=== PATIENT | male | born 1955 | race Caucasian/White ===

== ENCOUNTER 2023-05-10 12:01 | Outpatient (OUT) | payer MEDICARE, SELFPAY ==
[2023-05-10 13:38] LABS: Prostate Specific Antigen Dx <0.13 ng/mL (<=4.00)
== END 2023-05-10 12:02 | disposition home or self-care (01) ==
LOC: LAB 12:06
PROVIDERS: PCP Internal Medicine
DX: C61 Malignant neoplasm of prostate (principal)
CPT/HCPCS: 36415; 84153

== ENCOUNTER 2023-09-09 13:03 | Outpatient (OUT) | payer MEDICARE, SELFPAY ==
[2023-09-09 14:38] LABS: Prostate Specific Antigen Dx <0.13 ng/mL (<=4.00)
== END 2023-09-09 13:04 | disposition home or self-care (01) ==
LOC: LAB 13:05
PROVIDERS: PCP Internal Medicine; Visit Provider Urology
DX: N40.1 Benign prostatic hyperplasia with lower urinary tract symptoms (principal); C61 Malignant neoplasm of prostate
CPT/HCPCS: 36415; 84153

== ENCOUNTER 2023-11-05 12:44 | Outpatient (OUT) | payer MEDICARE, SELFPAY ==
--- OUTSIDE RECORDS SUMMARY | 2023-11-05 12:47 | XMS_ITS | CCD ---
Author Name Unknown Address [address] [place] [address] Organization [facility] Care Team Providers Care Band Manager Name Role Phone DANII MALDONADO Unavailable Unavailabl e ERNIE ELLIOTT Unavailable Unavailable JACQUELYN MAURER Attending Unavailable EARL, ERNIE Primary Care Unavailable EARL, ERNIE Referring Unavailable JACQUELYN MAURER Admitting Unavailable ERNIE ELLIOTT JR Primary Care Physician TANISHA ., DR MCPHERSON Admitting Unavailable TRINIDAD ., DR MCPHERSON Consulting Unavailable TRINIDAD ., DR MCPHERSON Attending Unavailable VALTSERING, DR DURANT Primary Care Unavailable ENGELER, DR JUDAH Herrera Consulting Unavailable ZIEBER, DR MAIKEL Galicia Consulting Unavailable SHARP, YONI Consulting Unavailable GEMBUS, GENESIS Consulting Unavailable TRINIDAD ., DR MCPHERSON Admitting Unavailable TRINIDAD ., DR MCPHERSON Consulting Unavailable VALONE, DR DURANT Primary Care Unavailable TRINIDAD ., DR MCPHERSON Attending Unavailable AGUBOSIM, MENDOZA Consulting Unavailable LANGENBERG, JUAN CARLOS Consulting Unavailable TRINIDAD ., DR MCPHERSON Admitting Unavailable TRINIDAD ., DR MCPHERSON Attending Unavailable VALONE, DR DURANT Primary Care Unavailable TRINIDAD ., DR MCPHERSON Attending Unavailable TRINDIAD ., DR MCPHERSON Admitting Unavailable TRINIDAD ., DR MCPHERSON Consulting Unavailable VALONE, DR DURANT Primary Care Unavailable ZIEBLUCAS, DR MAIKEL Galicia Consulting Unavailable CARTER, DR NGOZI Cannon Consulting Unavailable VALONE, DR DURANT Primary Care Unavailable CARTER, DR NGOIZ Cannon Attending Unavailable CARTER, DR NGOZI Cannon Admitting Unavailable TRINIDAD ., DR MCPHERSON Consulting Unavailable TRINIDAD ., DR MCPHERSON Attending Unavailable VALONE, DR DURANT Primary Care Unavailable TRINIDAD ., DR MCPHERSON Admitting Unavailable VALONE, DR DURANT Primary Care Unavailable SAMSA ., JOLEEN Attending Unavailable ZIYSABEL, DR MAIKEL Galicia Consulting Unavailable SAMSA ., JOLEEN Admitting Unavailable SAMSA ., JOLEEN Consulting Unavailable TRINIDAD ., DR MCPHERSON Admitting Unavailable TRINIDAD ., DR MCPHERSON Consulting Unavailable TRINIDAD ., DR MCPHERSON Attending Unavailable VALONE, DR DURANT Primary Care Unavailable YUNIEL ., ITZ Attending Unavailable YUNIEL ., ITZ Admitting Unavailable VALONE, DR DURANT Primary Care Unavailable YUNIEL ., ITZ Consulting Unavailable TRINIDAD ., DR MCPHERSON Admitting Unavailable TRINIDAD ., DR MCPHERSON Consulting Unavailable VALONE, DR DURANT Primary Care Unavailable TRINIDAD ., DR MCPHERSON Attending Unavailable TRINIDAD ., DR MCPHERSON Consulting Unavailable TRINIDAD ., DR MCPHERSON Attending Unavailable VALONE, DR DURANT Primary Care Unavailable TRINIDAD ., DR MCPHERSON Admitting Unavailable WEST, DR SANIA Mccauley Consulting Unavailable TRINIDAD ., DR MCPHERSON Admitting Unavailable TRINIDAD ., DR MCPHERSON Consulting Unavailable TRINIDAD ., DR MCPHERSON Attending Unavailable VALONE, DR DURANT Primary Care Unavailable ZIEBER, DR MAIKEL Galicia Consulting Unavailable VELASQUEZFRANCES Consulting Unavailable Raul, Ngozi Attending Unavailable Raul, Ngozi Referring Unavailable Earl Jr, Dr. Ernie Romero Primary Care Jes vailable Earl, Ernie Ogden Unavailable Unavailable Unavailable Wayne TRINIDAD Attending Unavailable TRINIDAD, Wayne Galicia Attending Unavailable TRINIDAD, Wayne Galicia Attending Unavailable Andressa Quigley Attending Unavailable TRINIDAD, Wayne Galicia Attending Unavailable TRINIDAD, Wayne Galicia Attending Unavailable TRINIDAD, Wayne Galicia Attending Unavailable Allergies Allergy Classification Reported Allergen(s) Allergy Type Date of Onset Reaction(s) Facility (1 source) Ramipril Drug Allergy 2 [facility] Repository (1 source) No Known Medication Allergies; 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: [No Known Medication Allergies] Propensity to adverse reactions (disorder) [facility] Repository Medications Current Medications Medication Drug Class(es) Dates Sig (Normalized) Sig (Original) Aspirin (7 sources) Platelet Aggregation Inhibitor, Nonsteroidal Anti-inflammatory Drug Start: 08-27-2019 aspirin 81 mg, Refills(s) 0 Start Date: 08/27/19 Status: Ordered take 1 tablet by mouth once luis y Aspirin 81 MG Oral Tablet Delayed Release TAKE 1 TABLET DAILY. Quantity: 90 Refills: 3 Ordered: 08-Apr-2023 Ngozi Carter MD Active atorvastatin 10 mg oral tablet (6 sources) HMG-CoA Reductase Inhibitor Start: 03-27-2021 take 1 mg by mouth once daily atorvastatin 10 mg Tab mg tab(s), Oral, Daily, Refills(s) 0 Start Date: 03/27/21 Status: Ordered ezetimibe 10 mg oral tablet (3 sources) Dietary Cholesterol Absorption Inhibitor Start: 10-29-2022 ezetimibe 10 mg Tab Refills(s) 0 Start Date: 10/29/22 Status: Ordered irbesartan (6 sources) Angiotensin 2 Receptor Genet Start: 08-27-2019 irbesartan Oral, Daily, Refills(s) 0 Start Date: 08/27/19 Status: Ordered metFORMIN (7 sources) Biguanide Start: 08-27-2019 metformin Oral , Refills(s) 0 Start Date: 08/27/19 Status: Ordered take 1 tablet by dimitry th once daily at mealtime metFORMIN HCl - 1000 MG Oral Tablet TAKE 1 TABLET DAILY WITH FOOD. Quantity: 0 Refills: 0 Ordered: 08-Mar-2022 DO Active montelukast 10 mg oral tablet (4 sources) Leukotriene Receptor Antagonist Start: 10-29-2022 montelukast 10 mg Tab Refills(s) 0 Start Date: 10/29/22 Status: Ordered Teagan (3 sources) Start: 08-27-2019 Teagan Oral, Da diana, Refills(s) 0 Start Date: 08/27/19 Status: Ordered Daliresp (7 sources) Phosphodiesterase 4 Inhibitor Start: 08-27-2019 Daliresp Oral, Daily, Refills(s) 0 Start Date: 08/27/19 Status: Ordered take 1 tablet by mouth once luis y Daliresp 500 MCG Oral Tablet TAKE 1 TABLET DAILY DIRECTED. Quantity: 0 Refills: 0 Ordered: 08-Mar-2022 DO Active spironolactone 50 mg oral tablet (4 sources) Aldosterone Antagonist Start: 10-29-2022 spironolactone 50 mg Tab Refills(s) 0 Start Date: 10/29/22 Status: Ordered Trelegy Ellipta 100 mcg-62.5 mcg-25 mcg inhalation powder (3 sources) Start: 10-29-2022 Trelegy Ellipta 100 mcg-62.5 mcg-25 mcg inhalation powder Refills(s) 0 Start Date: 10/29/22 Status: Ordered valsartan 40 mg oral tablet (3 sources) Angiotensin 2 Receptor Genet Start: 03-27-2021 take 1 mg by mouth twice daily valsartan 40 mg Tab mg tab(s), Oral, BID, Refills(s) 0 Start Date: 03/27/21 Status: Ordered Vitamin D (6 sources) Start: 08-27-2019 Vitamin D Oral, Refills(s) 0 Start Date: 08/27/19 Status: Ordered Completed/Discontinued Medications Medication Drug Class(es) Dates Sig (Normalized) Sig (Original) empagliflozin 10 mg oral tablet (1 source) Sodium-Glucose Cotransporter 2 Inhibitor take 1 tablet by mouth every week Jardiance 10 MG Oral Tablet TAKE 1 TABLET BY MOUTH ONCE A WEEK Quantity: 90 Refills: 3 Ordered: 08-Apr-2023 DO Active famotidine 40 mg oral tablet (1 source) Histamine-2 Receptor Antagonist take 1 tablet by mouth once daily Famotidine 40 MG Oral Tablet TAKE 1 TABLET DAILY. Quantity: 90 Refills: 3 Ordered: 08-Apr-2023 DO Active 30 actuat fluticasone furoate 0.1 mg/actuat / umeclidinium 0.0625 mg/actuat / vilanterol 0.025 mg/actuat dry powder inhaler (1 source) Anticholinergic, Corticosteroid, beta2-Adrenergic Agonist Trelegy Ellipta 100-62.5-25 MCG/ACT Inhalation Aerosol Powder Breath Activated as directed Quantity: 0 Refills: 0 Ordered: 08-Apr-2023 DO Active rosuvastatin calcium 40 mg oral tablet (1 source) HMG-CoA Reductase Inhibitor take 1 tablet by mouth once daily Rosuvastatin Calcium 40 MG Oral Tablet TAKE 1 TABLET DAILY. Quantity: 90 Refills: 3 Ordered: 08-Apr-2023 Ngozi Carter MD Active tiotropium 0.018 mg inhalation powder (3 sources) Anticholinergic Start: 08-27-2019 Spiriva 18 mcg Cap 18 microgram = 1 cap(s), Inhalation, Daily, Using only ONE capsule, have the patient inhale twice, # 90 cap(s), Refills(s) 0 Start Date: 08/27/19 Status: Ordered Start: 08-27-2019 Spiriva 18 mcg Cap 18 microgram = 1 cap(s), Inhalation, Daily, Using only ONE capsule, have the patient inhale twice, # 90 cap(s), Refills(s) 0 Start Date: 08/27/19 Status: Ordered Problems Active Problems Problem Classification Problem Date Documented Date Episodic/Chronic Cancer of prostate (17 sources) Malignant neoplasm of prostate; 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: [Malignant tumor of prostate] Onset: 02-16-2022 Chronic Chronic kidney disease (1 source) Chronic kidney disease, unspecified; 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: [CHRONIC KIDNEY DISEASE UNSPECIFIED] Onset: 10-01-2022 Chronic Chronic obstructive pulmonary disease and bronchiectasis (8 sources) Chronic obstructive lung disease; 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: [Chronic obstructive pulmonary disease, unspecified] Onset: 10-02-2022 08-27-2019 Chronic Congestive heart failure; nonhypertensive (1 source) Heart failure, unspecified; 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: [HEART FAILURE UNSPECIFIED] Onset: 10-01-2022 Chronic Coronary atherosclerosis and other heart disease (6 sources) Atherosclerotic heart disease of [place] coronary artery without angina pectoris; 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: [Coronary arteriosclerosis] Onset: 03-27-2018 Chronic Diabetes mellitus with complications (1 source) Type 2 diabetes mellitus with diabetic chronic kidney disease; 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: [TYPE 2 DM W/DIABETIC CKD] Onset: 10-01-2022 Chronic Diabetes mellitus without complication (2 sources) Type 2 diabetes mellitus without complications; 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: [Type 2 diabetes mellitus] Onset: 10-02-2022 Chronic Diabetes mellitus without complication (6 sources) Glycosuria 08-27-2019 Episodic Disorders of lipid metabolism (9 sources) Hyperlipidemia; 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: [Pure hypercholesterolemia, unspecified] Onset: 03-22-2022 08-27-2019 Chronic Essential hypertension (2 sources) Essential (primary) hypertension; 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: [Essential hypertension] Onset: 10-02-2022 Chronic Genitourinary symptoms and ill-defined conditions (16 sources) Increased frequency of urination; 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: [Nocturia] Onset: 09-29-2022 08-27-2019 Episodic Hyperplasia of prostate (17 sources) Benign prostatic hypertrophy with outflow obstruction; 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: [Benign prostatic hyperplasia with lower urinary tract symptoms] Onset: 02-14-2022 Chronic Hypertension with complications and secondary hypertension (1 source) Hypertensive heart and chronic kidney disease with heart failure and stage 1 through stage 4 chronic kidney disease, or unspecified chronic kidney disease; 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: [HTN HRT CKD W/HF STAGE 1-4/UNS CKD] Onset: 10-01-2022 Chronic Other diseases of kidney and ureters (1 source) Urinary tract obstruction; 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: [Other obstructive and reflux uropathy] Onset: 02-16-2022 Episodic Other liver diseases (1 source) Elevated liver enzymes level; 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: [Other nonspecific abnormal serum enzyme levels] Episodic Other nutritional; endocrine; and metabolic disorders (1 source) Obesity; 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: [Obesity, unspecified] Chronic Other screening for suspected conditions (not mental disorders or infectious disease) (12 sources) Raised prostate specific antigen; 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: [Elevated prostate specific antigen [PSA]] Onset: 02-08-2022 Episodic Pneumonia (except that caused by tuberculosis or sexually transmitted disease) (6 sources) Pneumonia 08-27-2019 Episodic Residual codes; unclassified (1 source) Sleep apnea, unspecified; 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: [SLEEP APNEA UNSPECIFIED] Onset: 10-01-2022 Chronic Residual codes; unclassified (1 source) Sleep apnea; 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: [Unspecified sleep apnea] Chronic Residual codes; unclassified (6 sources) H/O: anticoagulant therapy 08-27-2019 Episodic Respiratory failure; insufficiency; arrest (adult) (1 source) Dependence on supplemental oxygen; 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: [DEPENDENCE ON SUPPLEMENTAL OXYGEN] Onset: 10-01-2022 Chronic Screening and history of mental health and substance abuse codes (6 sources) Tobacco use and exposure - finding 08-27-2019 Chronic Screening and history of mental health and substance abuse codes (6 sources) Personal history of nicotine dependence; 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: [Ex-smoker] Onset: 10-01-2022 Episodic Unclassified (2 sources) Athscl heart disease of [place] coronary artery w/o ang pctrs / I25.10(ICD-9) Onset: 03-27-2018 Unclassified (6 sources) Long-term current use of aspirin 11-20-2021 Unclassified (1 source) CONTACT W/AND (SUSP) EXPOS COVID-19; 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: [CONTACT W/AND (SUSP) EXPOS COVID-19] Onset: 09-24-2022 Past or Other Problems Problem Classification Problem Date Documented Date Episodic/Chronic Complication of device; implant or graft (1 source) Other mechanical complication of other urinary catheter, initial encounter; 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: [OTHER MECH COMP OTH URIN CATH INIT] Onset: 10-01-2022 Episodic Other aftercare (1 source) Other penitentiary (current) drug therapy; 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: [OTH AIR OPERATIONS MANAGER CURRENT DRUG THERAPY] Onset: 10-01-2022 Episodic Other aftercare (1 source) director long term care (current) use of aspirin; 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: [SKILLED NURSING CURRENT USE OF ASPIRIN] Onset: 10-01-2022 Episodic Other aftercare (1 source) senior care (current) use of anticoagulants; 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: [SKILLED NURSING CURRNT USE ANTICOAGULANTS] Onset: 10-02-2022 Episodic Other aftercare (1 source) senior care (current) use of oral hypoglycemic drugs; 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: [AIR OPERATIONS MANAGER USE ORAL HYPOGLYCEMIC DX] Onset: 10-02-2022 Episodic Other male genital disorders (1 source) Other specified disorders of prostate; 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: [OTHER SPECIFIED DISORDERS PROSTATE] Onset: 02-14-2022 Episodic Residual codes; unclassified (1 source) Other specified postprocedural states; 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: [OTH SPECIFIED POSTPROCEDURAL STATES] Onset: 10-01-2022 Episodic Results Test Name Value Interpretation Reference Range Facil ity Patient Educationon 09-16-20 Patient Education Oncology Prostate Cancer The prostate is a small gland that produces fluid that makes up semen (seminal fluid). It is located below the bladder in men, in front of the rectum. Prostate cancer is the abnormal growth of cells in the prostate gland. What are the causes? The exact cause of this condition is not known. What increases the risk? You are more likely to develop this condition if: ? You are 65 years of age or older. ? You have a family history of prostate cancer. ? You have a family history of breast and ovarian cancer. ? You have genes that are passed from parent to child (inherited), such as BRCA1 and BRCA2. ? You have Hurt syndrome. men and men of descent are diagnosed with prostate cancer at higher rates than other men. The reasons for this are not well understood and are likely due to a combination of genetic and environmental factors. What are the signs or symptoms? Symptoms of this condition include: ? Problems with urination. This may include: ? A weak or interrupted flow of urine. ? Trouble starting or stopping urination. ? Trouble emptying the bladder all the way. ? The need to urinate more often, especially at night. ? Blood in urine or semen. ? Persistent pain or discomfort in the lower back, lower abdomen, or hips. ? Trouble getting an erection. ? Weakness or numbness in the legs or feet. How is this diagnosed? This condition can be diagnosed with: ? A digital rectal exam. For this exam, a health care provider inserts a gloved finger into the rectum to feel the prostate gland. ? A blood test called a prostate-specific antigen (PSA) test. ? A procedure in which a sample of tissue is taken from the prostate and checked under a microscope (prostate biopsy). ? An imaging test called transrectal ultrasonography. Once the condition is diagnosed, tests will be done to determine how far the cancer has spread. This is called staging the cancer. Staging may involve imaging tests, such as a bone scan, CT scan, PET scan, or MRI. Stages of prostate cancer The stages of prostate cancer are as follows: ? Stage 1 (I). At this stage, the cancer is found in the prostate only. The cancer is not visible on imaging tests, and it is usually found by accident, such as during prostate surgery. ? Stage 2 (II). At this stage, the cancer is more advanced than it is in stage 1, but the cancer has not spread outside the prostate. ? Stage 3 (III). At this stage, the cancer has spread beyond the outer layer of the prostate to nearby tissues. The cancer may be found in the seminal vesicles, which are near the bladder and the prostate. ? Stage 4 (IV). At this stage, the cancer has spread to other parts of the body, such as the lymph nodes, bones, bladder, rectum, liver, or lungs. Prostate cancer grading Prostate cancer is also graded according to how the cancer cells look under a microscope. This is called the Kenan score and the total score can range from 6?10, indicating how likely it is that the cancer will spread (metastasize) to other parts of the body. The higher the score, the greater the likelihood that the cancer will spread. ? [place] 6 or lower: This indicates that the cancer cells look similar to normal prostate cells (well differentiated). ? [place] 7: This indicates that the cancer cells look somewhat similar to normal prostate cells (moderately differentiated). ? [place] 8, 9, or 10: This indicates that the cancer cells look very different than normal prostate cells (poorly differentiated). How is this treated? Treatment for this condition depends on several factors, including the stage of the cancer, your age, personal preferences, and your overall health. Talk with your health care provider about treatment options that are recommended for you. Common treatments include: ? Observation for early stage prostate cancer (active surveillance). This involves having exams, blood tests, and in some cases, more biopsies. For some men, this is the only treatment needed. ? Surgery. Types of surgeries include: ? Open surgery (radical prostatectomy). In this surgery, a larger incision is made to remove the prostate. ? A laparoscopic radical prostatectomy. This is a surgery to remove the prostate and lymph nodes through several small incisions. It is often referred to as a minimally invasive surgery. ? A robotic radical prostatectomy. This is laparoscopic surgery to remove the prostate and lymph nodes with the help of robotic arms that are controlled by the surgeon. ? Cryoablation. This is surgery to freeze and destroy cancer cells. ? Radiation treatment. Types of radiation treatment include: ? External beam radiation. This type aims beams of radiation from outside the body at the prostate to destroy cancerous cells. ? Brachytherapy. This type uses radioactive needles, seeds, wires, or tubes that are implanted into the prostate gland. Like external be (more content not included)... Normal [facility] Urology Office/Clinic Noteon 09-16-2023 Urology Office/Clinic Note Chief Complaint prostate cancer HPI Staff 8m PSA DX: Prostate Cancer, Nocturia & BPH S/P EBRT 08/01/22 to 09/04/22 & Brachytherapy 09/27/22. Last Lupron 01/14/23 (per last encounter, pt's last Lupron) Last encounter with Dr. Love on 11/08/22. *No Urology Meds (pt prescribed Flomax, never picked up) PSA 09/09/23- <0.13 Dysuria: no Incomplete bladder emptying: no Hematuria: no Frequency: no Urgency: no Nocturia: 3-4x since radiation Stream: good stream Leaking: no Post void dripping: no Wearing pads/ Depends: no Urge incontinence: no Stress incontinence: no Incontinence without Sensory Awareness: no Abdominal pain: no Flank pain: no Sexual complaints: no History of Present Illness Tests reviewed: reviewed PSA I have reviewed the previous health record information and history for this patient from Dr. Trinidad. I have reviewed and verified the staff HPI to be accurate for this encounter. Review of Systems PHQ Score Initial Depression Screen Score: 0 SCORE ROS - Provider Constitutional: denies weight loss, denies hot flashes. Eyes: denies eye problems. Gastrointestinal: denies nausea, denies vomiting. Cardiovascular: denies chest pain or angina. Integumentary: no dryness Musculoskeletal: denies musculoskeletal symptoms. ENMT: denies otolaryngeal symptoms. Respiratory: no shortness of breath. Heme/Lymph: denies easy bleeding tendency, denies easy bruising tendency. Psychiatric: no confusion, no anxiety. Genitourinary: See HPI. Physical Exam Vitals & Measurements HR: 65(Peripheral) RR: 16 BP: 131/71 HT: 72 in HT: 182 cm WT: 113.6 kg WT: 249.92 lb BMI: 34.3 General Appearance: alert, no distress, well nourished, well developed male. Genitourinary: normal scrotum, normal testes, normal urethra, normal epididymis, normal vas deferens/spermatic cord. Flank Pain: none. Bladder: nonpalpable. Assessment/Plan 1. Prostate cancer (C61: Malignant neoplasm of prostate) PSA 03/28/20 - 14.90 & 5.5% 02/27/21 - 17.52 09/20/21 - 18.39 06/11/22 - 18.77 01/07/23 - <0.13 09/09/23 - <0.13 Fusion bx 02/08/22 - GS 7 (3+4) in 1 core and GS 6 (3+3) in 1 core. GG 2. EBRT 08/01/22 - 09/04/22. Brachytherapy 09/27/22. First Lupron given 07/23/22. Most recent Lupron given 01/14/23. Last encounter with Dr. Love 02/2023 and has f/u with him in 11/2023. Discussed recent PSA level which remains low and undetectable even with most recent Lupron inj being over 6 mos ago. No indication for Lupron injections at this time. Will continue to monitor PSA. -PSA in 6mo 2. Nocturia (R35.1: Nocturia) 3-4x/night since seeds (1x). [1] States this may be attributed to increased fluid intake at night. 3. BPH with urinary obstruction (N40.1: Benign prostatic hyperplasia with lower urinary tract symptoms) Not currently taking any BPH meds. No sample provided for UA today. Voiding well wo complaints. Follow-up With When Contact Information TANISHA GILL, Wayne Galicia, URL [facility] [address] [place] [address] [phone] Additional Instructions: 6 mos w/ PSA Patient Education Prostate Cancer I, Guera Oswald, personally scribed for Dr. Trinidad on 09/16/2023 14:40:01. . Documentation recorded by the scribe, Guera Oswald, accurately reflects the services(s) I performed and decisions made by me. Authenticated by Dr. Trinidad on 09/16/2023 14:41:32. 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 Medications aspirin, 81 mg atorvastatin 10 mg Tab, Oral, Daily Daliresp, Oral, Daily ezetimibe 10 mg Tab irbesartan, Oral, Daily metformin, Oral montelukast 10 mg Tab spironolactone 50 mg Tab Trelegy Ellipta 100 mcg-62.5 mcg-25 mcg inhalation powder Vitamin D, Oral Allergies No Known Medication Allergies Social History Tobacco Former smoker, quit more than 30 days ago Tobacco Use:. Cigarettes, 10/29/2022 Family History Diabetes: Father. Heart disease: Father. Immunizations Vaccine Date Status Comments SARS-CoV-2 (COVID-19) [id number] 07/05/2022 Recorded 2022-10-29: [id number] SARS-CoV-2 (COVID-19) mRNA BNT-162b2 vax 08/15/2021 Recorded SARS-CoV-2 (COVID-19) mRNA BNT-162b2 vax 01/23/2021 Recorded SARS-CoV-2 (COVID-19) mRNA BNT-162b2 vax 01/10/2021 Recorded SARS-CoV-2 (COVID-1 (more content not included)... [facility] Comment on above: Result Comment: Electronically Signed By : Wayne TRINIDAD MD\.br\Date and Time Signed: 09/16/23 14:41 EST\.br\Electronically Co-Signed By: Guera Oswald\.br\Date and Time Co-Signed: 09/16/23 14:40 EST [facility] 09-10-2023 Lab Reports [id number] .[id number] [facility] Office Visit (Cardiology)on 04-08-2023 Follow-up visit Diagnoses/Problems Assessed Arteriosclerosis of coronary artery (414.00) (I25.10) COPD (chronic obstructive pulmonary disease) (496) (J44.9) Dyslipidemia (272.4) (E78.5) Essential hypertension (401.9) (I10) Sleep apnea (780.57) (G47.30) Type 2 diabetes mellitus (250.00) (E11.9) Class 1 obesity with body mass index (BMI) of 33.0 to 33.9 in adult (278.00,V85.33) (E66.9,Z68.33) Former smoker (V15.82) (Z87.891) Prostate cancer (185) (C61) Orders Arteriosclerosis of coronary artery Changed: From Aspirin EC 81 MG TBEC TAKE 1 TABLET DAILY To Aspirin 81 MG Oral Tablet Delayed Release TAKE 1 TABLET DAILY Arteriosclerosis of coronary artery, Dyslipidemia Renew: Rosuvastatin Calcium 40 MG Oral Tablet; TAKE 1 TABLET DAILY Class 1 obesity with body mass index (BMI) of 33.0 to 33.9 in adult Healthy Weight Tips; Status:Complete - Retrospective Authorization; Done: 08Apr2023 Some eating tips that can help you lose weight.; Status:Complete - Retrospective Authorization; Done: 08Apr2023 SocHx: Former smoker Tobacco Use Screening; Status:Complete; Done: 08Apr2023 Patient Instructions Please bring all medicines, vitamins, and herbal supplements with you when you come to the office. Prescriptions will not be filled unless you are compliant with your follow up appointments or have a follow up appointment scheduled as per instruction of your physician. Refills should be requested at the time of your visit. Follow up in 1 year. Same meds. Lab as scheduled Chief Complaint SHERON ERAZO is being seen for an annual follow-up of. Patient is in the office for follow-up for the problems noted below. Since he was last seen in the office year ago he has had no cardiac events but he was diagnosed with prostate cancer received radiation and implants. He had an EKG by his PCP January 2023 which I reviewed and was normal. His weight remains above target and his physical examination otherwise was abnormal for diminished breath sounds caused by COPD. Assessment/recommenda tions: 1?mild coronary artery disease by cardiac catheterization involving the LAD normal 40% based on the catheter in 2017. Emphasized the need for secondary prevention measures which I listed and discussed with the patient. 2?diabetes under the care of PCP. A1c less than 7 3?hypertension being monitored on medical therapy with ARB valsartan 4?hyperlipidemia on rosuvastatin, testing scheduled this coming June 5?COPD Presently it is stable. He quit smoking 2 years ago 6?moderate obesity, his weight is coming down with exercise and dieting. 7?prostate cancer status post seeds implants in remission Annual follow-up will be scheduled Surgical History Problems History of Complete colonoscopy History of Jaw surgery History of Tonsillectomy with adenoidectomy Current Meds Medication NameInstruction Aldactone 50 MG Oral TabletTAKE 1 TABLET DAILY. Aspirin EC 81 MG TBECTAKE 1 TABLET DAILY. Daliresp 500 MCG Oral TabletTAKE 1 TABLET DAILY DIRECTED. Famotidine 40 MG Oral TabletTAKE 1 TABLET DAILY. Jardiance 10 MG Oral TabletTAKE 1 TABLET BY MOUTH ONCE A WEEK metFORMIN HCl - 1000 MG Oral TabletTAKE 1 TABLET DAILY WITH FOOD. Rosuvastatin Calcium 40 MG Oral TabletTAKE 1 TABLET DAILY. Singulair 10 MG Oral TabletTAKE 1 TABLET AT BEDTIME. Trelegy Ellipta 100-62.5-25 MCG/ACT Inhalation Aerosol Powder Breath Activatedas directed Allergies Medication No Known Drug Allergies Recorded By: Viri Salas; 01/10/2022 9:34:36 AM Social History Problems Former smoker (V15.82) (Z87.891) No alcohol use No illicit drug use Occasional caffeine consumption Vitals Vital Signs Recorded: 08Apr2023 01:21PM Heart Rate78, R Radial Rryqdrrw212, LUE, Sitting Hconuswyj30, LUE, Sitting Height6 ft Tbqzjn853 lb BMI Zbfuamesnr95.09 kg/m2 BSA Calculated2.32 Tobacco Useb) No PHQ-2 #1. Over the last 2 weeks have you felt down, depressed or hopeless? (If yes, answer PHQ-9 below)No PHQ-2 #2. Over the last 2 weeks have you felt little interest or pleasure in doing things? (If yes, answer PHQ-9 below)No Falls Screening (Age 18+)a) No falls within the last year Physical Exam Constitutional: alert and in no acute distress. Neck: neck is supple, symmetric, trachea midline, no masses and no thyromegaly . Pulmonary: no increased work of breathing or signs of respiratory distress and Auscultation of the lungs revealed decreased breath sounds diffusely. Cardiovascular: carotid pulses 2+ bilaterally with no bruit , JVP was normal, no thrills , regular rhythm, normal S1 and S2, no murmurs , pedal pulses 2+ bilaterally and no edema . Abdomen: abdomen non-tender, no masses and no hepatomegaly . Skin: skin warm and dry, normal skin turgor . Psychiatric judgment and insight is normal and oriented to person, place and time . Signatures Electronically signed by : Ngozi Carter MD; Apr 08 2023 1:56PM EST (Author) Normal [facility] Tobacco Screening.on 023 Adult depression screening assessment No [facility] [address] DO Work Phone: Fall risk assessment a) No falls within the last year [facility] [address] DO Work Phone: Tobacco use status CP b) No [facility] [address] DO Work Phone: Lab Reportson 01-17-2023 Lab Reports [id number]:[address] [facility] Refillon 01-16-2023 Refill [id number] Sheron Erazo Jr. 1955 M Date Provider Department Center 01/16/2023 JACQUELYN JACOBSON [facility] No family history on file Reason for Visit and Comments: Med Refill [[id number]] Normal [facility] Patient Educationon 01-15-20 23 Patient Education Oncology Cancer Screening for Men A cancer screening is a test or exam that checks for cancer. Your health care provider will recommend specific cancer screenings based on your age, personal history, and family history of cancer. Work with your health care provider to create a cancer screening schedule that protects your health. Why is cancer screening done? Cancer screening is done to look for cancer in the very early stages, before it spreads and becomes harder to treat and before you would start to notice symptoms. Finding cancer early improves the chances of successful treatment. It may save your life. Who should be screened for cancer? All men should be screened for colorectal cancer and skin cancer. Your health care provider may recommend screenings for other types of cancer if: ? You had cancer before. ? You have a family member with cancer. ? You have abnormal genes that could increase the risk of cancer. ? You have risk factors for certain cancers, such as smoking. When you should be screened for cancer depends on: ? Your age. ? Your medical history and your family's medical history. ? Certain lifestyle factors, such as smoking. ? Environmental exposure, such as to asbestos. What are some common cancer screenings? Lung cancer Lung cancer screening is done with a CT scan that looks for abnormal cells in the lungs. Discuss lung cancer screening with your health care provider if you are 55?74 years old and if any of the following apply to you: ? You currently smoke. ? You used to smoke heavily. ? You have a smoking history of 1 pack a day for 30 years or 2 packs a day for 15 years. ? You have quit smoking within the past 15 years. If you smoke heavily or if you used to smoke, you may need to be screened every year. Prostate cancer Prostate cancer screening is done with blood tests and an exam in which a health care provider uses a gloved finger to check prostate size (digital rectal exam). You may need to be screened for prostate cancer if: ? You have risk factors of prostate cancer, such as being or having a close family member with prostate cancer. ? You have inherited gene changes or a genetic condition, including BRCA1 or BRCA2 gene mutations or Hurt syndrome. ? You have symptoms of prostate cancer, such as problems urinating or erectile dysfunction. Prostate cancer screening for men with average risk may start at age 50. Men with risk factors may need to be screened earlier at age 40?45. Once you have been screened for prostate cancer, future screening may be recommended based on the results of your blood tests. Colorectal cancer All adults should have screening for colorectal cancer starting at age 50 and continuing until age 75. Your health care provider may recommend screening at age 45. You will have tests every 1?10 years, depending on your results and the type of screening test. If you have a family history of colon or rectal cancer or other risk factors, you may need to start having screenings earlier. Talk with your health care provider about which screening test is right for you and how often you should be screened. Colorectal cancer screening looks for cancer or for growths called polyps that often form before cancer starts. Tests to look for cancer or polyps include: ? Colonoscopy or flexible sigmoidoscopy. For these procedures, a flexible tube with a small camera is inserted into the rectum. ? CT colonography. This test uses X-rays and a contrast dye to check the colon for polyps. If a polyp is found, you may need to have a colonoscopy so the polyp can be located and removed. Tests to look for cancer in the stool (feces) include: ? Guaiac-based fecal occult blood test (FOBT). This test detects blood in stool. It can be done at home with a kit. ? Fecal immunochemical test (FIT). This test detects blood in stool. For this test, you will need to collect stool samples at home. ? Stool DNA test. This test looks for blood in stool and any changes in DNA that can lead to colon cancer. For this test, you will need to collect a stool sample at home and send it to a lab. Skin cancer Skin cancer screening is done by checking the skin for unusual moles or spots and any changes in existing moles. Your health care provider should check your skin for signs of skin cancer at every physical exam. You should check your skin every month and tell your health care provider right away if anything looks unusual. Men with a zqbcql-xrgg-sbqpqs risk for skin cancer may want to see a school library media specialist (jig builder) for an annual body check. Where to find more information ? National Cancer [place]: https://www.cancer.go v/about-cancer/screen ing ? Centers for Disease Control and Prevention: https://www.cdc.gov/c amiraher/dcpc/prevention /screening.htm ? [place] [employer]: https://www.cancer.or g/latest-news/4-cance z-krckxtfxv-kvzgh-for -men.html Contact a health care (more content not included)... Normal [facility] Urology Office/Clinic Noteon 01-14-2023 Urology Office/Clinic Note Chief Complaint Pt is here for 3 mos f/u HPI Staff Pt is here for 3 mos f/u to prostate cancer - s/p [place] Seed Implant done 09/2022 - EBRT completed 08/2022. PSA done 01/07/23 0.13. Dysuria: No Incomplete bladder emptying: No Hematuria: No Frequency: No Urgency: No Nocturia: moderate - states he gets up 3-4 times per night since having seeds placed Stream: Good Leaking: No History of Present Illness Tests reviewed: reviewed UA, PSA. I have reviewed the previous health record information and history for this patient from Dr. Trinidad. I have reviewed and verified the staff HPI to be accurate for this encounter. There have been no associated fever, chills, flank pain, or blood in the urine. Denies any urinary infections since last encounter. Review of Systems PHQ Score Initial Depression Screen Score: 0 ROS - Provider Constitutional: denies weight loss, denies hot flashes. Eyes: denies eye problems. Gastrointestinal: denies nausea, denies vomiting. Cardiovascular: denies chest pain or angina. Integumentary: no dryness Musculoskeletal: denies musculoskeletal symptoms. ENMT: denies otolaryngeal symptoms. Respiratory: no shortness of breath. Heme/Lymph: denies easy bleeding tendency, denies easy bruising tendency. Psychiatric: no confusion, no anxiety. Genitourinary: See HPI. Physical Exam Vitals & Measurements HR: 72(Peripheral) RR: 16 BP: 138/84 HT: 72 in HT: 182 cm WT: 113 kg WT: 248.6 lb BMI: 34.11 General Appearance: alert, no distress, well nourished, well developed male. Genitourinary: normal scrotum, normal testes, normal urethra, normal epididymis, normal vas deferens/spermatic cord. Flank Pain: none. Bladder: nonpalpable. Assessment/Plan 1. Prostate cancer (C61: Malignant neoplasm of prostate) PSA: 03/28/20 - 14.90 & 5.5% 02/27/21 - 17.52 09/20/21 - 18.39 06/11/22 - 18.77 01/07/23 - 0.13 Fusion/bx done 02/08/22. Kenan 7 (3+4) in multiple cores and Kenan 6 (3+3). Grade group 2. Unfavorable intermediate risk group. EBRT 08/01/22 to 09/04/22. Brachytherapy 09/27/22. First/last Lupron given 07/23/22. Last encounter with Dr. Love on 11/08/22. Denies SEs from Lupron. PSA dropped to zero, will continue to monitor. Pt will receive Lupron today, it will be his last injection as of right now. Lupron 45 mgIM injection given today with no complications. Left glute. Pt. denies side effects at this time. Follow up 8 mos with PSA or sooner if needed. Pt understands and agrees with plan. 2. Nocturia (R35.1: Nocturia) 3-4x/night since seeds (1x). 3. BPH with urinary obstruction (N40.1: Benign prostatic hyperplasia with lower urinary tract symptoms) UA today negative for blood and infection. Started Flomax 0.4 mg qd at prior OV, never picked up this med. Denies blood, burning. Feels his urination has improved. Not voicing any urinary habit complaints today. Follow-up With When Contact Information TANISHA GILL, Wayne Galicia, URL [facility] [address], [place] [address]- Additional Instructions: 8 mos with PSA Patient Education Cancer Screening for Men I, Toyin Fournier, personally scribed for Dr. Trinidad on 01/14/2023 14:29:54. . Documentation recorded by the scribe, Toyin Fournier, accurately reflects the services(s) I performed and decisions made by me. Authenticated by Dr. Trinidad on 01/14/2023 14:34:53. 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 Medications aspirin, 81 mg atorvastatin 10 mg Tab, Oral, Daily Daliresp, Oral, Daily ezetimibe 10 mg Tab irbesartan, Oral, Daily Lupron Depot 45 mg/6 months intramuscular injection, extended release, 45 mg, IntraMuscular, Once metformin, Oral montelukast 10 mg Tab spironolactone 50 mg Tab Trelegy Ellipta 100 mcg-62.5 mcg-25 mcg inhalation powder Vitamin D, Oral Allergies No Known Medication Allergies Social History Tobacco Former smoker, quit more than 30 days ago Tobacco Use:. Cigarettes, 10/29/2022 Family History Diabetes: Father. Heart disease: Father. Immunizations Vaccine Date Status Comments SARS-CoV-2 (COVID-19) mRNAMUL.ORD![id number] 07/05/2022 Recorded 2022-10-29: TPV65 SARS-CoV-2 (COVID-19) mRNA BNT-162b2 vax 08/15/2021 Recorded SARS-CoV-2 (COVID-19) mRNA BNT-162b2 vax 01/23/2021 (more content not included)... [facility] Comment on above: Result Comment: Electronically Signed By : Wayne TRINIDAD MD\.br\Date and Time Signed: 01/14/23 14:34 EDT\.br\Electronically Co-Signed By: Toyin Fournier.br\Date and Time Co-Signed: 01/14/23 14:30 EDT Consultation Noteon 11-16-19 Consultation Note [id number]:127 [facility] Ambulatory Visit Summaryon 0 10-29-2022 Ambulatory Visit Summary SHERON ERAZO JR :1955 Visit Date:10/29/2022 Ambulatory Visit Instructions Your Diagnosis Prostate cancer BPH with urinary obstruction Nocturia Tests Performed Urnls Dip Stick Auto w/o Microscopy POC 53783 Your Care Team Attending Physician - Wayne TRINIDAD MD Primary Care Physician - ERNIE ELLIOTT JR, DO This Is Your Medications List Contact prescribing physician if questions or concerns aspirin atorvastatin (atorvastatin 10 mg Tab) ergocalciferol (Vitamin D) ezetimibe (ezetimibe 10 mg Tab) fluticasone/umeclidin ium/vilanterol (Trelegy Ellipta 100 mcg-62.5 mcg-25 mcg inhalation powder) irbesartan metformin montelukast (montelukast 10 mg Tab) roflumilast (Daliresp) spironolactone (spironolactone 50 mg Tab) Procedures Performed Brachytherapy of prostate using fluoroscopic guidance (09/27/2022), External beam radiation therapy procedure (09/04/2022), MRI-US fusion guided transrectal biopsy of prostate (02/08/2022), TRUS w/bx (04/29/2017), TRUS w/bx (01/12/2014), Cataract, Colonoscopy, heart cath, Tonsillectomy. Discharge Vitals Heart Rate (Peripheral) 68 Respiratory Rate 16 Blood Pressure 140/77 Height 182 cm Height 72 in Weight 111 kg Weight 244.2 lb BMI 33.51 What to do next Scheduled Follow-Up Appointments Saturday 1:15 PM EDT With: Wayne TRINIDAD MD Where: [facility] Normal [address] [place] [address] [place] [address]- \.br\ You Need to Schedule the Following Appointments\.br\ Follow Up with Wayne TRINIDAD MD, URL When: \.br\ Where:\.br\ [facility] [address]\.br\ [place] [address]-\.br\ Medications\.br\ What How Much When Instructions\.br\ Unchanged aspirin 81 Milligram Contact prescribing physician if questions or concerns \.br\ Unchanged atorvastatin (atorvastatin 10 mg Tab) By Mouth Every day Contact prescribing physician if questions or concerns \.br\ Unchanged ergocalciferol (Vitamin D) By Mouth Contact prescribing physician if questions or concerns \.br\ Unchanged ezetimibe (ezetimibe 10 mg Tab) Contact prescribing physician if questions or concerns \.br\ Unchanged fluticasone/ umeclidinium/ vilanterol (Trelegy Ellipta 100 mcg-62.5 mcg-25 mcg inhalation powder) Contact prescribing physician if questions or concerns \.br\ Unchanged irbesartan By Mouth Every day Contact prescribing physician if questions or concerns \.br\ Unchanged metformin By Mouth Contact prescribing physician if questions or concerns \.br\ Unchanged montelukast (montelukast 10 mg Tab) Contact prescribing physician if questions or concerns \.br\ Unchanged roflumilast (Daliresp) By Mouth Every day Contact prescribing physician if questions or concerns \.br\ Unchanged spironolactone (spironolactone 50 mg Tab) Contact prescribing physician if questions or concerns \.br\ Test Results\.br\ Urnls Dip Stick Auto w/o Microscopy POC 77890 (10/29/2022)\.br\ Bilirubin Urine Dipstick - Negative\.br\ Blood Urine Dipstick - 1+ Small\.br\ Glucose Urine Dipstick - Negative\.br\ Ketones Urine Dipstick - Negative\.br\ Leukocytes Urine Dipstick - Negative\.br\ Nitrite Urine Dipstick - Negative\.br\ Protein Urine Dipstick - Negative\.br\ Specific [place] Urine Dipstick - 1.015\.br\ Urine Appearance Urine Dipstick - Clear\.br\ Urine Color Urine Dipstick - Yellow\.br\ Urobilinogen Urine Dipstick - Normal 0.2-1 EU/dl\.br\ pH Urine Dipstick - 5.5\.br\ Allergies\.br\ No Known Medication Allergies\.br\ Problems\.br\ Ongoing - Any problem that you are currently receiving treatment for.\.br\ Aspirin long-term use\.br\ BPH with urinary obstruction\.br\ COPD (chronic obstructive pulmonary disease)\.br\ Elevated PSA\.br\ Frequency of urination\.br\ Glycosuria\.br\ Hx of penitentiary use of blood thinners\.br\ Hyperlipidemia\.br\ Nocturia\.br\ Personal history of smoking\.br\ Pneumonia\.br\ Prostate cancer\.br\ Education Materials\.br\ Benign Prostatic Hyperplasia\.br\ \.br\ Benign prostatic hyperplasia (BPH) is an enlarged prostate gland that is caused by the normal aging process and not by cancer. The prostate is a walnut-sized gland that is involved in the production of semen. It is located in front of the rectum and below the bladder. The bladder stores urine and the urethra is the tube that carries the urine out of the body. The prostate may get bigger as a man gets older.\.br\ An enlarged prostate can press on the urethra. This can make it harder to pass urine. The build-up of urine in the bladder can cause infection. Back pressure and infection may progress to bladder damage and kidney (renal) failure.\.br\ What are the causes?\.br\ This condition is part of a normal aging process. However, not all men develop problems from this condition. If the prostate enlarges away from the urethra, urine flow will not be blocked. If it enlarges toward the urethra and compresses it, there will be problems passing urine.\.br\ What increases the risk?\.br\ This condition is more likely to develop in men over the age of 50 years.\.br\ What are the signs or symptoms?\.br\ Symptoms of this condition include:\.br\ ? \.br\ Getting up often during the night to urinate.\.br\ ? \.br\ Needing to urinate frequently during the day.\.br\ ? \.br\ Difficulty starting urine flow.\.br\ ? \.br\ Decrease in size and strength of your urine stream.\.br\ ? \.br\ Leaking (dribbling) after urinating.\.br\ ? \.br\ Inability to pass urine. This needs immediate treatment.\.br\ ? \.br\ Inability to completely empty your bladder.\.br\ ? \.br\ Pain when you pass urine. This is more common if there is also an infection.\.br\ ? \.br\ Urinary tract infection (UTI).\.br\ How is this diagnosed?\.br\ This condition is diagnosed based on your medical history, a physical exam, and your symptoms. Tests will also be done, such as:\.br\ ? \.br\ A post-void bladder scan. This measures any amount of urine that may remain in your bladder after you finish urinating.\.br\ ? \.br\ A digital rectal exam. In a rectal exam, your health care provider checks your prostate by putting a lubricated, gloved finger into your rectum to feel the back of your prostate gland. This exam detects the size of your gland and any abnormal lumps or growths.\.br\ ? \.br\ An exam of your urine (urinalysis).\.br\ ? \.br\ A prostate specific antigen (PSA) screening. This is a blood test used to screen for prostate cancer.\.br\ ? \.br\ An ultrasound. This test uses sound waves to electronically produce a picture of your prostate gland.\.br\ Your health care provider may refer you to a specialist in kidney and prostate diseases (urologist).\.br\ How is this treated?\.br\ Once symptoms begin, your health care provider will monitor your condition (active surveillance or watchful waiting). Treatment for this condition will depend on the severity of your condition. Treatment may include:\.br\ ? \.br\ Observation and yearly exams. This may be the only treatment needed if your condition and symptoms are mild.\.br\ ? \.br\ Medicines to relieve your symptoms, including:\.br\ ? \.br\ Medicines to shrink the prostate.\.br\ ? \.br\ Medicines to relax the muscle of the prostate.\.br\ ? \.br\ Surgery in severe cases. Surgery may include:\.br\ ? \.br\ Prostatectomy. In this procedure, the prostate tissue is removed completely through an open incision or with a laparoscope or robotics.\.br\ ? \.br\ Transurethral resection of the prostate (TURP). In this procedure, a tool is inserted through the opening at the tip of the penis (urethra). It is used to cut away tissue of the inner core of the prostate. The pieces are removed through the same opening of the penis. This removes the blockage.\.br\ ? \.br\ Transurethral incision (TUIP). In this procedure, small cuts are made in the prostate. This lessens the prostate's pressure on the urethra.\.br\ ? \.br\ Transurethral microwave thermotherapy (TUMT). This procedure uses microwaves to create heat. The heat destroys and removes a small amount of prostate tissue.\.br\ ? \.br\ Transurethral needle ablation (TUNA). This procedure uses radio frequencies to destroy and remove a small amount of prostate tissue.\.br\ ? \.br\ Interstitial laser coagulation (ILC). This procedure uses a laser to destroy and remove a small amount of prostate tissue.\.br\ ? \.br\ Transurethral electrovaporization (TUVP). This procedure uses electrodes to destroy and remove a small amount of prostate tissue.\.br\ ? \.br\ Prostatic urethral lift. This procedure inserts an implant to push the lobes of the prostate away from the urethra.\.br\ Follow these instructions at home:\.br\ ? \.br\ Take bkbu-gvw-dpcqxvs and prescription medicines only as told by your health care provider.\.br\ ? \.br\ Monitor your symptoms for any changes. Contact your health care pro [facility] Patient Educationon 10-29-19 Patient Education Urology Benign Prostatic Hyperplasia Benign prostatic hyperplasia (BPH) is an enlarged prostate gland that is caused by the normal aging process and not by cancer. The prostate is a walnut-sized gland that is involved in the production of semen. It is located in front of the rectum and below the bladder. The bladder stores urine and the urethra is the tube that carries the urine out of the body. The prostate may get bigger as a man gets older. An enlarged prostate can press on the urethra. This can make it harder to pass urine. The build-up of urine in the bladder can cause infection. Back pressure and infection may progress to bladder damage and kidney (renal) failure. What are the causes? This condition is part of a normal aging process. However, not all men develop problems from this condition. If the prostate enlarges away from the urethra, urine flow will not be blocked. If it enlarges toward the urethra and compresses it, there will be problems passing urine. What increases the risk? This condition is more likely to develop in men over the age of 50 years. What are the signs or symptoms? Symptoms of this condition include: ? Getting up often during the night to urinate. ? Needing to urinate frequently during the day. ? Difficulty starting urine flow. ? Decrease in size and strength of your urine stream. ? Leaking (dribbling) after urinating. ? Inability to pass urine. This needs immediate treatment. ? Inability to completely empty your bladder. ? Pain when you pass urine. This is more common if there is also an infection. ? Urinary tract infection (UTI). How is this diagnosed? This condition is diagnosed based on your medical history, a physical exam, and your symptoms. Tests will also be done, such as: ? A post-void bladder scan. This measures any amount of urine that may remain in your bladder after you finish urinating. ? A digital rectal exam. In a rectal exam, your health care provider checks your prostate by putting a lubricated, gloved finger into your rectum to feel the back of your prostate gland. This exam detects the size of your gland and any abnormal lumps or growths. ? An exam of your urine (urinalysis). ? A prostate specific antigen (PSA) screening. This is a blood test used to screen for prostate cancer. ? An ultrasound. This test uses sound waves to electronically produce a picture of your prostate gland. Your health care provider may refer you to a specialist in kidney and prostate diseases (urologist). How is this treated? Once symptoms begin, your health care provider will monitor your condition (active surveillance or watchful waiting). Treatment for this condition will depend on the severity of your condition. Treatment may include: ? Observation and yearly exams. This may be the only treatment needed if your condition and symptoms are mild. ? Medicines to relieve your symptoms, including: ? Medicines to shrink the prostate. ? Medicines to relax the muscle of the prostate. ? Surgery in severe cases. Surgery may include: ? Prostatectomy. In this procedure, the prostate tissue is removed completely through an open incision or with a laparoscope or robotics. ? Transurethral resection of the prostate (TURP). In this procedure, a tool is inserted through the opening at the tip of the penis (urethra). It is used to cut away tissue of the inner core of the prostate. The pieces are removed through the same opening of the penis. This removes the blockage. ? Transurethral incision (TUIP). In this procedure, small cuts are made in the prostate. This lessens the prostate's pressure on the urethra. ? Transurethral microwave thermotherapy (TUMT). This procedure uses microwaves to create heat. The heat destroys and removes a small amount of prostate tissue. ? Transurethral needle ablation (TUNA). This procedure uses radio frequencies to destroy and remove a small amount of prostate tissue. ? Interstitial laser coagulation (ILC). This procedure uses a laser to destroy and remove a small amount of prostate tissue. ? Transurethral electrovaporization (TUVP). This procedure uses electrodes to destroy and remove a small amount of prostate tissue. ? Prostatic urethral lift. This procedure inserts an implant to push the lobes of the prostate away from the urethra. Follow these instructions at home: ? Take [id number] and prescription medicines only as told by your health care provider. ? Monitor your symptoms for any changes. Contact your health care provider with any changes. ? Avoid drinking large amounts of liquid before going to bed or out in public. ? Avoid or reduce how much caffeine or alcohol you drink. ? Give yourself time when you urinate. ? Keep all follow-up visits as told by your health care provider. This is important. Contact a health care provider if: ? You have unexplained back pain. ? Your symptoms do not get better with treatment. ? You d (more content not included)... Normal [facility] Urology Office/Clinic Noteon 10-29-2022 Urology Office/Clinic Note Chief Complaint S/P Brachytherapy HPI Staff S/P Brachytherapy done 09/27/22 for Tx of Prostate Cancer. Radiation Tx completed 09/04/22 LAST LUPRON Inj 07/23/22 *No Urology Medications Post Op catheter removed in our office on 10/03/22. Denies pain/burning and blood in urine. Denies any complaints urinating. History of Present Illness Tests reviewed: reviewed UA. I have reviewed the previous health record information and history for this patient from Dr. Trinidad. I have reviewed and verified the staff HPI to be accurate for this encounter. There have been no associated fever, chills, flank pain, or blood in the urine. Denies any urinary infections since last encounter. Review of Systems PHQ Score Initial Depression Screen Score: 0 ROS - Provider Constitutional: denies weight loss, denies hot flashes. Eyes: denies eye problems. Gastrointestinal: denies nausea, denies vomiting. Cardiovascular: denies chest pain or angina. Integumentary: no dryness Musculoskeletal: denies musculoskeletal symptoms. ENMT: denies otolaryngeal symptoms. Respiratory: no shortness of breath. Heme/Lymph: denies easy bleeding tendency, denies easy bruising tendency. Psychiatric: no confusion, no anxiety. Genitourinary: See HPI. Physical Exam Vitals & Measurements HR: 68(Peripheral) RR: 16 BP: 140/77 HT: 72 in HT: 182 cm WT: 111 kg WT: 244.2 lb BMI: 33.51 General Appearance: alert, no distress, well nourished, well developed male. Genitourinary: normal scrotum, normal testes, normal urethra, normal epididymis, normal vas deferens/spermatic cord. Flank Pain: none. Bladder: nonpalpable. Assessment/Plan 1. Prostate cancer (C61: Malignant neoplasm of prostate) PSA: 03/28/20 - 14.9 & 5.5% 02/27/21 - 17.52 09/20/21 - 18.39 06/11/22 - 18.77 S/p fusion/bx done 02/08/22. [place] 7 (3+4) in multiple cores and [place] 6 (3+3). S/P Brachytherapy done 09/27/22. PO catheter removed in our office on 10/03/22. Radiation Tx completed 09/04/22. Last Lupron given 07/23/22. UA today shows small blood, expected after PO brachytherapy procedure. Pt has not had a PSA since the procedure. Pt reports he is overall doing well after procedure. Denies urgency, burning, blood, feeling of incomplete bladder emptying. Occasional pt bogs up but once he relaxes, he is fine. Follow up in 2.5-3 mos with a PSA. 2. BPH with urinary obstruction (N40.1: Benign prostatic hyperplasia with lower urinary tract symptoms) Pt not taking any BPH medications. Denies pain/burning and blood in urine. Evening is the worst time for urination. Pt to start Flomax 0.4mg QD, take 1 hour before sxs usually worsen in the evening. SEs discussed. Rx sent to [facility] mail order (pt confirmed). 3. Nocturia (R35.1: Nocturia) Nocturia 1x/hour, drinks a lot of soda in the evening. Nocturia slightly more than before procedure. Stream best during the night. Follow-up With When Contact Information TANISHA GILL, Wayne Galicia, URL [facility] [address], [place] [address]- Additional Instructions: f/u in 2-3 mos with PSA Patient Education Benign Prostatic Hyperplasia I, Toyin Fournier, personally scribed for Dr. Trinidad on 10/29/2022 15:02:58. . Documentation recorded by the scribe, Toyin Fournier, accurately reflects the services(s) I performed and decisions made by me. Authenticated by Dr. Trinidad on 10/29/2022 15:04:26. Problem List/Past Medical History Ongoing Aspirin long-term use BPH with urinary obstruction COPD (chronic obstructive pulmonary disease) Elevated PSA Frequency of urination Glycosuria Hx of penitentiary use of blood thinners Hyperlipidemia Nocturia Personal history of smoking Pneumonia Prostate cancer Historical No qualifying data Procedure/Surgical History Brachytherapy of prostate using fluoroscopic guidance (09/27/2022), External beam radiation therapy procedure (09/04/2022), MRI-US fusion guided transrectal biopsy of prostate (02/08/2022), TRUS w/bx (04/29/2017), TRUS w/bx (01/12/2014), Cataract, Colonoscopy, heart cath, Tonsillectomy. Medications aspirin, 81 mg atorvastatin 10 mg Tab, Oral, Daily Daliresp, Oral, Daily ezetimibe 10 mg Tab irbesartan, Oral, Daily metformin, Oral montelukast 10 mg Tab spironolactone 50 mg Tab Trelegy Ellipta 100 mcg-62.5 mcg-25 mcg inhalation powder Vitamin D, Oral Allergies No Known Medication Allergies Social History Tobacco Former smoker, quit more than 30 days ago Tobacco Use:. Cigarettes, 10/29/2022 Family History Diabetes: Father. Heart disease: Father. Immunizations Vaccine Date Status Comments SARS-CoV-2 (COVID-19) mRNAMUL.ORD![id number] 07/05/2022 Recorded 2022-10-29: [id number] SARS-CoV-2 (COVID-19) mRNA BNT-162b2 vax 08/15/2021 Recorded SARS-CoV-2 (COVID-19) mRNA BNT-162b2 vax 01/23/2021 Recorded SARS-CoV-2 (COVID-19) mRNA BNT-162b2 vax 01/10/2021 Recorded SARS-CoV-2 (COV (more content not included)... Normal [facility] Comment on above: Result Comment: Electronically Signed By : Wayne TRINIDAD MD\.br\Date and Time Signed: 10/29/22 15:04 EST\.br\Electronically Co-Signed By: Toyin Fournier\.br\Date and Time Co-Signed: 10/29/22 15:[address] LUNG CANCER SCREENINGon 0 10-26-2022 CT LUNG CANCER SCREENING EXAMINATION: CT LUNG CANCER SCREENING HISTORY: Nicotine dependence COMPARISON: CTA chest 11/14/2021 TECHNIQUE: Axial, Coronal, and Sagittal images were created without the administration of IV contrast material. Dose reduction techniques were achieved by using automated exposure control and/or adjustment of mA and/or kV according to patient size and/or use of iterative reconstruction technique. FINDINGS: LUNGS: No visible pulmonary disease. PLEURA: No mass, effusion, or pneumothorax. VASCULATURE: No abnormality. CIELO: No mass or pathologic adenopathy. MEDIASTINUM: No mass or pathologic adenopathy. CARDIAC: Atherosclerotic coronary artery disease. AORTA: No aneurysm or dissection. CHEST WALL: Prominent increased density within the subareolar soft tissues bilaterally compatible with gynecomastia. BONES: No bone lesion or fracture. LIMITED ABDOMEN: No suspicious findings. Limited images of the upper abdomen. OTHER: Negative. IMPRESSION: 1. Lung-RADS Category 1 Negative. No nodules and definitely benign nodules. Continue annual screening with LDCT in 12 months. Electronically authenticated by: MAIKEL ESTEVEZ Date: 2022-10-26 15:22 Normal [facility] Refillon 10-15-2022 Refill [id number] Sheron Erazo Jr. 1955 M Date Provider Department Center 10/15/2022 [facility] ONC DCC No family history on file Reason for Visit and Comments: Med Refill [[id number]] Normal [facility] Ambulatory Visit Summaryon 1 12-04-2021 Ambulatory Visit Summary SHERON ERAZO JR :1955 Visit Date:10/03/2022 Ambulatory Visit Instructions Your Diagnosis Prostate cancer Your Care Team Attending Physician - Andressa Quigley MD Primary Care Physician - ERNIE ELLIOTT JR, DO This Is Your Medications List aspirin atorvastatin (atorvastatin 10 mg Tab) ergocalciferol (Vitamin D) irbesartan metformin predniSONE (Teagan) roflumilast (Daliresp) tiotropium (Spiriva 18 mcg Cap) valsartan (valsartan 40 mg Tab) Procedures Performed MRI-US fusion guided transrectal biopsy of prostate (02/08/2022), TRUS w/bx (04/29/2017), TRUS w/bx (01/12/2014), Cataract, Colonoscopy, heart cath, Tonsillectomy. What to do next Scheduled Follow-Up Appointments Saturday 1:30 PM EST With: TANISHA GILL, Wayne Galicia Where: [facility] Normal [address] [place] [address]- \.br\ Medications\.br\ What How Much When Instructions\.br\ Unchanged aspirin 81 Milligram\.br\ Unchanged atorvastatin (atorvastatin 10 mg Tab) By Mouth Every day\.br\ Unchanged ergocalciferol (Vitamin D) By Mouth\.br\ Unchanged irbesartan By Mouth Every day\.br\ Unchanged metformin By Mouth\.br\ Unchanged predniSONE (Teagan) By Mouth Every day\.br\ Unchanged roflumilast (Daliresp) By Mouth Every day\.br\ Unchanged tiotropium (Spiriva 18 mcg Cap) 1 Capsules Inhalation Every day Using only ONE capsule, have the patient inhale twice \.br\ Unchanged valsartan (valsartan 40 mg Tab) By Mouth 2 times a day\.br\ Allergies\.br\ No Known Medication Allergies\.br\ Problems\.br\ Ongoing - Any problem that you are currently receiving treatment for.\.br\ Aspirin long-term use\.br\ BPH with urinary obstruction\.br\ COPD (chronic obstructive pulmonary disease)\.br\ Elevated PSA\.br\ Frequency of urination\.br\ Glycosuria\.br\ 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 Nurse Consultation Noteon Nurse Consultation Note Reason for Visit Post Op Catheter removed in our office today with no complications. They have been advised to drink plenty of fluids. Pt has been instructed to call the office in the event that they are not able to void in the next 4-6 hours, or go the ER. Advised Pt if they experience any severe bleeding, fever over 101 and/ or shaking chills to go to the ER. Assessment/Plan 1. Prostate cancer (C61: Malignant neoplasm of prostate) S/P Brachytherapy done 09/27/[address] Will follow up with Dr Trinidad 10/29/21 Medications aspirin, 81 mg atorvastatin 10 mg Tab, Oral, Daily Daliresp, Oral, Daily irbesartan, Oral, Daily metformin, Oral Teagan, Oral, Daily Spiriva 18 mcg Cap, 18 mcg= 1 cap(s), Inhalation, Daily valsartan 40 mg Tab, Oral, BID Vitamin D, Oral Allergies No Known Medication Allergies Immunizations Vaccine Date Status SARS-CoV-2 (COVID-19) mRNA BNT-162b2 vax 01/23/2021 Recorded Normal [facility] RAD - MISCon 10-03-2022 RAD - MISC [id number] .00CD:127 [facility] ECG 12-Leadon 10-01-2022 ECG 12-Lead [id number] .00CD:[address] [facility] Consultation Noteon 09-28-20 Consultation Note [id number] .00CD:127 [facility] Consultation Note [id number] .00CD:127 [facility] Lab Reportson 09-28-2022 Lab Reports [id number] .00CD:127 [facility] Operative Reporton Operative Report [id number] .00CD:[address] [facility] RAD - MISCon 09-28-2022 RAD - MIS [id number] .00CD:[address] [facility] XR PELVIS 1_2 VIEWSon 2021 XR PELVIS 1_2 VIEWS EXAM: XR PELVIS 1_2 VIEWS HISTORY: Malignant tumor of prostate COMPARISON: None. TECHNIQUE: FINDINGS: A single intraprocedural spot fluoroscopic image demonstrates numerous radioactive seeds projected over region of prostate. Bladder is filled with radiopaque contrast without evidence of extravasation. IMPRESSION: 1. Radioactive prostate seeding without evidence of acute bladder involvement. Electronically authenticated by: MAIKEL ESTEVEZ Date: 2022-09-28 07:22 Normal [facility] CBC AUTO DIFFon 09-27-2022 BASO # 0.0 103/ul Normal 0.0-0.1 [facility] Comment on above: Performed By: #### BMP #### [facility] [address] [place] [address] Dr. Juanita Sagastume Basophils/100 WBC (Bld) 0.2 % Normal 0.2-2.0 [facility] Comment on above: Performed By: #### BMP #### [facility] [address] [place] [address] Dr. Juanita Sagastume EO # 0.2 103/ul Normal 0.0-0.7 [facility] Comment on above: Performed By: #### BMP #### [facility] [address] [place] [address] Dr. Juanita Sagastume Eosinophils/100 WBC (Bld) 2.2 % Normal 0.9-7.0 [facility] Comment on above: Performed By: #### BMP #### [facility] [address] [place] [address] Dr. Juanita Sagastume Erythrocyte distribution width (RBC) [Ratio] 17.5 % Critically high 11.0-15.0 [facility] Comment on above: Performed By: #### BMP #### [facility] [address] [place] [address] Dr. Juanita Sagastume Hematocrit (Bld) [Volume fraction] 41.3 % Critically low 42.0-54.0 [facility] Comment on above: Performed By: #### BMP #### [facility] [address] [place] [address] Dr. Juanita Sagastume Hemoglobin (Bld) [Mass/Vol] 13.5 g/dL Critically low 14.0-18.0 [facility] Comment on above: Performed By: #### BMP #### [facility] [address] [place] [address] Dr. Juanita Sagastume IG # 0.04 10e3/ul Critically high 0.00-0.03 [facility] Comment on above: Performed By: #### BMP #### [facility] [address] [place] [address] Dr. Juanita Sagastume IG % 0.5 % Normal 0.0-0.5 [facility] Comment on above: Performed By: #### BMP #### [facility] [address] [place] [address] Dr. Juanita Sagastume LYMPH # 0.8 103/ul Critically low 1.2-3.8 [facility] Comment on above: Performed By: #### BMP #### [facility] [address] [place] [address] Dr. Juanita Sagastume Lymphocytes/100 WBC (Bld) 9.3 % Critically low 20.5-60.0 [facility] Comment on above: Performed By: #### BMP #### [facility] [address] [place] [address] Dr. Juanita Sagastume MANUAL DIFF REQ NO Normal [facility] Comment on above: Performed By: #### BMP #### [facility] [address] [place] [address] Dr. Juanita Sagastume MCH (RBC) [Entitic mass] 26.7 pg Normal 25.9-34.0 [facility] Comment on above: Performed By: #### BMP #### [facility] [address] [place] [address] Dr. Juanita Sagastume MCHC (RBC) [Mass/Vol] 32.7 g/dL Normal 29.9-35.2 [facility] Comment on above: Performed By: #### BMP #### [facility] [address] [address] [address] Juanita Sagastume MCV (RBC) [Entitic vol] 81.8 fL Normal 80.0-94.0 [facility] Comment on above: Performed By: #### BMP #### [facility] [address] [address] [address] Juanita Sagastume MONO # 1.0 103/ul Critically high 0.3-0.8 [facility] Comment on above: Performed By: #### BMP #### [facility] [address] [address] [address] Juanita Sagastume Monocytes/100 WBC (Bld) 11.5 % Normal 1.7-12.0 [facility] Comment on above: Performed By: #### BMP #### [facility] [address] [address] [address] Juanita Sagastume NEUT # 6.3 103/ul Normal 1.4-6.5 [facility] Comment on above: Performed By: #### BMP #### [facility] [address] [address] [address] Juanita Sagastume Neutrophils/100 WBC (Bld) 76.3 % Critically high 43.0-75.0 [facility] Comment on above: Performed By: #### BMP #### [facility] [address] [address] [address] Juanita Sagastume Platelet mean volume (Bld) [Entitic vol] 8.5 fL Critically low 9.5-13.5 [facility] Comment on above: Performed By: #### BMP #### [facility] [address] [address] [address] Juanita Sagastume PLT 273 103/ul Normal 150-450 [facility] Comment on above: Performed By: #### BMP #### [facility] [address] [address] [address] Juanita Sagastume RBC 5.05 106/ul Normal 4.70-6.10 [facility] Comment on above: Performed By: #### BMP #### [facility] [address] [address] [address] Juanita Sagastume WBC 8.3 103/ul Normal 4.0-11.0 [facility] Comment on above: Performed By: #### BMP #### [facility] [address] [place] [address] Dr. Juanita Sagastume PROF CHEM 8 (BAS METB)on Anion gap [Moles/Vol] 10.9 mmol/L Normal [facility] Comment on above: Performed By: #### BMP #### [facility] [address] [place] [address] Dr. Juanita Sagastume Calcium [Mass/Vol] 10.2 mg/dL Critically high 8.5-10.1 [facility] Comment on above: Performed By: #### BMP #### [facility] [address] [place] [address] Dr. Juanita Sagastume Chloride [Moles/Vol] 98 mmol/L Normal 98-107 [facility] Comment on above: Performed By: #### BMP #### [facility] [address] [place] [address] Dr. Juanita Sagastume CO2 [Moles/Vol] 34.5 mmol/L Critically high 21.0-32.0 [facility] Comment on above: Performed By: #### BMP #### [facility] [address] [place] [address] Dr. Juanita Sagastume Creatinine [Mass/Vol] 1.06 mg/dL Normal 0.70-1.30 [facility] Comment on above: Performed By: #### BMP #### [facility] [address] [place] [address] Dr. Juanita Sagastume EGFR-AF SOL[place] ISLANDER >60 Normal >=60 [facility] Comment on above: Performed By: #### BMP #### [facility] [address] [place] [address] Dr. Juanita Sagastume EGFR-NON AF [place]ER >60 Normal >=60 [facility] Comment on above: Performed By: #### BMP #### [facility] [address] [place] [address] Dr. Juanita Sagastume Glucose [Mass/Vol] 122 mg/dL Critically high 74-106 [facility] Comment on above: Performed By: #### BMP #### [facility] [address] [place] [address] Dr. Juanita Sagastume Potassium [Moles/Vol] 4.4 mmol/L Normal 3.5-5.1 [facility] Comment on above: Performed By: #### BMP #### [facility] [address] [place] [address] Dr. Juanita Sagastume Sodium [Moles/Vol] 139 mmol/L Normal 136-145 [facility] Comment on above: Performed By: #### BMP #### [facility] [address] [place] [address] Dr. Juanita Sagastume Urea nitrogen [Mass/Vol] 16.0 mg/dL Normal 7.0-18.0 [facility] [place] Comment on above: Performed By: #### BMP #### [facility] [address] [place] [address] Dr. Juanita Sagastume Urea nitrogen/Creati nine [Mass ratio] 15.1 mg/mg Normal [facility] [place] Comment on above: Performed By: #### BMP #### [facility] [address] [place] [address] Dr. Juanita Sagastume PROTIMEon 09-27-2022 INR Coag (PPP) [Relative time] 0.93 {INR} Normal [facility] [place] Comment on above: Performed By: #### BMP #### [facility] [address] [place] [address] Dr. Juanita Sagastume INR GUIDELINES SEE BELOW Normal [facility] Comment on above: Result Comment: DESIRED INR: 2.0 - 3.0 C ONDITIONS NOT LISTED BELOW 2.5 - 3.5 FOR PROSTHETIC HEART VALVE REPLACEMENT 2.5 - 3.5 RECURRENT THROMBOSIS Performed By: #### B MP #### [facility] [address] [place] [address] Dr. Juanita Sagastume PT Coag (PPP) [Time] 10.1 s Normal 9.0-11.6 [facility] [place] Comment on above: Performed By: #### BMP #### [facility] [address] [place] [address] Dr. Juanita Sagastume Covid-19 PCR (CVDTB)on SARS-CoV-2 (COVID-19) RNA SKYLAR+probe Ql (Unsp spec) Not detected Normal NOT DETECTED [facility] [place] Comment on above: Result Comment: This test is not yet ruben roved or cleared by the [place] FDA. When there are no FDA-approved or cleared tests available, and other criteria are met, FDA can make tests available under an emergency access mechanism called an Emergency Use Authorization (EUA). The EUA for this test is supported by the [place] of Health and Human Service's (HHS's) declaration that circumstances exist to justify the emergency use of in vitro diagnostics for the detection and/or diagnosis of the virus that causes COVID-19. This EUA will remain in effect (meaning this test can be used) for the duration of the COVID-19 declaration justifying emergency of IVDs, unless it is terminated or revoked by FDA (after which the test may no longer be used). When diagnostic testing is negative, the possibility of a false negative should be considered in the context of a patient's recent exposures and the presence of clinical signs and symptoms consistent with SARS-CoV-2. Performed By: #### C VDTBH #### [facility] [address] [place] [address] Dr. Juanita Sagastume LIPID PROFILEon 03-16-2022 CHOL-HDL RATIO NORM SEE BELOW Normal [facility] Comment on above: Result Comment: 3.3 - 4.4 LOW RISK 4.4 - 7.1 AVERAGE RISK 7.1 - 11.0 MODERATE RISK >11.0 HIGH RISK Performed By: #### A LT, LIPID, AST #### [facility] [address] [place] [address] Dr. Juanita Sagastume Cholesterol [Mass/Vol] 111 mg/dL Normal <=200 [facility] [place] Comment on above: Performed By: #### ALT, LIPID, AST #### [facility] [address] [place] [address] Dr. Juanita Sagastume Cholesterol in HDL [Mass/Vol] 35 mg/dL Critically low 40-60 [facility] [place] Comment on above: Performed By: #### ALT, LIPID, AST #### [facility] [address] [address] [address] Juanita Sagastume Cholesterol in LDL [Mass/Vol] 29.6 mg/dL Normal [facility] [place] Comment on above: Performed By: #### ALT, LIPID, AST #### [facility] [address] [address] [address] Juanita Sagastume Cholesterol.tot al/Cholesterol in HDL [Mass ratio] 3.2 {ratio} Normal [facility] [place] Comment on above: Performed By: #### ALT, LIPID, AST #### [facility] [address] [address] [address] Juanita Sagastume HDL NORMAL > or = 60 mg/dl - LO W CARDIOVASCULAR RISK <40 mg/dl - HIGH CARDIOVASCULAR RISK Normal [facility] [place] Comment on above: Performed By: #### ALT, LIPID, AST #### [facility] [address] [place] [address] Dr. Juanita Sagastume LDL CALC NORMAL SEE BELOW Normal [facility] Comment on above: Result Comment: <100 mg/dl OPTIMAL 100 - 129 mg/dl NEAR OR ABOVE OPTIMAL 130 - 159 mg/dl BORDERLINE HIGH 160 - 189 mg/dl HIGH >190 mg/dl VERY HIGH Performed By: #### A LT, LIPID, AST #### [facility] [address] [place] [address] Dr. Juanita Sagastume Triglyceride [Mass/Vol] 232 mg/dL Critically high <=150 [facility] [place] Comment on above: Performed By: #### ALT, LIPID, AST #### [facility] [address] [address] [address] Juanita Sagastume VLDL CALC 46.4 mg/dL Normal [facility] [place] Comment on above: Performed By: #### ALT, LIPID, AST #### [facility] [address] [place] [address] Dr. Juanita Sagastume SGGabbie 03-16-2022 AST [Catalytic activity/Vol] 22 U/L Normal 15-37 [facility] [place] Comment on above: Performed By: #### ALT, LIPID, AST #### [facility] [address] [address] [address] Juanita Sagastume SGPTon 03-16-2022 ALT [Catalytic activity/Vol] 24 U/L Normal 16-63 [facility] [place] Comment on above: Performed By: #### ALT, LIPID, AST #### [facility] [address] [place] [address] Dr. Juanita Sagastume CREATININEon 03-02-2022 Creatinine [Mass/Vol] 1.19 mg/dL Normal 0.70-1.30 [facility] [place] Comment on above: Performed By: #### CREA #### [facility] [address] [place] [address] Dr. Juanita Sagastume EGFR-AF [place]LANDER >60 Normal >=60 [facility] [place] Comment on above: Performed By: #### CREA #### [facility] [address] [place] [address] Dr. Juanita Sagastume EGFR-NON AF [place]ER >60 Normal >=60 [facility] [place] Comment on above: Performed By: #### CREA #### [facility] [address] [place] [address] ABD/PELV WO W CONon 03-02 CT ABD/PELV WO W CON EXAMINATION: CT ABD/PELV WO W CON HISTORY: Lower urinary tract symptoms due to benign prostatic hypertrophy COMPARISON: No relevant comparison available. TECHNIQUE: Axial, Coronal, and Sagittal images were created without and with IV contrast. Dose reduction techniques were achieved by using automated exposure control and/or adjustment of mA and/or kV according to patient size and/or use of iterative reconstruction technique. FINDINGS: LUNG BASES: No visible pulmonary or pleural disease. LIVER: No enlargement, atrophy, abnormal density, or significant focal lesion. BILIARY: No dilatation or calcification. PANCREAS: No lesion, fluid collection, ductal dilatation, or atrophy. SPLEEN: No enlargement or focal lesion. ADRENALS: No mass or enlargement. KIDNEYS: No mass, obstruction, or calcification. BOWEL/MESENTERY: No visible mass, obstruction, or bowel wall thickening. AORTA/VASCULAR: Moderate marked atherosclerotic disease. No aneurysm. RETROPERITONEUM: No mass or adenopathy. LYMPH NODES: No adenopathy. URINARY BLADDER: No visible focal wall thickening, lesion, or calculus. PELVIC ORGANS: No visible mass. Pelvic organs appropriate for patient age. ABDOMINAL WALL: No mass or hernia. BONES: No bony lesion or fracture. OTHER: Negative. IMPRESSION: 1. No abnormal or suspicious findings to account for patient's symptoms. 2. Moderate atherosclerotic disease of aorta and major branches without aneurysm. Electronically authenticated by: MAIKEL ESTEVEZ Date: 2022-03-02 14:[address] [facility] BONE [place] WH BODYon 022 NM BONE [facility] BODY EXAMINATION: AR BONE [facility] BODY HISTORY: Primary malignant neoplasm of prostate COMPARISON: No relevant comparison available. TECHNIQUE: After obtaining the patient's consent, 25.1 mCi Technetium 99m MDP was injected intravenously. Images were obtained approximately two hours later. FINDINGS: ABNORMALITIES: No suspicious foci of radiotracer uptake. OTHER: A few scattered foci of mild radiotracer uptake favoring degenerative joint disease. IMPRESSION: 1. No findings to suggest skeletal metastasis. Electronically authenticated by: MAIKEL ESTEVEZ Date: 2022-03-02 15:26 Normal [facility] POINT OF CARE GLUCOSEon 01-13 Glucose [Mass/Vol] 117 mg/dL Critically high 74-106 [facility] Comment on above: Performed By: #### BMP #### [facility] [address] [address] [address] Juanita Sagastume [facility] 01-13 SARS-CoV-2 (COVID-19) RNA SKYLAR+probe Ql (Unsp spec) Not detected Normal NOT DETECTED [facility] Comment on above: Result Comment: This test is not yet ruben roved or cleared by the [place] FDA. When there are no FDA-approved or cleared tests available, and other criteria are met, FDA can make tests available under an emergency access mechanism called an Emergency Use Authorization (EUA). The EUA for this test is supported by the [place] Operator of Health and Human Service's (HHS's) declaration that circumstances exist to justify the emergency use of in vitro diagnostics for the detection and/or diagnosis of the virus that causes COVID-19. This EUA will remain in effect (meaning this test can be used) for the duration of the COVID-19 declaration justifying emergency of IVDs, unless it is terminated or revoked by FDA (after which the test may no longer be used). When diagnostic testing is negative, the possibility of a false negative should be considered in the context of a patient's recent exposures and the presence of clinical signs and symptoms consistent with SARS-CoV-2. Performed By: #### C VDTB #### [facility] [address] [place] [address] Dr. Juanita Sagastume CBC AUTO DIFFon 01-29-2022 BASO # 0.0 103/ul Normal 0.0-0.1 [facility] [place] Comment on above: Performed By: #### CBC #### [facility] [address] [place] [address] Dr. Juanita Sagastume Basophils/100 WBC (Bld) 0.3 % Normal 0.2-2.0 [facility] [place] Comment on above: Performed By: #### CBC #### [facility] [address] [place] [address] Dr. Juanita Sagastume EO # 0.2 103/ul Normal 0.0-0.7 [facility] [place] Comment on above: Performed By: #### CBC #### [facility] [address] [place] [address] Dr. Juanita Sagastume Eosinophils/100 WBC (Bld) 1.8 % Normal 0.9-7.0 [facility] [place] Comment on above: Performed By: #### CBC #### [facility] [address] [place] [address] Dr. Juanita Sagastume Erythrocyte distribution width (RBC) [Ratio] 15.4 % Critically high 11.0-15.0 [facility] Comment on above: Performed By: #### CBC #### [facility] [address] [place] [address] Dr. Juanita Sagastume Hematocrit (Bld) [Volume fraction] 42.3 % Normal 42.0-54.0 [facility] [place] Comment on above: Performed By: #### CBC #### [facility] [address] [place] [address] Dr. Juanita Sagastume Hemoglobin (Bld) [Mass/Vol] 13.3 g/dL Critically low 14.0-18.0 [facility] [place] Comment on above: Performed By: #### CBC #### [facility] [address] [address] [address] Juanita Sagastume IG # 0.06 10e3/ul Critically high 0.00-0.03 [facility] Comment on above: Performed By: #### CBC #### [facility] [address] [address] [address] Juanita Sagastume IG % 0.5 % Normal 0.0-0.5 [facility] [place] Comment on above: Performed By: #### CBC #### [facility] [address] [address] [address] Juanita Sagastume LYMPH # 2.0 103/ul Normal 1.2-3.8 [facility] [place] Comment on above: Performed By: #### CBC #### [facility] [address] [place] [address] Dr. Juanita Sagastume Lymphocytes/100 WBC (Bld) 17.6 % Critically low 20.5-60.0 [facility] [place] Comment on above: Performed By: #### CBC #### [facility] [address] [place] [address] Dr. Juanita Sagastume MANUAL DIFF REQ NO Normal [facility] Comment on above: Performed By: #### CBC #### [facility] [address] [place] [address] Dr. Juanita Sagastume MCH (RBC) [Entitic mass] 26.5 pg Normal 25.9-34.0 [facility] [place] Comment on above: Performed By: #### CBC #### [facility] [address] [place] [address] Dr. Juanita Sagastume MCHC (RBC) [Mass/Vol] 31.4 g/dL Normal 29.9-35.2 [facility] [place] Comment on above: Performed By: #### CBC #### [facility] [address] [place] [address] Dr. Juanita Sagastume MCV (RBC) [Entitic vol] 84.3 fL Normal 80.0-94.0 [facility] [place] Comment on above: Performed By: #### CBC #### [facility] [address] [address] [address] Juanita Sagastume MONO # 0.9 103/ul Critically high 0.3-0.8 [facility] Comment on above: Performed By: #### CBC #### [facility] [address] [place] [address] Dr. Juanita Sagastume Monocytes/100 WBC (Bld) 7.6 % Normal 1.7-12.0 [facility] [place] Comment on above: Performed By: #### CBC #### [facility] [address] [place] [address] Dr. Juanita Sagastume NEUT # 8.3 103/ul Critically high 1.4-6.5 [facility] Comment on above: Performed By: #### CBC #### [facility] [address] [place] [address] Dr. Juanita Sagastume Neutrophils/100 WBC (Bld) 72.2 % Normal 43.0-75.0 [facility] Comment on above: Performed By: #### CBC #### [facility] [address] [place] [address] Dr. Juanita Sagastume Platelet mean volume (Bld) [Entitic vol] 9.2 fL Critically low 9.5-13.5 [facility] Comment on above: Performed By: #### CBC #### [facility] [address] [place] [address] Dr. Juanita Sagastume PLT 343 103/ul Normal 150-450 [facility] Comment on above: Performed By: #### CBC #### [facility] [address] [place] [address] Dr. Juanita Sagastume RBC 5.02 106/ul Normal 4.70-6.10 [facility] Comment on above: Performed By: #### CBC #### [facility] [address] [place] [address] Dr. Juanita Sagastume WBC 11.5 103/ul Critically high 4.0-11.0 [facility] Comment on above: Performed By: #### CBC #### [facility] [address] [place] [address] Dr. Juanita Sagastume PROF CHEM 8 (BAS METB)on Anion gap [Moles/Vol] 14.6 mmol/L Normal [facility] Comment on above: Performed By: #### BMP #### [facility] [address] [address] [address] Juanita Sagastume Calcium [Mass/Vol] 9.6 mg/dL Normal 8.5-10.1 [facility] [place] Comment on above: Performed By: #### BMP #### [facility] [address] [address] [address] Juanita Sagastume Chloride [Moles/Vol] 97 mmol/L Critically low 98-107 [facility] [place] Comment on above: Performed By: #### BMP #### [facility] [address] [address] [address] Juanita Sagastume CO2 [Moles/Vol] 28.9 mmol/L Normal 22.0-30.0 [facility] Comment on above: Performed By: #### BMP #### [facility] [address] [address] [address] Juanita Sagastume Creatinine [Mass/Vol] 1.23 mg/dL Normal 0.66-1.25 [facility] [place] Comment on above: Performed By: #### BMP #### [facility] [address] [place] [address] Dr. Juanita Sagastume EGFR-AF [place] >60 Normal >=60 [facility] Comment on above: Performed By: #### BMP #### [facility] [address] [address] [address] Juanita Sagastume EGFR-NON AF [place] 59 mL/min/1.73m2 Critically low >=60 [facility] Comment on above: Performed By: #### BMP #### [facility] [address] [address] [address] Juanita Sagastume Glucose [Mass/Vol] 105 mg/dL Normal 74-106 [facility] Comment on above: Performed By: #### BMP #### [facility] [address] [place] [address] Dr. Juanita Sagastume Potassium [Moles/Vol] 4.5 mmol/L Normal 3.4-5.0 [facility] Comment on above: Performed By: #### BMP #### [facility] [address] [place] [address] Dr. Juanita Sagastume Sodium [Moles/Vol] 136 mmol/L Critically low 137-145 [facility] Comment on above: Performed By: #### BMP #### [facility] [address] [place] [address] Dr. Juanita Sagastume Urea nitrogen [Mass/Vol] 16.0 mg/dL Normal 7.0-18.0 [facility] Comment on above: Performed By: #### BMP #### [facility] [address] [place] [address] Dr. Juanita Sagastume Urea nitrogen/Creati nine [Mass ratio] 13.0 mg/mg Normal [facility] Comment on above: Performed By: #### BMP #### [facility] [address] [place] [address] Dr. Juanita Sagastume PROTIMEon 01-29-2022 INR Coag (PPP) [Relative time] 0.98 {INR} Normal [facility] Comment on above: Performed By: #### BMP #### [facility] [address] [place] [address] Dr. Juanita Sagastume INR GUIDELINES SEE BELOW Normal [facility] Comment on above: Result Comment: DESIRED INR: 2.0 - 3.0 C ONDITIONS NOT LISTED BELOW 2.5 - 3.5 FOR PROSTHETIC HEART VALVE REPLACEMENT 2.5 - 3.5 RECURRENT THROMBOSIS Performed By: #### B MP #### [facility] [address] [place] [address] Dr. Juanita Sagastume PT Coag (PPP) [Time] 10.6 s Normal 9.0-11.6 [facility] Comment on above: Performed By: #### BMP #### [facility] [address] [place] [address] Dr. Juanita Sagastume PTTon 01-29-2022 aPTT Coag (Bld) [Time] 28.5 s Normal 22.3-36.2 [facility] Comment on above: Performed By: #### BMP #### [facility] [address] [address] [address] Juanita Sagastume MR prostate wo/w conon 10-17 MR prostate wo/w con [facility] [place] [address] [place] [address] MRI Report Signed Patient: Sheron Erazo MR#: [id number] : 1955 Acct:[id number] Age/Sex: 66 / M ADM Date: 10/10/21 Loc: MR Room: Type: [facility] Attending Dr: Wayne Trinidad MD Ordering Provider: Wayne Trinidad MD Date of Service: 10/10/21 MR/MR prostate wo/w con: R97.20 Copies to: Wayne Trinidad MD MRI OF THE PROSTATE GLAND WITHOUT AND WITH CONTRAST INDICATIONS: Elevated prostate specific antigen. Evaluate for prostate cancer. TECHNIQUE: MRI of the prostate gland with and without 20 ML ProHance. PI-RADS v2 Classification* PI-RADS 5 Highly Suspicious for Malignancy PI-RADS 4 Probably Malignant PI-RADS 3 Indeterminate PI-RADS 2 Probably Benign PI-RADS 1 Most Probably Benign *Based Upon ACR Guidelines October 2014. FINDINGS: Prostate Gland Size: The prostate gland measures 3.8 cm AP x 4.4 cm transverse x 5.4 cm craniocaudad consistent with a prostatic gland volume of 46.9 cc. PSA Density: Not given. Central Zone: No tumor-suspicious regions are identified in the central zone. Transition Zone: There is moderate nodular enlargement and inhomogeneous signal intensity throughout the transition zone most commonly due to benign prostatic hyperplasia. There is a tumor suspicious region, PI-RADS 4, involving the anterior left transition zone in the 1 o'clock position. This is located in the mid gland. This measures 6 x 12 x 13 mm. this demonstrates non-circumscribed moderate T2 shortening and evidence of restricted diffusion with contrast enhancement. Peripheral Zone: There is a tumor suspicious region, PI-RADS 4, involving the midline of the peripheral zone in the 6 o'clock position. This is at the apex. This demonstrates non- circumscribed moderate T2 shortening and evidence of restricted diffusion with contrast enhancement. Extraprostatic Extension: None. Seminal Vesicle Invasion: None. Pelvic Lymphadenopathy: None. Urinary Bladder: The urinary bladder wall is normal in thickness without evidence of a mass. Rectosigmoid Colon: There is no evidence of diverticulitis or diverticulosis. No rectosigmoid mass is identified. No rectal hemorrhoids are seen. No inguinal hernia is identified. Pelvic Osseous Structures: There is no evidence of osseous metastatic disease at the level of the prostate gland. IMPRESSION: 1. The prostate gland volume equals 46.9 cc. 2. Tumor suspicious region, PI-RADS 4, involving the anterior left transition zone in the 1 o'clock position. This is located in the mid gland. 3. Tumor suspicious region, PI-RADS 4, involving the midline of the peripheral zone in the 6 o'clock position. This is at the apex. 4. There is nodular enlargement and inhomogeneous signal intensity throughout the transition zone most commonly due to benign prostatic hyperplasia. 5. There is no evidence of extraprostatic extension of prostate cancer, seminal vesicle invasion or pelvic lymphadenopathy. Electronically signed on Oct 17, 2021 4:05:35 PM COT by: Yousif Paz MD Diplomate, [place] [employer] Report Completed: Oct 17, 2021 4:05:35 PM COT This transmission is proprietary, privileged and confidential. It is intended to be communication only for the use of the addressee; access to this message by anyone else is unauthorized. If you are not the intended recipient and have received this communication in error, please notify us immediately. Any other action taken, including but not limited to the disclosure, copying or distribution of this communication is prohibited by law. Transcribed By: 10/18/21 0749 Dictated By: NON STAFF 10/17/21 1605 Signed By: 10/18/21 0750 Normal [facility] Blood Urea Nitrogenon 2020 Urea nitrogen [Mass/Vol] 11 mg/dL Normal 9-23 [facility] Comment on above: Order Comment: STAT FOR MRI Performed By: #### B CHASITY, CREAT #### [facility] [address] Creatinineon 10-10-2021 Creatinine [Mass/Vol] 1.04 mg/dL Normal 0.64-1.27 [facility] Comment on above: Order Comment: STAT FOR MRI Performed By: #### B CHASITY, CREAT #### [facility] [address] [place] [address] [place] Creatinine Clr Calc Pharmacy 90.84 [facility] Comment on above: Order Comment: STAT FOR MRI Result Comment: PERF ORMED BY: [place] [address] PATHOLOGIST SWITCHBOARD AND CONTROL ROOM OPERATOR XUAN GOMEZ M.D. Performed By: #### B UN, CREAT #### [facility] [address] [place] [address] Estimated GFR ( Peyton > 60 [facility] Comment on above: Order Comment: STAT FOR MRI Result Comment: GFR estimated reference range: According to KDOQI guidelines, <60 ml/min/1.73m2 is sufficient to diagnose a patient with chronic kidney disease. Performed By: #### B UN, CREAT #### [facility] [address] [place] [address] Estimated GFR (Non- Am > 60 [facility] Comment on above: Order Comment: STAT FOR MRI Performed By: #### B UN, CREAT #### [facility] [address] [place] [address] CT CHEST HIGH RESOLUTION WIT HOUT CONTRASTon 10-05-2021 CT CHEST HIGH RESOLUTION WITHOUT CONTRAST [facility] Department of Radiology [address] [place] [id number] Patient Name: SHERON ERAZO : 1955 Sex: M Age: Race: White Pt. Location: 29 Patient Status: O Ordered Date: 09/01/2021 11:35:00 AM Completed Date: 10/05/2021 02:33 PM Requesting Provider: JACQUELYN MAURER Attending Provider: JACQUELYN MAURER Report Copy To: ERNIE ELLIOTT Signs & Symptoms: J44.9 Chronic obstructive pulmonary disease, unspecified I10 History: Ne Comments: Exam: CT CHEST HIGH RESOLUTION WITHOUT CONTRAST CT CHEST HIGH RESOLUTION WITHOUT CONTRAST 10/05/2021 2:33 PM CLINICAL INDICATIONS: J44.9 Chronic obstructive pulmonary disease, unspecified I10 TECHNOLOGIST COMMENTS: Evaluate for pre-zephyr valve, SOB QUESTION FOR THE RADIOLOGIST: PROTOCOL: Axial CT images of the chest were obtained without IV contrast. TECHNIQUE: Multidetector CT axial slices of the without IV contrast. Multiplanar reformats were performed and viewed on a separate workstation and reviewed to further define anatomy and possible pathology. COMPARISON: None. FINDINGS: The thyroid and thoracic inlet are unremarkable. The central airways are patent. The ascending aorta is prominent measuring 3.9 cm. Scattered atherosclerotic calcification in the thoracic aorta and arch vessel origins. The noncontrasted pulmonary arteries appear unremarkable. Small nonspecific appearing lymph nodes in mediastinum as well as calcified lymph nodes consistent with granulomatous disease. Significant coronary calcification most severe in the LAD. No cardiomegaly or pericardial effusion. No pneumothorax or pleural effusion. Linear scarring noted in the bases of the lower lobes. Subtle lucencies suggestive of centrilobular emphysema suggested in the apices. 3 mm nodule present in the left lower lobe on image 190. The chest wall appears unremarkable. The study continued into the upper abdomen shows no abnormality. The study viewed at bone window shows mild scoliosis of the upper thoracic spine. IMPRESSION: 1. Mild hyperaerated lungs with subtle changes of centrilobular emphysema in the upper lobes. 2. Prominent ascending aorta measuring 3.9 cm. 3. Significant coronary artery calcification, most severe in the LAD. 4. Linear scarring in the lung bases. 5. 3 mm nodule present in the left lower lobe, consider [address] follow-up. All CT scans at this facility use dose modulation, iterative reconstruction, and/or weight based dosing when appropriate to reduce radiation dose to as low as reasonably achievable Electronically signed: Nika Krause. Transcribed by: [email or web address], User Resident: Electronically Signed by: NIKA KRAUSE @ 10/05/2021 02:50 PM Normal The [facility] Pulmonary Functionon 12-18-2 021 Pulmonary Function MR #: [id number] [facility] PT. Name: Sheron Erazo Jr Date: 09/29/2021 Date of : 1955 Patient Type: D Pulmonary Function INTERPRETATION CLINICAL INDICATION: The patient is 66-year-old male with BMI of 36.0. Indication is COPD. Patient has dyspnea on exertion when walking less than 100 yards. Productive cough, no wheezing. Patient smoked 1 pack/day for 30 years and quit 3 years ago. LUNG MECHANICS: FEV1 is severely reduced to 1.39 L which is 39% of predicted with no significant change after bronchodilators. FVC is reduced to 56% of predicted which is 2.67 L with no significant change after bronchodilators. FEV1/FVC ratio is severely reduced to 52% before bronchodilators and 56% after bronchodilators. MVV is reduced to 41%. Flow volume loop shows normal inhalation lobe. The exhalation loop is consistent with severe obstructive pattern. Spirometry is consistent with severe obstructive pattern with negative response to bronchodilators. LUNG VOLUMES: (NITROGEN WASHOUT TECHNIQUE) Not ordered. LUNG VOLUMES: (BODY BOX TECHNIQUE) Residual volume is enlarged 147% of predicted indicating gas trapping. Total lung capacity is within normal limit at 87%. LUNG DIFFUSION: Corrected DLCO is reduced to 67%. DLCO corrected alveolar volume is 102% of predicted. ARTERIAL BLOOD GASES: 6-minute walk test: Arterial blood gas on room air shows reduced PaO2 to 66 and sat O2 of 94.9% on room air. The patient has metabolic alkalosis with bicarb of 35 and pH of 7.46 with a chronically elevated PaCO2 to 50. The degree of obstruction does not explain entirely the elevation of PaCO2. AA gradient is slightly above what expected for the patient age. 6-minute walk test: 6-minute walk test was performed on 09/29/2021. Patient desatted on room air at rest to 84%. He was placed on 2 L/min nasal cannula. The predicted distance was 517 m and the predicted lower limit of normal distance was a 364 m. The patient was able to walk for 40 m with oxygen 2 L/min nasal cannula. His SPO2 was 93% at the beginning of the test and it dropped to 86% after 1.5 minutes walking. The study was stopped and the oxygen was increased to 4 L/min. The patient was able to walk 67 m and he desatted to 87% after 2.5-minute. Oxygen then was increased to 6 L/min and the test was repeated. The patient was able to walk for 161 m which is 31% of predicted max distance and 44% of the predicted lower limit of normal. His heart rate was 99 bpm at the beginning of the test and 114 at the end of the test which is 74% of the predicted max heart rate. Dyspnea Whitney score was 1 at the beginning of the test and 3 at the end of the test. Fatigue Whitney score was 1 at the beginning of the test and 2 at the end of the test. Leg Whitney score was 0.5 at the point of the test and 1 at the end of the test. Blood pressure was 132/71 at the beginning of the test and 147/80 at the end of the test. Sat O2 was 93% at the beginning of the test and stayed above 90% during the 6-minute walk test on 6 L/min nasal cannula. CLINICAL IMPRESSION: The study is consistent with severe obstructive lung pattern with negative response to bronchodilators. There is sign of gas trapping. The reduction in diffusion capacity is most likely secondary to parenchymal destruction. The study is consistent with severe obstructive lung disease like COPD/emphysema. Arterial blood gas on room air shows reduced PaO2 to 66 and sat O2 of 94.9% on room air. The patient has metabolic alkalosis with bicarb of 35 and pH of 7.46 with a chronically elevated PaCO2 to 50. The degree of obstruction does not explain entirely the elevation of PaCO2. AA gradient is slightly above what expected for the patient age. 6-minute walk test showed desaturation at rest that requires 2 L/min at rest and 6 L/min with activity. The pulmonary function test does not explain the degree of hypoxia and hypercapnia, consider evaluating the patient for other etiology like pulmonary hypertension, hypoventilation syndromes, medications, neurologic weakness or shunt. Electronically Signed by: Joezf Sykes MD 09/30/2021 06:41 P Jacquelyn Maurer MD [facility] Care [facility] Sleep Medicine Date Dict: 09/30/2021/05:58 P/Jozef Sykes MD Date Trans: 09/30/2021 05:58 P/ JASON_SHIRLENE:[id number] cc: Ernie Elliott D.O. [address] [facility] [place] [facility] [address] Normal [facility] ARTERIAL BLOOD GAS W/COOXon 09-29-2021 BASE EXCESS 10 mmol/L High -2-3 [facility] Comment on above: Performed By: #### [id number] #### [facility] [address] [place] [address], [facility] COHB 1.6 % High 0.0-1.5 [facility] Comment on above: Performed By: #### [id number] #### [facility] [address] [place] [address], [facility] DELIVERY SYSTEMS ROOM AIR Normal [facility] Comment on above: Performed By: #### [id number] #### [facility] [address] [place] [address], [facility] FIO2 0 % Normal [facility] Comment on above: Performed By: #### [id number] #### [facility] [address] [place] [address], [facility] HCO3 (Bld) [Moles/Vol] 36 mmol/L Critically high 21-28 [facility] Comment on above: Performed By: #### [id number] #### [facility] [address] [place] [address], [facility] METHB 1.2 % Normal 0.0-1.5 [facility] Comment on above: Performed By: #### [id number] #### [facility] [address] [place] [address], [facility] Oxygen (Bld) [Partial pressure] 66 mm[Hg] Low 83-108 [facility] Comment on above: Performed By: #### [id number] #### [facility] [address] [place] [address], [facility] Oxygen saturation in Blood 92.2 % Low 94.0-97.0 [facility] Comment on above: Performed By: #### [id number] #### [facility] [address] [place] [address], [facility] PCO2 50 mmHg High 35-45 [facility] Comment on above: Performed By: #### [id number] #### [facility] [address] [place] [address], [facility] pH (Bld) 7.46 [pH] High 7.35-7.45 The [facility] Comment on above: Performed By: #### [id number] #### [facility] [address] [place] [address], [facility] THB 13.5 g/dL Normal 12.0-16.3 [facility] Comment on above: Performed By: #### [id number] #### [facility] [address] [place], [place] [address] Vital Signs Date Time Vital Sign Value Performing Clinician Camilo espinal 09-16-2023 14:04-0500 Blood Pressure Location Wayne TRINIDAD [facility] 09-16-2023 14:04-0500 Diastolic blood pressure 71 mm[Hg] Wayne TRINIDAD [facility] 09-16-2023 14:04-0500 Heart rate 65 /min Wayne TRINIDAD [facility] 09-16-2023 14:04-0500 Respiratory rate 16 /min Wayne TRINIDAD [facility] 09-16-2023 14:04-0500 Systolic blood pressure 131 mm[Hg] Wayne TRINIDAD [facility] 04-08-2023 13:21-0400 Body height 182.88 cm Ernie L Valone Work Phone: [facility] 250 DO Work Phone: 04-08-2023 13:21-0400 Body mass index (BMI) [Ratio] 33.09 kg/m2 Ernie L Valone Work Phone: [facility] 250 DO Work Phone: 04-08-2023 13:21-0400 Body surface area Derived from formula 2.32 m2 Ernie L Valone Work Phone: [facility] 250 DO Work Phone: 04-08-2023 13:21-0400 Body weight 110.68 kg Ernie L Valone Work Phone: [facility] 250 DO Work Phone: 04-08-2023 13:21-0400 Diastolic blood pressure 62 mm[Hg] Ernie L Valone Work Phone: [facility] 250 DO Work Phone: 04-08-2023 13:21-0400 Heart rate 78 /min Ernie L Valone Work Phone: [facility] 250 DO Work Phone: 04-08-2023 13:21-0400 Systolic blood pressure 124 mm[Hg] Ernie L Valone Work Phone: [facility] 250 DO Work Phone: 01-14-2023 13:32-0400 Blood Pressure Location Wayne TRINIDAD [facility] 01-14-2023 13:32-0400 Diastolic blood pressure 84 mm[Hg] Wayne TRINIDAD [facility] 01-14-2023 13:32-0400 Heart rate 72 /min Wayne TRINIDAD [facility] 01-14-2023 13:32-0400 Respiratory rate 16 /min Wayne TRINIDAD [facility] 01-14-2023 13:32-0400 Systolic blood pressure 138 mm[Hg] Wayne TRINIDAD [facility] 10-29-2022 13:50-0500 Blood Pressure Location Wayne TRINIDAD [facility] 10-29-2022 13:50-0500 Diastolic blood pressure 77 mm[Hg] Wayne TRINIDAD [facility] 10-29-2022 13:50-0500 Heart rate 68 /min Wayne TRINIDAD [facility] 10-29-2022 13:50-0500 Respiratory rate 16 /min Wayne TRINIDAD [facility] 10-29-2022 13:50-0500 Systolic blood pressure 140 mm[Hg] Wayne TRINIDAD [facility] 06-25-2022 14:28-0400 Blood Pressure Location Wayne TRINIDAD [facility] 06-25-2022 14:28-0400 Diastolic blood pressure 97 mm[Hg] Wayne TRINIDAD [facility] 06-25-2022 14:28-0400 Heart rate 88 /min Wayne TRINIDAD [facility] 06-25-2022 14:28-0400 Respiratory rate 16 /min Wayne TRINIDAD [facility] 06-25-2022 14:28-0400 Systolic blood pressure 157 mm[Hg] Wayne [facility]IDAD [facility] 02-16-2022 09:27-0400 Blood Pressure Location Wayne TRINIDAD [facility] 02-16-2022 09:27-0400 Diastolic blood pressure 84 mm[Hg] Wayne TRINIDAD [facility] 02-16-2022 09:27-0400 Heart rate 104 /min Wayneguero TRINIDAD [facility] 02-16-2022 09:27-0400 Respiratory rate 16 /min Wayne TRINIDAD [facility] 02-16-2022 09:27-0400 Systolic blood pressure 145 mm[Hg] Wayne TRINIDAD [facility] Encounters Encounter Date Encounter Type Care Provider Facility Start: 03-23-2024 ambulatory Wayne TRINIDAD Facili ty:[facility] Start: 09-16-2023 End: 09-17-2023 ambulatory Wayne TRINIDAD Facility:[facility] Start: 09-16-2023 End: 09-16-2023 Patient encounter procedure Wayne TRINIDAD [facility] Start: 04-08-2023 Office outpatient vi sit 25 minutes Ernie Elliott Work Phone: [facility] 250 DO Work Phone: Start: 04-08-2023 ambulatory Ngozi Carter Facility : Start: 02-04-2023 ambulatory Wayne Moeller ty:[facility] Start: 01-14-2023 End: 01-15-2023 ambulatory Wayne TRINIDAD Facility:[facility] Start: 01-14-2023 End: 01-14-2023 Patient encounter procedure Wayne TRINIDAD [facility] Start: 01-07-2023 End: 01-08-[address] WAYNE TRINIDAD . Facility: Start: 10-29-2022 End: 10-30-2022 ambulatory Wayne TRINIDAD Facility:[facility] Start: 10-29-2022 End: 10-29-2022 Patient encounter procedure Wayne TRINIDAD [facility] Start: 10-26-2022 End: 10-27-[address] ERNIE ELLIOTT Facility: Start: 10-03-2022 End: 10-04-2022 ambulatory Andressa Quigley Facility:[facility] Start: 10-03-2022 End: 10-03-2022 Patient encounter procedure Andressa Quigley [facility] Start: 09-29-2022 End: 09-29-2022 ambulatory ITZ BRICE . Facility:[facility] Start: 09-27-2022 End: 09-28-[address] WAYNE TRINIDAD . Facility:[facility] Start: 09-24-2022 Encounter for preprocedural cardiovascular examination DR WAYNE TRINIDAD . [facility] Start: 09-24-2022 Encounter for preprocedural laboratory examination DR WAYNE TRINIDAD . [facility] Start: 09-24-[address] WAYNE TRINIDAD . Fac ility:[facility] Start: 09-21-2022 End: 09-22-[address] WAYNE TRINIDAD . Facility:[facility] Start: 09-21-2022 End: 09-22-2022 Encounter for preprocedural cardiovascular examination DR WAYNE TRINIDAD . Facility:[facility] Start: 06-25-2022 End: 06-25-2022 Patient encounter procedure Wayne TRINIDAD [facility] Start: 06-11-2022 End: 06-12-[address] WAYNE TRINIDAD . Facility:[facility] Start: 03-16-2022 End: 03-17-[address] NGOZI CARTER Facility:[facility] Start: 03-02-2022 End: 03-03-[address] WAYNE TRINIDAD . Facility:[facility] Start: 02-16-2022 End: 02-16-2022 Patient encounter procedure Wayne TRINIDAD [facility] Start: 02-08-2022 End: 02-08-[address] WAYNE TRINIDAD . Facility:[facility] Start: 02-07-2022 Encounter for preprocedural laboratory examination DR WAYNE TRINIDAD . [facility] Start: 02-05-2022 End: 02-06-[address] WAYNE TRINIDAD . Facility:[facility] Start: 02-05-2022 End: 02-06-2022 Encounter for preprocedural laboratory examination DR WAYNE TRINIDAD . Facility:[facility] Start: 02-01-2022 Encounter for preprocedural cardiovascular examination DR WAYNE TRINIDAD . [facility] Start: 01-29-2022 End: 01-30-[address] WAYNE TRINIDAD . Facility:[facility] Start: 09-25-2021 End: 10-19-2021 ambulatory JACQUELYN MAURER Facility:[facility] Start: 03-27-2018 Ambulatory DANII MALDONADO Fa cility:[id number] Procedures Date Procedure Procedure Detail Performing Clinician Start: 01-07-[address] WESTLEY TRINIDAD . Comment on above: Performed By: #### P SAD #### [facility] [address] [place] [address] Dr. Juanita Sagastume Start: 09-27-2022 Brachytherapy of pro state using fluoroscopic guidance Wayne TRINIDAD Start: 09-04-2022 Teleradiotherapy procedure Wayne TRINIDAD Start: 06-11-[address] WESTLEY TRINIDAD . Comment on above: Performed By: #### B MP #### [facility] [address] [place] [address] Dr. Juanita Sagastume Start: 02-08-2022 MRI-US fusion guided transrectal biopsy of prostate Wayne TRINIDAD Start: 04-29-2017 TRUS w/bx Wayne GARCIA SHANTA Start: 01-12-2014 TRUS w/bx Wayne WOMACK Cataract (disorder) Wayne TRINIDAD Colonoscopy Wayne TRINIDAD heart cath Wayne TRINIDAD Jaw and temporomandi bular joint operations Ernie Alin Ayalatsering Work Phone: Tonsillectomy Wayne TRINIDAD Tonsillectomy and adenoidectomy Ernie Elliott Work Phone: Total colonoscopy Ernie Elliott Work Phone: Plan of Treatment Date Care Activity Detail Author Start: 04-13-2024 FUV, Provider: Ngozi Carter, Status: Pen, Time: 1:00 PM FUV, Provider: Ngozi Carter, Status: Pen, Time: 1:00 PM [facility] 250 DO Work Phone: Immunizations Immunization Date Immunization Notes Care Provider Cori penn 07-05-2022 SARS-CoV-2 (COVID-19 ) [id number] Wayne TRINIDAD [facility] Comment on above: Result Comment: 2022: [id number] 08-15-2021 SARS-CoV-2 (COVID-19 ) mRNA BNT-162b2 vax [email or web address] [facility] 01-23-2021 SARS-CoV-2 (COVID-19 ) mRNA BNT-162b2 vax [email or web address] [facility] 01-10-2021 SARS-CoV-2 (COVID-19 ) mRNA BNT-162b2 vax [email or web address] [facility] 12-19-2020 SARS-CoV-2 (COVID-19 ) mRNA BNT-162b2 vax [email or web address] [facility] 07-14-2020 influenza virus vacc ine, unspecified formulation [employer] [facility] 07-23-2019 influenza virus vacc ine, unspecified formulation [employer] [facility] 07-23-2019 influenza, injectabl e, quadrivalent, preservative free Ernie L Valone Work Phone: [facility] Brigade DO Work Phone: 07-14-2019 influenza virus vacc ine, unspecified formulation [email or web address] [facility] 07-14-2019 influenza, high dose seasonal, preservative-free Ernie L Valone Work Phone: [facility] DO Work Phone: 07-14-2018 influenza virus vacc ine, unspecified formulation Ernie L Valone Work Phone: [facility] DO Work Phone: 07-14-2017 influenza virus vacc ine, unspecified formulation Ernie Elliott Work Phone: [facility] 250 DO Work Phone: 10-14-2015 pneumococcal polysaccharide vaccine, 23 valent Ernie Elliott Work Phone: [facility] 250 DO Work Phone: Payers Date Payer Category Payer Medicare [id number] 1955 Unknown [id number] 2.16.8 [id number] 1955 Unknown [id number] 2.16.84 0.1.739607.3.579.2.593 1955 Unknown [id number] 2.16.84 0.1.665253.3.579.2.593 1955 Unknown [id number] 2.16.84 0.1.982324.3.579.2.593 1955 Unknown [id number] 2.16.84 0.1.094686.3.579.2.593 1955 Unknown [id number] 2.16.84 0.1.336643.3.579.2.593 1955 Unknown [id number] 2.16.84 0.1.937285.3.579.2.593 1955 Unknown [id number] 2.16.84 0.1.365643.3.579.2.593 1955 Unknown [id number] 2.16.84 0.1.260557.3.579.2.593 1955 Unknown [id number] 2.16.84 0.1.319363.3.579.2.593 1955 Unknown [id number] 2.16.84 0.1.055342.3.579.2.593 1955 Unknown [id number] 2.16.84 0.1.127604.3.579.2.593 1955 Unknown [id number] 2.16.84 0.1.309079.3.579.2.593 1955 Unknown [id number] 2.16. 840.1.985720.3.579.2.356 1955 Unknown [id number] 2.16.8 40.1.562676.3.579.2.727 1955 Unknown [id number] 2.16.8 40.1.447237.3.579.2.727 1955 Unknown [id number] 2.16.8 40.1.538782.3.579.2.727 1955 Unknown [id number] 2.16.8 40.1.035947.3.579.2.727 1955 Unknown [id number] 2.16.8 40.1.636734.3.579.2.727 1955 Unknown [id number] 2.16.8 40.1.235445.3.579.2.727 1955 Unknown [id number] 2.16.8 40.1.052890.3.579.2.727 Medicare [id number] Unknown [id number] Unknown [id number] Unknown Social History Date Type Detail Facility Start: 11-20-2021 End: 10-29-2022 Tobacco smoking status Ex-smoker (finding) [facility] Sex Assigned At Male [facility] No alcohol use No alcohol use [facility] 250 DO Work Phone: Functional Status Date Assessment Result Facility 09-16-2023 Functional Status N/A [facility] 01-14-2023 Functional Status N/A [facility] 10-29-2022 Functional Status N/A [facility] 06-25-2022 Functional Status N/A [facility] Clinical Notes 01-29-2022 to 09-16-2023 Note Date & Type Note Facility 09-16-2023 Hospital Discharge instructions Patient Education 09/16/2023 14:32:10 Prostate Cancer Prostate Cancer The prostate is a small gland that produces fluid that makes up semen (seminal fluid). It is located below the bladder in men, in front of the rectum. Prostate cancer is the abnormal growth of cells in the prostate gland. What are the causes? The exact cause of this condition is not known. What increases the risk? You are more likely to develop this condition if: You are 65 years of age or older. You have a family history of prostate cancer. You have a family history of breast and ovarian cancer. You have genes that are passed from parent to child (inherited), such as BRCA1 and BRCA2. You have Hurt syndrome. men and men of descent are diagnosed with prostate cancer at higher rates than other men. The reasons for this are not well understood and are likely due to a combination of genetic and environmental factors. What are the signs or symptoms? Symptoms of this condition include: Problems with urination. This may include: ?A weak or interrupted flow of urine. ?Trouble starting or stopping urination. ?Trouble emptying the bladder all the way. ?The need to urinate more often, especially at night. Blood in urine or semen. Persistent pain or discomfort in the lower back, lower abdomen, or hips. Trouble getting an erection. Weakness or numbness in the legs or feet. How is this diagnosed? This condition can be diagnosed with: A digital rectal exam. For this exam, a health care provider inserts a gloved finger into the rectum to feel the prostate gland. A blood test called a prostate-specific antigen (PSA) test. A procedure in which a sample of tissue is taken from the prostate and checked under a microscope (prostate biopsy). An imaging test called transrectal ultrasonography. Once the condition is diagnosed, tests will be done to determine how far the cancer has spread. This is called staging the cancer. Staging may involve imaging tests, such as a bone scan, CT scan, PET scan, or MRI. Stages of prostate cancer The stages of prostate cancer are as follows: Stage 1 (I). At this stage, the cancer is found in the prostate only. The cancer is not visible on imaging tests, and it is usually found by accident, such as during prostate surgery. Stage 2 (II). At this stage, the cancer is more advanced than it is in stage 1, but the cancer has not spread outside the prostate. Stage 3 (III). At this stage, the cancer has spread beyond the outer layer of the prostate to nearby tissues. The cancer may be found in the seminal vesicles, which are near the bladder and the prostate. Stage 4 (IV). At this stage, the cancer has spread to other parts of the body, such as the lymph nodes, bones, bladder, rectum, liver, or lungs. Prostate cancer grading Prostate cancer is also graded according to how the cancer cells look under a microscope. This is called the [place] score and the total score can range from 6 10, indicating how likely it is that the cancer will spread (metastasize) to other parts of the body. The higher the score, the greater the likelihood that the cancer will spread. Kenan 6 or lower: This indicates that the cancer cells look similar to normal prostate cells (well differentiated). [place] 7: This indicates that the cancer cells look somewhat similar to normal prostate cells (moderately differentiated). [place] 8, 9, or 10: This indicates that the cancer cells look very different than normal prostate cells (poorly differentiated). How is this treated? Treatment for this condition depends on several factors, including the stage of the cancer, your age, personal preferences, and your overall health. Talk with your health care provider about treatment options that are recommended for you. Common treatments include: Observation for early stage prostate cancer (active surveillance). This involves having exams, blood tests, and in some cases, more biopsies. For some men, this is the only treatment needed. Surgery. Types of surgeries include: ?Open surgery (radical prostatectomy). In this surgery, a larger incision is made to remove the prostate. ?A laparoscopic radical prostatectomy. This is a surgery to remove the prostate and lymph nodes through several small incisions. It is often referred to as a minimally invasive surgery. ?A robotic radical prostatectomy. This is laparoscopic surgery to remove the prostate and lymph nodes with the help of robotic arms that are controlled by the surgeon. ?Cryoablation. This is surgery to freeze and destroy cancer cells. Radiation treatment. Types of radiation treatment include: ?External beam radiation. This type aims beams of radiation from outside the body at the prostate to destroy cancerous cells. ?Brachytherapy. This type uses radioactive needles, seeds, wires, or tubes that are implanted into the prostate gland. Like external beam radiation, brachytherapy destroys cancerous cells. An advantage is that this type of radiation limits the damage to surrounding tissue and has fewer side effects. Chemotherapy. This treatment kills cancer cells or stops them from multiplying. It kills both cancer cells and normal cells. Targeted therapy. This treatment uses medicines to kill cancer cells without damaging normal cells. Hormone treatment. This treatment involves taking medicines that act on testosterone, one of the male hormones, by: ?Stopping your body from producing testosterone. ?Blocking testosterone from reaching cancer cells. Follow these instructions at home: Lifestyle Do not use any products that contain nicotine or tobacco. These products include cigarettes, chewing tobacco, and vaping devices, such as e-cigarettes. If you need help quitting, ask your health care provider. Eat a healthy diet. To do this: ?Eat foods that are high in fiber. These include beans, whole grains, and fresh fruits and vegetables. ?Limit foods that are high in fat and sugar. These include fried or sweet foods. Treatment for prostate cancer may affect sexual function. If you have a partner, continue to have intimate moments. This may include touching, holding, hugging, and caressing your partner. Get plenty of sleep. Consider joining a support group for men who have prostate cancer. Meeting with a support group may help you learn to manage the stress of having cancer. General instructions Take whms-kai-bqigwin and prescription medicines only as told by your health care provider. If you have to go to the hospital, notify your cancer specialist (oncologist). Keep all follow-up visits. This is important. Where to find more information [place] [employer]: www.cancer.org [place] [employer]: www.cancer.net National Cancer [place]: www.cancer.gov Contact a health care provider if: You have new or increasing trouble urinating. You have new or increasing blood in your urine. You have new or increasing pain in your hips, back, or chest. Get help right away if: You have weakness or numbness in your legs. You cannot control urination or your bowel movements (incontinence). You have chills or a fever. Summary The prostate is a small gland that is involved in the production of semen. It is located below a man's bladder, in front of the rectum. Prostate cancer is the abnormal growth of cells in the prostate gland. Treatment for this condition depends on the stage of the cancer, your age, personal preferences, and your overall health. Talk with your health care provider about treatment options that are recommended for you. Consider joining a support group for men who have prostate cancer. Meeting with a support group may help you learn to manage the stress of having cancer. This information is not intended to replace advice given to you by your health care provider. Make sure you discuss any questions you have with your health care provider. Document Revised: 12/27/2021 Document Reviewed: 12/27/2021 [employer] Patient Education 2022 [employer]. Follow Up Care 01/14/2023 14:33:04 With:TANISHA GILL, Wayne Galicia, URL Address: [facility] [address] , [place] [address]- [phone] When: Unknown Comments:6 mos w/ PSA [facility] [place] 01-14-2023 Hospital Discharge instructions Patient Education 01/14/2023 08:45:24 Cancer Screening for Men Cancer Screening for Men A cancer screening is a test or exam that checks for cancer. Your health care provider will recommend specific cancer screenings based on your age, personal history, and family history of cancer. Work with your health care provider to create a cancer screening schedule that protects your health. Why is cancer screening done? Cancer screening is done to look for cancer in the very early stages, before it spreads and becomes harder to treat and before you would start to notice symptoms. Finding cancer early improves the chances of successful treatment. It may save your life. Who should be screened for cancer? All men should be screened for colorectal cancer and skin cancer. Your health care provider may recommend screenings for other types of cancer if: You had cancer before. You have a family member with cancer. You have abnormal genes that could increase the risk of cancer. You have risk factors for certain cancers, such as smoking. When you should be screened for cancer depends on: Your age. Your medical history and your family's medical history. Certain lifestyle factors, such as smoking. Environmental exposure, such as to asbestos. What are some common cancer screenings? Lung cancer Lung cancer screening is done with a CT scan that looks for abnormal cells in the lungs. Discuss lung cancer screening with your health care provider if you are 55 74 years old and if any of the following apply to you: You currently smoke. You used to smoke heavily. You have a smoking history of 1 pack a day for 30 years or 2 packs a day for 15 years. You have quit smoking within the past 15 years. If you smoke heavily or if you used to smoke, you may need to be screened every year. Prostate cancer Prostate cancer screening is done with blood tests and an exam in which a health care provider uses a gloved finger to check prostate size (digital rectal exam). You may need to be screened for prostate cancer if: You have risk factors of prostate cancer, such as being or having a close family member with prostate cancer. You have inherited gene changes or a genetic condition, including BRCA1 or BRCA2 gene mutations or Hurt syndrome. You have symptoms of prostate cancer, such as problems urinating or erectile dysfunction. Prostate cancer screening for men with average risk may start at age 50. Men with risk factors may need to be screened earlier at age 40 45. Once you have been screened for prostate cancer, future screening may be recommended based on the results of your blood tests. Colorectal cancer All adults should have screening for colorectal cancer starting at age 50 and continuing until age 75. Your health care provider may recommend screening at age 45. You will have tests every 1 10 years, depending on your results and the type of screening test. If you have a family history of colon or rectal cancer or other risk factors, you may need to start having screenings earlier. Talk with your health care provider about which screening test is right for you and how often you should be screened. Colorectal cancer screening looks for cancer or for growths called polyps that often form before cancer starts. Tests to look for cancer or polyps include: Colonoscopy or flexible sigmoidoscopy. For these procedures, a flexible tube with a small camera is inserted into the rectum. CT colonography. This test uses X-rays and a contrast dye to check the colon for polyps. If a polyp is found, you may need to have a colonoscopy so the polyp can be located and removed. Tests to look for cancer in the stool (feces) include: Guaiac-based fecal occult blood test (FOBT). This test detects blood in stool. It can be done at home with a kit. Fecal immunochemical test (FIT). This test detects blood in stool. For this test, you will need to collect stool samples at home. Stool DNA test. This test looks for blood in stool and any changes in DNA that can lead to colon cancer. For this test, you will need to collect a stool sample at home and send it to a lab. Skin cancer Skin cancer screening is done by checking the skin for unusual moles or spots and any changes in existing moles. Your health care provider should check your skin for signs of skin cancer at every physical exam. You should check your skin every month and tell your health care provider right away if anything looks unusual. Men with a lrfvgk-hjui-rfvfom risk for skin cancer may want to see a school library media specialist (jig builder) for an annual body check. Where to find more information National Cancer [place]: https://www.cancer.gov/about-cance r/screening Centers for Disease Control and Prevention: https://www.cdc.gov/cancer/dcpc/pr evention/screening.htm [place] [employer]: https://www.cancer.org/latest-news /0-jjnbzz-lmghbaosg-feimq-erm-bnt. html Contact a health care provider if: You have concerns about any signs or symptoms of cancer, such as: ?Moles that have an unusual shape or color. ?Changes in existing moles. ?A sore on your skin that does not heal. ?Blood in your urine or stool. ?Fatigue that does not go away. ?Frequent pain or cramping in your abdomen. ?Coughing or trouble breathing that does not go away. ?Coughing up blood. ?Losing weight without trying. ?Changes in urination habits. ?Painful urination or ejaculation. Summary Be aware of and watch for signs and symptoms of cancer, especially symptoms of lung cancer, prostate cancer, colorectal cancer, and skin cancer. Early detection of cancer with cancer screening may save your life. Talk with your health care provider about your specific cancer risks. Work together with your health care provider to create a cancer screening plan that is right for you. This information is not intended to replace advice given to you by your health care provider. Make sure you discuss any questions you have with your health care provider. Document Released: 06/27/2017 Document Revised: 06/19/2019 Document Reviewed: 06/27/2017 [employer] Patient Education 2020 [employer]. Follow Up Care 07/23/2022 16:04:42 With:TANISHA GILL, Wayne Galicia, URL Address: [facility] [address], [place] [address]- When: Unknown [facility] Hospital Discharge instructions Patient Education 10/29/2022 08:35:00 Benign Prostatic Hyperplasia Benign Prostatic Hyperplasia Benign prostatic hyperplasia (BPH) is an enlarged prostate gland that is caused by the normal aging process and not by cancer. The prostate is a walnut-sized gland that is involved in the production of semen. It is located in front of the rectum and below the bladder. The bladder stores urine and the urethra is the tube that carries the urine out of the body. The prostate may get bigger as a man gets older. An enlarged prostate can press on the urethra. This can make it harder to pass urine. The build-up of urine in the bladder can cause infection. Back pressure and infection may progress to bladder damage and kidney (renal) failure. What are the causes? This condition is part of a normal aging process. However, not all men develop problems from this condition. If the prostate enlarges away from the urethra, urine flow will not be blocked. If it enlarges toward the urethra and compresses it, there will be problems passing urine. What increases the risk? This condition is more likely to develop in men over the age of 50 years. What are the signs or symptoms? Symptoms of this condition include: Getting up often during the night to urinate. Needing to urinate frequently during the day. Difficulty starting urine flow. Decrease in size and strength of your urine stream. Leaking (dribbling) after urinating. Inability to pass urine. This needs immediate treatment. Inability to completely empty your bladder. Pain when you pass urine. This is more common if there is also an infection. Urinary tract infection (UTI). How is this diagnosed? This condition is diagnosed based on your medical history, a physical exam, and your symptoms. Tests will also be done, such as: A post-void bladder scan. This measures any amount of urine that may remain in your bladder after you finish urinating. A digital rectal exam. In a rectal exam, your health care provider checks your prostate by putting a lubricated, gloved finger into your rectum to feel the back of your prostate gland. This exam detects the size of your gland and any abnormal lumps or growths. An exam of your urine (urinalysis). A prostate specific antigen (PSA) screening. This is a blood test used to screen for prostate cancer. An ultrasound. This test uses sound waves to electronically produce a picture of your prostate gland. Your health care provider may refer you to a specialist in kidney and prostate diseases (urologist). How is this treated? Once symptoms begin, your health care provider will monitor your condition (active surveillance or watchful waiting). Treatment for this condition will depend on the severity of your condition. Treatment may include: Observation and yearly exams. This may be the only treatment needed if your condition and symptoms are mild. Medicines to relieve your symptoms, including: ?Medicines to shrink the prostate. ?Medicines to relax the muscle of the prostate. Surgery in severe cases. Surgery may include: ?Prostatectomy. In this procedure, the prostate tissue is removed completely through an open incision or with a laparoscope or robotics. ?Transurethral resection of the prostate (TURP). In this procedure, a tool is inserted through the opening at the tip of the penis (urethra). It is used to cut away tissue of the inner core of the prostate. The pieces are removed through the same opening of the penis. This removes the blockage. ?Transurethral incision (TUIP). In this procedure, small cuts are made in the prostate. This lessens the prostate's pressure on the urethra. ?Transurethral microwave thermotherapy (TUMT). This procedure uses microwaves to create heat. The heat destroys and removes a small amount of prostate tissue. ?Transurethral needle ablation (TUNA). This procedure uses radio frequencies to destroy and remove a small amount of prostate tissue. ?Interstitial laser coagulation (ILC). This procedure uses a laser to destroy and remove a small amount of prostate tissue. ?Transurethral electrovaporization (TUVP). This procedure uses electrodes to destroy and remove a small amount of prostate tissue. ?Prostatic urethral lift. This procedure inserts an implant to push the lobes of the prostate away from the urethra. Follow these instructions at home: Take inab-ozn-utcjolu and prescription medicines only as told by your health care provider. Monitor your symptoms for any changes. Contact your health care provider with any changes. Avoid drinking large amounts of liquid before going to bed or out in public. Avoid or reduce how much caffeine or alcohol you drink. Give yourself time when you urinate. Keep all follow-up visits as told by your health care provider. This is important. Contact a health care provider if: You have unexplained back pain. Your symptoms do not get better with treatment. You develop side effects from the medicine you are taking. Your urine becomes very dark or has a bad smell. Your lower abdomen becomes distended and you have trouble passing your urine. Get help right away if: You have a fever or chills. You suddenly cannot urinate. You feel lightheaded, or very dizzy, or you faint. There are large amounts of blood or clots in the urine. Your urinary problems become hard to manage. You develop moderate to severe low back or flank pain. The flank is the side of your body between the ribs and the hip. These symptoms may represent a serious problem that is an emergency. Do not wait to see if the symptoms will go away. Get medical help right away. Call your local emergency services (911 in the [place] Do not drive yourself to the hospital. Summary Benign prostatic hyperplasia (BPH) is an enlarged prostate that is caused by the normal aging process and not by cancer. An enlarged prostate can press on the urethra. This can make it hard to pass urine. This condition is part of a normal aging process and is more likely to develop in men over the age of 50 years. Get help right away if you suddenly cannot urinate. This information is not intended to replace advice given to you by your health care provider. Make sure you discuss any questions you have with your health care provider. Document Released: 09/30/2006 Document Revised: 08/25/2019 Document Reviewed: 11/04/2017 [employer] Patient Education 2020 [employer]. Follow Up Care 09/04/2022 11:18:16 With:TANISHA GILL, Wayne Galicia, URL Address: [facility] [address] , [place] [address]- When: Unknown [facility] 09-21-2022 Note EXAMINATION: XR CHES T 2 V HISTORY: Pre-surgery evaluation COMPARISON: 01/29/2022 TECHNIQUE: PA and lateral FINDINGS: LUNGS: No significant pulmonary parenchymal abnormalities. Minimal linear opacities in the left lateral midlung, stable likely chronic scarring. Mild hyperinflation VASCULATURE: No increased pulmonary vasculature. PLEURA: No pneumothorax, effusion, or pleural thickening. CARDIAC: No cardiomegaly or cardiac silhouette abnormality. MEDIASTINUM: No visible mass or adenopathy. BONES: No fracture or visible bone lesion. Dextrocurvature with underlying degenerative changes OTHER: Negative. IMPRESSION: No acute disease. Electronically authenticated by: SANIA CANELA Date: 2022-09-21 12:38 [facility] 06-25-2022 Hospital Discharge instructions Patient Education 06/25/2022 15:10:02 Brachytherapy for Prostate Cancer Brachytherapy for Prostate Cancer Brachytherapy for prostate cancer is radiation treatment that is placed inside of the prostate (prostate gland). There are several types of brachytherapy: Low-dose rate (LDR) therapy. This may involve temporary implants or permanent radioactive seed or pellet implants. The radiation does not travel far from the prostate, which means that healthy, noncancerous tissues around the prostate receive only a small dose of radiation. This helps to protect those tissues from injury. This type of treatment may be followed by a course of external beam radiation. ?Temporary low-dose implants are left in the prostate for 1 7 days. The implants are needles, applicators, or thin, plastic tubes (catheters) that contain radioactive material. You will need to stay in the hospital while the implant is in place. ?Permanent low-dose implants (seeds or pellets) are injected into the prostate, and they work for up to one year after they are inserted. They are left in place and are not removed. High-dose rate (HDR) therapy. This is given through needles, applicators, or catheters that contain radioactive material. The tubes are removed after treatment, and no radiation is left in the prostate. This type of treatment may be followed by a course of external beam radiation. Tell a health care provider about: Any allergies you have. All medicines you are taking, including vitamins, herbs, eye drops, creams, and xoir-qfc-viylxlf medicines. Any problems you or family members have had with anesthetic medicines. Any surgeries you have had. Any blood disorders you have. Any medical conditions you have. What are the risks? Generally, this is a safe procedure. However, problems may occur, including: Inflammation of the rectum. Problems getting or keeping an erection (erectile dysfunction). Trouble urinating. Diarrhea. Bleeding. Loss of bowel control. What happens before the procedure? Staying hydrated Follow instructions from your health care provider about hydration, which may include: Up to 2 hours before the procedure you may continue to drink clear liquids, such as water, clear fruit juice, black coffee, and plain tea. Eating and drinking Follow instructions from your health care provider about eating and drinking, which may include: 8 hours before the procedure stop eating heavy meals or foods such as meat, fried foods, or fatty foods. 6 hours before the procedure stop eating light meals or foods, such as toast or cereal. 6 hours before the procedure stop drinking milk or drinks that contain milk. 2 hours before the procedure stop drinking clear liquids. Medicines Ask your health care provider about: ?Changing or stopping your regular medicines. This is especially important if you are taking diabetes medicines or blood thinners. ?Taking medicines such as aspirin and ibuprofen. These medicines can thin your blood. Do not take these medicines before your procedure if your health care provider instructs you not to. You may be given antibiotic medicine to help prevent infection. General instructions Plan to have someone take you home from the hospital or clinic. If you will be going home right after the procedure, plan to have someone with you for 24 hours. You may have imaging tests done, including an ultrasound, CT scan, or MRI. You may have blood tests done. You may have a test to check the electrical signals in your heart (electrocardiogram). You may need to take medicine to clean out your bowel (bowel prep). What happens during the procedure? To lower your risk of infection: ?Your health care team will wash or sanitize their hands. ?Your skin will be washed with soap. ?Hair may be removed from the surgical area. An IV will be inserted into one of your veins. You will be given one or more of the following: ?A medicine to help you relax (sedative). ?A medicine to numb the area (local anesthetic). ?A medicine to make you fall asleep (general anesthetic). You may have a thin, plastic tube (catheter) inserted to drain your bladder. If you are receiving brachytherapy with implants: ?A needle, applicator, or catheter will be inserted into the prostate. It will be inserted through a body cavity, such as the rectum, or through the tissue between the testicles and the anus (perineum). ?An X-ray, ultrasound, MRI, or CT scan will be used to guide the catheter or applicator toward the prostate. ?Radioactive seeds, wires, or ribbons will be fed through the catheter or applicator. ?If the high-dose method is used: ?The radioactive wires or ribbons will be left in for a few minutes and then removed. ?Once the treatment is finished, the catheter or applicator will be removed. ?If the low-dose method is used, the implant will stay in place for 1 7 days. ?You will remain in the hospital while the implant is in place. ?Once the treatment is finished, the radioactive material and catheter will be removed. If you are receiving permanent, low-dose brachytherapy: ?Small, radioactive seeds or pellets will be injected into your prostate. This may be done through a catheter, needle, or applicator. ?The catheter or applicator will be removed, leaving the seeds in the prostate. The procedure may vary among health care providers and hospitals. What happens after the procedure? Your blood pressure, heart rate, breathing rate, and blood oxygen level will be monitored until the medicines you were given have worn off. Do not drive for 24 hours if you were given a sedative. Summary Brachytherapy for prostate cancer is radiation treatment placed inside of the prostate (prostate gland). There are several types of brachytherapy for prostate cancer, including low-dose temporary treatment, low-dose permanent treatment, and high-dose temporary treatment. Temporary low-dose implants are left in the prostate for 1 7 days. Permanent low-dose implants are injected into the prostate and left in place. They work for up to one year after they are inserted. Permanent high-dose therapy is given through tubes that contain radioactive material. The tubes are removed after treatment, and no radiation is left in the prostate. This information is not intended to replace advice given to you by your health care provider. Make sure you discuss any questions you have with your health care provider. Document Released: 03/10/2007 Document Revised: 09/12/2018 Document Reviewed: 10/09/2017 [employer] Patient Education 2020 [employer]. Follow Up Care 02/16/2022 11:08:20 With:TANISHA GILL, Wayne Galicia, URL Address: [facility] [address] , [place] [address]- [phone] When: Unknown [facility] 02-16-2022 Hospital Discharge instructions Patient Education 02/16/2022 10:41:54 Prostate Cancer Prostate Cancer The prostate is a walnut-sized gland that is involved in the production of semen. It is located below a man's bladder, in front of the rectum. Prostate cancer is the abnormal growth of cells in the prostate gland. What are the causes? The exact cause of this condition is not known. What increases the risk? This condition is more likely to develop in men who: Are older than age 65. Are -[place]. Are obese. Have a family history of prostate cancer. Have a family history of breast cancer. What are the signs or symptoms? Symptoms of this condition include: A need to urinate often. Weak or interrupted flow of urine. Trouble starting or stopping urination. Inability to urinate. Pain or burning during urination. Painful ejaculation. Blood in urine or semen. Persistent pain or discomfort in the lower back, lower abdomen, hips, or upper thighs. Trouble getting an erection. Trouble emptying the bladder all the way. How is this diagnosed? This condition can be diagnosed with: A digital rectal exam. For this exam, a health care provider inserts a gloved finger into the rectum to feel the prostate gland. A blood test called a prostate-specific antigen (PSA) test. An imaging test called transrectal ultrasonography. A procedure in which a sample of tissue is taken from the prostate and examined under a microscope (prostate biopsy). Once the condition is diagnosed, tests will be done to determine how far the cancer has spread. This is called staging the cancer. Staging may involve imaging tests, such as: A bone scan. A CT scan. A PET scan. An MRI. The stages of prostate cancer are as follows: Stage I. At this stage, the cancer is found in the prostate only. The cancer is not visible on imaging tests and it is usually found by accident, such as during a prostate surgery. Stage II. At this stage, the cancer is more advanced than it is in stage I, but the cancer has not spread outside the prostate. Stage III. At this stage, the cancer has spread beyond the outer layer of the prostate to nearby tissues. The cancer may be found in the seminal vesicles, which are near the bladder and the prostate. Stage IV. At this stage, the cancer has spread other parts of the body, such as the lymph nodes, bones, bladder, rectum, liver, or lungs. How is this treated? Treatment for this condition depends on several factors, including the stage of the cancer, your age, personal preferences, and your overall health. Talk with your health care provider about treatment options that are recommended for you. Common treatments include: Observation for early stage prostate cancer (active surveillance). This involves having exams, blood tests, and in some cases, more biopsies. For some men, this is the only treatment needed. Surgery. Types of surgeries include: ?Open surgery. In this surgery, a larger incision is made to remove the prostate. ?A laparoscopic prostatectomy. This is a surgery to remove the prostate and lymph nodes through several, small incisions. It is often referred to as a minimally invasive surgery. ?A robotic prostatectomy. This is a surgery to remove the prostate and lymph nodes with the help of a robotic arm that is controlled by a computer. ?Orchiectomy. This is a surgery to remove the testicles. ?Cryosurgery. This is a surgery to freeze and destroy cancer cells. Radiation treatment. Types of radiation treatment include: ?External beam radiation. This type aims beams of radiation from outside the body at the prostate to destroy cancerous cells. ?Brachytherapy. This type uses radioactive needles, seeds, wires, or tubes that are implanted into the prostate gland. Like external beam radiation, brachytherapy destroys cancerous cells. An advantage is that this type of radiation limits the damage to surrounding tissue and has fewer side effects. High-intensity, focused ultrasonography. This treatment destroys cancer cells by delivering high-energy ultrasound waves to the cancerous cells. Chemotherapy medicines. This treatment kills cancer cells or stops them from multiplying. Hormone treatment. This treatment involves taking medicines that act on one of the male hormones (testosterone): ?By stopping your body from producing testosterone. ?By blocking testosterone from reaching cancer cells. Follow these instructions at home: Take [id number] and prescription medicines only as told by your health care provider. Maintain a healthy diet. Get plenty of sleep. Consider joining a support group for men who have prostate cancer. Meeting with a support group may help you learn to cope with the stress of having cancer. Keep all follow-up visits as told by your health care provider. This is important. If you have to go to the hospital, notify your cancer specialist (oncologist). Treatment for prostate cancer may affect sexual function. Continue to have intimate moments with your partner. This may include touching, holding, hugging, and caressing. Contact a health care provider if: You have trouble urinating. You have blood in your urine. You have pain in your hips, back, or chest. Get help right away if: You have weakness or numbness in your legs. You cannot control urination or your bowel movements (incontinence). You have trouble breathing. You have sudden chest pain. You have chills or a fever. Summary The prostate is a walnut-sized gland that is involved in the production of semen. It is located below a man's bladder, in front of the rectum. Prostate cancer is the abnormal growth of cells in the prostate gland. Treatment for this condition depends on several factors, including the stage of the cancer, your age, personal preferences, and your overall health. Talk with your health care provider about treatment options that are recommended for you. Consider joining a support group for men who have prostate cancer. Meeting with a support group may help you learn to cope with the stress of having cancer. This information is not intended to replace advice given to you by your health care provider. Make sure you discuss any questions you have with your health care provider. Document Released: 09/30/2006 Document Revised: 09/12/2018 Document Reviewed: 06/10/2017 [employer] Patient Education 2020 [employer]. Follow Up Care 01/22/2022 16:42:55 With:TANISHA GILL, Wayne Galicia, URL Address: [facility] [address] , [place] [address]- When:06/19/2022 Comments:w/ PSA [facility] 01-29-2022 Note EXAMINATION: XR CHES T 2 V HISTORY: Pre-surgery evaluation COMPARISON: XR chest 11/18/2021 FINDINGS: LUNGS: Underexpanded lungs without appreciable infiltrates or nodules. VASCULATURE: No increased pulmonary vasculature. PLEURA: No pneumothorax, effusion, or pleural thickening. CARDIAC: No cardiomegaly or cardiac silhouette abnormality. MEDIASTINUM: No visible mass or adenopathy. BONES: No fracture or visible bone lesion. OTHER: Negative. IMPRESSION: 1. No acute cardiopulmonary process. Electronically authenticated by: MAIKEL ESTEVEZ Date: 2022-01-29 13:48 [facility] Evaluation + Plan note Future Appointments Appointment Date:03/30/2022 08:30:00 AM Scheduled Provider:Wayne TRINIDAD MD Location:[facility] Appointment Type:URO Office Visit Appointment Date:06/25/2022 02:15:00 PM Scheduled Provider:Wayne TRINIDAD MD Location:[facility] Appointment Type:URO Office Visit Diagnostic Tests PendingPSA Total 02/16/22 [facility] Evaluation + Plan note [facility] Evaluation + Plan note Future Appointments Appointment Date:10/29/2022 01:30:00 PM Scheduled Provider:Wayne TRINIDAD MD Location:[facility] Appointment Type:URO Office Visit Appointment Date:01/14/2023 01:15:00 PM Scheduled Provider:Wayne TRINIDAD MD Location:[facility] Appointment Type:URO Office Visit [facility] Evaluation + Plan note Future Appointments Appointment Date:01/14/2023 01:15:00 PM Scheduled Provider:Wayne TRINIDAD MD Location:[facility] Appointment Type:URO Office Visit Appointment Date:02/04/2023 01:15:00 PM Scheduled Provider:Wayne TRINIDAD MD Location:[facility] Appointment Type:URO Office Visit Diagnostic Tests PendingPSA Total 10/29/22 [facility] Evaluation + Plan note Future Appointments Appointment Date:09/16/2023 01:45:00 PM Scheduled Provider:Wayne TRINIDAD MD [facility] Appoint[facility] Type:URO Office Visit Diagnostic Tests PendingPSA Total 01/14/23 [facility] Evaluation + Plan note Future Appointments Appointment Date:03/23/2024 01:45:00 PM Scheduled Provider:Wayne TRINIDAD MD Location:[facility] Appointment Type:URO Office Visit Diagnostic Tests PendingPSA Total 09/16/23 [facility] Hospital course Narrative No data available for this section [facility] Hospital Discharge instructions No data available for this section [facility] Progress note No data available for this section [facility] Reason for referral (narrative) Referred by: Wayne TRINIDAD MD [facility] Summary Purpose Family History No Family History Records FoundUnknown Family Member Name Dates Details Family history of cardiac di sorder: Father(V17.49, Z82.49) Status:Active Family history of diabetes m ellitus: Father(V18.0, Z83.3) Status:Active No pertinent family history: Mother(V49.89, Z78.9) Status:Active Advance Directives No Advanced Directives Records FoundNo Advanced Directives Records FoundNo Advanced Directives Records FoundNo Advanced Directives Records FoundNo Advanced Directives Records FoundNo Advanced Directives Records FoundNo Advanced Directives Records FoundNo Advanced Directives Records Found Chief Complaint * SHERON ERAZO is being seen for an annual follow-up of. * Patient is in the office for follow-up for the problems noted below. Since he was last seen in the office year ago he has had no cardiac events but he was diagnosed with prostate cancer received radiation and implants. He had an EKG by his PCP January 2023 which I reviewed and was normal. His weight remains above target and his physical examination otherwise was abnormal for diminished breath sounds caused by COPD. * Assessment/recommendations: * 1 mild coronary artery disease by cardiac catheterization involving the LAD normal 40% based on thecatheter in 2018. Emphasized the need for secondary prevention measures which I listed and discussed with the patient. * 2 diabetes under the care of PCP. A1c less than 7 * 3 hypertension being monitored on medical therapy with ARB valsartan * 4 hyperlipidemia on rosuvastatin, testing scheduled this coming June * 5 COPD Presently it is stable. He quit smoking 2 years ago * 6 moderate obesity, his weight is coming down with exercise and dieting. * 7 prostate cancer status post seeds implants in remission * Annual follow-up will be scheduled Additional Source Comments (unrecognized sect ion and content) No Status Records FoundNo Status Records FoundNo Status Records FoundNo Status Records FoundNo Status Records FoundNo Status Records FoundNo Status Records FoundNo Status Records Found INFORMATION SOURCE (unrecogn ized section and content) DATE CREATED AUTHOR 04/01/2018 [facility] DATE CREATED AUTHOR AUTHOR'S ORGANIZ ATION 10/20/2021 [facility] DATE CREATED AUTHOR AUTHOR'S ORGANIZ ATION 01/01/2022 [facility] DATE CREATED AUTHOR AUTHOR'S ORGANIZ ATION 01/16/2023 [facility] DATE CREATED AUTHOR AUTHOR'S ORGANIZ ATION 01/19/2023 [facility] DATE CREATED AUTHOR AUTHOR'S ORGANIZ ATION 04/09/2023 [facility] DATE CREATED AUTHOR AUTHOR'S ORGANIZ ATION 04/09/2023 [employer] DATE CREATED AUTHOR AUTHOR'S ORGANIZ ATION 09/18/2023 [facility] Care Team (unrecognized sect ion and content) Personnel Name: ERNIE ELLIOTT JR, DO Address: [address] [place] [address] Personnel Name: ERNIE ELLIOTT JR, DO Address: Address: [address] [place] [address] Personnel Name: ERNIE ELLIOTT JR, DO Address: Address: [address] [place] [address] Personnel Name: ERNIE ELLIOTT JR, DO Address: Address: [address] [place] [address] Personnel Name: ERNIE ELLIOTT JR, DO Address: Address: [address] [place] [address] FOR RECORDS PERTAINING TO PATIENTS WHO ARE OR HAVE BEEN ENROLLED IN A CHEMICAL DEPENDENCY/SUBSTANCEABUSE PROGRAM, SOME INFORMATION MAY BE OMITTED. This clinical summary was aggregated from multiple sources. Caution should be exercised in using it in the provision of clinical care. This summary normalizes information from multiple sources, and as a consequence, information in this document may materially change the coding, format and clinical context of patient data. In addition, data may be omitted in some cases. CLINICAL DECISIONS SHOULD BE BASED ON THE PRIMARY CLINICAL RECORDS. [facility]. provides no warranty or guarantee of the accuracy or completeness of information in this document.
--- NOTE | 2023-11-05 13:07 | CT_ITS ---
[address] [address] Patient Name: SHERON ERAZO MRN: [id number] date: 1955 Sex: M Assigned Patient Location: LAB Current Patient Location: CT Accession/Order Number: [id number] Exam Date: 11/05/2023 14:00 Report Date: 11/05/2023 15:55 At the request of: CARLEEN ELLIOTT Procedure: CT abdomen w con EXAMINATION: CT abdomen w con HISTORY: Type 2 Diabetes Mellitus , Renal Sclerosis N26.9 COMPARISON: 03/02/2022 TECHNIQUE: CT images were created with IV contrast. Axial, Coronal, and Sagittal images. Dose reduction techniques were achieved by using automated exposure control and/or adjustment of mA and/or kV according to patient size and/or use of iterative reconstruction technique. FINDINGS: LUNG BASES: Bibasilar linear opacities, atelectasis favored LIVER: Diffuse hypoattenuation suggesting hepatic steatosis. Scattered subcentimeter hypodensities too small to characterize BILIARY: No visible dilatation or calcification. PANCREAS: No lesion, fluid collection, ductal dilatation, or atrophy. SPLEEN: No enlargement or focal lesion. ADRENALS: No mass or enlargement. KIDNEYS: No mass, obstruction, or calcification. Hypodensity right renal cortex likely a cyst BOWEL/MESENTERY: No visible mass, obstruction, or bowel wall thickening. AORTA/VASCULAR: No aortic aneurysm. Extensive aortic atherosclerosis RETROPERITONEUM: No mass or adenopathy. LYMPH NODES: No adenopathy. ABDOMINAL WALL: No mass or hernia. BONES: No bony lesion or fracture. OTHER: Negative. CT/CT abdomen w con IMPRESSION: Hepatic steatosis No renal abnormality observed Electronically authenticated by: SANIA CANELA Date: 11/05/2023 15:55
[2023-11-05 14:00] LABS: Estimated Average Glucose 143 mg/dL; Glycohemoglobin A1C 6.6 % (4.5-6.2)
[2023-11-05 14:03] LABS: Alanine Aminotransferase 27 U/L (16-63); Albumin Globulin Ratio 0.7; Albumin Level 3.4 g/dL (3.4-5.0); Alkaline Phosphatase 119 U/L (46-116); Anion Gap 9.8; Aspartate Amino Transferase 25 U/L (15-37); Bilirubin Direct 0.1 mg/dL (0.0-0.2); Bilirubin Total 0.3 mg/dL (0.2-1.0); Carbon Dioxide 33.9 mmol/L (21.0-32.0); Chloride 100 mmol/L (98-107); Chol HDL Ratio 2.6; Cholesterol 103 mg/dL (<=200); Estimated GFR (African America >60 (>=60); Estimated GFR (Non-African Ame >60 (>=60); Globulin 5.1 g/dL; HDL Cholesterol 40 mg/dL (40-60); Potassium 4.7 mmol/L (3.5-5.1); Sodium 139 mmol/L (136-145); Total Protein 8.5 g/dL (6.4-8.2); Triglycerides 176 mg/dL (<=150); VLDL CHOLESTEROL 35.2 mg/dL
== END 2023-11-05 12:45 | disposition home or self-care (01) ==
LOC: LAB 12:45
PROVIDERS: PCP Internal Medicine; Visit Provider Internal Medicine
DX: E78.2 Mixed hyperlipidemia (principal); E11.9 Type 2 diabetes mellitus without complications; Z79.899 Other long term (current) drug therapy; K76.0 Fatty (change of) liver, not elsewhere classified
CPT/HCPCS: 36415; 74160; 80051; 80061; 80076; 82565; 83036; 84520; Q9967

== ENCOUNTER 2023-11-05 13:22 | Outpatient (OUT) | payer MEDICARE, SELFPAY ==
--- NOTE | 2023-11-05 13:07 | CT_ITS ---
[address] [address] Patient Name: SHERON ERAZO MRN: [id number] date: 1955 Sex: M Assigned Patient Location: CT Current Patient Location: LAB Accession/Order Number: [id number] Exam Date: 11/05/2023 14:00 Report Date: 11/05/2023 14:49 At the request of: JOLEEN ANDERSON Procedure: CT lung screening low-dose EXAM TYPE: CT lung screening low-dose INDICATION: History of nicotine dependence. COMPARISON: LD CT scan of the chest 10/26/2022, high resolution CT of the chest 10/05/2021 TECHNIQUE: Noncontrast, Low dose, helical axial images of the chest were obtained, and thin section, axial MIP, and coronal and sagittal reformats were also submitted from the acquisition scanner under radiologist supervision. Each series was submitted in a lung algorithm. Dose reduction techniques were achieved by using automated exposure control and/or adjustment of mA and/or kV according to patient size and/or use of iterative reconstruction technique. FINDINGS: Please note that this examination was tailored for evaluation of pulmonary nodules, and therefore soft tissue detail is suboptimal. Bilateral gynecomastia. Heart size within normal limits. No pericardial effusion. Heavy calcification of the coronary arteries. Calcified atherosclerotic change within a normal caliber aorta. Calcified mediastinal lymph nodes. Stable mildly enlarged precarinal lymph node 1.3 cm short axis. No central endobronchial nodule. Subsegmental atelectasis/scar within the lingula and lower lobes bilaterally. No lobar consolidation, pleural effusion or pneumothorax. Stable nodular scar at the lung apices. No suspicious pulmonary nodule. Small sliding hiatal hernia. No acute findings in the upper abdomen. Mild dextroscoliosis and spondylosis thoracic spine. No acute fracture. CT/CT lung screening low-dose IMPRESSION: Lung RADS category 1: Negative. LD CT scan of the chest in one year recommended. Electronically authenticated by: YOSSI SETH Date: 11/05/2023 14:49
--- OUTSIDE RECORDS SUMMARY | 2023-11-05 13:25 | XMS_ITS | CCD ---
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 Brake Worker Name Role Phone DANII MALDONADO Unavailable Unavailabl e ERNIE ELLIOTT Unavailable Unavailable JACQUELYN MAURER Attending Unavailable EARL, ERNIE Primary Care Unavailable EARL, ERNIE Referring Unavailable JACQUELYN MAURER Admitting Unavailable ERNIE ELLIOTT JR Primary Care Physician TANISHA ., DR MCPHERSON Admitting Unavailable TRINIDAD ., DR MCPHERSON Consulting Unavailable TRINIDDA ., DR MCPHERSON Attending Unavailable VALTSERING, DR [...] MCPHERSON Attending Unavailable TRINIDAD ., DR MCPHERSON Admitting Unavailable TRINIDAD ., DR MCPHERSON Consulting Unavailable VALONE, DR DURANT Primary Care Unavailable ZIEBLUCAS, DR MAIKEL Galicia Consulting Unavailable CARTER, DR NGOZI Cannon Consulting Unavailable VALONE, DR DURANT Primary Care Unavailable CARTER, DR NGOZI Cannon Attending Unavailable CARTER, DR NGOZI Cannon [...] (1 source) Ramipril Drug Allergy 2 [facility] Repository (1 source) No Known Medication Allergies; 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: [No Known Medication Allergies] Propensity to adverse reactions (disorder) [facility] Repository Medications Current Medications Medication Drug Class(es) [...] 08/27/19 Status: Ordered take 1 tablet by idmitry th once daily at mealtime metFORMIN HCl [...] disease (6 sources) Atherosclerotic heart disease of [place] coronary artery without angina pectoris; 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: [Coronary [...] Unclassified (2 sources) Athscl heart disease of [place] coronary artery w/o ang pctrs / I25.10(ICD-9) [...] 10-01-2022 Episodic Other aftercare (1 source) Other mcfp (current) drug therapy; 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: [OTH X RAY OPERATOR CURRENT DRUG THERAPY] Onset: 10-01-2022 Episodic Other aftercare (1 source) 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 ? [place] 7: This indicates that the cancer cells look somewhat similar to normal prostate cells (moderately differentiated). ? [place] 8, 9, or 10: This indicates that [...] external be (more content not included)... 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 [facility] Comment on above: Result Comment: Electronically Signed By : Wayne TRINIDAD MD\.br\Date and Time Signed: 09/16/23 14:41 EST\.br\Electronically Co-Signed By: Guera Oswald\.br\Date and Time Co-Signed: 09/16/23 14:40 EST [facility] 09-10-2023 Lab Reports [id number] .00TIFF [facility] Office Visit (Cardiology)on 04-08-2023 Follow-up visit Diagnoses/Problems [...] Recorded: 08Apr2023 01:21PM Heart Rate78, R Radial Gykqvjpf606, LUE, Sitting Bcocfqwrb60, LUE, Sitting Height6 ft Iwgqtl943 lb BMI Nvxdebtpjj64.09 kg/m2 BSA Calculated2.32 Tobacco Useb) No PHQ-2 [...] Apr 08 2023 1:56PM EST (Author) Normal [facility] Tobacco Screening.on 023 Adult depression screening assessment No [facility] [employer] 250 DO Work Phone: Fall risk assessment a) No falls within the last year [facility] [employer] 250 DO Work Phone: Tobacco use status CP b) No [facility] [employer] 250 DO Work Phone: Lab Report[facility] 01-17-2023 Lab Reports [id number] .00CD:127 Normal [facility] Refillon 01-16-2023 Refill [id number] Sheron Erazo Jr. 1955 M Date Provider Department Center 01/16/2023 JACQUELYN JACOBSON ONC DCC No family history on file Reason for Visit and Comments: Med Refill [[id number]] Normal [facility] Patient Educationon 01-15-20 23 Patient Education Oncology [...] if anything looks unusual. Men with a ecrdct-npal-zgfpsy risk for skin cancer may want to see a skin drier (dinkey driver) for an annual body check. Where to find more information ? National Cancer [place]: https://www.cancer.go v/about-cancer/screen ing ? Centers for Disease Control and Prevention: https://www.cdc.gov/c amiraher/dcpc/prevention /screening.htm ? [place] [employer]: https://www.cancer.or g/latest-news/4-cance a-ctkmjyvgi-npwyg-for -men.html Contact a health care (more content not included)... 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 [facility] Comment on above: Result Comment: Electronically Signed By : Wayne TRINIDAD MD\.br\Date and Time Signed: 01/14/23 14:34 EDT\.br\Electronically Co-Signed By: Toyin Fournier.br\Date and Time Co-Signed: 01/14/23 14:30 EDT Consultation Noteon 11-16-19 Consultation Note [id number] .00CD:127 [facility] Ambulatory Visit Summaryon 0 10-29-2022 Ambulatory Visit Summary SHERON ERAZO JR :1955 Visit Date:10/29/2022 Ambulatory Visit Instructions Your Diagnosis Prostate cancer BPH with urinary obstruction Nocturia Tests Performed Urnls Dip Stick Auto w/o Microscopy POC 18443 Your Care Team Attending Physician - Wayne [...] Wayne TRINIDAD MD Where: [facility] Normal [address] [place] [address]- \.br\ You Need to Schedule the Following Appointments\.br\ Follow Up with Wayne TRINIDAD MD, URL When: \.br\ Where:\.br\ [facility] [address]\.br\ [place] [address]-\.br\ Medications\.br\ What How Much When Instructions\.br\ Unchanged [...] Urnls Dip Stick Auto w/o Microscopy POC 89715 (10/29/2022)\.br\ Bilirubin Urine Dipstick - Negative\.br\ Blood Urine Dipstick - 1+ Small\.br\ Glucose Urine Dipstick - Negative\.br\ Ketones Urine Dipstick - Negative\.br\ Leukocytes Urine Dipstick - Negative\.br\ Nitrite Urine Dipstick - Negative\.br\ Protein Urine Dipstick - Negative\.br\ Specific [place] Urine Dipstick - 1.015\.br\ Urine Appearance Urine [...] PSA\.br\ Frequency of urination\.br\ Glycosuria\.br\ Hx of mcfp use of blood thinners\.br\ Hyperlipidemia\.br\ Nocturia\.br\ Personal [...] these instructions at home:\.br\ ? \.br\ Take jple-ele-nrglktv and prescription medicines only as told by your health care provider.\.br\ ? \.br\ Monitor your symptoms for any changes. Contact your health care pro [facility] Patient Educationon 10-29-19 Patient Education Urology Benign [...] Follow these instructions at home: ? Take xjcs-vie-egmaslc and prescription medicines only as told by [...] You d (more content not included)... Normal [facility] Urology Office/Clinic Noteon 10-29-2022 Urology Office/Clinic Note [...] [place] 7 (3+4) in multiple cores and [place] 6 (3+3). S/P Brachytherapy done 09/27/22. PO [...] the evening. SEs discussed. Rx sent to [facility] mail order (pt confirmed). 3. Nocturia (R35.1: Nocturia) Nocturia 1x/hour, drinks a lot of soda in the evening. Nocturia slightly more than before procedure. Stream best during the night. Follow-up With When Contact Information TANISHA GILL, Wayne Galicia, URL [facility] [address], [place] [address]- Additional Instructions: f/u in 2-3 mos with [...] PSA Frequency of urination Glycosuria Hx of mcfp use of blood thinners Hyperlipidemia Nocturia Personal [...] Immunizations Vaccine Date Status Comments SARS-CoV-2 (COVID-19) mRNAMUL.ORD![id number] 07/05/2022 Recorded 2022-10-29: TPV65 SARS-CoV-2 (COVID-19) mRNA BNT-162b2 vax 08/15/2021 Recorded SARS-CoV-2 (COVID-19) mRNA BNT-162b2 vax 01/23/2021 Recorded SARS-CoV-2 (COVID-19) mRNA BNT-162b2 vax 01/10/2021 Recorded SARS-CoV-2 (COV (more content not included)... Normal [facility] Comment on above: Result Comment: Electronically Signed [...] by: MAIKEL ESTEVEZ Date: 2022-10-26 15:[address] [facility] Refillon 10-15-2022 Refill [id number] Sheron Erazo Jr. 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\.br\ Hyperlipidemia\.br\ Personal history of smoking\.br\ Pneumonia\.br\ Prostate cancer\.br\ \.br\ [facility] Nurse Consultation Noteon Nurse Consultation Note Reason [...] (COVID-19) mRNA BNT-162b2 vax 01/23/2021 Recorded Normal [facility] RAD - MISCon 10-03-2022 RAD - MISC [id number] .00CD:127 [facility] ECG 12-Leadon 10-01-2022 ECG 12-Lead [id number] .00CD:127 Normal [facility] Consultation Noteon 09-28-20 Consultation Note [id number] .00CD:127 [facility] Consultation Note [id number] .00CD:127 [facility] Lab Reportson 09-28-2022 Lab Reports [id number] .00CD:127 [facility] Operative Reporton Operative Report [id number] .00CD:127 Normal [facility] RAD - MISCon 09-28-2022 RAD - MIS [id number] .00CD:127 Normal [facility] XR PELVIS 1_2 VIEWSon 2021 XR PELVIS [...] by: MAIKEL ESTEVEZ Date: 2022-09-28 07:[address] [facility] CBC AUTO DIFFon 09-27-2022 BASO # 0.0 103/ul Normal 0.0-0.[address] [facility] Comment on above: Performed By: #### BMP #### [facility] [address] [place] [address] Dr. Juanita Sagastume Basophils/100 WBC (Bld) 0.2 % Normal 0.2-2.[address] [facility] Comment on above: Performed By: #### BMP #### [facility] [address] [place] [address] Dr. Juanita Sagastume EO # 0.2 103/ul Normal 0.0-0.[address] [facility] Comment on above: Performed By: #### BMP #### [facility] [address] [place] [address] Dr. Juanita Sagastume Eosinophils/100 WBC (Bld) 2.2 % Normal 0.9-7.[address] [facility] Comment on above: Performed By: #### BMP #### [facility] [address] [place] [address] Dr. Juanita Sagastume Erythrocyte distribution width (RBC) [Ratio] 17.5 % Critically high 11.0-15.[address] [facility] Comment on above: Performed By: #### BMP #### [facility] [address] [place] [address] Dr. Juanita Sagastume Hematocrit (Bld) [Volume fraction] 41.3 % Critically low 42.0-54.[address] [facility] Comment on above: Performed By: #### BMP #### [facility] [address] [place] [address] Dr. Juanita Sagastume Hemoglobin (Bld) [Mass/Vol] 13.5 g/dL Critically low 14.0-18.[address] [facility] Comment on above: Performed By: #### BMP #### [facility] [address] [place] [address] Dr. Juanita Sagastume IG # 0.04 10e3/ul Critically high 0.00-0.03 [facility] Comment on above: Performed By: #### BMP #### [facility] [address] [place] [address] Dr. Juanita Sagastume IG % 0.5 % Normal 0.0-0.[address] [facility] Comment on above: Performed By: #### BMP #### [facility] [address] [place] [address] Dr. Juanita Sagastume LYMPH # 0.8 103/ul Critically low 1.2-3.8 [facility] Comment on above: Performed By: #### BMP #### [facility] [address] [place] [address] Dr. Juanita Sagastume Lymphocytes/100 WBC (Bld) 9.3 % Critically low 20.5-60.[address] [facility] Comment on above: Performed By: #### BMP #### [facility] [address] [place] [address] Dr. Juanita Sagastume MANUAL DIFF REQ NO Normal [facility] Comment on above: Performed By: #### BMP #### [facility] [address] [place] [address] Dr. Juanita Sagastume MCH (RBC) [Entitic mass] 26.7 pg Normal 25.9-34.[address] [facility] Comment on above: Performed By: #### BMP #### [facility] [address] [place] [address] Dr. Juanita Sagastume MCHC (RBC) [Mass/Vol] 32.7 g/dL Normal 29.9-35.[address] [facility] Comment on above: Performed By: #### BMP #### [facility] [address] [address] [address] Juanita Sagastume MCV (RBC) [Entitic vol] 81.8 fL Normal 80.0-94.0 [facility] Comment on above: Performed By: #### BMP #### [facility] [address] [address] [address] Juanita Sagastume MONO # 1.0 103/ul Critically high 0.3-0.8 [facility] Comment on above: Performed By: #### BMP #### [facility] [address] [address] [address] Juanita Sagastume Monocytes/100 WBC (Bld) 11.5 % Normal 1.7-12.[address] [facility] Comment on above: Performed By: #### BMP #### [facility] [address] [address] [address] Juanita Sagastume NEUT # 6.3 103/ul Normal 1.4-6.[address] [facility] Comment on above: Performed By: #### BMP #### [facility] [address] [address] [address] Juanita Sagastume Neutrophils/100 WBC (Bld) 76.3 % Critically high 43.0-75.[address] [facility] Comment on above: Performed By: #### BMP #### [facility] [address] [address] [address] Juanita Sagastume Platelet mean volume (Bld) [Entitic vol] 8.5 fL Critically low 9.5-13.5 [facility] Comment on above: Performed By: #### BMP #### [facility] [address] [address] [address] Juanita Sagastume PLT 273 103/ul Normal 150-450 [facility] Comment on above: Performed By: #### BMP #### [facility] [address] [address] [address] Juanita Sagastume RBC 5.05 106/ul Normal 4.70-6.10 [facility] Comment on above: Performed By: #### BMP #### [facility] [address] [address] [address] Juanita Sagastume WBC 8.3 103/ul Normal 4.0-11.[address] [facility] Comment on above: Performed By: #### BMP #### [facility] [address] [place] [address] Dr. Juanita Sagastume PROF CHEM 8 (BAS METB)on Anion gap [Moles/Vol] 10.9 mmol/L Normal [facility] Comment on above: Performed By: #### BMP #### [facility] [address] [place] [address] Dr. Juanita Sagastume Calcium [Mass/Vol] 10.2 mg/dL Critically high 8.5-10.[address] [facility] Comment on above: Performed By: #### BMP #### [facility] [address] [place] [address] Dr. Juanita Sagastume Chloride [Moles/Vol] 98 mmol/L Normal 98-[address] [facility] Comment on above: Performed By: #### BMP #### [facility] [address] [place] [address] Dr. Juanita Sagastume CO2 [Moles/Vol] 34.5 mmol/L Critically high 21.0-32.[address] [facility] Comment on above: Performed By: #### BMP #### [facility] [address] [place] [address] Dr. Juanita Sagastume Creatinine [Mass/Vol] 1.06 mg/dL Normal 0.70-1.30 [facility] Comment on above: Performed By: #### BMP #### [facility] [address] [place] [address] Dr. Juanita Sagastume EGFR-AF BHUTANESE >60 Normal >=60 [facility] Comment on above: Performed By: #### BMP #### [facility] [address] [place] [address] Dr. Juanita Sagastume EGFR-NON AF BHUTANESE >60 Normal >=60 [facility] Comment on above: Performed By: #### BMP #### [facility] [address] [place] [address] Dr. Juanita Sagastume Glucose [Mass/Vol] 122 mg/dL Critically high 74-[address] [facility] Comment on above: Performed By: #### BMP #### [facility] [address] [place] [address] Dr. Juanita Sagastume Potassium [Moles/Vol] 4.4 mmol/L Normal 3.5-5.[address] [facility] Comment on above: Performed By: #### BMP #### [facility] [address] [place] [address] Dr. Juanita Sagastume Sodium [Moles/Vol] 139 mmol/L Normal 136-[address] [facility] Comment on above: Performed By: #### BMP #### [facility] [address] [place] [address] Dr. Juanita Sagastume Urea nitrogen [Mass/Vol] 16.0 mg/dL Normal 7.0-18.[address] [facility] Comment on above: Performed By: #### BMP #### [facility] [address] [place] [address] Dr. Juanita Sagastume Urea nitrogen/Creati nine [Mass ratio] 15.1 mg/mg Normal [facility] Comment on above: Performed By: #### BMP #### [facility] [address] [place] [address] Dr. Juanita Sagastume PROTIMEon 09-27-2022 INR Coag (PPP) [Relative time] 0.93 {INR} Normal [facility] Comment on above: Performed By: #### BMP #### [facility] [address] [place] [address] Dr. Juanita Sagastume INR GUIDELINES SEE BELOW Normal [facility] Comment on above: Result Comment: DESIRED INR: 2.0 - 3.0 C ONDITIONS NOT LISTED BELOW 2.5 - 3.5 FOR PROSTHETIC HEART VALVE REPLACEMENT 2.5 - 3.5 RECURRENT THROMBOSIS Performed By: #### B MP #### [facility] [address] [place] [address] Dr. Juanita Sagastume PT Coag (PPP) [Time] 10.1 s Normal 9.0-11.[address] [facility] Comment on above: Performed By: #### BMP #### [facility] [address] [place] [address] Dr. Juanita Sagastume Covid-19 PCR (CVDTB)on SARS-CoV-2 (COVID-19) RNA SKYLAR+probe Ql (Unsp spec) Not detected Normal NOT DETECTED [facility] Comment on above: Result Comment: This test is not yet ruben roved or cleared by the [place] FDA. When there are no FDA-approved or cleared tests available, and other criteria are met, FDA can make tests available under an emergency access mechanism called an Emergency Use Authorization (EUA). The EUA for this test is supported by the [place] of Health and Human Service's (HHS's) declaration [...] SARS-CoV-2. Performed By: #### C VDTBH #### [facility] [address] [place] [address] Dr. Juanita Sagastume LIPID PROFILEon 03-16-2022 CHOL-HDL RATIO NORM SEE BELOW Normal [facility] Comment on above: Result Comment: 3.3 - 4.4 LOW RISK 4.4 - 7.1 AVERAGE RISK 7.1 - 11.0 MODERATE RISK >11.0 HIGH RISK Performed By: #### A LT, LIPID, AST #### [facility] [address] [place] [address] Dr. Juanita Sagastume Cholesterol [Mass/Vol] 111 mg/dL Normal <=[address] [facility] Comment on above: Performed By: #### ALT, LIPID, AST #### [facility] [address] [place] [address] Dr. Juanita Sagastume Cholesterol in HDL [Mass/Vol] 35 mg/dL Critically low 40-[address] [facility] Comment on above: Performed By: #### ALT, LIPID, AST #### [facility] [address] [address] [address] Juanita Sagastume Cholesterol in LDL [Mass/Vol] 29.6 mg/dL Normal [facility] Comment on above: Performed By: #### ALT, LIPID, AST #### [facility] [address] [address] [address] Juanita Sagastume Cholesterol.tot al/Cholesterol in HDL [Mass ratio] 3.2 {ratio} Normal [facility] Comment on above: Performed By: #### ALT, LIPID, AST #### [facility] [address] [address] [address] Juanita Sagastume HDL NORMAL > or = 60 mg/dl - LO W CARDIOVASCULAR RISK <40 mg/dl - HIGH CARDIOVASCULAR RISK Normal [facility] Comment on above: Performed By: #### ALT, LIPID, AST #### [facility] [address] [place] [address] Dr. Juanita Sagastume LDL CALC NORMAL SEE BELOW Normal [facility] Comment on above: Result Comment: <100 mg/dl OPTIMAL 100 - 129 mg/dl NEAR OR ABOVE OPTIMAL 130 - 159 mg/dl BORDERLINE HIGH 160 - 189 mg/dl HIGH >190 mg/dl VERY HIGH Performed By: #### A LT, LIPID, AST #### [facility] [address] [place] [address] Dr. Juanita Sagastume Triglyceride [Mass/Vol] 232 mg/dL Critically high <=[address] [facility] Comment on above: Performed By: #### ALT, LIPID, AST #### [facility] [address] [address] [address] Juanita Sagastume VLDL CALC 46.4 mg/dL Normal [facility] Comment on above: Performed By: #### ALT, LIPID, AST #### [facility] [address] [place] [address] Dr. Juanita Sagastume SGGabbie 03-16-2022 AST [Catalytic activity/Vol] 22 U/L Normal 15-[address] [facility] Comment on above: Performed By: #### ALT, LIPID, AST #### [facility] [address] [address] [address] Juanita Sagastume SGPTon 03-16-2022 ALT [Catalytic activity/Vol] 24 U/L Normal 16-[address] [facility] Comment on above: Performed By: #### ALT, LIPID, AST #### [facility] [address] [place] [address] Dr. Juanita Sagastume CREATININEon 03-02-2022 Creatinine [Mass/Vol] 1.19 mg/dL Normal 0.70-1.[address] [facility] Comment on above: Performed By: #### CREA #### [facility] [address] [place] [address] Dr. Juanita Sagastume EGFR-AF BHUTANESE >60 Normal >=[address] [facility] Comment on above: Performed By: #### CREA #### [facility] [address] [place] [address] Dr. Juanita Sagastume EGFR-NON AF BHUTANESE >60 Normal >=[address] [facility] Comment on above: Performed By: #### CREA #### [facility] [address] [place] [address] ABD/PELV WO W [...] MAIKEL ESTEVEZ Date: 2022-03-02 14:40 Normal [facility] BONE CO WH BODYon 022 NM BONE [facility] BODY EXAMINATION: [place] BONE [facility] BODY HISTORY: Primary malignant neoplasm of [...] MAIKEL ESTEVEZ Date: 2022-03-02 15:26 Normal [facility] POINT OF CARE GLUCOSEon 01-13 Glucose [Mass/Vol] 117 mg/dL Critically high 74-106 [facility] Comment on above: Performed By: #### BMP #### [facility] [address] [address] [address] Juanita Sagastume Covid-19 PCR ([facility])on 01-13 SARS-CoV-2 (COVID-19) RNA SKYLAR+probe Ql (Unsp spec) Not detected Normal NOT DETECTED [facility] Comment on above: Result Comment: This test is not yet ruben roved or cleared by the [place] FDA. When there are no FDA-approved or cleared tests available, and other criteria are met, FDA can make tests available under an emergency access mechanism called an Emergency Use Authorization (EUA). The EUA for this test is supported by the [place] Clerk of Health and Human Service's (HHS's) declaration [...] SARS-CoV-2. Performed By: #### C VDTB #### [facility] [address] [place] [address] Dr. Juanita Sagastume CBC AUTO DIFFon 01-29-2022 BASO # 0.0 103/ul Normal 0.0-0.[address] [facility] Comment on above: Performed By: #### CBC #### [facility] [address] [place] [address] Dr. Juanita Sagastume Basophils/100 WBC (Bld) 0.3 % Normal 0.2-2.[address] [facility] Comment on above: Performed By: #### CBC #### [facility] [address] [place] [address] Dr. Juanita Sagastume EO # 0.2 103/ul Normal 0.0-0.[address] [facility] Comment on above: Performed By: #### CBC #### [facility] [address] [place] [address] Dr. Juanita Sagastume Eosinophils/100 WBC (Bld) 1.8 % Normal 0.9-7.[address] [facility] Comment on above: Performed By: #### CBC #### [facility] [address] [place] [address] Dr. Juanita Sagastume Erythrocyte distribution width (RBC) [Ratio] 15.4 % Critically high 11.0-15.0 [facility] Comment on above: Performed By: #### CBC #### [facility] [address] [place] [address] Dr. Juanita Sagastume Hematocrit (Bld) [Volume fraction] 42.3 % Normal 42.0-54.[address] [facility] Comment on above: Performed By: #### CBC #### [facility] [address] [place] [address] Dr. Juanita Sagastume Hemoglobin (Bld) [Mass/Vol] 13.3 g/dL Critically low 14.0-18.[address] [facility] Comment on above: Performed By: #### CBC #### [facility] [address] [address] [address] Juanita Sagastume IG # 0.06 10e3/ul Critically high 0.00-0.03 [facility] Comment on above: Performed By: #### CBC #### [facility] [address] [address] [address] Juanita Sagastume IG % 0.5 % Normal 0.0-0.[address] [facility] Comment on above: Performed By: #### CBC #### [facility] [address] [address] [address] Juanita Sagastume LYMPH # 2.0 103/ul Normal 1.2-3.[address] [facility] Comment on above: Performed By: #### CBC #### [facility] [address] [place] [address] Dr. Juanita Sagastume Lymphocytes/100 WBC (Bld) 17.6 % Critically low 20.5-60.[address] [facility] Comment on above: Performed By: #### CBC #### [facility] [address] [place] [address] Dr. Juanita Sagastume MANUAL DIFF REQ NO Normal [facility] Comment on above: Performed By: #### CBC #### [facility] [address] [place] [address] Dr. Juanita Sagastume MCH (RBC) [Entitic mass] 26.5 pg Normal 25.9-34.[address] [facility] Comment on above: Performed By: #### CBC #### [facility] [address] [place] [address] Dr. Juanita Sagastume MCHC (RBC) [Mass/Vol] 31.4 g/dL Normal 29.9-35.[address] [facility] Comment on above: Performed By: #### CBC #### [facility] [address] [place] [address] Dr. Juanita Sagastume MCV (RBC) [Entitic vol] 84.3 fL Normal 80.0-94.[address] [facility] Comment on above: Performed By: #### CBC #### [facility] [address] [address] [address] Juanita Sagastume MONO # 0.9 103/ul Critically high 0.3-0.8 [facility] Comment on above: Performed By: #### CBC #### [facility] [address] [place] [address] Dr. Juanita Sagastume Monocytes/100 WBC (Bld) 7.6 % Normal 1.7-12.[address] [facility] Comment on above: Performed By: #### CBC #### [facility] [address] [place] [address] Dr. Juanita Sagastume NEUT # 8.3 103/ul Critically high 1.4-6.5 [facility] Comment on above: Performed By: #### CBC #### [facility] [address] [place] [address] Dr. Juanita Sagastume Neutrophils/100 WBC (Bld) 72.2 % Normal 43.0-75.[address] [facility] Comment on above: Performed By: #### CBC #### [facility] [address] [place] [address] Dr. Juanita Sagastume Platelet mean volume (Bld) [Entitic vol] 9.2 fL Critically low 9.5-13.5 [facility] Comment on above: Performed By: #### CBC #### [facility] [address] [place] [address] Dr. Juanita Sagastume PLT 343 103/ul Normal 150-450 [facility] Comment on above: Performed By: #### CBC #### [facility] [address] [place] [address] Dr. Juanita Sagastume RBC 5.02 106/ul Normal 4.70-6.10 [facility] Comment on above: Performed By: #### CBC #### [facility] [address] [place] [address] Dr. Juanita Sagastume WBC 11.5 103/ul Critically high 4.0-11.0 [facility] Comment on above: Performed By: #### CBC #### [facility] [address] [place] [address] Dr. Juanita Sagastume PROF CHEM 8 (BAS METB)on Anion gap [Moles/Vol] 14.6 mmol/L Normal [facility] Comment on above: Performed By: #### BMP #### [facility] [address] [address] [address] Juanita Sagastume Calcium [Mass/Vol] 9.6 mg/dL Normal 8.5-10.[address] [facility] Comment on above: Performed By: #### BMP #### [facility] [address] [address] [address] Juanita Sagastume Chloride [Moles/Vol] 97 mmol/L Critically low 98-[address] [facility] Comment on above: Performed By: #### BMP #### [facility] [address] [address] [address] Juanita Sagastume CO2 [Moles/Vol] 28.9 mmol/L Normal 22.0-30.0 [facility] Comment on above: Performed By: #### BMP #### [facility] [address] [address] [address] Juanita Sagastume Creatinine [Mass/Vol] 1.23 mg/dL Normal 0.66-1.[address] [facility] Comment on above: Performed By: #### BMP #### [facility] [address] [place] [address] Dr. Juanita Sagastume EGFR-AF BHUTANESE >60 Normal >=[address] [facility] Comment on above: Performed By: #### BMP #### [facility] [address] [address] [address] Juanita Sagastume EGFR-NON AF BHUTANESE 59 mL/min/1.73m2 Critically low >=60 [facility] Comment on above: Performed By: #### BMP #### [facility] [address] [address] [address] Juanita Sagastume Glucose [Mass/Vol] 105 mg/dL Normal 74-106 [facility] Comment on above: Performed By: #### BMP #### [facility] [address] [place] [address] Dr. Juanita Sagastume Potassium [Moles/Vol] 4.5 mmol/L Normal 3.4-5.[address] [facility] Comment on above: Performed By: #### BMP #### [facility] [address] [place] [address] Dr. Juanita Sagastume Sodium [Moles/Vol] 136 mmol/L Critically low 137-145 [facility] Comment on above: Performed By: #### BMP #### [facility] [address] [place] [address] Dr. Juanita Sagastume Urea nitrogen [Mass/Vol] 16.0 mg/dL Normal 7.0-18.[address] [facility] Comment on above: Performed By: #### BMP #### [facility] [address] [place] [address] Dr. Juanita Sagastume Urea nitrogen/Creati nine [Mass ratio] 13.0 mg/mg Normal [facility] Comment on above: Performed By: #### BMP #### [facility] [address] [place] [address] Dr. Juanita Sagastume PROTIMEon 01-29-2022 INR Coag (PPP) [Relative time] 0.98 {INR} Normal [facility] Comment on above: Performed By: #### BMP #### [facility] [address] [place] [address] Dr. Juanita Sagastume INR GUIDELINES SEE BELOW Normal [facility] Comment on above: Result Comment: DESIRED INR: 2.0 - 3.0 C ONDITIONS NOT LISTED BELOW 2.5 - 3.5 FOR PROSTHETIC HEART VALVE REPLACEMENT 2.5 - 3.5 RECURRENT THROMBOSIS Performed By: #### B MP #### [facility] [address] [place] [address] Dr. Juanita Sagastume PT Coag (PPP) [Time] 10.6 s Normal 9.0-11.6 [facility] Comment on above: Performed By: #### BMP #### [facility] [address] [place] [address] Dr. Juanita Sagastume PTTon 01-29-2022 aPTT Coag (Bld) [Time] 28.5 s Normal 22.3-36.[address] [facility] Comment on above: Performed By: #### BMP #### [facility] [address] [address] [address] Juanita Sagastume MR prostate wo/w conon 10-17 MR prostate wo/w con [facility] Main [place] [address] [place] [address] MRI Report Signed Patient: Sheron Erazo MR#: [id number] : 1955 Acct:[id number] Age/Sex: 66 / M ADM Date: 10/10/21 Loc: MR Room: Type: [facility] Attending Dr: Wayne Trinidad MD Ordering Provider: [...] PM COT by: Yousif Paz MD Diplomate, [place] [employer] Report Completed: Oct 17, [...] 10/17/21 1605 Signed By: 10/18/21 0750 Normal [facility] Blood Urea Nitrogenon 2020 Urea nitrogen [Mass/Vol] 11 mg/dL Normal 9-23 [facility] Comment on above: Order Comment: STAT FOR MRI Performed By: #### B CHASITY, CREAT #### [facility] [address] Creatinineon 10-10-2021 Creatinine [Mass/Vol] 1.04 mg/dL Normal 0.64-1.27 [facility] Comment on above: Order Comment: STAT FOR MRI Performed By: #### B CHASITY, CREAT #### [facility] [address] [place] [address] [place] Creatinine [facility]r [facility] Pharmacy 90.84 [facility] Comment on above: Order Comment: STAT FOR MRI Result Comment: PERF ORMED BY: [place] [address] PATHOLOGIST WHOLESALE ACCOUNT EXECUTIVE XUAN GOMEZ M.D. Performed By: #### B UN, CREAT #### [facility] [address] [place] [address] Estimated GFR ( Peyton > 60 [facility] Comment on above: Order Comment: STAT FOR MRI Result Comment: GFR estimated reference range: According to KDOQI guidelines, <60 ml/min/1.73m2 is sufficient to diagnose a patient with chronic kidney disease. Performed By: #### B UN, CREAT #### [facility] [address] [place] [address] Estimated GFR (Non- Am > 60 [facility] Comment on above: Order Comment: STAT FOR MRI Performed By: #### B UN, CREAT #### [facility] [address] [place] [address] CT CHEST HIGH RESOLUTION WIT HOUT CONTRASTon 10-05-2021 CT CHEST HIGH RESOLUTION WITHOUT CONTRAST [facility] Department of Radiology [address] [place] [id number] Patient Name: SHERON ERAZO : 1955 Sex: M Age: Race: White Pt. Location: 29 Patient Status: O Ordered Date: 09/01/2021 11:35:00 AM Completed Date: 10/05/2021 02:33 PM Requesting Provider: JACQUELYN AMURER Attending Provider: JACQUELYN MAURER Report Copy To: [...] achievable Electronically signed: Nika Krause. Transcribed by: [email or web address], User Resident: Electronically Signed by: NIKA KRAUSE @ 10/05/2021 02:50 PM Normal [facility] Pulmonary Functionon 12-18-2 021 Pulmonary Function MR #: [id number] [facility] PT. Name: Sheron Erazo Jr Date: 09/29/2021 [...] neurologic weakness or shunt. Electronically Signed by: Jozef Sykes MD 09/30/2021 06:41 P Jacquelyn Maurer MD [facility] Date Dict: 09/30/2021/05:58 P/Jozef Sykes MD Date Trans: 09/30/2021 05:58 P/ JASON_SHIRLENE:[id number] cc: Ernie Elliott D.O. [facility] [facility] [address] Normal [facility] ARTERIAL BLOOD GAS W/COOXon 09-29-2021 BASE EXCESS 10 mmol/L High -2-3 [facility] Comment on above: Performed By: #### [id number] #### [facility] [address] [place] [address], [facility] COHB 1.6 % High 0.0-1.5 [facility] Comment on above: Performed By: #### [id number] #### [facility] [address] [place] [address], [facility] [employer] ROOM AIR Normal [facility] Comment on above: Performed By: #### [id number] #### [facility] [address] [place] [address], [facility] FIO2 0 % Normal [facility] Comment on above: Performed By: #### [id number] #### [facility] [address] [place] [address], [facility] HCO3 (Bld) [Moles/Vol] 36 mmol/L Critically high 21-28 [facility] Comment on above: Performed By: #### [id number] #### [facility] [address] [place] [address], [facility] METHB 1.2 % Normal 0.0-1.5 [facility] Comment on above: Performed By: #### [id number] #### [facility] [address] [place] [address], [facility] Oxygen (Bld) [Partial pressure] 66 mm[Hg] Low 83-108 [facility] Comment on above: Performed By: #### [id number] #### [facility] [address] [place] [address], [facility] Oxygen saturation in Blood 92.2 % Low 94.0-97.0 [facility] Comment on above: Performed By: #### [id number] #### [facility] [address] [place] [address], [facility] PCO2 50 mmHg High 35-45 [facility] Comment on above: Performed By: #### [id number] #### [facility] [address] [place] [address], [facility] pH (Bld) 7.46 [pH] High 7.35-7.45 [facility] Comment on above: Performed By: #### [id number] #### [facility] [address] [place] [address], [facility] THB 13.5 g/dL Normal 12.0-16.3 [facility] Comment on above: Performed By: #### [id number] #### [facility] [address] [place], [place] [address] Vital Signs Date Time Vital Sign Value Performing Clinician Camilo espinal 09-16-2023 14:04-0500 Blood Pressure Location Wayne TRINIDAD [facility] 09-16-2023 14:04-0500 Diastolic blood pressure 71 mm[Hg] Wayne TRINIDAD [facility] 09-16-2023 14:04-0500 Heart rate 65 /min Wayne TRINIDAD [facility] 09-16-2023 14:04-0500 Respiratory rate 16 /min Wayne TRINIDAD [facility] 09-16-2023 14:04-0500 Systolic blood pressure 131 mm[Hg] Wayne TRINIDAD [facility] 04-08-2023 13:21-0400 Body height 182.88 cm Ernie L Valone Work Phone: [facility] 250 DO Work Phone: 04-08-2023 13:21-0400 Body mass index (BMI) [Ratio] 33.09 kg/m2 Ernie L Valone Work Phone: [facility] 250 DO Work Phone: 04-08-2023 13:21-0400 Body surface area Derived from formula 2.32 m2 Ernie L Valone Work Phone: [facility] 250 DO Work Phone: 04-08-2023 13:21-0400 Body weight 110.68 kg Ernie L Valone Work Phone: [facility] 250 DO Work Phone: 04-08-2023 13:21-0400 Diastolic blood pressure 62 mm[Hg] Ernie L Valone Work Phone: [facility] 250 DO Work Phone: 04-08-2023 13:21-0400 Heart rate 78 /min Ernie L Valone Work Phone: [facility] 250 DO Work Phone: 04-08-2023 13:21-0400 Systolic blood pressure 124 mm[Hg] Ernie L Valone Work Phone: [facility] 250 DO Work Phone: 01-14-2023 13:32-0400 Blood Pressure Location Wayne TRINIDAD [facility] 01-14-2023 13:32-0400 Diastolic blood pressure 84 mm[Hg] Wayne TRINIDAD [facility] 01-14-2023 13:32-0400 Heart rate 72 /min Wayne TRINIDAD [facility] 01-14-2023 13:32-0400 Respiratory rate 16 /min Wayne TRINIDAD [facility] 01-14-2023 13:32-0400 Systolic blood pressure 138 mm[Hg] Wayne TRINIDAD [facility] 10-29-2022 13:50-0500 Blood Pressure Location Wayne TRINIDAD [facility] 10-29-2022 13:50-0500 Diastolic blood pressure 77 mm[Hg] Wayne TRINIDAD [facility] 10-29-2022 13:50-0500 Heart rate 68 /min Wayne TRINIDAD [facility] 10-29-2022 13:50-0500 Respiratory rate 16 /min Wayne TRINIDAD [facility] 10-29-2022 13:50-0500 Systolic blood pressure 140 mm[Hg] Wayne TRINIDAD [facility] 06-25-2022 14:28-0400 Blood Pressure Location Wayne TRINIDAD [facility] 06-25-2022 14:28-0400 Diastolic blood pressure 97 mm[Hg] Wayne TRINIDAD [facility] 06-25-2022 14:28-0400 Heart rate 88 /min Wayne TRINIDAD [facility] 06-25-2022 14:28-0400 Respiratory rate 16 /min Wayne TRINIDAD [facility] 06-25-2022 14:28-0400 Systolic blood pressure 157 mm[Hg] Wayne TRINIDAD [facility] 02-16-2022 09:27-0400 Blood Pressure Location Wayne TRINIDAD [facility] 02-16-2022 09:27-0400 Diastolic blood pressure 84 mm[Hg] Wayne TRINIDAD [facility] 02-16-2022 09:27-0400 Heart rate 104 /min Wayneguero TRINIDAD [facility] 02-16-2022 09:27-0400 Respiratory rate 16 /min Wayne TRINIDAD [facility] 02-16-2022 09:27-0400 Systolic blood pressure 145 mm[Hg] Wayne TRINIDAD [facility] Encounters Encounter Date Encounter Type Care Provider Facility Start: 03-23-2024 ambulatory Wayne TRINIDAD Facili ty:[facility] Start: 09-16-2023 End: 09-17-2023 ambulatory Wayne TRINIDAD Facility:[facility] Start: 09-16-2023 End: 09-16-2023 Patient encounter procedure Wayne TRINIDAD [facility] Start: 04-08-2023 Office outpatient vi sit 25 minutes Ernie Elliott Work Phone: [facility] 250 DO Work Phone: Start: 04-08-2023 ambulatory Ngozi Carter Facility : Start: 02-04-2023 ambulatory Wayne Moeller ty:[facility] Start: 01-14-2023 End: 01-15-2023 ambulatory Wayne TRINIDAD Facility:[facility] Start: 01-14-2023 End: 01-14-2023 Patient encounter procedure Wayne TRINIDAD [facility] Start: 01-07-2023 End: 01-08-[address] WAYNE TRINIDAD . Facility: Start: 10-29-2022 End: 10-30-2022 ambulatory Wayne TRINIDAD Facility:[facility] Start: 10-29-2022 End: 10-29-2022 Patient encounter procedure Wayne TRINIDAD [facility] Start: 10-26-2022 End: 10-27-[address] ERNIE ELLIOTT Facility: Start: 10-03-2022 End: 10-04-2022 ambulatory Andressa Quigley Facility:[facility] Start: 10-03-2022 End: 10-03-2022 Patient encounter procedure Andressa Quigley [facility] Start: 09-29-2022 End: 09-29-2022 ambulatory ITZ BRICE . Facility:[facility] Start: 09-27-2022 End: 09-28-[address] WAYNE TRINIDAD . Facility:[facility] Start: 09-24-2022 Encounter for preprocedural cardiovascular examination DR WAYNE TRINIDAD . [facility] Start: 09-24-2022 Encounter for preprocedural laboratory examination DR WAYNE TRINIDAD . [facility] Start: 09-24-[address] WAYNE TRINIDAD . Fac ility:[facility] Start: 09-21-2022 End: 09-22-[address] WAYNE TRINIDAD . Facility:[facility] Start: 09-21-2022 End: 09-22-2022 Encounter for preprocedural cardiovascular examination DR WAYNE TRINIDAD . Facility:[facility] Start: 06-25-2022 End: 06-25-2022 Patient encounter procedure Wayne TRINIDAD [facility] Start: 06-11-2022 End: 06-12-[address] WAYNE TRINIDAD . Facility:[facility] Start: 03-16-2022 End: 03-17-[address] NGOZI CARTER Facility:[facility]1 Start: 03-02-2022 End: 03-03-[address] WAYNE TRINIDAD . Facility:[facility] Start: 02-16-2022 End: 02-16-2022 Patient encounter procedure Wayne TRINIDAD [facility] Start: 02-08-2022 End: 02-08-[address] WAYEN TRINIDAD . Facility:[facility] Start: 02-07-2022 Encounter for preprocedural laboratory examination DR WAYNE TRINIDAD . [facility] Start: 02-05-2022 End: 02-06-[address] WAYNE TRINIDAD . Facility:[facility] Start: 02-05-2022 End: 02-06-2022 Encounter for preprocedural laboratory examination DR WAYNE TRINIDAD . Facility:[facility] Start: 02-01-2022 Encounter for preprocedural cardiovascular examination DR WAYNE TRINIDAD . [facility] Start: 01-29-2022 End: 01-30-[address] WAYNE TRINIDAD . Facility:[facility] Start: 09-25-2021 End: 10-19-2021 ambulatory JACQUELYN MAURER Facility:[facility] Start: 03-27-2018 Ambulatory DANII MALDONADO Fa cility:[id number] Procedures Date Procedure Procedure Detail Performing Clinician Start: 01-07-[address] WESTLEY TRINIDAD . Comment on above: Performed By: #### P SAD #### [facility] [address] [place] [address] Dr. Juanita Sagastume Start: 09-27-2022 Brachytherapy of [place] state using fluoroscopic guidance Wayne TRINIDAD Start: 09-04-2022 Teleradiotherapy procedure Wayne TRINIDAD Start: 06-11-[address] WESTLEY TRINIDAD . Comment on above: Performed By: #### B MP #### [facility] [address] [place] [address] Dr. Juanita Sagastume Start: 02-08-2022 MRI-US fusion [...] Ngozi Carter, Status: Pen, Time: 1:00 PM [facility] 250 DO Work Phone: Immunizations Immunization Date Immunization Notes Care Provider Cori penn 07-05-2022 SARS-CoV-2 (COVID-19 ) mRNAMUL.[id number] Wayne TRINIDAD [facility] Comment on above: Result Comment: 2022: [id number] 08-15-2021 SARS-CoV-2 (COVID-19 ) mRNA BNT-162b2 vax Wayne Exinda [facility] 01-23-2021 SARS-CoV-2 (COVID-19 ) mRNA BNT-162b2 vax Wayne Exinda [facility] 01-10-2021 SARS-CoV-2 (COVID-19 ) mRNA BNT-162b2 vax Wayne Exinda [facility] 12-19-2020 SARS-CoV-2 (COVID-19 ) mRNA BNT-162b2 vax Wayne Exinda [facility] 07-14-2020 influenza virus vacc ine, unspecified formulation Allani [facility] 07-23-2019 influenza virus vacc ine, unspecified formulation Allani [facility] 07-23-2019 influenza, injectabl e, quadrivalent, preservative free Ernie L Valone Work Phone: [facility] [employer] DO Work Phone: 07-14-2019 influenza virus vacc ine, unspecified formulation Wayne Exinda [facility] 07-14-2019 influenza, high dose seasonal, preservative-free Ernie L Valone Work Phone: [facility] [employer] DO Work Phone: 07-14-2018 influenza virus vacc ine, unspecified formulation Ernie L Valone Work Phone: [facility] [employer] DO Work Phone: 07-14-2017 influenza virus vacc ine, unspecified formulation Ernie Elliott Work Phone: [facility] 250 DO Work Phone: 10-14-2015 pneumococcal polysaccharide vaccine, 23 valent Ernie Elliott Work Phone: [facility] 250 DO Work Phone: Payers Date Payer Category Payer Medicare [id number] 1955 Unknown [id number] 2.16.8 40.1.504246.3.579.2.647 1955 Unknown [id number] 2.16.84 0.1.522310.3.579.2.593 1955 Unknown [id number] 2.16.84 0.1.151152.3.579.2.593 1955 Unknown [id number] 2.16.84 0.1.377840.3.579.2.593 1955 Unknown [id number] 2.16.84 0.1.577601.3.579.2.593 1955 Unknown [id number] 2.16.84 0.1.553397.3.579.2.593 1955 Unknown [id number] 2.16.84 0.1.913803.3.579.2.593 1955 Unknown [id number] 2.16.84 0.1.764081.3.579.2.593 1955 Unknown [id number] 2.16.84 0.1.286395.3.579.2.593 1955 Unknown [id number] 2.16.84 0.1.355343.3.579.2.593 1955 Unknown [id number] 2.16.84 0.1.472264.3.579.2.593 1955 Unknown [id number] 2.16.84 0.1.417593.3.579.2.593 1955 Unknown [id number] 2.16.84 0.1.399435.3.579.2.593 1955 Unknown [id number] 2.16. 840.1.186086.3.579.2.356 1955 Unknown [id number] 2.16.8 40.1.573966.3.579.2.727 1955 Unknown [id number] 2.16.8 40.1.932446.3.579.2.727 1955 Unknown [id number] 2.16.8 40.1.294354.3.579.2.727 1955 Unknown [id number] 2.16.8 40.1.602334.3.579.2.727 1955 Unknown [id number] 2.16.8 40.1.117926.3.579.2.727 1955 Unknown [id number] 2.16.8 40.1.422768.3.579.2.727 1955 Unknown [id number] 2.16.8 40.1.855058.3.579.2.727 Medicare [id number] Unknown [id number] Unknown [id number] Unknown Social History Date Type Detail Facility Start: 11-20-2021 End: 10-29-2022 Tobacco smoking status Ex-smoker (finding) [facility] Sex Assigned At Male [facility] No alcohol use No alcohol use [facility] 250 DO Work Phone: Functional Status Date Assessment Result Facility 09-16-2023 Functional Status N/A [facility] 01-14-2023 Functional Status N/A [facility] 10-29-2022 Functional Status N/A [facility] 06-25-2022 Functional Status N/A [facility] Clinical Notes 01-29-2022 to 09-16-2023 Note [...] under a microscope. This is called the [place] score and the total score can range from 6 10, indicating how likely it is that the cancer will spread (metastasize) to other parts of the body. The higher the score, the greater the likelihood that the cancer will spread. Kenan 6 or lower: This indicates that the cancer cells look similar to normal prostate cells (well differentiated). [place] 7: This indicates that the cancer cells look somewhat similar to normal prostate cells (moderately differentiated). [place] 8, 9, or 10: This indicates that [...] stress of having cancer. General instructions Take msxq-bag-ojwxezo and prescription medicines only as told by your health care provider. If you have to go to the hospital, notify your cancer specialist (oncologist). Keep all follow-up visits. This is important. Where to find more information [employer]: www.cancer.org [place] [employer] of Clinical Oncology: www.cancer.net National Cancer [place]: www.cancer.gov Contact a health care provider if: [...] provider. Document Revised: 12/27/2021 Document Reviewed: 12/27/2021 [employer] Patient Education 2022 [employer]. Follow Up Care 01/14/2023 14:33:04 With:TANISHA GILL, Wayne Galicia, URL Address: [facility] [address] , [place] [address]- [phone] When: Unknown Comments:6 mos w/ PSA [facility] [place] 01-14-2023 Hospital Discharge instructions Patient Education [...] if anything looks unusual. Men with a hwhpsn-sofz-gphvdc risk for skin cancer may want to see a skin drier (dinkey driver) for an annual body check. Where to find more information National Cancer [place]: https://www.cancer.gov/about-cance r/screening Centers for Disease Control and Prevention: https://www.cdc.gov/cancer/dcpc/pr evention/screening.htm [employer]: https://www.cancer.org/latest-news /5-wihyqg-oilunowic-ckprg-tko-sqw. html Contact a health care provider if: [...] 06/27/2017 Document Revised: 06/19/2019 Document Reviewed: 06/27/2017 [employer] Patient Education 2020 [employer]. Follow Up Care 07/23/2022 16:04:42 With:TANISHA GILL, Wayne Galicia, URL Address: [facility] [address], [place] [address]- When: Unknown [facility] Hospital Discharge instructions Patient Education 10/29/2022 [...] urethra. Follow these instructions at home: Take mfil-ito-ydikdod and prescription medicines only as told by [...] 09/30/2006 Document Revised: 08/25/2019 Document Reviewed: 11/04/2017 [employer] Patient Education 2020 [employer]. Follow Up Care 09/04/2022 11:18:16 With:TANISHA GILL, Wayne Galicia, URL Address: [facility] [address] , [place] [address]- When: Unknown [facility] 09-21-2022 Note EXAMINATION: XR CHES T [...] authenticated by: SANIA CANELA Date: 2022-09-21 12:[address] [facility] 06-25-2022 Hospital Discharge instructions Patient Education 06/25/2022 [...] including vitamins, herbs, eye drops, creams, and jjzj-uth-mjftkeg medicines. Any problems you or family members [...] 03/10/2007 Document Revised: 09/12/2018 Document Reviewed: 10/09/2017 [employer] Patient Education 2020 [employer]. Follow Up Care 02/16/2022 11:08:20 With:TANISHA GILL, Wayne Galicia, URL Address: [facility] [address] , [place] [address]- [phone] When: Unknown [facility] [place] 02-16-2022 Hospital Discharge instructions Patient Education [...] who: Are older than age 65. Are -Mongolian. Are obese. Have a family history of [...] cells. Follow these instructions at home: Take xsnj-aov-akxyaqz and prescription medicines only as told by [...] 09/30/2006 Document Revised: 09/12/2018 Document Reviewed: 06/10/2017 [employer] Patient Education 2020 [employer]. Follow Up Care 01/22/2022 16:42:55 With:TANISHA GILL, Wayne Galicia, URL Address: [facility] [address] , [place] [address]- When:06/19/2022 Comments:w/ PSA [facility] 01-29-2022 Note EXAMINATION: XR CHES T [...] authenticated by: MAIKEL ESTEVEZ Date: 2022-01-29 13:[address] [facility] Evaluation + Plan note Future Appointments Appointment Date:03/30/2022 08:30:00 AM Scheduled Provider:Wayne TRINIDAD MD Location:[facility] Appointment Type:URO Office Visit Appointment Date:06/25/2022 02:15:00 PM Scheduled Provider:Wayne TRINIDAD MD Location:[facility] Appointment Type:URO Office Visit Diagnostic Tests PendingPSA Total 02/16/22 [facility] Evaluation + Plan note [facility] Evaluation + Plan note Future Appointments Appointment Date:10/29/2022 01:30:00 PM Scheduled Provider:Wayne TRINIDAD MD Location:[facility] Appointment Type:URO Office Visit Appointment Date:01/14/2023 01:15:00 PM Scheduled Provider:Wayne TRINIDAD MD Location:[facility] Appointment Type:URO Office Visit [facility] Evaluation + Plan note Future Appointments Appointment Date:01/14/2023 01:15:00 PM Scheduled Provider:Wayne TRINIDAD MD Location:[facility] Appointment Type:URO Office Visit Appointment Date:02/04/2023 01:15:00 PM Scheduled Provider:Wyane TRINIDAD MD Location:[facility] Appointment Type:URO Office Visit Diagnostic Tests PendingPSA Total 10/29/22 [facility] Evaluation + Plan note Future Appointments Appointment Date:09/16/2023 01:45:00 PM Scheduled Provider:Wayne TRINIDAD MD [facility] Appointment Type:URO Office Visit Diagnostic Tests PendingPSA Total 01/14/23 [facility] Evaluation + Plan note Future Appointments Appointment Date:03/23/2024 01:45:00 PM Scheduled Provider:Wayne TRINIDAD MD Location:[facility] Appointment Type:URO Office Visit Diagnostic Tests PendingPSA Total 09/16/23 [facility] Hospital course Narrative No data available for this section [facility] Hospital Discharge instructions No data available for this section [facility] Progress note No data available for this section [facility] Reason for referral (narrative) Referred by: Wayne TRINIDAD MD [facility] Summary Purpose Family History No Family History [...] section and content) DATE CREATED AUTHOR 04/01/2018 formerly [facility] DATE CREATED AUTHOR AUTHOR'S ORGANIZ ATION 10/20/2021 [facility] DATE CREATED AUTHOR AUTHOR'S ORGANIZ ATION 01/01/2022 [facility] DATE CREATED AUTHOR AUTHOR'S ORGANIZ ATION 01/16/2023 [facility] DATE CREATED AUTHOR AUTHOR'S ORGANIZ ATION 01/19/2023 [facility] DATE CREATED AUTHOR AUTHOR'S ORGANIZ ATION 04/09/2023 [facility] DATE CREATED AUTHOR AUTHOR'S ORGANIZ ATION 04/09/2023 [employer] DATE CREATED AUTHOR AUTHOR'S ORGANIZ ATION 09/18/2023 [facility] Care Team (unrecognized sect ion and content) Personnel Name: ERNIE ELLIOTT JR, DO Address: [address] [place] [address] Personnel Name: ERNIE ELLIOTT JR, DO Address: Address: [address] [place] [address] Personnel Name: ERNIE ELLIOTT JR, DO Address: Address: [address] [place] [address] Personnel Name: ERNIE ELLIOTT JR, DO Address: Address: [address] [place] [address] Personnel Name: ERNIE ELLIOTT JR, DO Address: Address: [address] [place] [address] FOR RECORDS PERTAINING TO PATIENTS WHO ARE [...] BE BASED ON THE PRIMARY CLINICAL RECORDS. [email or web address] [facility]. provides no warranty or guarantee of the accuracy or completeness of information in this document.
== END 2023-11-05 13:23 | disposition home or self-care (01) ==
LOC: CT 13:22
PROVIDERS: PCP Internal Medicine; Visit Provider Internal Medicine
DX: F17.200 Nicotine dependence, unspecified, uncomplicated (principal); Z87.891 Personal history of nicotine dependence; Z12.2 Encounter for screening for malignant neoplasm of respiratory organs
CPT/HCPCS: 71271

== ENCOUNTER 2024-03-12 11:43 | Outpatient (OUT) | payer MEDICARE, SELFPAY ==
[2024-03-12 13:20] LABS: Prostate Specific Antigen Dx <0.13 ng/mL (<=4.00)
== END 2024-03-12 11:44 | disposition home or self-care (01) ==
LOC: LAB 11:45
PROVIDERS: PCP Internal Medicine; Visit Provider Urology
DX: C61 Malignant neoplasm of prostate (principal)
CPT/HCPCS: 36415; 84153

== ENCOUNTER 2024-03-21 09:42 | Emergency (ER) | payer MEDICARE, SELFPAY ==
[2024-03-21 09:46] VITALS: BP 177/80; PULSE 102; O2SAT 90; BMI 33.2
--- NOTE | 2024-03-21 10:08 | US_ITS ---
The [address] [address] Patient Name: SHERON ERAZO MRN: [id number] date: 1955 Sex: M Assigned Patient Location: ER Current Patient Location: ER Accession/Order Number: [id number] Exam Date: 03/21/2024 10:09 Report Date: 03/21/2024 11:38 At the request of: WILLIAM MONTANEZ Procedure: US venous doppler UE RT EXAM: US venous doppler UE RT HISTORY: R arm pain/swelling COMPARISON: None. TECHNIQUE: Sonographic evaluation of the deep venous system of the right upper extremity was performed utilizing B-mode, color Doppler, and spectral imaging. FINDINGS: The internal jugular vein shows normal flow without filling defects. Normal cardiac pulsations are seen. The subclavian vein also showed normal flow and respiratory phasicity. No filling defects are identified. The axillary, brachial, basilic, and cephalic veins all appear patent and are normally compressible. The ulnar and radial veins also showed normal flow and compressibility. Additional findings: Right upper ex swelling US/US venous doppler UE RT IMPRESSION: No evidence of deep venous thrombosis of the right upper extremity. Electronically authenticated by: JET BAKER Date: 03/21/2024 11:38
[2024-03-21] MEDS: CEPHALEXIN 500 MG CAPSULE PO (10:25)
[2024-03-21 11:22] VITALS: BP 141/72; PULSE 89; O2SAT 92
--- NOTE | 2024-03-21 11:32 | ED.EXTPRO1 ---
HPI - Extremity Problem General Chief complaint: Extremity Problem, Nontraumatic Stated complaint: RIGHT ARM PAIN Time Seen by Provider: 03/21/24 09:45 Source: patient Mode of arrival: walk-in History of Present Illness HPI Narrative: Patient presents to ED complaining of right arm pain. He had labs drawn on Saturday. He then noticed the past couple of days that it was becoming red and sore. He noticed red streaking up his right inner arm from where the had done the lab draw and he was concerned about infection so he came in for further evaluation. No fevers. He does state that his arm is now little bit sore. 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 Related Data Previous Rx's ?Medication ?Instructions ?Recorded cephalexin 500 mg capsule 500 mg PO BID 7 days #14 caps 03/21/24 sulfamethoxazole 800 1 tab PO Q12H 10 days #20 tabs 03/21/24 mg-trimethoprim 160 mg tablet (Bactrim DS) Allergies Allergy/AdvReac Type Severity Reaction Status Date / Time No Known Drug Allergies Allergy Verified 03/21/24 09:48 Review of Systems ROS Status of ROS 10 or more systems reviewed and unremarkable except as noted in history and below Exam Narrative Exam Narrative: General: alert, no acute distress Cardiovascular: regular rate and rhythm, normal peripheral perfusion. Respiratory: Lungs CTA, respirations non labored. Extremities: no deformity, no trauma. Tenderness and erythema on the inner portion of the right arm near the AC streaking up into the bicep area.Tender to palpation consistent with possible superficial thrombophlebitis Neurological: oriented x 4, LOC appropriate for age. Constitutional Vital Signs, click to edit/add: Last Vital Signs Pulse 89 03/21/24 11:22 Resp 20 03/21/24 11:22 BP 141/72 03/21/24 11:22 Pulse Ox 92 L 03/21/24 11:22 O2 Del Method Room Air 03/21/24 09:46 Course Vital Signs Vital signs: Vital Signs Pulse Rate 102 H 03/21/24 09:46 Respiratory Rate 22 H 03/21/24 09:46 Blood Pressure 177/80 H 03/21/24 09:46 Pulse Oximetry 90 L 03/21/24 09:46 Oxygen Delivery Method Room Air 03/21/24 09:46 Pulse Rate 89 03/21/24 11:22 Respiratory Rate 20 03/21/24 11:22 Blood Pressure 141/72 03/21/24 11:22 Pulse Oximetry 92 L 03/21/24 11:22 Oxygen Delivery Method Room Air 03/21/24 09:46 MDM - Extremity (Nontraumatic) MDM Narrative Medical decision making narrative: Patient's ultrasound does not show any DVT. This is possible cellulitis versus possible superficial thrombophlebitis. Will send patient home with p.o. antibiotic prescription. He did receive his first dose here. Strict instructions to return if worsening redness swelling pain fevers or vomiting. Patient Understands care plan and is comfortable with care plan for home Differential Diagnosis Differential diagnosis: Likely cellulitis, superficial thrombophlebitis, deep venous thrombosis of upper extremity and other Discharge Plan Discharge Stand Alone Forms: Portal Instructions Chief Complaint: Extremity Problem, Nontraumatic Clinical Impression: Superficial thrombophlebitis, Cellulitis Patient Disposition: Home, Self-Care Time of Disposition Decision: 11:49 Condition: Good Mode of Transportation: Private Vehicle Prescriptions / Home Meds: New sulfamethoxazole-trimethoprim [Bactrim DS] 800-160 mg tablet 1 tab PO Q12H 10 Days Qty: 20 0RF cephalexin 500 mg capsule 500 mg PO BID 7 Days Qty: 14 0RF Print Language: Jordanian Instructions: Cellulitis (ED) Referrals: CARLEEN ELLIOTT MD [Primary Care Provider] - 1 week
--- OUTSIDE RECORDS SUMMARY | 2024-03-21 12:06 | XMS_ITS ---
Patient Summarization (C-CDA 2.1 CCD) Created on: March 21, 2024 SHERON ERAZO : 1955 Sex: Male Author Organization Sample organization Care Team Providers Care Operational Communication Chief Name Role Phone DANII MALDONADO Unavailable Unavailabl [...] Unavailable VALONE, DR DURANT Primary Care Unavailable ZIYSABEL, DR MAIKEL Galicia Consulting Unavailable CARTER, DR [...] Unavailable ZIEBER, DR MAIKEL Galicia Consult[employer] Unavailable VELASQUEZ, FRANCES Consulting Unavailable Carter, Ngozi Attending Unavailable Carter, Ngozi Referring Unavailable Valone Jr, Dr. Ernie Romero Primary Care Jes vailable Earl, Ernie Ogden Unavailable Unavailable Unavailable Wayne TRINIDAD Attending Unavailable TRINIDAD, Wayne Galicia Attending Unavailable Allergies Allergy Classification Reported Allergen(s) Allergy Type Date of Onset Reaction(s) Facility (1 source) Ramipril Drug Allergy 2 [facility] Repository (1 source) No Known Medication Allergies; 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: [No Known Medication Allergies] Propensity to adverse reactions (disorder) [facility] Repository Encounters Encounter Date Encounter Type Care Provider Facility Start: 03-30-2024 ambulatory Wayne TRINIDAD Facili ty:[facility] Start: 09-16-2023 End: 09-16-2023 ambulatory Wayne TRINIDAD Facility:[facility] Start: 09-16-2023 End: 09-16-2023 Patient encounter procedure Wayne TRINIDAD [facility] Start: 04-08-2023 Office outpatient vi sit 25 minutes Ernie Elliott Work Phone: [facility] 250 DO Work Phone: Start: 04-08-2023 ambulatory Ngozi Carter Facility : Start: 01-14-2023 End: 01-14-2023 Patient encounter procedure Wayne TRINIDAD [facility] Start: 01-07-2023 End: 01-08-[address] WAYNE TRINIDAD . Facility:[facility] Start: 10-29-2022 End: 10-29-2022 Patient encounter procedure Wayne TRINIDAD [facility] Start: 10-26-2022 End: 10-27-[address] ERNIE ELLIOTT Facility:[facility] Start: 10-03-2022 End: 10-03-2022 Patient encounter procedure Andressa CannonChalo Quigley [facility] Start: 09-29-2022 End: 09-29-2022 ambulatory ITZ BRICE . Facility:[facility] Start: 09-27-2022 End: 09-27-[address] WAYNE TRINIDAD . Facility:[facility] Start: 09-24-2022 Encounter for preprocedural cardiovascular examination DR WAYNE TRINIDAD . [facility] Start: 09-24-2022 Encounter for preprocedural laboratory examination DR WAYNE TRINIDAD . [facility] Start: 09-24-[address] WAYNE TRINIDAD . Fac ility:[facility] Start: 09-21-2022 End: 09-22-[address] WAYNE TRINIDAD . Facility:[facility] Start: 09-21-2022 End: 09-22-2022 Encounter for preprocedural cardiovascular examination DR WAYNE TRINIDAD . Facility:[facility] Start: 06-25-2022 End: 06-25-2022 Patient encounter procedure Wayne TRINIDAD [facility] Start: 06-11-2022 End: 06-12-[address] WAYNE TRINIDAD . Facility:[facility] Start: 03-16-2022 End: 03-17-[address] NGOZI CARTER Facility:[facility] Start: 03-02-2022 End: 03-03-[address] WAYNE TRINIDAD . Facility:[facility] Start: 02-16-2022 End: 02-16-2022 Patient encounter procedure Wayne TRINIDAD [facility] Start: 02-08-2022 End: 02-08-[address] WAYNE TRINIDAD . Facility:[facility] Start: 02-07-2022 Encounter for preprocedural laboratory examination DR WAYNE TRINIDAD . [facility] Start: 02-05-2022 End: 02-06-[address] WAYNE TRINIDAD . Facility:[facility] Start: 02-05-2022 End: 02-06-2022 Encounter for preprocedural laboratory examination DR WAYNE TRINIDAD . Facility:[facility] Start: 02-01-2022 Encounter for preprocedural cardiovascular examination DR WAYNE TRINIDAD . [facility] Start: 01-29-2022 End: 01-30-[address] WAYNE TRINIDAD . Facility: Start: 09-25-2021 End: 10-19-2021 ambulatory JACQUELYN MAURER Facility:[facility] Start: 03-27-2018 Ambulatory DANII MALDONADO Fa cility:1532 Immunizations Immunization Date Immunization Notes Care Provider Fa cility 07-05-2022 SARS-CoV-2 (COVID-19 ) [id number] Wayne TRINIDAD [facility] Comment on above: Result Comment: 202216: [id number] 08-15-2021 SARS-CoV-2 (COVID-19 ) mRNA BNT-162b2 vax Wayne TRINIDAD [facility] 01-23-2021 SARS-CoV-2 (COVID-19 ) mRNA BNT-162b2 vax Wayne TRINIDAD [facility] 01-10-2021 SARS-CoV-2 (COVID-19 ) mRNA BNT-162b2 vax Wayne TRINIDAD [facility] 12-19-2020 SARS-CoV-2 (COVID-19 ) mRNA BNT-162b2 vax Wayne [employer] [facility] 07-14-2020 influenza virus vacc ine, unspecified formulation Wayne TRINIDAD [facility] 07-23-2019 influenza virus vacc ine, unspecified formulation Wayne [employer] [facility] 07-23-2019 influenza, injectabl e, quadrivalent, preservative free Ernie L Valone Work Phone: [facility] Alexis Bittar DO Work Phone: 07-14-2019 influenza virus vacc ine, unspecified formulation Wayne TRINIDAD [facility] 07-14-2019 influenza, high dose seasonal, preservative-free Ernie L Valone Work Phone: [facility] Alexis Bittar DO Work Phone: 07-14-2018 influenza virus vacc ine, unspecified formulation Ernie L Valone Work Phone: [facility] Alexis Bittar DO Work Phone: 07-14-2017 influenza virus vacc ine, unspecified formulation Ernie L Valone [facility] Work Phone: 10-14-2015 pneumococcal polysaccharide vaccine, 23 valent Ernie L Valone Work Phone: [facility] Alexis Bittar DO Work Phone: Medications Current Medications Medication Drug Class(es) Dates [...] Refills(s) 0 Start Date: 08/27/19 Status: Ordered Payers Date Payer Category Payer Medicare [id number] 1955 Unknown [id number] 2.16.8 [id number] 1955 Unknown [id number] 2.16.84 [id number] 1955 Unknown [id number] 2.16.84 0.1.715736.3.579.2.593 1955 Unknown [id number] 2.16.84 0.1.537253.3.579.2.593 1955 Unknown [id number] 2.16.84 0.1.801457.3.579.2.593 1955 Unknown [id number] 2.16.84 0.1.643184.3.579.2.593 1955 Unknown [id number] 2.16.84 0.1.257090.3.579.2.593 1955 Unknown [id number] 2.16.84 0.1.293105.3.579.2.593 1955 Unknown [id number] 2.16.84 0.1.220606.3.579.2.593 1955 Unknown [id number] 2.16.84 0.1.496061.3.579.2.593 1955 Unknown [id number] 2.16.84 0.1.093784.3.579.2.593 1955 Unknown [id number] 2.16.84 0.1.467686.3.579.2.593 1955 Unknown [id number] 2.16.84 0.1.623709.3.579.2.593 1955 Unknown [id number] 2.16. 840.1.098907.3.579.2.356 1955 Unknown [id number] 2.16.8 40.1.862577.3.579.2.727 1955 Unknown [id number] 2.16.8 [id number] Medicare [id number] Unknown [id number] Unknown [id number] Unknown Plan of Treatment Date Care Activity Detail Author Start: 04-13-2024 FUV, Provider: Ngozi Carter, Status: Pen, Time: 1:00 PM FUV, Provider: Ngozi Carter, Status: Pen, Time: 1:00 PM [place] [address] DO Work Phone: Problems Active Problems Problem Classification Problem Date [...] disease (6 sources) Atherosclerotic heart disease of [place] coronary artery without angina pectoris; 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: [Coronary [...] Unclassified (2 sources) Athscl heart disease of [place] coronary artery w/o ang pctrs / I25.10(ICD-9) [...] 10-01-2022 Episodic Other aftercare (1 source) Other alf (current) drug therapy; 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: [OTH PSYCHOLOGIST COUNSELING CURRENT DRUG THERAPY] Onset: 10-01-2022 Episodic Other aftercare (1 source) oil heaterman (current) use of aspirin; 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: [JAIL CURRENT USE OF ASPIRIN] Onset: 10-01-2022 Episodic Other aftercare (1 source) half-way (current) use of anticoagulants; 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: [JAIL CURRNT USE ANTICOAGULANTS] Onset: 10-02-2022 Episodic Other aftercare (1 source) oil heaterman (current) use of oral hypoglycemic drugs; 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: [JAIL USE ORAL HYPOGLYCEMIC DX] Onset: 10-02-2022 Episodic Other male genital disorders (1 source) Other specified disorders of prostate; 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: [OTHER SPECIFIED DISORDERS PROSTATE] Onset: 02-14-2022 Episodic Residual codes; unclassified (1 source) Other specified postprocedural states; 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: [OTH SPECIFIED POSTPROCEDURAL STATES] Onset: 10-01-2022 Episodic Procedures Date Procedure Procedure Detail Performing Clinician Start: 01-07-[address] WESTLEY TRINIDAD . Comment on above: Performed By: #### P SAD #### [facility] [address] [place] [address] Dr. Juanita Sagastume Start: 09-27-2022 Brachytherapy of pro state using fluoroscopic guidance Wayne TRINIDAD Start: 09-04-2022 Teleradiotherapy procedure Wayne TRINIDAD Start: 06-11-[address] WESTLEY TRINIDAD . Comment on above: Performed By: #### B MP #### [facility] [address] [place] [address] Dr. Juanita Sagastume Start: 02-08-2022 MRI-US fusion guided transrectal biopsy of prostate Wayne TRINIDAD Start: 04-29-2017 TRUS w/bx Wayne WOMACK Start: 01-12-2014 TRUS w/bx Wayne LOZANOJulia Cataract (disorder) Wayne TRINIDAD Colonoscopy Wayne TRINIDAD heart cath Wayne TRINIDAD Jaw and temporomandi bular joint operations Ernie Elliott Work Phone: Tonsillectomy Wayne TRINIDAD Tonsillectomy and adenoidectomy Ernie Elliott Work Phone: Total colonoscopy Ernie Elliott Work Phone: Results Test Name Value Interpretation Reference Range Facil ity Lab Reportson 2024 Lab Reports [id number] .00TIFF Normal [facility] Consultation Noteon 11-21-19 24 Consultation Note [id number] .00TIFF Normal [facility] Patient Educationon 09-16-20 23 Patient Education Oncology Prostate Cancer The prostate [...] under a microscope. This is called the Keller score and the total score can range from 6?10, indicating how likely it is that the cancer will spread (metastasize) to other parts of the body. The higher the score, the greater the likelihood that the cancer will spread. ? Keller 6 or lower: This indicates that the cancer cells look similar to normal prostate cells (well differentiated). ? Kenan 7: This indicates that the cancer cells look somewhat similar to normal prostate cells (moderately differentiated). ? Kenan 8, 9, or 10: This indicates that [...] external be (more content not included)... 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 [facility] Comment on above: Result Comment: Elec tronically Signed By: Wayne TRINIDAD MD\.br\Date and Time Signed: 09/16/23 14:41 EST\.br\Electronically Co-Signed By: Guera Oswald\.br\Date and Time Co-Signed: 09/16/23 14:40 EST Lab Reportson 09-10-2023 Lab Reports [id number] .00TIFF [facility] Office Visit (Cardiology)on 04-08-2023 Follow-up [...] normal 40% based on the catheter in 2018. Emphasized the need for secondary [...] Recorded: 08Apr2023 01:21PM Heart Rate78, R Radial Slmghles975, LUE, Sitting Rgqztidcn80, LUE, Sitting Height6 ft Iteygw812 lb BMI Hljrkhlsvf98.09 kg/m2 BSA Calculated2.32 Tobacco Useb) No PHQ-2 [...] Apr 08 2023 1:56PM EST (Author) Normal [facility] Tobacco Screening.on 023 Adult depression screening assessment No [facility] 250 DO Work Phone: Fall risk assessment a) No falls within the last year [facility] DO Work Phone: Tobacco use status CPHS b) No [facility] DO Work Phone: Refillon 01-16-2023 Refill [id number] Sheron Erazo Jr. 1955 M Date Provider Department Center 01/16/2023 JACQUELYN JACOBSON [facility] No family history on file Reason for Visit and Comments: Med Refill [[id number]] Normal [facility] CT LUNG CANCER SCREENINGon 0 10-26-2022 CT [...] by: MAIKEL ESTEVEZ Date: 2022-10-26 15:22 Normal [facility] Refillon 10-15-2022 Refill [id number] Sheron Erazo Jr. 1955 M Date Provider Department Center 10/15/2022 JACQUELYN JACOBSON [facility] DCC No family history on file Reason for Visit and Comments: Med Refill [[id number]] Normal [facility] XR PELVIS 1_2 VIEWSon 2021 XR PELVIS [...] by: MAIKEL ESTEVEZ Date: 2022-09-28 07:22 Normal [facility] CBC AUTO DIFFon 09-27-2022 BASO # 0.0 103/ul Normal 0.0-0.1 [facility] Comment on above: Performed By: #### B MP #### [facility] [address] [address] [address] Juanita Sagastume Basophils/100 WBC (Bld) 0.2 % Normal 0.2-2.0 [facility] Comment on above: Performed By: #### B MP #### [facility] [address] [address] [address] Juanita Sagastume EO # 0.2 103/ul Normal 0.0-0.7 [facility] Comment on above: Performed By: #### B MP #### [facility] [address] [address] [address] Juanita Sagastume Eosinophils/100 WBC (Bld) 2.2 % Normal 0.9-7.0 [facility] Comment on above: Performed By: #### B MP #### [facility] [address] [address] [address] Juanita Sagatsume Erythrocyte distribution width (RBC) [Ratio] 17.5 % Critically high 11.0-15.0 [facility] Comment on above: Performed By: #### B MP #### [facility] [address] [address] [address] Juanita Sagastume Hematocrit (Bld) [Volume fraction] 41.3 % Critically low 42.0-54.0 [facility] Comment on above: Performed By: #### B MP #### [facility] [address] [address] [address] Juanita Sagastume Hemoglobin (Bld) [Mass/Vol] 13.5 g/dL Critically low 14.0-18.0 [facility] Comment on above: Performed By: #### B MP #### [facility] [address] [place] [address] Dr. Juanita Sagastume IG # 0.04 10e3/ul Critically high 0.00-0.[address] [facility] Comment on above: Performed By: #### B MP #### [facility] [address] [place] [address] Dr. Juaniat Sagastume IG % 0.5 % Normal 0.0-0.5 [facility] Comment on above: Performed By: #### B MP #### [facility] [address] [place] [address] Dr. Juanita Sagastume LYMPH # 0.8 103/ul Critically low 1.2-3.8 [facility] Comment on above: Performed By: #### B MP #### [facility] [address] [place] [address] Dr. Juanita Sagastume Lymphocytes/100 WBC (Bld) 9.3 % Critically low 20.5-60.0 [facility] Comment on above: Performed By: #### B MP #### [facility] [address] [place] [address] Dr. Juanita Sagastume MANUAL DIFF REQ NO Normal [facility] Comment on above: Performed By: #### B MP #### [facility] [address] [place] [address] Dr. Juanita Sagastume MCH (RBC) [Entitic mass] 26.7 pg Normal 25.9-34.0 [facility] Comment on above: Performed By: #### B MP #### [facility] [address] [place] [address] Dr. Juanita Sagastume MCHC (RBC) [Mass/Vol] 32.7 g/dL Normal 29.9-35.2 [facility] Comment on above: Performed By: #### B MP #### [facility] [address] [address] [address] Juanita Sagastume MCV (RBC) [Entitic vol] 81.8 fL Normal 80.0-94.0 [facility] Comment on above: Performed By: #### B MP #### [facility] [address] [address] [address] Juanita Sagastume MONO # 1.0 103/ul Critically high 0.3-0.8 [facility] Comment on above: Performed By: #### B MP #### [facility] [address] [address] [address] Juanita Sagastume Monocytes/100 WBC (Bld) 11.5 % Normal 1.7-12.0 [facility] Comment on above: Performed By: #### B MP #### [facility] [address] [place] [address] Dr. Juanita Sagastume NEUT # 6.3 103/ul Normal 1.4-6.5 [facility] Comment on above: Performed By: #### B MP #### [facility] [address] [address] [address] Juanita Sagastume Neutrophils/100 WBC (Bld) 76.3 % Critically high 43.0-75.0 [facility] Comment on above: Performed By: #### B MP #### [facility] [address] [place] [address] Dr. Juanita Sagastume Platelet mean volume (Bld) [Entitic vol] 8.5 fL Critically low 9.5-13.5 [facility] Comment on above: Performed By: #### B MP #### [facility] [address] [place] [address] Dr. Juanita Sagastume PLT 273 103/ul Normal 150-450 [facility] Comment on above: Performed By: #### B MP #### [facility] [address] [place] [address] Dr. Juanita Sagastume RBC 5.05 106/ul Normal 4.70-6.10 [facility] Comment on above: Performed By: #### B MP #### [facility] [address] [address] [address] Juanita Sagastume WBC 8.3 103/ul Normal 4.0-11.0 [facility] Comment on above: Performed By: #### B MP #### [facility] [address] [place] [address] Dr. Juanita Sagastume PROF CHEM 8 (BAS METB)on Anion gap [Moles/Vol] 10.9 mmol/L Normal [facility] Comment on above: Performed By: #### B MP #### [facility] [address] [place] [address] Dr. Juanita Sagastume Calcium [Mass/Vol] 10.2 mg/dL Critically high 8.5-10.1 [facility] Comment on above: Performed By: #### B MP #### [facility] [address] [place] [address] Dr. Juanita Sagastume Chloride [Moles/Vol] 98 mmol/L Normal 98-107 [facility] Comment on above: Performed By: #### B MP #### [facility] [address] [place] [address] Dr. Juanita Sagastume CO2 [Moles/Vol] 34.5 mmol/L Critically high 21.0-32.0 [facility] Comment on above: Performed By: #### B MP #### [facility] [address] [place] [address] Dr. Juanita Sagastume Creatinine [Mass/Vol] 1.06 mg/dL Normal 0.70-1.30 [facility] Comment on above: Performed By: #### B MP #### [facility] [address] [place] [address] Dr. Juanita Sagastume EGFR-AF CYMRAES >60 Normal >=60 [facility] Comment on above: Performed By: #### B MP #### [facility] [address] [place] [address] Dr. Juanita Sagastume EGFR-NON AF CYMRAES >60 Normal >=60 [facility] Comment on above: Performed By: #### B MP #### [facility] [address] [place] [address] Dr. Juanita Sagastume Glucose [Mass/Vol] 122 mg/dL Critically high 74-106 [facility] Comment on above: Performed By: #### B MP #### [facility] [address] [address] [address] Juanita Sagastume Potassium [Moles/Vol] 4.4 mmol/L Normal 3.5-5.1 [facility] Comment on above: Performed By: #### B MP #### [facility] [address] [address] [address] Juanita Sagastume Sodium [Moles/Vol] 139 mmol/L Normal 136-145 [facility] Comment on above: Performed By: #### B MP #### [facility] [address] [address] [address] Juanita Sagastume Urea nitrogen [Mass/Vol] 16.0 mg/dL Normal 7.0-18.0 [facility] Comment on above: Performed By: #### B MP #### [facility] [address] [address] [address] Juanita Sagastume Urea nitrogen/Creatinin e [Mass ratio] 15.1 mg/mg Normal [facility] Comment on above: Performed By: #### B MP #### [facility] [address] [place] [address] Dr. Juanita Sagastume PROTIMEon 09-27-2022 INR Coag (PPP) [Relative time] 0.93 {INR} Normal [facility] Comment on above: Performed By: #### B MP #### [facility] [address] [place] [address] Dr. Juanita Sagastume INR GUIDELINES SEE BELOW Normal [facility] Comment on above: Result Comment: KAMINI RED INR: 2.0 - 3.0 CONDITIONS NOT LISTED BELOW 2.5 - 3.5 FOR PROSTHETIC HEART VALVE REPLACEMENT 2.5 - 3.5 RECURRENT THROMBOSIS Performed By: #### B MP #### [facility] [address] [place] [address] Dr. Juanita Sagastume PT Coag (PPP) [Time] 10.1 s Normal 9.0-11.6 [facility] Comment on above: Performed By: #### B MP #### [facility] [address] [address] [address] Juanita Sagastume Covid-19 PCR (CVDTB)on SARS-CoV-2 (COVID-19) RNA SKYLAR+probe Ql (Unsp spec) Not detected Normal NOT DETECTED [facility] Comment on above: Result Comment: This test is not yet approved or cleared by the [place] FDA. When there are no FDA-approved or cleared tests available, and other criteria are met, FDA can make tests available under an emergency access mechanism called an Emergency Use Authorization (EUA). The EUA for this test is supported by the [employer] of Health and Human Service's (HHS's) declaration [...] SARS-CoV-2. Performed By: #### C VDTBH #### [facility] [address] [place] [address] Dr. Juanita Sagastume LIPID PROFILEon 03-16-2022 CHOL-HDL RATIO NORM SEE BELOW Normal [facility] Comment on above: Result Comment: 3.3 - 4.4 LOW RISK 4.4 - 7.1 AVERAGE RISK 7.1 - 11.0 MODERATE RISK >11.0 HIGH RISK Performed By: #### A LT, LIPID, AST #### [facility] [address] [address] [address] Juanita Sagastume Cholesterol [Mass/Vol] 111 mg/dL Normal <=200 [facility] Comment on above: Performed By: #### A LT, LIPID, AST #### [facility] [address] [place] [address] Dr. Juanita Sagastume Cholesterol in HDL [Mass/Vol] 35 mg/dL Critically low 40-60 [facility] Comment on above: Performed By: #### A LT, LIPID, AST #### [facility] [address] [address] [address] Juanita Sagastume Cholesterol in LDL [Mass/Vol] 29.6 mg/dL Normal [facility] Comment on above: Performed By: #### A LT, LIPID, AST #### [facility] [address] [address] [address] Juanita Sagastume Cholesterol.total/ Cholesterol in HDL [Mass ratio] 3.2 {ratio} Normal [facility] Comment on above: Performed By: #### A LT, LIPID, AST #### [facility] [address] [address] [address] Juanita Sagastume HDL NORMAL > or = 60 mg/dl - LO W CARDIOVASCULAR RISK <40 mg/dl - HIGH CARDIOVASCULAR RISK Normal [facility] [facility] Comment on above: Performed By: #### A LT, LIPID, AST #### [facility] [address] [address] [address] Juanita Sagastume LDL CALC NORMAL SEE BELOW Normal [facility] Comment on above: Result Comment: <100 mg/dl OPTIMAL 100 - 129 mg/dl NEAR OR ABOVE OPTIMAL 130 - 159 mg/dl BORDERLINE HIGH 160 - 189 mg/dl HIGH >190 mg/dl VERY HIGH Performed By: #### A LT, LIPID, AST #### [facility] [address] [place] [address] Dr. Juanita Sagastume Triglyceride [Mass/Vol] 232 mg/dL Critically high <=150 [facility] Comment on above: Performed By: #### A LT, LIPID, AST #### [facility] [address] [address] [address] Juanita Sagastume VLDL CALC 46.4 mg/dL Normal [facility] Comment on above: Performed By: #### A LT, LIPID, AST #### [facility] [address] [place] [address] Dr. Juanita Sagastume SGGabbie 03-16-2022 AST [Catalytic activity/Vol] 22 U/L Normal 15-37 [facility] Comment on above: Performed By: #### A LT, LIPID, AST #### [facility] [address] [address] [address] Juanita Sagastume SGPTon 03-16-2022 ALT [Catalytic activity/Vol] 24 U/L Normal 16-63 [facility] Comment on above: Performed By: #### A LT, LIPID, AST #### [facility] [address] [address] [address] Juanita Sagastume CREATININEon 03-02-2022 Creatinine [Mass/Vol] 1.19 mg/dL Normal 0.70-1.30 [facility] Comment on above: Performed By: #### C KRYS #### [facility] [address] [place] [address] Dr. Juanita Sagastume EGFR-AF CYMRAES >60 Normal >=60 [facility] Comment on above: Performed By: #### C KRYS #### [facility] [address] [place] [address] Dr. Juanita Sagastume EGFR-NON AF CYMRAES >60 Normal >=60 [facility] Comment on above: Performed By: #### C KRYS #### [facility] [address] [place] [address] ABD/PELV WO W [...] by: MAIKEL ESTEVEZ Date: 2022-03-02 14:40 Normal [facility] BONE [facility] BODYon 022 OR BONE [facility] BODY EXAMINATION: [facility] BODY HISTORY: Primary malignant neoplasm of prostate [...] by: MAIKEL ESTEVEZ Date: 2022-03-02 15:26 Normal [facility] POINT OF CARE GLUCOSEon 01-13 Glucose [Mass/Vol] 117 mg/dL Critically high 74-106 T he [facility] Comment on above: Performed By: #### B #### [facility] [address] [place] [address] Dr. Juanita Sagastume [facility] 01-13 SARS-CoV-2 (COVID-19) RNA SKYLAR+probe Ql (Unsp spec) Not detected Normal NOT DETECTED [facility] Comment on above: Result Comment: This test is not yet approved or cleared by the [place] FDA. When there are no FDA-approved or cleared tests available, and other criteria are met, FDA can make tests available under an emergency access mechanism called an Emergency Use Authorization (EUA). The EUA for this test is supported by the [place] of Health and Human Service's (HHS's) declaration [...] SARS-CoV-2. Performed By: #### C VDTB #### [facility] [address] [place] [address] Dr. Juanita Sagastume CBC AUTO DIFFon 01-29-2022 BASO # 0.0 103/ul Normal 0.0-0.1 [facility] Comment on above: Performed By: #### C BC #### [facility] [address] [place] [address] Dr. Juanita Sagastume Basophils/100 WBC (Bld) 0.3 % Normal 0.2-2.0 [facility] Comment on above: Performed By: #### C BC #### [facility] [address] [place] [address] Dr. Juanita Sagastume EO # 0.2 103/ul Normal 0.0-0.7 [facility] Comment on above: Performed By: #### C BC #### [facility] [address] [place] [address] Dr. Juanita Sagastume Eosinophils/100 WBC (Bld) 1.8 % Normal 0.9-7.0 [facility] Comment on above: Performed By: #### C BC #### [facility] [address] [place] [address] Dr. Juanita Sagastume Erythrocyte distribution width (RBC) [Ratio] 15.4 % Critically high 11.0-15.0 [facility] Comment on above: Performed By: #### C BC #### [facility] [address] [place] [address] Dr. Juanita Sagastume Hematocrit (Bld) [Volume fraction] 42.3 % Normal 42.0-54.0 [facility] Comment on above: Performed By: #### C BC #### [facility] [address] [place] [address] Dr. Juanita Sagastume Hemoglobin (Bld) [Mass/Vol] 13.3 g/dL Critically low 14.0-18.0 [facility] Comment on above: Performed By: #### C BC #### [facility] [address] [place] [address] Dr. Juanita Sagastume IG # 0.06 10e3/ul Critically high 0.00-0.[address] [facility] Comment on above: Performed By: #### C BC #### [facility] [address] [place] [address] Dr. Juanita Sagastume IG % 0.5 % Normal 0.0-0.5 [facility] Comment on above: Performed By: #### C BC #### [facility] [address] [place] [address] Dr. Juanita Sagastume LYMPH # 2.0 103/ul Normal 1.2-3.8 [facility] Comment on above: Performed By: #### C BC #### [facility] [address] [place] [address] Dr. Juanita Sagastume Lymphocytes/100 WBC (Bld) 17.6 % Critically low 20.5-60.0 [facility] Comment on above: Performed By: #### C BC #### [facility] [address] [place] [address] Dr. Juanita Sagastume MANUAL DIFF REQ NO Normal [facility] Comment on above: Performed By: #### C BC #### [facility] [address] [place] [address] Dr. Juanita Sagastume MCH (RBC) [Entitic mass] 26.5 pg Normal 25.9-34.0 [facility] Comment on above: Performed By: #### C BC #### [facility] [address] [place] [address] Dr. Juanita Sagastume MCHC (RBC) [Mass/Vol] 31.4 g/dL Normal 29.9-35.2 [facility] Comment on above: Performed By: #### C BC #### [facility] [address] [place] [address] Dr. Juanita Sagastume MCV (RBC) [Entitic vol] 84.3 fL Normal 80.0-94.0 [facility] Comment on above: Performed By: #### C BC #### [facility] [address] [address] [address] Juanita Sagastume MONO # 0.9 103/ul Critically high 0.3-0.8 [facility] Comment on above: Performed By: #### C BC #### [facility] [address] [address] [address] Juanita Sagastume Monocytes/100 WBC (Bld) 7.6 % Normal 1.7-12.0 [facility] Comment on above: Performed By: #### C BC #### [facility] [address] [place] [address] Dr. Juanita Sagastume NEUT # 8.3 103/ul Critically high 1.4-6.5 [facility] Comment on above: Performed By: #### C BC #### [facility] [address] [place] [address] Dr. Juanita Sagastume Neutrophils/100 WBC (Bld) 72.2 % Normal 43.0-75.0 [facility] Comment on above: Performed By: #### C BC #### [facility] [address] [place] [address] Dr. Juanita Sagastume Platelet mean volume (Bld) [Entitic vol] 9.2 fL Critically low 9.5-13.5 [facility] Comment on above: Performed By: #### C BC #### [facility] [address] [place] [address] Dr. Juanita Sagastume PLT 343 103/ul Normal 150-450 [facility] Comment on above: Performed By: #### C BC #### [facility] [address] [place] [address] Dr. Juanita Sagastume RBC 5.02 106/ul Normal 4.70-6.10 [facility] Comment on above: Performed By: #### C BC #### [facility] [address] [place] [address] Dr. Juanita Sagastume WBC 11.5 103/ul Critically high 4.0-11.0 [facility] Comment on above: Performed By: #### C BC #### [facility] [address] [address] [address] Juanita Sagastume PROF CHEM 8 (BAS METB)on Anion gap [Moles/Vol] 14.6 mmol/L Normal [facility] Comment on above: Performed By: #### B MP #### [facility] [address] [address] [address] Juanita Sagastume Calcium [Mass/Vol] 9.6 mg/dL Normal 8.5-10.1 [facility] Comment on above: Performed By: #### B MP #### [facility] [address] [address] [address] Juanita Sagastume Chloride [Moles/Vol] 97 mmol/L Critically low 98-107 [facility] Comment on above: Performed By: #### B MP #### [facility] [address] [place] [address] Dr. Juanita Sagastume CO2 [Moles/Vol] 28.9 mmol/L Normal 22.0-30.0 [facility] Comment on above: Performed By: #### B MP #### [facility] [address] [address] [address] Juanita Sagastume Creatinine [Mass/Vol] 1.23 mg/dL Normal 0.66-1.25 [facility] Comment on above: Performed By: #### B MP #### [facility] [address] [place] [address] Dr. Juanita Sagastume EGFR-AF CYMRAES >60 Normal >=60 [facility] Comment on above: Performed By: #### B MP #### [facility] [address] [address] [address] Juanita Sagastume EGFR-NON AF CYMRAES 59 mL/min/1.73m2 Critically low >=60 [facility] Comment on above: Performed By: #### B MP #### [facility] [address] [address] [address] Juanita Sagastume Glucose [Mass/Vol] 105 mg/dL Normal 74-106 [facility] Comment on above: Performed By: #### B MP #### [facility] [address] [address] [address] Juanita Sagastume Potassium [Moles/Vol] 4.5 mmol/L Normal 3.4-5.0 [facility] Comment on above: Performed By: #### B MP #### [facility] [address] [address] [address] Juanita Sagastume Sodium [Moles/Vol] 136 mmol/L Critically low 137-145 Th e [facility] Comment on above: Performed By: #### B MP #### [facility] [address] [place] [address] Dr. Juanita Sagastume Urea nitrogen [Mass/Vol] 16.0 mg/dL Normal 7.0-18.0 [facility] Comment on above: Performed By: #### B MP #### [facility] [address] [place] [address] Dr. Juanita Sagastume Urea nitrogen/Creatinin e [Mass ratio] 13.0 mg/mg Normal [facility] Comment on above: Performed By: #### B MP #### [facility] [address] [place] [address] Dr. Juanita Sagastume PROTIMEon 01-29-2022 INR Coag (PPP) [Relative time] 0.98 {INR} Normal [facility] Comment on above: Performed By: #### B MP #### [facility] [address] [place] [address] Dr. Juanita Sagastume INR GUIDELINES SEE BELOW Normal [facility] Comment on above: Result Comment: KAMINI RED INR: 2.0 - 3.0 CONDITIONS NOT LISTED BELOW 2.5 - 3.5 FOR PROSTHETIC HEART VALVE REPLACEMENT 2.5 - 3.5 RECURRENT THROMBOSIS Performed By: #### B MP #### [facility] [address] [place] [address] Dr. Juanita Sagastume PT Coag (PPP) [Time] 10.6 s Normal 9.0-11.6 [facility] Comment on above: Performed By: #### B MP #### [facility] [address] [place] [address] Dr. Junaita Sagastume PTTon 01-29-2022 aPTT Coag (Bld) [Time] 28.5 s Normal 22.3-36.2 [facility] Comment on above: Performed By: #### B #### [facility] [address] [place], [place] [address] Dr. Juanita Sagastume MR prostate wo/w conon 10-17 MR prostate wo/w con [facility] [place] [place] [address] [address] MRI Report Signed Patient: Sheron Erazo MR#: [id number] : 1955 Acct:[id number] Age/Sex: 66 / M ADM Date: 10/10/21 Loc: MR Room: Type: [facility] Attending Dr: Wayne Trinidad MD Ordering [...] PM COT by: Yousif Paz MD Diplomate, [place] [employer] Report Completed: Oct 17, [...] NON STAFF 10/17/21 1605 Signed By: 10/18/21 0759 Normal [facility] Blood Urea Nitrogenon 2020 Urea nitrogen [Mass/Vol] 11 mg/dL Normal 07-06 [facility] Comment on above: Order Comment: STAT FOR MRI Performed By: #### B UN, CREAT #### [address] Creatinineon 10-10-2021 Creatinine [Mass/Vol] 1.04 mg/dL Normal 0.64-1.27 [facility] Comment on above: Order Comment: STAT FOR MRI Performed By: #### B UN, CREAT #### [facility] [address] [place] [address] Creatinine Clr Calc Pharmacy 90.84 Normal [facility] Comment on above: Order Comment: STAT FOR MRI Result Comment: PERF ORMED BY: [place] [address] PATHOLOGIST CORE CARRIER XUAN GOMEZ M.D. Performed By: #### B UN, CREAT #### [facility] [address] [place] [address] Estimated GFR ( Peyton > 60 Normal [facility] Comment on above: Order Comment: STAT FOR MRI Result Comment: GFR estimated reference range: According to KDOQI guidelines, <60 ml/min/1.73m2 is sufficient to diagnose a patient with chronic kidney disease. Performed By: #### B UN, CREAT #### [facility] [address] [place] [address] Estimated GFR (Non- Am > 60 Normal [facility] Comment on above: Order Comment: STAT FOR MRI Performed By: #### B UN, CREAT #### [facility] [address] [place] [address] CT CHEST HIGH RESOLUTION WIT HOUT CONTRASTon 10-05-2021 CT CHEST HIGH RESOLUTION WITHOUT CONTRAST [facility] Department of Radiology [address] [place] [address] Patient Name: SHERON ERAZO : 1955 [...] achievable Electronically signed: Nika Krause. Transcribed by: [email or web address], User Resident: Electronically Signed by: NIKA KRAUSE @ 10/05/2021 02:50 PM Normal [facility] Pulmonary Functionon 12-18-2 021 Pulmonary Function MR #: [id number] [facility] PT. Name: Sheron Erazo Jr Date: 09/29/2021 [...] Sykes MD Date Trans: 09/30/2021 05:58 P/ [id number] cc: Ernie Elliott D.O. [address] [place], [place] [address] [address] Normal [facility] ARTERIAL BLOOD GAS W/COOXon 09-29-2021 BASE EXCESS 10 mmol/L High -2-3 [facility] Comment on above: Performed By: #### 4 0055 #### [facility] [address] [place] [address], [facility] COHB 1.6 % High 0.0-1.5 [facility] Comment on above: Performed By: #### 4 0055 #### [facility] [address] [place] [address], [facility] DEL[employer]ERY [employer] ROOM AIR Normal [facility] Comment on above: Performed By: #### 4 0055 #### [facility] [address] [place] [address], [facility] FIO2 0 % Normal [facility] Comment on above: Performed By: #### 4 0055 #### [facility] [address] [place] [address], [facility] HCO3 (Bld) [Moles/Vol] 36 mmol/L Critically high 21-28 The [facility] Comment on above: Performed By: #### 4 0055 #### [facility] [address] [place] [address], [facility] METHB 1.2 % Normal 0.0-1.5 [facility] Comment on above: Performed By: #### 4 0055 #### [facility] [address] [place] [address], [facility] Oxygen (Bld) [Partial pressure] 66 mm[Hg] Low 83-108 [facility] Comment on above: Performed By: #### 4 0055 #### [facility] [address] [place] [address], [facility] Oxygen saturation in Blood 92.2 % Low 94.0-97.0 The [facility] Comment on above: Performed By: #### 4 0055 #### [facility] [address] [place] [address], [facility] PCO2 50 mmHg High 35-45 The [facility] Comment on above: Performed By: #### 4 0055 #### [facility] [address] [place] [address], [facility] pH (Bld) 7.46 [pH] High 7.35-7.45 [facility] Comment on above: Performed By: #### 4 0055 #### [facility] [address] [place] [place] [address], [facility] THB 13.5 g/dL Normal 12.0-16.3 [facility] Comment on above: Performed By: #### 4 0055 #### [facility] [address] [place] [address], [facility] Social History Date Type Detail Facility Start: 11-20-2021 End: 10-29-2022 Tobacco smoking status Ex-smoker (finding) [facility] Sex Assigned At Male [facility] No alcohol use No alcohol use [facility] DO Work Phone: Vital Signs Date Time Vital Sign Value Performing Clinician Camilo espinal 09-16-2023 14:04-0500 Blood Pressure Location Wayne TANISHA [facility] 09-16-2023 14:04-0500 Diastolic blood pressure 71 mm[Hg] Wayne TRINIDAD [facility] 09-16-2023 14:04-0500 Heart rate 65 /min Wayne TRINIDAD [facility] 09-16-2023 14:04-0500 Respiratory rate 16 /min Wayne TRINIDAD [facility] 09-16-2023 14:04-0500 Systolic blood pressure 131 mm[Hg] Wayne TRINIDAD [facility] 04-08-2023 13:21-0400 Body height 182.88 cm Ernie Ayalaone Work Phone: [facility] DO Work Phone: 04-08-2023 13:21-0400 Body mass index (BMI) [Ratio] 33.09 kg/m2 Ernie Alin Valone Work Phone: [facility] DO Work Phone: 04-08-2023 13:21-0400 Body surface area Derived from formula 2.32 m2 Ernie Alin Valone Work Phone: [facility] DO Work Phone: 04-08-2023 13:21-0400 Body weight 110.68 kg Ernie L Valone Work Phone: [facility] DO Work Phone: 04-08-2023 13:21-0400 Diastolic blood pressure 62 mm[Hg] Ernie L Valone Work Phone: [facility] DO Work Phone: 04-08-2023 13:21-0400 Heart rate 78 /min Ernie L Valone Work Phone: [facility] DO Work Phone: 04-08-2023 13:21-0400 Systolic blood pressure 124 mm[Hg] Ernie L Valone Work Phone: [facility] DO Work Phone: 01-14-2023 13:32-0400 Blood Pressure Location Wayne TRINIDAD [facility] 01-14-2023 13:32-0400 Diastolic blood pressure 84 mm[Hg] Wayne TRINIDAD [facility] 01-14-2023 13:32-0400 Heart rate 72 /min Wayne TRINIDAD [facility] 01-14-2023 13:32-0400 Respiratory rate 16 /min Wayne TRINIDAD [facility] 01-14-2023 13:32-0400 Systolic blood pressure 138 mm[Hg] Wayne TRINIDAD [facility] 10-29-2022 13:50-0500 Blood Pressure Location Wayne TRINIDAD [facility] 10-29-2022 13:50-0500 Diastolic blood pressure 77 mm[Hg] Wayne TRINIDAD [facility] 10-29-2022 13:50-0500 Heart rate 68 /min Wayne TRINIDAD [facility] 10-29-2022 13:50-0500 Respiratory rate 16 /min Wayne TRINIDAD [facility] 10-29-2022 13:50-0500 Systolic blood pressure 140 mm[Hg] Wayne TRINIDAD [facility] 06-25-2022 14:28-0400 Blood Pressure Location Wayne TRINIDAD [facility] 06-25-2022 14:28-0400 Diastolic blood pressure 97 mm[Hg] Wayne TRINIDAD [facility] 06-25-2022 14:28-0400 Heart rate 88 /min Wayne TRINIDAD [facility] 06-25-2022 14:28-0400 Respiratory rate 16 /min Wayne TRINIDAD [facility] 06-25-2022 14:28-0400 Systolic blood pressure 157 mm[Hg] Wayne TRINIDAD [facility] 02-16-2022 09:27-0400 Blood Pressure Location Wayne TRINIDAD [facility] 02-16-2022 09:27-0400 Diastolic blood pressure 84 mm[Hg] Wayne TRINIDAD [facility] 02-16-2022 09:27-0400 Heart rate 104 /min Wayne TRINIDAD [facility] 02-16-2022 09:27-0400 Respiratory rate 16 /min Wayne TRINIDAD [facility] 02-16-2022 09:27-0400 Systolic blood pressure 145 mm[Hg] Wayne TRINIDAD [facility] Functional Status Date Assessment Result Facility 09-16-2023 Functional Status N/A [facility] 01-14-2023 Functional Status N/A [facility] 10-29-2022 Functional Status N/A [facility] 06-25-2022 Functional Status N/A [facility] Clinical Notes 01-29-2022 to 09-16-2023 [...] the likelihood that the cancer will spread. Keller 6 or lower: This indicates that the cancer cells look similar to normal prostate cells (well differentiated). Keller 7: This indicates that the cancer cells look somewhat similar to normal prostate cells (moderately differentiated). Kenan 8, 9, or 10: This indicates that [...] stress of having cancer. General instructions Take fzuj-kif-kwbolla and prescription medicines only as told by your health care provider. If you have to go to the hospital, notify your cancer specialist (oncologist). Keep all follow-up visits. This is important. Where to find more information [place] [employer]: www.cancer.org [place] [employer] Oncology: www.cancer.net National Cancer [place]: www.cancer.gov Contact a health care provider if: [...] provider. Document Revised: 12/27/2021 Document Reviewed: 12/27/2021 [place] Patient Education 2022 [email or web address]. Follow Up Care 01/14/2023 14:33:04 With:TANISHA GILL, Wayne Galicia, URL Address: [facility] [address] [place] [address]- [phone] When: Unknown Comments:6 mos w/ PSA [facility] 01-14-2023 Hospital Discharge instructions Patient [...] if anything looks unusual. Men with a zvzwgi-ctby-ciwshn risk for skin cancer may want to see a pigskin trimmer (diesel motor mechanic) for an annual body check. Where to find more information National Cancer [place]: https://www.cancer.gov/about-cance r/screening Centers for Disease Control and Prevention: https://www.cdc.gov/cancer/dcpc/pr evention/screening.htm [place] [employer]: https://www.cancer.org/latest-news /0-chnzsk-rghplupzm-qwtfq-zvp-evz. html Contact a health care provider if: [...] 06/27/2017 Document Revised: 06/19/2019 Document Reviewed: 06/27/2017 [place] Patient Education 2020 [employer] Follow Up Care 07/23/2022 16:04:42 With:TANISHA GILL, Wayne Galicia, URL Address: [facility] [address] [place] [place] [address]- When: Unknown [facility] 10-29-2022 Hospital Discharge instructions Patient Education 10/29/2022 [...] urethra. Follow these instructions at home: Take ziho-bdv-iqsincd and prescription medicines only as told by [...] 09/30/2006 Document Revised: 08/25/2019 Document Reviewed: 11/04/2017 [place] Patient Education 2019 [email or web address]. Follow Up Care 09/04/2022 11:18:16 With:TANISHA GILL, Wayne Galicia, URL Address: [facility] [address], [place] [address]- When: Unknown [facility] 09-21-2022 Note EXAMINATION: XR CHES T 2 [...] authenticated by: SANIA CANELA Date: 2022-09-21 12:38 [facility] 06-25-2022 Hospital Discharge instructions Patient Education [...] including vitamins, herbs, eye drops, creams, and btre-jpp-kwogfbi medicines. Any problems you or family members [...] 03/10/2007 Document Revised: 09/12/2018 Document Reviewed: 10/09/2017 [place] Patient Education 2020 [email or web address]. Follow Up Care 02/16/2022 11:08:20 With:TANISHA GILL, Wayne Galicia, URL Address: [facility] [address] [place] [phone] When: Unknown [facility] Hospital Discharge instructions Patient Education 02/16/2022 [...] who: Are older than age 65. Are -[place]. Are obese. Have a family history of [...] cells. Follow these instructions at home: Take orlw-fcm-fqhxfav and prescription medicines only as told by [...] 09/30/2006 Document Revised: 09/12/2018 Document Reviewed: 06/10/2017 [place] Patient Education 2020 [email or web address]. Follow Up Care 01/22/2022 16:42:55 With:TANISHA GILL, Wayne Galicia, URL Address: [facility] [address], [place] [address]- When:06/19/2022 Comments:w/ PSA [facility] 01-29-2022 Note EXAMINATION: XR CHES T 2 [...] authenticated by: MAIKEL ESTEVEZ Date: 2022-01-29 13:48 [facility] Evaluation + Plan note Future Appointments Appointment Date:03/30/2022 08:30:00 AM Scheduled Provider:Wayne TRINIDAD MD Location:[facility] Appointment Type:URO Office Visit Appointment Date:06/25/2022 02:15:00 PM Scheduled Provider:Wayne TRINIDAD MD Location:[facility] Appointment Type:URO Office Visit Diagnostic Tests PendingPSA Total 02/16/22 [facility] Evaluation + Plan note [facility] Evaluation + Plan note Future Appointments Appointment Date:10/29/2022 01:30:00 PM Scheduled Provider:Wayne TRINIDAD MD [facility] Appoint[facility] Type:URO Office Visit Appointment Date:01/14/2023 01:15:00 PM Scheduled Provider:Wayne TRINIDAD MD Location:[facility] Appointment Type:URO Office Visit [facility] Evaluation + Plan note Future Appointments Appointment Date:01/14/2023 01:15:00 PM Scheduled Provider:Wayne TRINIDAD MD [facility] Appoint[facility] Type:URO Office Visit Appointment Date:02/04/2023 01:15:00 PM Scheduled Provider:Wayne TRINIDAD MD [facility] Appointment Type:URO Office Visit Diagnostic Tests PendingPSA Total 10/29/22 [facility] Evaluation + Plan note Future Appointments Appointment Date:09/16/2023 01:45:00 PM Scheduled Provider:Wayne TRINIDAD MD Location:[facility] Appointment Type:URO Office Visit Diagnostic Tests PendingPSA Total 01/14/23 [facility] Evaluation + Plan note Future Appointments Appointment Date:03/23/2024 01:45:00 PM Scheduled Provider:Wayne TRINIDAD MD Location:[facility] Appointment Type:URO Office Visit Diagnostic Tests PendingPSA Total 09/16/23 [facility] Hospital course Narrative No data available for this section [facility] [place] [facility] Discharge instructions No data available for this section [facility] Progress note No data available for this section [facility] Reason for referral (narrative) Referred by: Wayne TRINIDAD MD [facility] Summary Purpose Family History No Family History [...] section and content) DATE CREATED AUTHOR 04/01/2018 [facility] DATE CREATED AUTHOR AUTHOR'S ORGANIZ ATION 10/20/2021 [facility] DATE CREATED AUTHOR AUTHOR'S ORGANIZ ATION 01/01/2022 [facility] DATE CREATED AUTHOR AUTHOR'S ORGANIZ ATION 01/16/2023 [facility] DATE CREATED AUTHOR AUTHOR'S ORGANIZ ATION 01/19/2023 [facility] DATE CREATED AUTHOR AUTHOR'S ORGANIZ ATION 04/09/2023 [facility] DATE CREATED AUTHOR AUTHOR'S ORGANIZ ATION 04/09/2023 [facility] DATE CREATED AUTHOR AUTHOR'S ORGANIZ ATION 2024 [facility] Care Team (unrecognized sect ion and content) Personnel Name: ERNIE ELLIOTT JR, DO Address: [address] [place] [phone] Personnel Name: ERNIE ELLIOTT JR, DO Address: Address: [address] [place] [phone] Personnel Name: ERNIE ELLIOTT JR, DO Address: Address: [address] [place], [place] [address] [address] Personnel Name: ERNIE ELLIOTT JR, DO Address: Address: [address] [place] [address] [place] [address] Personnel Name: ERNIE ELLIOTT JR, DO Address: Address: [address] [place], [place] [address] [address] FOR RECORDS PERTAINING TO PATIENTS WHO ARE [...] BE BASED ON THE PRIMARY CLINICAL RECORDS. [facility] [facility]. provides no warranty or guarantee of the accuracy or completeness of information in this document.
== END 2024-03-21 12:16 | disposition home or self-care (01) ==
LOC: ER 12:04
PROVIDERS: Emergency Provider Emergency Medicine; PCP Internal Medicine
DX: L03.113 Cellulitis of right upper limb (principal); I80.8 Phlebitis and thrombophlebitis of other sites
CPT/HCPCS: 93971; 99284

== ENCOUNTER 2024-03-27 10:30 | Observation (INO) | payer MEDICARE, SELFPAY ==
[2024-03-27] VITALS (28 sets, daily range): BP systolic 130–171; BP diastolic 71–117; PULSE 79–105; TEMP 36.5–36.8; O2SAT 88–99; BMI 34.2
--- NOTE | 2024-03-27 10:46 | XR_ITS ---
The [address] [address] Patient Name: SHERON ERAZO MRN: [id number] date: 1955 Sex: M Assigned Patient Location: ED.MAIN Current Patient Location: ED.MAIN Accession/Order Number: [id number] Exam Date: 03/27/2024 11:01 Report Date: 03/27/2024 12:19 At the request of: YOVANI ENCARNACION Procedure: XR chest 1V EXAMINATION: XR chest 1V HISTORY: SOB, hx COPD COMPARISON: 09/21/2022 TECHNIQUE: AP portable FINDINGS: LUNGS: Minimal linear opacities in both lung bases VASCULATURE: No increased pulmonary vasculature. PLEURA: No pneumothorax, effusion, or pleural thickening. CARDIAC: No cardiomegaly or cardiac silhouette abnormality. MEDIASTINUM: No visible mass or adenopathy. Aortic atherosclerosis BONES: No fracture or visible bone lesion. OTHER: Negative. XR/XR chest 1V IMPRESSION: Basilar atelectasis Electronically authenticated by: SANIA CANELA Date: 03/27/2024 12:19
--- NOTE | 2024-03-27 10:46 | ECG_ITS ---
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
--- NOTE | 2024-03-27 10:46 | ED.SOB1 ---
HPI - SOB/Dyspnea General Chief Complaint: Shortness of Breath/Dyspnea Stated Complaint: SHORTNESS OF BREATH Time Seen by Provider: 03/27/24 10:43 Source: patient Mode of arrival: walk-in History of Present Illness HPI Narrative: 69-year-old male presents for shortness of breath. He has been feeling this way for a week. He has a history of COPD and believes he has a COPD exacerbation. No fever, hemoptysis, or productive cough. He feels like he has phlegm but he cannot cough it up. He is not complaining to me of chest pain. He uses inhalers at home. Related Data Previous Rx's ?Medication ?Instructions ?Recorded cephalexin 500 mg capsule 500 mg PO BID 7 days #14 caps 03/21/24 sulfamethoxazole 800 1 tab PO Q12H 10 days #20 tabs 03/21/24 mg-trimethoprim 160 mg tablet (Bactrim DS) Allergies Allergy/AdvReac Type Severity Reaction Status Date / Time No Known Drug Allergies Allergy Verified 03/21/24 09:48 Review of Systems ROS Narrative A ten point review of systems is negative except as noted above. Exam Narrative Exam Narrative: Nurses note and vital signs reviewed and patient is not hypoxic. General: The patient appears mildly dyspneic, no acute distress Skin: Warm, dry, no pallor noted. There is no rash noted. Head: Normocephalic, atraumatic Eye: Normal conjunctiva, no drainage Ears, Nose, Mouth, and Throat: oral mucosa is moist. Nares patent. Cardiovascular: Regular Rate and Rhythm, not tachycardic Respiratory: Breath sounds are distant bilateral Back: non-tender GI: Obese and nontender Musculoskeletal: The patient has no evidence of calf tenderness, no pitting edema, symmetrical pulses noted bilaterally Neurological: A&O, normal speech Psychiatric: Cooperative Constitutional Vital Signs, click to edit/add: Last Vital Signs Temp 98.3 F 03/27/24 10:33 Pulse 81 03/27/24 12:40 Resp 17 03/27/24 12:40 BP 146/71 H 03/27/24 12:30 Pulse Ox 98 03/27/24 12:40 O2 Del Method Nasal Cannula 03/27/24 11:09 O2 Flow Rate 4.5 03/27/24 11:09 Course Vital Signs Vital signs: Vital Signs Temperature 98.3 F 03/27/24 10:33 Pulse Rate 95 H 03/27/24 10:33 Respiratory Rate 24 H 03/27/24 10:33 Blood Pressure 160/117 H 03/27/24 10:33 Pulse Oximetry 88 L 03/27/24 10:33 Oxygen Delivery Method Room Air 03/27/24 10:33 Oxygen Delivery Flow Rate 2.5 03/27/24 10:33 Temperature 98.3 F 03/27/24 10:33 Pulse Rate 81 03/27/24 12:40 Respiratory Rate 17 03/27/24 12:40 Blood Pressure 146/71 H 03/27/24 12:30 Pulse Oximetry 98 03/27/24 12:40 Oxygen Delivery Method Nasal Cannula 03/27/24 11:09 Oxygen Delivery Flow Rate 4.5 03/27/24 11:09 MDM - SOB/Dyspnea MDM Narrative Medical decision making narrative: Chest x-ray shows no evidence of pneumonia. Clinically I do not suspect COVID. He was given aerosol treatment and IV Solu-Medrol. He was feeling somewhat improved. We discussed options of being admitted versus being discharged home. He would prefer to spend the night in the hospital and this is being accomplished. It has been about 2 years since he was admitted. Treatment diagnosis and disposition were discussed with the patient. Differential Diagnosis Differential diagnosis: Likely acute exacerbation of chronic obstructive airways disease, congestive heart failure and community acquired pneumonia Lab Data Attestation: I reviewed the patient's lab results. Labs: Lab Results 03/27/24 Range/Units 10:40 WBC 9.6 (4.0-11.0) 10^3/uL RBC 5.10 (4.70-6.10) 10^6/uL Hgb 12.5 L (14.0-18.0) g/dL Hct 40.8 L (42.0-54.0) % MCV 80.0 (80.0-94.0) fL MCH 24.5 L (25.9-34.0) pg MCHC 30.6 (29.9-35.2) g/dL RDW 17.2 H (11.0-15.0) % Plt Count 315 (150-450) 10^3/uL MPV 9.0 L (9.5-13.5) fL Neut % (Auto) 81.3 H (43.0-75.0) % Lymph % (Auto) 10.2 L (20.5-60.0) % [place] % (Auto) 7.0 (1.7-12.0) % Eos % (Auto) 0.9 (0.9-7.0) % Baso % (Auto) 0.2 (0.2-2.0) % Neut # (Auto) 7.8 H (1.4-6.5) 10^3/uL Lymph # (Auto) 1.0 L (1.2-3.8) 10^3/uL [place] # (Auto) 0.7 (0.3-0.8) 10^3/uL Eos # (Auto) 0.1 (0.0-0.7) 10^3/uL Baso # (Auto) 0.0 (0.0-0.1) 10^3/uL Abs Immat Gran (auto) 0.04 H (0.00-0.03) 10^3/uL Imm/Tot Granulo (auto) 0.4 (0.0-0.5) % Sodium 136 (136-145) mmol/L Potassium 4.4 (3.5-5.1) mmol/L Chloride 97 L (98-107) mmol/L Carbon Dioxide 29.5 (21.0-32.0) mmol/L Anion Gap 13.9 BUN 15.0 (7.0-18.0) mg/dL Creatinine 1.27 (0.70-1.30) mg/dL Est GFR ( Amer) >60 (>=60) Est GFR (Non-Af Amer) 56 L (>=60) BUN/Creatinine Ratio 11.8 Glucose 163 H (74-106) mg/dL Calcium 9.2 (8.5-10.1) mg/dL Imaging Data Chest x-ray: Radiologist's impression: ITS Impressions Chest X-Ray 03/27/24 10:46 IMPRESSION: Basilar atelectasis Electronically authenticated by: SANIA CANELA Date: 03/27/2024 12:19 ECG Data Attestation: I personally reviewed and interpreted this ECG as follows: (EKG on my interpretation shows sinus rhythm with a rate of 84) Critical Care Time Critical Care Time Critical Care Time: Yes Total Critical Care Time: 35 Attestation: Due to the high probability of sudden and clinically significant deterioration in the patient's condition he/she required the highest level of my preparedness to intervene urgently I provided critical care time including documentation time, medication orders and management, reevaluation, vital sign assessment, ordering and reviewing of lab tests, ordering and reviewing of x-ray studies, and admission orders. Aggregate critical care time is 35 minutes including only time during which I was engaged in work directly related to his/her care and did not include time spent treating other patients simultaneously. Discharge Plan Discharge Chief Complaint: Shortness of Breath/Dyspnea Clinical Impression: COPD exacerbation Patient Disposition: Admitted as Observation Time of Disposition Decision: 13:02 Condition: Fair
[2024-03-27 10:53] LABS: Basophils Percent Auto 0.2 % (0.2-2.0); Eosinophils Absolute Auto 0.1 10^3/uL (0.0-0.7); Eosinophils Percent Auto 0.9 % (0.9-7.0); Hematocrit 40.8 % (42.0-54.0); Hemoglobin 12.5 g/dL (14.0-18.0); Immature Granulocytes Abs Auto 0.04 10^3/uL (0.00-0.03); Immature Granulocytes Pct Auto 0.4 % (0.0-0.5); Lymphocytes Percent Auto 10.2 % (20.5-60.0); Mean Corpuscular HGB Conc 30.6 g/dL (29.9-35.2); Mean Corpuscular Hemoglobin 24.5 pg (25.9-34.0); Monocytes Absolute Auto 0.7 10^3/uL (0.3-0.8); Neutrophils Absolute Auto 7.8 10^3/uL (1.4-6.5); Neutrophils Percent Auto 81.3 % (43.0-75.0); Platelet Count 315 10^3/uL (150-450); Red Cell Distribution Width 17.2 % (11.0-15.0); White Blood Count 9.6 10^3/uL (4.0-11.0)
[2024-03-27 11:03] LABS: Anion Gap 13.9; BUN Creatinine Ratio 11.8; Calcium 9.2 mg/dL (8.5-10.1); Carbon Dioxide 29.5 mmol/L (21.0-32.0); Chloride 97 mmol/L (98-107); Estimated GFR (African America >60 (>=60); Estimated GFR (Non-African Ame 56 (>=60); Glucose 163 mg/dL (74-106); Potassium 4.4 mmol/L (3.5-5.1); Sodium 136 mmol/L (136-145)
[2024-03-27] MEDS: METHYLPREDNISOLONE SOD SUCC PF 125 MG/2 ML VIAL IVP (11:03)
--- OUTSIDE RECORDS SUMMARY | 2024-03-27 11:05 | XMS_ITS | CCD ---
Author Organization [facility] Inform ion Partnership [facility] Care Team Providers Care Sprayer Insecticide Name Role Phone DANII MALDONADO Unavailable Unavailabl e ERNIE ELLIOTT Unavailable Unavailable JACQUELYN MAURER Attending Unavailable EARL, ERNIE Primary Care Unavailable EARL, ERNIE Referring Unavailable JACQUELYN MAURER Admitting Unavailable ERNIE ELLIOTT JR Primary Care Physician TANISHA ., DR MCPHERSON Admitting Unavailable TRINIDAD ., DR MCPHERSON Consulting Unavailable TRINIDAD ., DR MCPHERSON Attending Unavailable VALONE, DR DURANT Primary Care Unavailable ENGELER, DR [...] ., DR MCPHERSON Attending Unavailable VALONE, DR UDRANT Primary Care Unavailable TRINIDAD ., DR MCPHERSON Attending Unavailable TRINIDAD ., DR MCPHERSON Admitting Unavailable TRINIDAD ., DR MCPHERSON Consulting Unavailable VALONE, DR DURANT Primary Care Unavailable ZIYSABEL, DR MAIKEL Galicia Consulting Unavailable CARTER, DR NGOZI Cannon Consulting Unavailable VALONE, DR DURANT Primary Care Unavailable CARTER, DR NGOZI Cannon Attending Unavailable CARTER, DR NGOZI Cannon Admitting Unavailable RTINIDAD ., DR MCPHERSON Consulting Unavailable TRINIDAD ., [...] FRANCES Consulting Unavailable Carter, Ngozi Attending Unavailable Raul, Ngozi Referring Unavailable Earl Jr, Dr. Ernie Romero Primary [facility] Jes vailable Earl, Ernie Ogden Unavailable Unavailable Unavailable Wayne TRINIDAD Attending Unavailable TRINIDAD, Wayne Galicia Attending Unavailable Allergies Allergy Classification Reported Allergen(s) Allergy Type Date of Onset Reaction(s) Facility (1 source) Ramipril Drug Allergy 2 [facility] Repository (1 source) No Known Medication Allergies; 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: [No Known Medication Allergies] Propensity to adverse reactions (disorder) [facility] Repository Medications Current Medications Medication Drug [...] disease (6 sources) Atherosclerotic heart disease of [place] coronary artery without angina pectoris; 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: [Coronary [...] Unclassified (2 sources) Athscl heart disease of [place] coronary artery w/o ang pctrs / I25.10(ICD-9) [...] 10-01-2022 Episodic Other aftercare (1 source) 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; 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: [OTH SHELTER CURRENT DRUG THERAPY] Onset: 10-01-2022 Episodic Other aftercare (1 source) 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; 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: [SHELTER CURRENT USE OF ASPIRIN] Onset: 10-01-2022 Episodic Other aftercare (1 source) 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; 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: [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] Onset: 10-02-2022 Episodic Other aftercare (1 source) snf (current) use of oral hypoglycemic drugs; 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: [SHELTER USE ORAL HYPOGLYCEMIC DX] Onset: 10-02-2022 Episodic Other male genital disorders (1 source) Other specified disorders of prostate; 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: [OTHER SPECIFIED DISORDERS PROSTATE] Onset: 02-14-2022 Episodic Residual codes; unclassified (1 source) Other specified postprocedural states; 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: [OTH SPECIFIED POSTPROCEDURAL STATES] Onset: 10-01-2022 Episodic Results Test Name Value Interpretation Reference Range Facil ity [facility] 2024 Lab Reports [id number] .00TIFF Normal [facility] Consultation Noteon 11-21-19 24 Consultation Note [id number] .00TIFF Normal [facility] Patient Educationon 09-16-20 23 Patient Education Oncology [...] likelihood that the cancer will spread. ? [place] 6 or lower: This indicates that the cancer cells look similar to normal prostate cells (well differentiated). ? [place] 7: This indicates that the cancer cells look somewhat similar to normal prostate cells (moderately differentiated). ? [place] 8, 9, or 10: This indicates that [...] external be (more content not included)... 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 [facility] Comment on above: Result Comment: Elec tronically Signed By: Wayne TRINIDAD MD\.br\Date and Time Signed: 09/16/23 14:41 EST\.br\Electronically Co-Signed By: Guera Oswald\.br\Date and Time Co-Signed: 09/16/23 14:40 EST [facility] 09-10-2023 Lab Reports [id number] .00TIFF [facility] Office Visit (Cardiology)on 04-08-2023 Follow-up visit Diagnoses/Problems [...] Recorded: 08Apr2023 01:21PM Heart Rate78, R Radial Bzjyhcws949, LUE, Sitting Vdjvlvmew60, LUE, Sitting Height6 ft Krdeyz105 lb BMI Xfbplhbjsz65.09 kg/m2 BSA Calculated2.32 Tobacco Useb) No PHQ-2 [...] Apr 08 2023 1:56PM EST (Author) Normal [facility] Tobacco Screening.on 023 Adult depression screening assessment No [facility] 250 DO Work Phone: Fall risk assessment a) No falls within the last year [facility] 250 DO Work Phone: Tobacco use status [facility] b) No [facility] 250 DO Work Phone: [facility] 01-16-2023 Refill [id number] Sheron Erazo Jr. 1955 M Date Provider Department Center 01/16/2023 JACQUELYN JACOBSON ONC DCC No family history on file Reason for Visit and Comments: Med Refill [[id number]] Normal [facility] CT LUNG CANCER SCREENINGon 0 10-26-2022 CT [...] by: MAIKEL ESTEVEZ Date: 2022-10-26 15:22 Normal [facility] Refillon 10-15-2022 Refill [id number] Sheron Erazo Jr. 1955 Date Provider Department [place] 10/15/[address] [facility] ONC DCC No family history on file Reason for Visit and Comments: Med Refill [[id number]] Normal [facility] XR PELVIS 1_2 VIEWSon 2021 XR PELVIS [...] by: MAIKEL ESTEVEZ Date: 2022-09-28 07:22 Normal [facility] CBC AUTO DIFFon 09-27-2022 BASO # 0.0 103/ul Normal 0.0-0.1 [facility] Comment on above: Performed By: #### B MP #### [facility] [address] [address] [address] Juanita Sagastume Basophils/100 WBC (Bld) 0.2 % Normal 0.2-2.0 [facility] Comment on above: Performed By: #### B MP #### [facility] [address] [place] [address] Dr. Juanita Sagastume EO # 0.2 103/ul Normal 0.0-0.7 [facility] Comment on above: Performed By: #### B MP #### [facility] [address] [place] [address] Dr. Juanita Sagastume Eosinophils/100 WBC (Bld) 2.2 % Normal 0.9-7.0 [facility] Comment on above: Performed By: #### B MP #### [facility] [address] [place] [address] Dr. Juanita Sagastume Erythrocyte distribution width (RBC) [Ratio] 17.5 % Critically high 11.0-15.0 [facility] Comment on above: Performed By: #### B MP #### [facility] [address] [place] [address] Dr. Juanita Sagastume Hematocrit (Bld) [Volume fraction] 41.3 % Critically low 42.0-54.0 [facility] Comment on above: Performed By: #### B MP #### [facility] [address] [place] [address] Dr. Juanita Sagastume Hemoglobin (Bld) [Mass/Vol] 13.5 g/dL Critically low 14.0-18.0 [facility] Comment on above: Performed By: #### B MP #### [facility] [address] [place] [address] Dr. Juanita Sagastume IG # 0.04 10e3/ul Critically high 0.00-0.03 [facility] Comment on above: Performed By: #### B MP #### [facility] [address] [place] [address] Dr. Juanita Sagastume IG % 0.5 % Normal 0.0-0.5 [facility] Comment on above: Performed By: #### B MP #### [facility] [address] [address] [address] Juanita Sagastume LYMPH # 0.8 103/ul Critically low 1.2-3.8 [facility] Comment on above: Performed By: #### B MP #### [facility] [address] [address] [address] Juanita Sagastume Lymphocytes/100 WBC (Bld) 9.3 % Critically low 20.5-60.0 [facility] Comment on above: Performed By: #### B MP #### [facility] [address] [place] [address] Dr. Juanita Sagastume MANUAL DIFF REQ NO Normal [facility] Comment on above: Performed By: #### B MP #### [facility] [address] [place] [address] Dr. Juanita Sagastume MCH (RBC) [Entitic mass] 26.7 pg Normal 25.9-34.0 [facility] Comment on above: Performed By: #### B MP #### [facility] [address] [place] [address] Dr. Juanita Sagastume MCHC (RBC) [Mass/Vol] 32.7 g/dL Normal 29.9-35.2 [facility] Comment on above: Performed By: #### B MP #### [facility] [address] [place] [address] Dr. Juanita Sagastume MCV (RBC) [Entitic vol] 81.8 fL Normal 80.0-94.0 [facility] Comment on above: Performed By: #### B MP #### [facility] [address] [place] [address] Dr. Juanita Sagastume MONO # 1.0 103/ul Critically high 0.3-0.8 [facility] [place] [facility] Comment on above: Performed By: #### B MP #### [facility] [address] [place] [address] Dr. Juanita Sagastume Monocytes/100 WBC (Bld) 11.5 % Normal 1.7-12.0 [facility] Comment on above: Performed By: #### B MP #### [facility] [address] [place] [address] Dr. Juanita Sagastume NEUT # 6.3 103/ul Normal 1.4-6.5 [facility] Comment on above: Performed By: #### B MP #### [facility] [address] [place] [address] Dr. Juanita Sagastume Neutrophils/100 WBC (Bld) 76.3 % Critically high 43.0-75.0 [facility] Comment on above: Performed By: #### B MP #### [facility] [address] [place] [address] Dr. Juanita Sagastume Platelet mean volume (Bld) [Entitic vol] 8.5 fL Critically low 9.5-13.5 [facility] Comment on above: Performed By: #### B MP #### [facility] [address] [place] [address] Dr. Juanita Sagastume PLT 273 103/ul Normal 150-450 [facility] Comment on above: Performed By: #### B MP #### [facility] [address] [place] [address] Dr. Juanita Sagastume RBC 5.05 106/ul Normal 4.70-6.10 [facility] Comment on above: Performed By: #### B MP #### [facility] [address] [place] [address] Dr. Juanita Sagastume WBC 8.3 103/ul Normal 4.0-11.0 [facility] Comment on above: Performed By: #### B MP #### [facility] [address] [place] [address] Dr. Juanita Sagastume PROF CHEM 8 (BAS METB)on Anion gap [Moles/Vol] 10.9 mmol/L Normal [facility] Comment on above: Performed By: #### B MP #### [facility] [address] [place] [address] Dr. Juanita Sagastume Calcium [Mass/Vol] 10.2 mg/dL Critically high 8.5-10.1 [facility] Comment on above: Performed By: #### B MP #### [facility] [address] [address] [address] Juanita Sagastume Chloride [Moles/Vol] 98 mmol/L Normal 98-107 [facility] Comment on above: Performed By: #### B MP #### [facility] [address] [place] [address] Dr. Juanita Sagastume CO2 [Moles/Vol] 34.5 mmol/L Critically high 21.0-32.0 [facility] Comment on above: Performed By: #### B MP #### [facility] [address] [address] [address] Juanita Sagastume Creatinine [Mass/Vol] 1.06 mg/dL Normal 0.70-1.30 [facility] Comment on above: Performed By: #### B MP #### [facility] [address] [place] [address] Dr. Juanita Sagastume EGFR-AF [place] >60 Normal >=60 [facility] Comment on above: Performed By: #### B MP #### [facility] [address] [place] [address] Dr. Juanita Sagastume EGFR-NON AF [place] >60 Normal >=60 [facility] Comment on above: Performed By: #### B MP #### [facility] [address] [address] [address] Juanita Sagastume Glucose [Mass/Vol] 122 mg/dL Critically high 74-106 [facility] Comment on above: Performed By: #### B MP #### [facility] [address] [address] [address] Juanita Sagastume Potassium [Moles/Vol] 4.4 mmol/L Normal 3.5-5.1 [facility] Comment on above: Performed By: #### B MP #### [facility] [address] [place] [address] Dr. Juanita Sagastume Sodium [Moles/Vol] 139 mmol/L Normal 136-145 [facility] Comment on above: Performed By: #### B MP #### [facility] [address] [address] [address] Juanita Sagastume Urea nitrogen [Mass/Vol] 16.0 mg/dL Normal 7.0-18.0 [facility] Comment on above: Performed By: #### B MP #### [facility] [address] [place] [address] Dr. Juanita Sagastume Urea nitrogen/Creatinin e [Mass ratio] 15.1 mg/mg Normal [facility] Comment on above: Performed By: #### B MP #### [facility] [address] [place] [address] Dr. Juanita Sagastume PROTIMEon 09-27-2022 INR Coag (PPP) [Relative time] 0.93 {INR} Normal [facility] Comment on above: Performed By: #### B MP #### [facility] [address] [place] [address] Dr. Juanita Sagastume INR GUIDELINES SEE BELOW Normal [facility] Comment on above: Result Comment: KAMINI RED INR: 2.0 - 3.0 CONDITIONS NOT LISTED BELOW 2.5 - 3.5 FOR PROSTHETIC HEART VALVE REPLACEMENT 2.5 - 3.5 RECURRENT THROMBOSIS Performed By: #### B MP #### [facility] [address] [place] [address] Dr. Juanita Sagastume PT Coag (PPP) [Time] 10.1 s Normal 9.0-11.6 [facility] Comment on above: Performed By: #### B MP #### [facility] [address] [place] [address] Dr. Juanita Sagastume [facility] SARS-CoV-2 (COVID-19) RNA SKYLAR+probe Ql (Unsp spec) Not detected Normal NOT DETECTED [facility] Comment on above: Result Comment: This test is not yet approved or cleared by the [place] FDA. When there are no FDA-approved or cleared tests available, and other criteria are met, FDA can make tests available under an emergency access mechanism called an Emergency Use Authorization (EUA). The EUA for this test is supported by the [place] of Health and Human Service's (HHS's) declaration [...] SARS-CoV-2. Performed By: #### C VDTBH #### [facility] [address] [place] [address] Dr. Juanita Sagastume LIPID PROFILEon 03-16-2022 CHOL-HDL RATIO NORM SEE BELOW Normal [facility] Comment on above: Result Comment: 3.3 - 4.4 LOW RISK 4.4 - 7.1 AVERAGE RISK 7.1 - 11.0 MODERATE RISK >11.0 HIGH RISK Performed By: #### A LT, LIPID, AST #### [facility] [address] [place] [address] Dr. Juanita Sagastume Cholesterol [Mass/Vol] 111 mg/dL Normal <=200 [facility] Comment on above: Performed By: #### A LT, LIPID, AST #### [facility] [address] [address] [address] Juanita Sagastume Cholesterol in HDL [Mass/Vol] 35 mg/dL Critically low 40-60 [facility] Comment on above: Performed By: #### A LT, LIPID, AST #### [facility] [address] [address] [address] Juanita Sagastume Cholesterol in LDL [Mass/Vol] 29.6 mg/dL Normal [facility] Comment on above: Performed By: #### A LT, LIPID, AST #### [facility] [address] [address] [address] Juanita Sagastume Cholesterol.total/ Cholesterol in HDL [Mass ratio] 3.2 {ratio} Normal [facility] Comment on above: Performed By: #### A LT, LIPID, AST #### [facility] [address] [address] [address] Juanita Sagastume HDL NORMAL > or = 60 mg/dl - LO W CARDIOVASCULAR RISK <40 mg/dl - HIGH CARDIOVASCULAR RISK Normal [facility] Comment on above: Performed By: #### A LT, LIPID, AST #### [facility] [address] [address] [address] Juanita Sagastume LDL CALC NORMAL SEE BELOW Normal [facility] Comment on above: Result Comment: <100 mg/dl OPTIMAL 100 - 129 mg/dl NEAR OR ABOVE OPTIMAL 130 - 159 mg/dl BORDERLINE HIGH 160 - 189 mg/dl HIGH >190 mg/dl VERY HIGH Performed By: #### A LT, LIPID, AST #### [facility] [address] [address] [address] Juanita Sagastume Triglyceride [Mass/Vol] 232 mg/dL Critically high <=150 [facility] Comment on above: Performed By: #### A LT, LIPID, AST #### [facility] [address] [address] [address] Juanita Sagastume VLDL CALC 46.4 mg/dL Normal [facility] Comment on above: Performed By: #### A LT, LIPID, AST #### [facility] [address] [address] [address] Juanita Sagastume SGOTon 03-16-2022 AST [Catalytic activity/Vol] 22 U/L Normal 15-37 [facility] Comment on above: Performed By: #### A LT, LIPID, AST #### [facility] [address] [address] [address] Juanita Sagastume SGPTon 03-16-2022 ALT [Catalytic activity/Vol] 24 U/L Normal 16-63 [facility] Comment on above: Performed By: #### A LT, LIPID, AST #### [facility] [address] [address] [address] Juanita Sagastume CREATININEon 03-02-2022 Creatinine [Mass/Vol] 1.19 mg/dL Normal 0.70-1.30 [facility] Comment on above: Performed By: #### C KRYS #### [facility] [address] [address] [address] Juanita Sagastume EGFR-AF [place] >60 Normal >=60 [facility] Comment on above: Performed By: #### C KRYS #### [facility] [address] [place], [place] [address] Dr. Juanita Sagastume EGFR-NON AF [place] >60 Normal >=60 [facility] Comment on above: Performed By: #### C KRYS #### [facility] [address] [place], [place] [address] ABD/PELV WO W [...] MAIKEL ESTEVEZ Date: 2022-03-02 14:40 Normal [facility] BONE OR WH BODYon 022 NM BONE OR WH BODY EXAMINATION: [place] BONE [facility] BODY HISTORY: Primary malignant neoplasm of prostate [...] MAIKEL ESTEVEZ Date: 2022-03-02 15:26 Normal [facility] POINT OF CARE GLUCOSEon 01-13 Glucose [Mass/Vol] 117 mg/dL Critically high 74-106 T [facility] Comment on above: Performed By: #### B MP #### [facility] [address] [address] [address] Juanita Sagastume Covid-19 PCR ([facility])on 01-13 SARS-CoV-2 (COVID-19) RNA SKYLAR+probe Ql (Unsp spec) Not detected Normal NOT DETECTED [facility] Comment on above: Result Comment: This test is not yet approved or cleared by the [place] FDA. When there are no FDA-approved or cleared tests available, and other criteria are met, FDA can make tests available under an emergency access mechanism called an Emergency Use Authorization (EUA). The EUA for this test is supported by the [place] of Health and Human Service's (HHS's) declaration [...] SARS-CoV-2. Performed By: #### C VDTBH #### [facility] [address] [place], [place] [address] Dr. Juanita Sagastume CBC AUTO DIFFon 01-29-2022 BASO # 0.0 103/ul Normal 0.0-0.1 [facility] Comment on above: Performed By: #### C BC #### [facility] [address] [address] [address] Juanita Sagastume Basophils/100 WBC (Bld) 0.3 % Normal 0.2-2.0 [facility] Comment on above: Performed By: #### C BC #### [facility] [address] [place] [address] Dr. Juanita Sagastume EO # 0.2 103/ul Normal 0.0-0.7 [facility] Comment on above: Performed By: #### C BC #### [facility] [address] [place] [address] Dr. Juanita Sagastume Eosinophils/100 WBC (Bld) 1.8 % Normal 0.9-7.0 [facility] Comment on above: Performed By: #### C BC #### [facility] [address] [place] [address] Dr. Juanita Sagastume Erythrocyte distribution width (RBC) [Ratio] 15.4 % Critically high 11.0-15.0 [facility] Comment on above: Performed By: #### C BC #### [facility] [address] [place] [address] Dr. Juanita Sagastume Hematocrit (Bld) [Volume fraction] 42.3 % Normal 42.0-54.0 [facility] Comment on above: Performed By: #### C BC #### [facility] [address] [place] [address] Dr. Juanita Sagastume Hemoglobin (Bld) [Mass/Vol] 13.3 g/dL Critically low 14.0-18.0 [facility] Comment on above: Performed By: #### C BC #### [facility] [address] [place] [address] Dr. Juanita Sagastume IG # 0.06 10e3/ul Critically high 0.00-0.03 [facility] Comment on above: Performed By: #### C BC #### [facility] [address] [place] [address] Dr. Juanita Sagastume IG % 0.5 % Normal 0.0-0.5 [facility] Comment on above: Performed By: #### C BC #### [facility] [address] [place] [address] Dr. Juanita Sagastume LYMPH # 2.0 103/ul Normal 1.2-3.8 [facility] Comment on above: Performed By: #### C BC #### [facility] [address] [place] [address] Dr. Juanita Sagastume Lymphocytes/100 WBC (Bld) 17.6 % Critically low 20.5-60.0 [facility] Comment on above: Performed By: #### C BC #### [facility] [address] [place] [address] Dr. Juanita Sagastume MANUAL DIFF REQ NO Normal [facility] Comment on above: Performed By: #### C BC #### [facility] [address] [place] [address] Dr. Juanita Sagastume MCH (RBC) [Entitic mass] 26.5 pg Normal 25.9-34.0 [facility] Comment on above: Performed By: #### C BC #### [facility] [address] [place] [address] Dr. Juanita Sagastume MCHC (RBC) [Mass/Vol] 31.4 g/dL Normal 29.9-35.2 [facility] Comment on above: Performed By: #### C BC #### [facility] [address] [place] [address] Dr. Juanita Sagastume MCV (RBC) [Entitic vol] 84.3 fL Normal 80.0-94.0 [facility] Comment on above: Performed By: #### C BC #### [facility] [address] [place] [address] Dr. Juanita Sagastume MONO # 0.9 103/ul Critically high 0.3-0.8 [facility] Comment on above: Performed By: #### C BC #### [facility] [address] [place] [address] Dr. Juanita Sagastume Monocytes/100 WBC (Bld) 7.6 % Normal 1.7-12.0 [facility] Comment on above: Performed By: #### C BC #### [facility] [address] [place] [address] Dr. Juanita Sagastume NEUT # 8.3 103/ul Critically high 1.4-6.5 [facility] Comment on above: Performed By: #### C BC #### [facility] [address] [address] [address] Juanita Sagastume Neutrophils/100 WBC (Bld) 72.2 % Normal 43.0-75.0 [facility] Comment on above: Performed By: #### C BC #### [facility] [address] [address] [address] Juanita Sagastume Platelet mean volume (Bld) [Entitic vol] 9.2 fL Critically low 9.5-13.5 [facility] Comment on above: Performed By: #### C BC #### [facility] [address] [address] [address] Juanita Sagastume PLT 343 103/ul Normal 150-450 [facility] Comment on above: Performed By: #### C BC #### [facility] [address] [address] [address] Juanita Sagastume RBC 5.02 106/ul Normal 4.70-6.10 [facility] Comment on above: Performed By: #### C BC #### [facility] [address] [address] [address] Juanita Sagastume WBC 11.5 103/ul Critically high 4.0-11.0 [facility] Comment on above: Performed By: #### C BC #### [facility] [address] [address] [address] Juanita Sagastume PROF CHEM 8 (BAS METB)on Anion gap [Moles/Vol] 14.6 mmol/L Normal [facility] Comment on above: Performed By: #### B MP #### [facility] [address] [address] [address] Juanita Sagastume Calcium [Mass/Vol] 9.6 mg/dL Normal 8.5-10.1 [facility] Comment on above: Performed By: #### B MP #### [facility] [address] [address] [address] Juanita Sagastume Chloride [Moles/Vol] 97 mmol/L Critically low 98-107 [facility] Comment on above: Performed By: #### B MP #### [facility] [address] [address] [address] Juanita Sagastume CO2 [Moles/Vol] 28.9 mmol/L Normal 22.0-30.0 [facility] Comment on above: Performed By: #### B MP #### [facility] [address] [address] [address] Juanita Sagastume Creatinine [Mass/Vol] 1.23 mg/dL Normal 0.66-1.25 [facility] Comment on above: Performed By: #### B MP #### [facility] [address] [address] [address] Juanita Sagastume EGFR-AF [place] ISLANDER >60 Normal >=60 [facility] Comment on above: Performed By: #### B MP #### [facility] [address] [address] [address] Juanita Sagastume EGFR-NON AF [place]ER 59 mL/min/1.73m2 Critically low >=60 [facility] Comment on above: Performed By: #### B MP #### [facility] [address] [address] [address] Juanita Sagastume Glucose [Mass/Vol] 105 mg/dL Normal 74-106 [facility] Comment on above: Performed By: #### B MP #### [facility] [address] [address] [address] Juanita Sagastume Potassium [Moles/Vol] 4.5 mmol/L Normal 3.4-5.0 [facility] Comment on above: Performed By: #### B MP #### [facility] [address] [address] [address] Juanita Sagastume Sodium [Moles/Vol] 136 mmol/L Critically low 137-145 [facility] Comment on above: Performed By: #### B MP #### [facility] [address] [address] [address] Juanita Sagastume Urea nitrogen [Mass/Vol] 16.0 mg/dL Normal 7.0-18.0 [facility] Comment on above: Performed By: #### B MP #### [facility] [address] [place] [address] Dr. Juanita Sagastume Urea nitrogen/Creatinin e [Mass ratio] 13.0 mg/mg Normal [facility] Comment on above: Performed By: #### B MP #### [facility] [address] [address] [address] Juanita Sagastume PROTIMEon 01-29-2022 INR Coag (PPP) [Relative time] 0.98 {INR} Normal [facility] Comment on above: Performed By: #### B MP #### [facility] [address] [place] [address] Dr. Juanita Sagastume INR GUIDELINES SEE BELOW Normal [facility] Comment on above: Result Comment: KAMINI RED INR: 2.0 - 3.0 CONDITIONS NOT LISTED BELOW 2.5 - 3.5 FOR PROSTHETIC HEART VALVE REPLACEMENT 2.5 - 3.5 RECURRENT THROMBOSIS Performed By: #### B MP #### [facility] [address] [place] [address] Dr. Juanita Sagastume PT Coag (PPP) [Time] 10.6 s Normal 9.0-11.6 [facility] Comment on above: Performed By: #### B MP #### [facility] [address] [place] [address] Dr. Juanita Sagastume PTTon 01-29-2022 aPTT Coag (Bld) [Time] 28.5 s Normal 22.3-36.2 [facility] Comment on above: Performed By: #### B MP #### [facility] [address] [place] [address] Dr. Juanita Sagastume MR prostate wo/w conon 10-17 MR prostate wo/w con [facility] [place] [address] MRI Report Signed Patient: Sheron Erazo MR#: [id number] : 1955 Acct:[id number] Age/Sex: 66 / M ADM Date: 10/10/21 [...] PM COT by: Yousif Paz MD Diplomate, [place] [employer] Report Completed: Oct 17, [...] STAFF 10/17/21 1605 Signed By: 10/18/21 0750 [facility] Blood Urea Nitrogenon 2020 Urea nitrogen [Mass/Vol] 11 mg/dL Normal 9-23 [facility] Comment on above: Order Comment: STAT FOR MRI Performed By: #### B UN, CREAT #### [facility] [address] [place] [address] Creatinineon 10-10-2021 Creatinine [Mass/Vol] 1.04 mg/dL Normal 0.64-1.27 [facility] Comment on above: Order Comment: STAT FOR MRI Performed By: #### B UN, CREAT #### [facility] [address] [place] [address] Creatinine Clr Calc Pharmacy 90.84 [facility] Comment on above: Order Comment: STAT FOR MRI Result Comment: PERF ORMED BY: [place] [address] PATHOLOGIST [employer]SHORE WIND OPERATIONS MANAGER XUAN GOMEZ M.D. Performed By: #### B UN, CREAT #### [facility] [address] [place] [address] Estimated GFR ( Peyton > 60 Normal [facility] Comment on above: Order Comment: STAT FOR MRI Result Comment: GFR estimated reference range: According to KDOQI guidelines, <60 ml/min/1.73m2 is sufficient to diagnose a patient with chronic kidney disease. Performed By: #### B UN, CREAT #### [facility] [address] [id number] [facility] Estimated GFR (Non- Am > 60 Normal [facility] Comment on above: Order Comment: STAT FOR MRI Performed By: #### B UN, CREAT #### [facility] [address] [id number] [facility] CT CHEST HIGH RESOLUTION WIT HOUT CONTRASTon 10-05-2021 CT CHEST HIGH RESOLUTION WITHOUT CONTRAST [facility] Department of Radiology [address] [place] [address] Patient Name: SHERON ERAZO : [...] achievable Electronically signed: Nika Krause. Transcribed by: [email or web address], User Resident: Electronically Signed by: NIKA KRAUSE @ 10/05/2021 02:50 PM Normal [facility] Pulmonary Functionon 12-18-2 021 Pulmonary Function MR #: [id number] [facility] PT. Name: Sheron Erazo Jr Date: 09/29/2021 [...] Sykes MD Date Trans: 09/30/2021 05:58 P/ [id number] cc: Ernie Elliott D.O. [address] [place] [address] [place] [address] Normal [facility] ARTERIAL BLOOD GAS W/COOXon 09-29-2021 BASE EXCESS 10 mmol/L High -2-3 [facility] Comment on above: Performed By: #### 4 0055 #### [facility] [address] [place] [address], [place] COHB 1.6 % High 0.0-1.5 [facility] Comment on above: Performed By: #### 4 0055 #### [facility] [address] [place] [address], [place] DELIVERY SYSTEMS ROOM AIR Normal [facility] Comment on above: Performed By: #### 4 0055 #### [facility] [address] [place] [address], [place] FIO2 0 % Normal [facility] Comment on above: Performed By: #### 4 0055 #### [facility] [address] [place] [address], [place] HCO3 (Bld) [Moles/Vol] 36 mmol/L Critically high 21-28 [facility] Comment on above: Performed By: #### 4 0055 #### [facility] [address] [place] [address], [place] METHB 1.2 % Normal 0.0-1.5 [facility] Comment on above: Performed By: #### 4 0055 #### [facility] [address] [place] [address], [place] Oxygen (Bld) [Partial pressure] 66 mm[Hg] Low 83-108 [facility] Comment on above: Performed By: #### 4 0055 #### [facility] [address] [place] [address], [place] Oxygen saturation in Blood 92.2 % Low 94.0-97.0 [facility] Comment on above: Performed By: #### 4 0055 #### [facility] [address] [place] [address], [place] PCO2 50 mmHg High 35-45 [facility] Comment on above: Performed By: #### 4 0055 #### [facility] [address] [place] [address], [facility] pH (Bld) 7.46 [pH] High 7.35-7.45 [facility] Comment on above: Performed By: #### 4 0055 #### [facility] [address] [place] [address], [facility] THB 13.5 g/dL Normal 12.0-16.3 [facility] Comment on above: Performed By: #### 4 0055 #### [facility] [address] [place], [place] [id number] [place] [address] Vital Signs Date Time Vital Sign Value Performing Clinician Camilo espinal 09-16-2023 14:04-0500 Blood Pressure Location Wayne TRINIDAD [facility] 09-16-2023 14:04-0500 Diastolic blood pressure 71 mm[Hg] Wayne TRINIDAD [facility] 09-16-2023 14:04-0500 Heart rate 65 /min Wayne TRINIDAD [facility] 09-16-2023 14:04-0500 Respiratory rate 16 /min Wayne TRINIDAD [facility] 09-16-2023 14:04-0500 Systolic blood pressure 131 mm[Hg] Wayne TRINIDAD [facility] 04-08-2023 13:21-0400 Body height 182.88 cm Ernie Ayalarosaura Work Phone: [facility] [employer] 250 DO Work Phone: 04-08-2023 13:21-0400 Body mass index (BMI) [Ratio] 33.09 kg/m2 Ernie Ogden [employer] Work Phone: [facility] 250 DO Work Phone: 04-08-2023 13:21-0400 Body surface area Derived from formula 2.32 m2 Ernie L Valone Work Phone: [facility] 250 DO Work Phone: 04-08-2023 13:21-0400 Body weight 110.68 kg Ernie L Valone Work Phone: [facility] 250 DO Work Phone: 04-08-2023 13:21-0400 Diastolic blood pressure 62 mm[Hg] Ernie L Valone Work Phone: [facility] 250 DO Work Phone: 04-08-2023 13:21-0400 Heart rate 78 /min Ernie L Valone Work Phone: [facility] 250 DO Work Phone: 04-08-2023 13:21-0400 Systolic blood pressure 124 mm[Hg] Ernie L Valone Work Phone: [facility] 250 DO Work Phone: 01-14-2023 13:32-0400 Blood Pressure Location Wayne TRINIDAD [facility] 01-14-2023 13:32-0400 Diastolic blood pressure 84 mm[Hg] Wayne TRINIDAD [facility] 01-14-2023 13:32-0400 Heart rate 72 /min Wayneguero TRINIDDA [facility] 01-14-2023 13:32-0400 Respiratory rate 16 /min Wayne TRINIDAD [facility] 01-14-2023 13:32-0400 Systolic blood pressure 138 mm[Hg] Wayne TRINIDAD [facility] 10-29-2022 13:50-0500 Blood Pressure Location Wayne TRINIDAD [facility] 10-29-2022 13:50-0500 Diastolic blood pressure 77 mm[Hg] Wayne TRINIDAD [facility] 10-29-2022 13:50-0500 Heart rate 68 /min Wayne TRINIDAD [facility] 10-29-2022 13:50-0500 Respiratory rate 16 /min Wayne TRINIDAD [facility] 10-29-2022 13:50-0500 Systolic blood pressure 140 mm[Hg] Wayen TRINIDAD [facility] 06-25-2022 14:28-0400 Blood Pressure Location Wayne TRINIDAD [facility] 06-25-2022 14:28-0400 Diastolic blood pressure 97 mm[Hg] Wayne TRINIDAD [facility] 06-25-2022 14:28-0400 Heart rate 88 /min Wayne TRINIDAD [facility] 06-25-2022 14:28-0400 Respiratory rate 16 /min Wayne TRINIDAD [facility] 06-25-2022 14:28-0400 Systolic blood pressure 157 mm[Hg] Wayne TRINIDAD [facility] 02-16-2022 09:27-0400 Blood Pressure Location Wayne TRINIDAD [facility] 02-16-2022 09:27-0400 Diastolic blood pressure 84 mm[Hg] Wayne TRINIDAD [facility] 02-16-2022 09:27-0400 Heart rate 104 /min Wayne TRINIDAD [facility] 02-16-2022 09:27-0400 Respiratory rate 16 /min Wayne TRINIDAD [facility] 02-16-2022 09:27-0400 Systolic blood pressure 145 mm[Hg] Wayne TRINIDAD [facility] Encounters Encounter Date Encounter Type Care Provider Facility Start: 03-30-2024 [facility] Start: 09-16-2023 End: 09-16-2023 ambulatory Wayne TRINIDAD Facility:[facility] Start: 09-16-2023 End: 09-16-2023 Patient encounter procedure Wayne TRINIDAD [facility] Start: 04-08-2023 Office outpatient vi sit 25 minutes Ernie Elliott Work Phone: [facility] 250 DO Work Phone: Start: 04-08-2023 ambulatory Ngozi Maherim Facility : Start: 01-14-2023 End: 01-14-2023 Patient encounter procedure Wayne TRINIDAD [facility] Start: 01-07-2023 End: 01-08-[address] WAYNE TRINIDAD . Facility:[facility] Start: 10-29-2022 End: 10-29-2022 Patient encounter procedure Wayne TRINIDAD [facility] Start: 10-26-2022 End: 10-27-[address] ERNIE ELLIOTT Facility:[facility] Start: 10-03-2022 End: 10-03-2022 Patient encounter procedure Andressa CannonChalo Quigley [facility] Start: 09-29-2022 End: 09-29-2022 ambulatory ITZ BRICE . Facility:[facility] Start: 09-27-2022 End: 09-27-[address] WAYNE TRINIDAD . Facility:[facility] Start: 09-24-2022 Encounter for preprocedural cardiovascular examination DR WAYNE TRINIDAD . [facility] Start: 09-24-2022 Encounter for preprocedural laboratory examination DR WAYNE TRINIDAD . [facility] Start: 09-24-[address] WAYNE TRINIDAD . Fac ility:[facility] Start: 09-21-2022 End: 09-22-[address] WAYNE TRINIDAD . Facility:[facility] Start: 09-21-2022 End: 09-22-2022 Encounter for preprocedural cardiovascular examination DR WAYNE TRINIDAD . Facility:[facility] Start: 06-25-2022 End: 06-25-2022 Patient encounter procedure Wayne TRINIDAD [facility] Start: 06-11-2022 End: 06-12-[address] WAYNE TRINIDAD . Facility:[facility] Start: 03-16-2022 End: 03-17-[address] NGOZI CARTER Facility:[facility] Start: 03-02-2022 End: 03-03-[address] WAYNE TRINIDAD . Facility:[facility] Start: 02-16-2022 End: 02-16-2022 Patient encounter procedure Wayne TRINIDAD [facility] Start: 02-08-2022 End: 02-08-[address] WAYNE TRINIDAD . Facility:[facility] Start: 02-07-2022 Encounter for preprocedural laboratory examination DR WAYNE TRINIDAD . [facility] Start: 02-05-2022 End: 02-06-[address] WAYNE TRINIDAD . Facility:[facility] Start: 02-05-2022 End: 02-06-2022 Encounter for preprocedural laboratory examination DR WAYNE TRINIDAD . Facility:[facility] Start: 02-01-2022 Encounter for preprocedural cardiovascular examination DR WAYNE TRINIDAD . [facility] Start: 01-29-2022 End: 01-30-[address] WAYNE TRINIDAD . Facility: Start: 09-25-2021 End: 10-19-2021 ambulatory JACQUELYN MAURER Facility:[facility] Start: 03-27-2018 Ambulatory DANII MALDONADO Fa cility:[id number] Procedures Date Procedure Procedure Detail Performing Clinician Start: 01-07-[address] WESTLEY TRINIDAD . Comment on above: Performed By: #### P SAD #### [facility] [address] [place] [address] Dr. Juanita Sagastume Start: 09-27-2022 Brachytherapy of pro state using fluoroscopic guidance Wayne TRINIDAD Start: 09-04-2022 Teleradiotherapy procedure Wayne TRINIDAD Start: 06-11-[address] WESTLEY TRINIDAD . Comment on above: Performed By: #### B MP #### [facility] [address] [place] [address] Dr. Juanita Sagastume Start: 02-08-2022 MRI-US fusion guided transrectal biopsy of prostate Wayne TRINIDAD Start: 04-29-2017 TRUS w/bx Wayne LOZANOS Start: 01-12-2014 TRUS w/bx Wayne LOZANOS Cataract (disorder) Wayne TRINIDAD Colonoscopy Wayne TRINIDAD [...] Ngozi Carter, Status: Pen, Time: 1:00 PM [facility] 250 DO Work Phone: Immunizations Immunization Date Immunization Notes Care Provider isamar 07-05-2022 SARS-CoV-2 (COVID-19 ) [id number] Wayne TRINIDAD [facility] Comment on above: Result Comment: 202216: [id number] 08-15-2021 SARS-CoV-2 (COVID-19 ) mRNA BNT-162b2 vax Wayne TRINIDAD [facility] 01-23-2021 SARS-CoV-2 (COVID-19 ) mRNA BNT-162b2 vax Wayneguero TRINIDAD [facility] 01-10-2021 SARS-CoV-2 (COVID-19 ) mRNA BNT-162b2 vax Wayneguero TRINIDAD [facility] 12-19-2020 SARS-CoV-2 (COVID-19 ) mRNA BNT-162b2 vax Wayne TANISHA [facility] 07-14-2020 influenza virus vacc ine, unspecified formulation Wayne TRINIDAD [facility] 07-23-2019 influenza virus vacc ine, unspecified formulation Wayne TRINIDAD [facility] 07-23-2019 influenza, injectabl e, quadrivalent, preservative free Ernie L Valone Work Phone: [address] [place] [address] DO Work Phone: 07-14-2019 influenza virus vacc ine, unspecified formulation Wayne TRINIDAD [facility] 07-14-2019 influenza, high dose seasonal, preservative-free Ernie L Valone Work Phone: [address] [address] DO Work Phone: 07-14-2018 influenza virus vacc ine, unspecified formulation Ernie L Valone Work Phone: [address] [address] DO Work Phone: 07-14-2017 influenza virus vacc ine, unspecified formulation Ernie L Valone Work Phone: [address] [address] DO Work Phone: 10-14-2015 pneumococcal polysaccharide vaccine, 23 valent Ernie L Valone Work Phone: [address] [address] DO Work Phone: Payers Date Payer Category Payer Medicare [id number] 1955 Unknown [id number] 2.16.8 [id number] 1955 Unknown [id number] 2.16.84 [id number] 1955 Unknown [id number] 2.16.84 0.1.493887.3.579.2.593 1955 Unknown [id number] 2.16.84 0.1.278229.3.579.2.593 1955 Unknown [id number] 2.16.84 0.1.486050.3.579.2.593 1955 Unknown [id number] 2.16.84 0.1.678604.3.579.2.593 1955 Unknown [id number] 2.16.84 0.1.669534.3.579.2.593 1955 Unknown [id number] 2.16.84 0.1.042558.3.579.2.593 1955 Unknown [id number] 2.16.84 0.1.300120.3.579.2.593 1955 Unknown [id number] 2.16.84 0.1.191672.3.579.2.593 1955 Unknown [id number] 2.16.84 0.1.911006.3.579.2.593 1955 Unknown [id number] 2.16.84 0.1.790743.3.579.2.593 1955 Unknown [id number] 2.16.84 0.1.302323.3.579.2.593 1955 Unknown [id number] 2.16. 840.1.128149.3.579.2.356 1955 Unknown [id number] 2.16.8 40.1.931394.3.579.2.727 1955 Unknown [id number] 2.16.8 40.1.016410.3.579.2.727 Medicare [id number] Unknown [id number] Unknown [id number] Unknown Social History Date Type Detail Facility Start: 11-20-2021 End: 10-29-2022 Tobacco smoking status Ex-smoker (finding) [facility] Sex Assigned At Male [facility] No alcohol use No alcohol use [facility] Aria De La Cruz DO Work Phone: Functional Status Date Assessment Result Facility 09-16-2023 Functional Status N/A [facility] 01-14-2023 Functional Status N/A [facility] 10-29-2022 Functional Status N/A [facility] 06-25-2022 Functional Status N/A [facility] Clinical Notes 01-29-2022 to 09-16-2023 Note Date [...] under a microscope. This is called the [place] score and the total score can range from 6 10, indicating how likely it is that the cancer will spread (metastasize) to other parts of the body. The higher the score, the greater the likelihood that the cancer will spread. [place] 6 or lower: This indicates that the cancer cells look similar to normal prostate cells (well differentiated). [place] 7: This indicates that the cancer cells [...] stress of having cancer. General instructions Take hdkc-jox-lreobms and prescription medicines only as told by your health care provider. If you have to go to the hospital, notify your cancer specialist (oncologist). Keep all follow-up visits. This is important. Where to find more information [employer] [employer]: www.cancer.org [place] [employer]: www.cancer.net National Cancer Verner: www.cancer.gov Contact a health care provider if: [...] provider. Document Revised: 12/27/2021 Document Reviewed: 12/27/2021 [employer] Patient Education 2022 Flux. Follow Up Care 01/14/2023 14:33:04 With:TANISHA GILL, Wayne Galicia, URL Address: [facility] [address] [place] [phone]- [phone] When: Unknown Comments:6 mos w/ PSA [facility] 01-14-2023 Hospital Discharge instructions Patient Education 01/14/2023 [...] if anything looks unusual. Men with a tkipmi-aqbq-enrsbc risk for skin cancer may want to see a bacon skinner (double back operator) for an annual body check. Where to find more information National Cancer Verner: https://www.cancer.gov/about-cance r/screening Centers for Disease Control and Prevention: https://www.cdc.gov/cancer/dcpc/pr evention/screening.htm [employer]: https://www.cancer.org/latest-news /9-qekliq-svkcnfkpy-dpcss-qsz-qtc. html Contact a health care provider if: [...] 06/27/2017 Document Revised: 06/19/2019 Document Reviewed: 06/27/2017 [employer] Patient Education 2020 Color [employer] Follow Up Care 07/23/2022 16:04:42 With:TANISHA GILL, Wayne Galicia, URL Address: [facility] [address] [place] [place] [id number]- When: Unknown [facility] 10-29-2022 Hospital Discharge instructions Patient Education 10/29/2022 [...] urethra. Follow these instructions at home: Take qonu-ain-yxtzkpx and prescription medicines only as told by [...] 09/30/2006 Document Revised: 08/25/2019 Document Reviewed: 11/04/2017 [employer] Patient Education 2019 Flux. Follow Up Care 09/04/2022 11:18:16 With:TANISHA GILL, Wayne Galicia, URL Address: [facility] [address], [place] [id number]- When: Unknown [facility] 09-21-2022 Note EXAMINATION: XR CHES T 2 [...] authenticated by: SANIA CANELA Date: 2022-09-21 12:38 [facility] 06-25-2022 Hospital Discharge instructions Patient Education [...] including vitamins, herbs, eye drops, creams, and ymlx-frw-feljjzp medicines. Any problems you or family members [...] 03/10/2007 Document Revised: 09/12/2018 Document Reviewed: 10/09/2017 [employer] Patient Education 2020 Color [employer] Follow Up Care 02/16/2022 11:08:20 With:TANISHA GILL, KOKO Conley Address: [facility] [address], [place] [id number] When: Unknown [facility] [place] 02-16-2022 Hospital Discharge instructions Patient Education [...] who: Are older than age 65. Are -Cymro. Are obese. Have a family history of [...] cells. Follow these instructions at home: Take kpus-jdu-singmnh and prescription medicines only as told by [...] 09/30/2006 Document Revised: 09/12/2018 Document Reviewed: 06/10/2017 [employer] Patient Education 2020 Flux. Follow Up Care 01/22/2022 16:42:55 With:TANISHA GILL, Wayne Galicia, URL Address: [facility] [address] , [place] [id number]- When:06/19/2022 Comments:w/ PSA [facility] 01-29-2022 Note EXAMINATION: XR CHES T 2 [...] authenticated by: MAIKEL ESTEVEZ Date: 2022-01-29 13:48 [facility] Evaluation + Plan note Future Appointments Appointment Date:03/30/2022 08:30:00 AM Scheduled Provider:Wayne TRINIDAD MD Location:[facility] Appointment Type:URO Office Visit Appointment Date:06/25/2022 02:15:00 PM Scheduled Provider:Wayne TRINIDAD MD Location:[facility] Appointment Type:URO Office Visit Diagnostic Tests PendingPSA Total 02/16/22 [facility] Evaluation + Plan note [facility] Evaluation + Plan note Future Appointments Appointment Date:10/29/2022 01:30:00 PM Scheduled Provider:Wayne TRINIDAD MD Location:[facility] Appointment Type:URO Office Visit Appointment Date:01/14/2023 01:15:00 PM Scheduled Provider:Wayne TRINIDAD MD Location:[facility] Appointment Type:URO Office Visit [facility] Evaluation + Plan note Future Appointments Appointment Date:01/14/2023 01:15:00 PM Scheduled Provider:Wayne TRINIDAD MD Location:[facility] Appointment Type:URO Office Visit Appointment Date:02/04/2023 01:15:00 PM Scheduled Provider:Wayne TRINIDAD MD Location:[facility] Appointment Type:URO Office Visit Diagnostic Tests PendingPSA Total 10/29/22 [facility] Evaluation + Plan note Future Appointments Appointment Date:09/16/2023 01:45:00 PM Scheduled Provider:Wayne TRINIDAD MD Location:[facility] Appointment Type:URO Office Visit Diagnostic Tests PendingPSA Total 01/14/23 [facility] [place] Evaluation + Plan note Future Appointments Appointment Date:03/23/2024 01:45:00 PM Scheduled Provider:Wayne TRINIDAD MD Location:[facility] Appointment Type:URO Office Visit Diagnostic Tests PendingPSA Total 09/16/23 [facility] Hospital course Narrative No data available for this section [facility] Hospital Discharge instructions No data available for this section [facility] No data available for this section [facility] Reason for referral (narrative) Referred by: Wayne TRINIDAD MD [facility] Summary Purpose Family History No Family History [...] section and content) DATE CREATED AUTHOR 04/01/2018 [facility] DATE CREATED AUTHOR AUTHOR'S ORGANIZ ATION 10/20/2021 [facility] DATE CREATED AUTHOR AUTHOR'S ORGANIZ ATION 01/01/2022 [facility] DATE CREATED AUTHOR AUTHOR'S ORGANIZ ATION 01/16/2023 [facility] DATE CREATED AUTHOR AUTHOR'S ORGANIZ ATION 01/19/2023 [facility] DATE CREATED AUTHOR AUTHOR'S ORGANIZ ATION 04/09/2023 [facility] DATE CREATED AUTHOR AUTHOR'S ORGANIZ ATION 04/09/2023 [employer] DATE CREATED AUTHOR AUTHOR'S ORGANIZ ATION 2024 [facility] Quintan[facility] Care Team (unrecognized sect ion and content) Personnel Name: ERNIE ELLIOTT JR, DO Address: [address] [place] [id number] Personnel Name: ERNIE ELLIOTT JR, DO Address: Address: [address] [place] [address] [place] Personnel Name: ERNIE ELLIOTT JR, DO Address: Address: [address] [place] [id number] Personnel Name: ERNIE ELLIOTT JR, DO Address: Address: [address] [place], [place] [id number] Personnel Name: ERNIE ELLIOTT JR, DO Address: Address: [address] [place] [id number] FOR RECORDS PERTAINING TO PATIENTS WHO ARE [...] BE BASED ON THE PRIMARY CLINICAL RECORDS. [facility] [employer] [facility]. provides no warranty or guarantee of the accuracy or completeness of information in this document.
[2024-03-27] MEDS: ALBUTEROL SULFATE 2.5 MG/3 ML VIAL NEB IH (11:08)
--- NOTE | 2024-03-27 11:15 | RESP.RT ---
decreased O2 to 3 lpm post HHN
[2024-03-27] MEDS: LEVOFLOXACIN IN DEXTROSE 5 % 750 MG/150 ML IV.SOLN 100 MG IV (16:48)
[2024-03-27 16:49] LABS: Glucometer 158 mg/dL (74-106)
[2024-03-27] MEDS: METHYLPREDNISOLONE SOD SUCC PF 125 MG/2 ML VIAL 60 MG IVP ×2 (16:50→23:28)
[2024-03-27] MEDS: LORAZEPAM 0.5 MG TABLET PO (19:21)
[2024-03-27] MEDS: IPRATROPIUM/ALBUTEROL SULFATE 3 ML AMPUL.NEB IH ×2 (19:44→23:15)
[2024-03-27 20:39] LABS: Glucometer 250 mg/dL (74-106)
[2024-03-27] MEDS: METFORMIN HCL 500 MG TABLET 1000 MG PO (21:25)
[2024-03-27] MEDS: BUDESONIDE 0.5 MG/2 ML AMPULE NEB IH (23:15)
[2024-03-28] VITALS (13 sets, daily range): BP systolic 129–169; BP diastolic 68–81; PULSE 90–120; TEMP 36.5–36.6; O2SAT 87–94
[2024-03-28] MEDS: IPRATROPIUM/ALBUTEROL SULFATE 3 ML AMPUL.NEB IH ×2 (03:49→07:21)
[2024-03-28] MEDS: METHYLPREDNISOLONE SOD SUCC PF 125 MG/2 ML VIAL 60 MG IVP (04:59)
[2024-03-28 05:13] LABS: Basophils Percent Auto 0.1 % (0.2-2.0); Hematocrit 40.9 % (42.0-54.0); Hemoglobin 12.5 g/dL (14.0-18.0); Immature Granulocytes Abs Auto 0.08 10^3/uL (0.00-0.03); Immature Granulocytes Pct Auto 0.6 % (0.0-0.5); Lymphocytes Absolute Auto 0.6 10^3/uL (1.2-3.8); Lymphocytes Percent Auto 4.7 % (20.5-60.0); Mean Corpuscular HGB Conc 30.6 g/dL (29.9-35.2); Mean Corpuscular Hemoglobin 24.6 pg (25.9-34.0); Mean Corpuscular Volume 80.5 fL (80.0-94.0); Monocytes Absolute Auto 0.2 10^3/uL (0.3-0.8); Monocytes Percent Auto 1.6 % (1.7-12.0); Neutrophils Absolute Auto 12.3 10^3/uL (1.4-6.5); Platelet Count 326 10^3/uL (150-450); Red Blood Count 5.08 10^6/uL (4.70-6.10); Red Cell Distribution Width 17.2 % (11.0-15.0); White Blood Count 13.3 10^3/uL (4.0-11.0)
[2024-03-28 08:07] LABS: Glucometer 213 mg/dL (74-106)
--- NOTE | 2024-03-28 08:08 | RESP.RT ---
See other documentation
[2024-03-28 09:08] LABS: Troponin I High Sensitivity 6.9 pg/mL (4.0-76.1)
[2024-03-28 09:11] LABS: Influenza Virus A Antigen Negative; Influenza Virus B Antigen Negative; Internal Control Within Normal Limits; SARS-CoV-2 Ag NEGATIVE (NEGATIVE)
[2024-03-28] MEDS: MONTELUKAST SODIUM 10 MG TABLET PO (09:31)
[2024-03-28] MEDS: METFORMIN HCL 500 MG TABLET 1000 MG PO ×2 (09:31→17:04)
[2024-03-28] MEDS: EZETIMIBE 10 MG TABLET PO (09:31)
[2024-03-28] MEDS: ROFLUMILAST 500 MCG TABLET PO (09:31)
[2024-03-28] MEDS: SPIRONOLACTONE 25 MG TABLET 50 MG PO (09:31)
[2024-03-28] MEDS: FAMOTIDINE 20 MG TABLET 40 MG PO (09:31)
--- NOTE | 2024-03-28 09:40 | PM.HP ---
HPI H&P: HPI History of Present Illness Chief complaint: SHORTNESS OF BREATH, COPD EXACERBATION Narrative: Patient is a 69 y.o white male with past medical history of COPD, HLD, HTN, GERD, NIDDM who presented to the ER last night with increased shortness of breath. Patient reports he follows with pulmonary, Dr. Olivarez. He has been using his Trelegy. His seasonal allergies have been bad lately. He denies fever or chills, or recent URI, sick contacts. Dry cough. Patient does wear oxygen 2.5 L at home and reports he has been using it contiguously. No other issues other than panic attacks since being admitted, just feels very shaky and restless. no chest pain, No SOB. Opioid HPI Opioid Management Most Recent Pain and Opioid Data: Last Pain Assessment 03/28/24 14:00 Last ORT Total Score 0 03/27/24 15:45 Last ORT Risk Category Low Risk 03/27/24 15:45 Review of Systems ROS Narrative ROS: a complete review of systems were reviewed with patient and are positive as below or listed in History of Chief Complaint. General: no fever, chills, night sweats Head: no headache, trauma, visual changes, nausea or vomiting Skin: no reported rashes, itching or sores Eyes: no blurriness of vision Ears: no reported hearing loss, vertigo, earache, or tinnitus Throat: no sore throat, hoarseness, swelling of neck, or tongue pain Heart: no chest pain Lungs:shortness of breath and cough GI: no diarrhea or vomiting/nausea Urinary: no urinary urgency, frequency or pain Neuro: no numbness or tingling HEM: no bleeding issues or bruising ENDO: no thyroid problems Psych: anxiety PFSH PFSH Medical History (Updated 03/28/24 @ 15:39 by Paz Alcala DO) Non-insulin dependent diabetes mellitus Primary hypertension ?I10 - Essential (primary) hypertension (ICD-10) Dyslipidemia ?E78.5 - Hyperlipidemia, unspecified (ICD-10) GERD without esophagitis ?K21.9 - Gastro-esophageal reflux disease without esophagitis (ICD-10) Diabetes ?E11.9 - Type 2 diabetes mellitus without complications (ICD-10) Fx wrist ?S62.109A - Fracture of unspecified carpal bone, unspecified wrist, initial encounter for closed fracture (ICD-10) Fracture, jaw ?S02.609A - Fracture of mandible, unspecified, initial encounter for closed fracture (ICD-10) Surgical History H/O cardiac catheterization ?Z98.890 - Other specified postprocedural states (ICD-10) History of tonsillectomy ?Z90.89 - Acquired absence of other organs (ICD-10) Family History Father Family history of myocardial infarction Family history of diabetes mellitus Grandmother Family history of cancer Aunt Family history of cancer Social History Within the past year, how often did you have a drink containing alcohol: never Score interpretation: A score less than 4 is consistent with normal alcohol consumption. 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 Known occupational exposures/hazards: No Highest level of school completed/degree received: some college, no degree Are you now , , , , never or living with a partner: In a typical week, how many times do you talk on the telephone with family, friends, or neighbors: 3 or more times per week How often do you get together with friends or relatives: 3 or more times per week How often do you attend gnosticist or confucianism services: never Do you belong to any clubs or organizations such as gnosticist groups unions, fraternal or athletic groups, or school groups: no Total score: 2 Score interpretation: A score of greater than or equal to 2 indicates the lowest level of social isolation. Little interest or pleasure in doing things: not at all Feeling down, depressed, or hopeless: not at all Feel stressed/tense/nervous/anxious/difficulty sleeping: rather much Due to disability, difficulty making decisions: No Do you think of yourself as: straight/heterosexual Gender Identity: male Meds Home Medications and Allergies Home Medications ?Medication ?Instructions ?Recorded ?Confirmed ?Type cephalexin 500 mg capsule 500 mg PO BID 03/27/24 03/27/24 History ergocalciferol (vitamin D2) 1,250 50,000 unit PO QWEEK 03/27/24 03/27/24 History mcg (50,000 unit) capsule ezetimibe 10 mg tablet 10 mg PO QDAY 03/27/24 03/27/24 History famotidine 40 mg tablet 40 mg PO QDAY 03/27/24 03/27/24 History fluticasone fur. 100 mcg-umeclid 1 inh inhalation Q24H 03/27/24 03/27/24 History 62.5 mcg-vilant 25 mcg inhalat.powder (Trelegy Ellipta) metformin 1,000 mg tablet 1,000 mg PO BID 03/27/24 03/27/24 History montelukast 10 mg tablet 10 mg PO QDAY 03/27/24 03/27/24 History roflumilast 500 mcg tablet 500 mcg PO QDAY 03/27/24 03/27/24 History rosuvastatin 40 mg tablet 40 mg PO .QHS 03/27/24 03/27/24 History spironolactone 50 mg tablet 50 mg PO QDAY 03/27/24 03/27/24 History sulfamethoxazole 800 1 tab PO Q12H 03/27/24 03/27/24 History mg-trimethoprim 160 mg tablet (Bactrim DS) Allergies Allergy/AdvReac Type Severity Reaction Status Date / Time No Known Drug Allergies Allergy Verified 03/21/24 09:48 Exam Narrative Exam Narrative: General: Patient is alert, and oriented to person, place and time with normal affect, proper hygiene Skin: no visible rashes, or ulcers Head: atraumatic, acephalic Eyes: PERRLA, no nystagmus present, conjunctiva clear, no scleral icterus Ears: normal gross auditory acuity Heart: Normal rate and rhythm, no murmurs/rubs/gallops Lungs: no audible wheezes, crackles and normal breath sounds all lung azul Abdomen: Normal audible bowel sounds, no distension, No palpable masses, no organomegaly, no rebound/guarding/ or rigidity Musculoskeletal: no swelling bilateral lower extremities Neuro: CN II-X grossly intact Constitutional Vital Signs, click to edit/add: Last Vital Signs Temp 97.7 F 03/28/24 09:04 Pulse 120 H 03/28/24 09:04 Resp 18 03/28/24 09:04 BP 159/78 H 03/28/24 09:04 Pulse Ox 94 L 03/28/24 09:04 O2 Del Method Nasal Cannula 03/28/24 09:04 O2 Flow Rate 2 03/28/24 09:04 Results Labs Labs: Short CBC 03/27/24 03/28/24 Range/Units 10:40 04:52 WBC 9.6 13.3 H (4.0-11.0) 10^3/uL Hgb 12.5 L 12.5 L (14.0-18.0) g/dL Hct 40.8 L 40.9 L (42.0-54.0) % Plt Count 315 326 (150-450) 10^3/uL BMP 03/27/24 10:40 Sodium 136 Potassium 4.4 Chloride 97 L Carbon Dioxide 29.5 BUN 15.0 Creatinine 1.27 Glucose 163 H Calcium 9.2 Assessment and Plan Assessment and Plan (1) COPD exacerbation: Assessment and Plan: was placed on levaquin, stopped this and placed on azithromycin. Patient shaking with duonebs so stopped and placed on xopenex, OPEP therapy, I also stopped Solumedrol. Patient requiring 2 L NC to maintain oxygen saturations. WBC's 13.3 but also was taking steroids. Influenza and covid were negative. CXR negative for pneumonia. (2) Non-insulin dependent diabetes mellitus: Assessment and Plan: continue SSI, hold metformin, accuchecks (3) Primary hypertension: Assessment and Plan: continue home medications (4) Dyslipidemia: Assessment and Plan: continue statin (5) GERD without esophagitis: Assessment and Plan: continue pepcid Plan Patient is a full code continue SCD's for DVT prophylaxis Patient is in observation status but will require 1 more night of hospital care for treatment for his COPD.
[2024-03-28] MEDS: HYDROXYZINE PAMOATE 25 MG CAPSULE PO ×2 (10:50→20:11)
[2024-03-28] MEDS: BUDESONIDE 0.5 MG/2 ML AMPULE NEB IH ×2 (11:12→22:55)
[2024-03-28] MEDS: LEVALBUTEROL HCL 0.63 MG/3 ML VIAL.NEB 0.630000000000000004 MG IH ×3 (11:12→22:55)
[2024-03-28 11:46] LABS: Glucometer 168 mg/dL (74-106)
[2024-03-28] MEDS: 0.9 % SODIUM CHLORIDE 250 ML 10 ML IV (12:40)
[2024-03-28] MEDS: AZITHROMYCIN 500 MG in 0.9 % SODIUM CHLORIDE 250 ML 250 MG IV (12:40)
[2024-03-28 16:28] LABS: Glucometer 156 mg/dL (74-106)
[2024-03-28 20:24] LABS: Glucometer 222 mg/dL (74-106)
[2024-03-29 04:06] VITALS: PULSE 85; O2SAT 97
[2024-03-29] MEDS: LEVALBUTEROL HCL 0.63 MG/3 ML VIAL.NEB 0.630000000000000004 MG IH ×2 (04:06→11:18)
[2024-03-29 04:17] VITALS: PULSE 85
[2024-03-29 04:37] VITALS: BP 133/55; PULSE 87; TEMP 36.4; O2SAT 97
--- NOTE | 2024-03-29 07:59 | P.DS_ITS ---
DS: Providers Provider Date of admission: 03/27/24 14:42 Primary care physician: CARLEEN ELLIOTT MD Admitting clinician: Cheikh Benavidez Discharging clinician: Paz Alcala DS: Diagnosis Discharge Diagnosis (1) COPD exacerbation: (2) Non-insulin dependent diabetes mellitus: (3) Primary hypertension: (4) Dyslipidemia: (5) GERD without esophagitis: DS: Summary Hospital Course Hospital Course: Patient is a 69 y.o white male with past medical history of COPD, HLD, HTN, GERD, NIDDM who presented to the ER increased shortness of breath. Patient reports he follows with pulmonary, Dr. Olivarez. He has been using his Trelegy. His seasonal allergies have been bad lately. He denies fever or chills, or recent URI, sick contacts. Dry cough. Patient does wear oxygen 2.5 L at home and reports he has been using it continuously. No other issues other than panic attacks since being admitted, just feels very shaky and restless, Vistaril has helped and switching from DuoNeb to Xopenex also helped. I have also discontinued Solumedrol. no chest pain, No SOB at the time of discharge. Influenza and covid were negative. CXR negative for pneumonia. Vitals are stable on 2L NC continuous which he will continue until Pulmonary follow up. He will finish 4 more days of Azithromycin 250mg daily, prednisone 20mg BID x 7 days and Vistaril PRN for Anxiety attacks. He will call his PCP and Pulmonary clinics tomorrow for follow up. He is to return to the ER with any worsening signs or symptoms. Continue all home medications with exception to the Keflex and Bactrim. Status at Discharge Functional status at discharge: independent ambulation Overall status at discharge: patient is progressing back to baseline Time Spent with Patient Time attestation: Total time spent providing and/or coordinating discharge services: Time spent: greater than 30 minutes Exam Narrative Exam Narrative: General: Patient is alert, and oriented to person, place and time with normal affect, proper hygiene Skin: no visible rashes, or ulcers Head: atraumatic, acephalic Eyes: PERRLA, no nystagmus present, conjunctiva clear, no scleral icterus Ears: normal gross auditory acuity Heart: Normal rate and rhythm, no murmurs/rubs/gallops Lungs: no audible wheezes, crackles and normal breath sounds all lung azul Abdomen: Normal audible bowel sounds, no distension, No palpable masses, no organomegaly, no rebound/guarding/ or rigidity Musculoskeletal: no swelling bilateral lower extremities Neuro: CN II-X grossly intact Constitutional Vital Signs, click to edit/add: Last Vital Signs Temp 97.6 F 03/29/24 04:37 Pulse 87 03/29/24 04:37 Resp 18 03/29/24 04:37 BP 133/55 03/29/24 04:37 Pulse Ox 97 03/29/24 04:37 O2 Del Method Nasal Cannula 03/29/24 04:37 O2 Flow Rate 2 03/29/24 04:37 DS: Data Data Completed and Pending Labs on day of discharge: Labs from last 24 hours 03/28/24 03/28/24 03/28/24 20:23 16:27 11:45 Troponin I High Sens Influenza Type A Ag Influenza Type B Ag SARS-CoV-2 Ag (CV2AG) POC Glucose 222 H 156 H 168 H 03/28/24 03/28/24 03/28/24 08:48 08:05 04:52 Troponin I High Sens 6.9 Influenza Type A Ag Negative Influenza Type B Ag Negative SARS-CoV-2 Ag (CV2AG) Negative POC Glucose 213 H Discharge Plan Discharge Disposition: Home, Self-Care Condition: Fair Discharge Medications: New azithromycin 250 mg tablet 250 mg PO DAILY 4 Days Qty: 4 0RF prednisone 20 mg tablet 20 mg PO BID 7 Days Qty: 14 0RF hydroxyzine pamoate 25 mg Capsule 25 mg PO TID PRN (Reason: Anxiety) 10 Days Qty: 30 0RF Continued ergocalciferol (vitamin D2) 1,250 mcg (50,000 unit) capsule 50,000 unit PO QWEEK ezetimibe 10 mg tablet 10 mg PO QDAY famotidine 40 mg tablet 40 mg PO QDAY Trelegy Ellipta 100-62.5-25 mcg blister with device 1 inh INHALATION Q24H metformin 1,000 mg tablet 1,000 mg PO BID montelukast 10 mg tablet 10 mg PO QDAY roflumilast 500 mcg tablet 500 mcg PO QDAY rosuvastatin 40 mg tablet 40 mg PO .QHS spironolactone 50 mg tablet 50 mg PO QDAY Discontinued sulfamethoxazole-trimethoprim [Bactrim DS] 800-160 mg tablet 1 tab PO Q12H Rx Instructions: X10 DAYS - THERAPY COMPLETE 03/31/24 cephalexin 500 mg capsule 500 mg PO BID Rx Instructions: X7 DAYS - THERAPY COMPLETE 03/28/24 Activity: increase activity as tolerated and wear oxygen at all times Activity Detail: Wear oxygen at all times 2L via NC until evaluated by Dr. Olivarez, pulmonary Diet: advance to your usual diet Print Language: Moroccan Forms: Portal Instructions Follow Up Appointments: Will need Follow up with Dr. Olivarez and PCP 5-7 days, please call offices tomorrow to schedule follow up appointments
[2024-03-29 08:19] LABS: Basophils Percent Auto 0.1 % (0.2-2.0); Hematocrit 37.8 % (42.0-54.0); Hemoglobin 11.7 g/dL (14.0-18.0); Immature Granulocytes Abs Auto 0.06 10^3/uL (0.00-0.03); Immature Granulocytes Pct Auto 0.4 % (0.0-0.5); Lymphocytes Percent Auto 6.9 % (20.5-60.0); Mean Corpuscular Hemoglobin 24.6 pg (25.9-34.0); Mean Corpuscular Volume 79.6 fL (80.0-94.0); Mean Platelet Volume 8.9 fL (9.5-13.5); Monocytes Absolute Auto 0.9 10^3/uL (0.3-0.8); Monocytes Percent Auto 6.4 % (1.7-12.0); Neutrophils Absolute Auto 12.7 10^3/uL (1.4-6.5); Neutrophils Percent Auto 86.2 % (43.0-75.0); Platelet Count 312 10^3/uL (150-450); Red Blood Count 4.75 10^6/uL (4.70-6.10); Red Cell Distribution Width 17.7 % (11.0-15.0); White Blood Count 14.8 10^3/uL (4.0-11.0)
[2024-03-29 08:34] LABS: Alanine Aminotransferase 24 U/L (16-63); Albumin Globulin Ratio 0.7; Albumin Level 3.2 g/dL (3.4-5.0); Alkaline Phosphatase 80 U/L (46-116); Anion Gap 12.5; Aspartate Amino Transferase 21 U/L (15-37); BUN Creatinine Ratio 27.8; Bilirubin Total 0.3 mg/dL (0.2-1.0); Calcium 8.9 mg/dL (8.5-10.1); Carbon Dioxide 33.2 mmol/L (21.0-32.0); Chloride 96 mmol/L (98-107); Estimated GFR (African America >60 (>=60); Estimated GFR (Non-African Ame 57 (>=60); Globulin 4.3 g/dL; Glucose 121 mg/dL (74-106); Potassium 4.7 mmol/L (3.5-5.1); Sodium 137 mmol/L (136-145); Total Protein 7.5 g/dL (6.4-8.2)
[2024-03-29] MEDS: FAMOTIDINE 20 MG TABLET 40 MG PO (10:01)
[2024-03-29] MEDS: ROFLUMILAST 500 MCG TABLET PO (10:01)
[2024-03-29] MEDS: METFORMIN HCL 500 MG TABLET 1000 MG PO (10:01)
[2024-03-29] MEDS: SPIRONOLACTONE 25 MG TABLET 50 MG PO (10:02)
[2024-03-29] MEDS: MONTELUKAST SODIUM 10 MG TABLET PO (10:02)
[2024-03-29] MEDS: EZETIMIBE 10 MG TABLET PO (10:02)
[2024-03-29] MEDS: BUDESONIDE 0.5 MG/2 ML AMPULE NEB IH (11:18)
[2024-03-29 11:20] VITALS: PULSE 98; O2SAT 91
[2024-03-29] MEDS: HYDROXYZINE PAMOATE 25 MG CAPSULE PO (11:50)
[2024-03-29 11:55] VITALS: BP 148/77; PULSE 95; TEMP 36.4; O2SAT 93
[2024-03-29] MEDS: AZITHROMYCIN 500 MG in 0.9 % SODIUM CHLORIDE 250 ML 250 MG IV (12:53)
--- NOTE | 2024-03-30 15:18 | CM.DCFOLLOWU ---
Person spoke with: patient How are you feeling? well How is your pain? no pain Did you understand your discharge instructions? yes Do you have any questions about your discharge instructions? no Were you given any prescriptions at discharge? yes Were you able to get your prescriptions filled? yes Do you understand how to take your medications as ordered? yes Do you have any questions about your follow up appointment and do you plan to keep your follow up appointment? no questions, follow up Saturday with Dr. Ness. Waiting for [facility] office to call back about apt for next week possibly. Is there anything else that you would like to discuss? no Questions/Comments/Concerns/Other: no
== END 2024-03-29 16:57 | disposition home or self-care (01) ==
LOC: ER 13:14 → MS 14:54
PROVIDERS: Family Medicine; Admitting Provider Family Medicine; Emergency Provider Emergency Medicine; PCP Internal Medicine; Visit Provider Family Medicine
DX: J44.1 Chronic obstructive pulmonary disease with (acute) exacerbation (principal); E11.9 Type 2 diabetes mellitus without complications; I10 Essential (primary) hypertension; E78.5 Hyperlipidemia, unspecified; K21.9 Gastro-esophageal reflux disease without esophagitis; Z79.899 Other long term (current) drug therapy; Z87.891 Personal history of nicotine dependence; Z99.81 Dependence on supplemental oxygen; F41.0 Panic disorder [episodic paroxysmal anxiety]; Z20.822 Contact with and (suspected) exposure to COVID-19
CPT/HCPCS: 0202U; 36415; 71045; 80048; 80053; 82948; 84484; 85025; 87804; 87811; 93005; 94640; 94667; 94668; 96365; 96366; 96367; 96375; 96376; 99285; G0378; J0456; J2919; J7614; J7626; Q0177

== ENCOUNTER 2024-04-27 19:05 | Inpatient (IN) | payer MEDICARE, SELFPAY ==
[2024-04-27] VITALS (22 sets, daily range): BP systolic 130–171; BP diastolic 66–89; PULSE 79–109; TEMP 35.9; O2SAT 94–99; BMI 77.7; BMI 35.3
--- OUTSIDE RECORDS SUMMARY | 2024-04-27 19:16 | XMS_ITS | CCD ---
Author Organization [facility] [facility] Care Team Providers Care Rn Psych Name Role Phone DANII MALDONADO Unavailable Unavailabl e ERNIE ELLIOTT Unavailable Unavailable JACQUELYN MAURER Attending Unavailable EARL, ERNIE Primary Care Unavailable EARL, ERNIE Referring Unavailable JACQUELYN MAURER Admitting Unavailable ERNIE ELLIOTT JR Primary Care Physician [phone] TRINIDAD ., DR MCPHERSON Admitting Unavailable TRINIDAD ., DR MCPHERSON Consulting Unavailable TRINIDAD ., DR MCPHERSON Attending Unavailable VALONE, DR KLEIN Primary Care Unavailable ENGELER, DR JUDAH Herrera Consulting Unavailable ZIEBER, DR MAIKEL Galicia Consulting Unavailable SHARP, YONI Consulting Unavailable GEMBUS, GENESIS Consulting Unavailable TRINIDAD ., DR MCPHERSON Admitting Unavailable TRINIDAD ., DR MCPHERSON Consulting Unavailable VALONE, DR KLEIN Primary Care Unavailable TRINIDAD ., DR MCPHERSON Attending Unavailable AGUBOSIM, MENDOZA Consulting Unavailable LANGENBERG, JUAN CARLOS Consulting Unavailable TRINIDAD ., DR MCPHERSON Admitting Unavailable TRINIDAD ., DR MCPHERSON Attending Unavailable VALONE, DR KLEIN Primary Care Unavailable TRINIDAD ., DR MCPHERSON Attending Unavailable TRINIDAD ., DR MCPHERSON Admitting Unavailable TRINIDAD ., DR MCPHERSON Consulting Unavailable VALONE, DR KLEIN Primary Care Unavailable ZIEBER, DR MAIKEL Galicia Consulting Unavailable CARTER, DR NGOZI Cannon Consulting Unavailable VALONE, DR KLEIN Primary Care Unavailable CARTER, DR NGOZI Cannon Attending Unavailable CARTER, DR NGOZI Cannon Admitting Unavailable TRINIDAD ., DR MCPHERSON Consulting Unavailable TRINIDAD ., DR MCPHERSON Attending Unavailable VALONE, DR KLEIN Primary Care Unavailable TRINIDAD ., DR MCPHERSON Admitting Unavailable VALONE, DR KLEIN Primary Care Unavailable SAMSA ., JOLEEN Attending Unavailable ZIEBER, DR MAIKEL Galicia Consulting Unavailable SAMSA ., JOLEEN Admitting Unavailable SAMSA ., JOLEEN Consulting Unavailable TRINIDAD ., DR MCPHERSON Admitting Unavailable TRINIDAD ., DR MCPHERSON Consulting Unavailable TRINIDAD ., DR MCPHERSON Attending Unavailable VALONE, DR KLEIN Primary Care Unavailable YUNIEL ., ITZ Attending Unavailable YUNIEL ., ITZ Admitting Unavailable VALONE, DR KLEIN Primary Care Unavailable YUNIEL ., ITZ Consulting Unavailable TRINIDAD ., DR MCPHERSON Admitting Unavailable TRINIDAD ., DR MCPHERSON Consulting Unavailable VALONE, DR KLEIN Primary Care Unavailable TRINIDAD ., DR MCPHERSON Attending Unavailable TRINIDAD ., DR MCPHERSON Consulting Unavailable TRINIDAD ., DR MCPHERSON Attending Unavailable VALONE, DR KLEIN Primary Care Unavailable TRINIDAD ., DR MCPHERSON Admitting Unavailable WEST, DR SANIA Mccauley Consulting Unavailable TRINIDAD ., DR MCPHERSON Admitting Unavailable TRINIDAD ., DR MCPHERSON Consulting Unavailable TRINIDAD ., DR MCPHERSON Attending Unavailable VALONE, DR KLEIN Primary Care Unavailable SUKIEBER, DR MAIKEL Galicia Consulting Unavailable VELASQUEZFRANCES Consulting Unavailable Raul, Ngozi Attending Unavailable Ngozi Carter Referring Unavailable Earl Jr, Dr. Klein [facility] Jes vailable Earl, Ernie Ogden Unavailable Unavailable Unavailable Wayne TRINIDAD Attending Unavailable TRINIDAD, Wayne Galicia Attending Unavailable TRINIDAD, Wayne Galicia Attending Unavailable Allergies Allergy Classification Reported Allergen(s) Allergy Type Date of Onset Reaction(s) Facility (1 source) Ramipril Drug Allergy 2 [facility] Repository (1 source) No Known Medication Allergies; 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: [No Known Medication Allergies] Propensity to adverse reactions (disorder) [facility] Repository Medications Current Medications Medication Drug Class(es) Dates Sig (Normalized) Sig (Original) Aspirin (8 sources) Platelet Aggregation Inhibitor, Nonsteroidal Anti-inflammatory Drug [...] Status: Ordered ezetimibe 10 mg oral tablet (4 sources) Dietary Cholesterol Absorption Inhibitor Start: 10-29-2022 ezetimibe 10 mg Tab Refills(s) 0 Start Date: 10/29/22 Status: Ordered famotidine 40 mg oral tablet (2 sources) Histamine-2 Receptor Antagonist Start: 03-30-2024 famotidine 40 mg Tab Refills(s) 0 Start Date: 03/30/24 Status: Ordered take 1 tablet by mouth once luis y Famotidine 40 MG Oral Tablet TAKE 1 TABLET DAILY. Quantity: 90 Refills: 3 Ordered: 08-Apr-2023 DO Active hydrOXYzine pamoate 25 mg oral capsule (1 source) Antihistamine Start: 03-30-2024 hydrOXYzine pa moate 25 mg Cap Refills(s) 0 Start Date: 03/30/24 Status: Ordered irbesartan (6 sources) Angiotensin 2 Receptor Genet Start: 08-27-2019 irbesartan Oral, Daily, Refills(s) 0 Start Date: 08/27/19 Status: Ordered metFORMIN (8 sources) Biguanide Start: 08-27-2019 metformin Oral , Refills(s) 0 Start Date: 08/27/19 Status: Ordered take 1 tablet by dimitry th once daily at mealtime metFORMIN HCl - 1000 MG Oral Tablet TAKE 1 TABLET DAILY WITH FOOD. Quantity: 0 Refills: 0 Ordered: 08-Mar-2022 DO Active montelukast 10 mg oral tablet (5 sources) Leukotriene Receptor Antagonist Start: 10-29-2022 montelukast 10 mg Tab Refills(s) 0 Start Date: 10/29/22 Status: Ordered Teagan (3 sources) Start: 08-27-2019 Teagan Oral, Da diana, Refills(s) 0 Start Date: 08/27/19 Status: Ordered Daliresp (8 sources) Phosphodiesterase 4 Inhibitor Start: 08-27-2019 Daliresp Oral, Daily, Refills(s) 0 Start Date: 08/27/19 Status: Ordered take 1 tablet by mouth once luis y Daliresp 500 MCG Oral Tablet TAKE 1 TABLET DAILY DIRECTED. Quantity: 0 Refills: 0 Ordered: 08-Mar-2022 DO Active rosuvastatin calcium 40 mg oral tablet (2 sources) HMG-CoA Reductase Inhibitor Start: 03-30-2024 rosuvastatin 40 mg T ab Refills(s) 0 Start Date: 03/30/24 Status: Ordered take 1 tablet by mouth once luis y Rosuvastatin Calcium 40 MG Oral Tablet TAKE 1 TABLET DAILY. Quantity: 90 Refills: 3 Ordered: 08-Apr-2023 Ngozi Carter MD Active spironolactone 50 mg oral tablet (5 sources) Aldosterone Antagonist Start: 10-29-2022 spironolactone 50 mg Tab Refills(s) 0 Start Date: 10/29/22 Status: Ordered Trelegy Ellipta 100 mcg-62.5 mcg-25 mcg inhalation powder (4 sources) Start: 10-29-2022 Trelegy Ellipta 100 mcg-62.5 mcg-25 mcg inhalation powder Refills(s) 0 Start Date: 10/29/22 Status: Ordered valsartan 40 mg oral tablet (3 sources) Angiotensin 2 Receptor Genet Start: 03-27-2021 take 1 mg by mouth twice daily valsartan 40 mg Tab mg tab(s), Oral, BID, Refills(s) 0 Start Date: 03/27/21 Status: Ordered Vitamin D (7 sources) Start: 08-27-2019 Vitamin D Oral, Refills(s) [...] 0 Refills: 0 Ordered: 08-Apr-2023 DO Active tiotropium 0.018 mg inhalation powder (3 sources) Anticholinergic Start: 08-27-2019 Spiriva 18 mcg Cap 18 microgram = 1 cap(s), Inhalation, Daily, Using only ONE capsule, have the patient inhale twice, # 90 cap(s), Refills(s) 0 Start Date: 11/14/19 Status: Ordered Start: 08-27-2019 Spiriva 18 mcg Cap 18 microgram = 1 cap(s), Inhalation, Daily, Using only ONE capsule, have the patient inhale twice, # 90 cap(s), Refills(s) 0 Start Date: 08/27/19 Status: Ordered Problems Active Problems Problem Classification Problem Date Documented Da te Episodic/Chronic Cancer of prostate (19 sources) Malignant neoplasm of prostate; 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: [Malignant tumor of prostate] Onset: 02-16-2022 Chronic Chronic kidney disease (1 source) Chronic kidney disease, unspecified; 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: [CHRONIC KIDNEY DISEASE UNSPECIFIED] Onset: 10-01-2022 Chronic Chronic obstructive pulmonary disease and bronchiectasis (9 sources) Chronic obstructive lung disease; 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: [Chronic obstructive pulmonary disease, unspecified] Onset: 10-02-2022 08-27-2019 Chronic Congestive heart failure; nonhypertensive (1 source) Heart failure, unspecified; 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: [HEART FAILURE UNSPECIFIED] Onset: 10-01-2022 Chronic Coronary atherosclerosis and other heart disease (6 sources) Atherosclerotic heart disease of [place] coronary artery without angina pectoris; 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: [Coronary arteriosclerosis] Onset: 03-27-2018 Chronic Diabetes mellitus with complications (1 source) Type 2 diabetes mellitus with diabetic chronic kidney disease; 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: [TYPE 2 DM W/DIABETIC CKD] Onset: 10-01-2022 Chronic Diabetes mellitus without complication (2 sources) Type 2 diabetes mellitus without complications; 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: [Type 2 diabetes mellitus] Onset: 10-02-2022 Chronic Diabetes mellitus without complication (7 sources) Glycosuria 08-27-2019 Episodic Disorders of lipid metabolism (10 sources) Hyperlipidemia; 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: [Pure hypercholesterolemia, unspecified] Onset: 03-22-2022 08-27-2019 Chronic Essential hypertension (2 sources) Essential (primary) hypertension; 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: [Essential hypertension] Onset: 10-02-2022 Chronic Genitourinary symptoms and ill-defined conditions (18 sources) Increased frequency of urination; 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: [Nocturia] Onset: 09-29-2022 08-27-2019 Episodic Hyperplasia of prostate (19 sources) Benign prostatic hypertrophy with outflow obstruction; [...] and reflux uropathy] Onset: 02-16-2022 Episodic Other gastrointestinal disorders (1 source) Swollen abdomen; 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: [Other intra-abdominal and pelvic swelling, mass and lump] Onset: 03-30-2024 Episodic Other gastrointestinal disorders (1 source) Groin mass 03-30-2024 Episodic Other liver diseases (1 source) Elevated liver enzymes level; 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: [Other nonspecific abnormal serum enzyme levels] Episodic Other nutritional; endocrine; and metabolic disorders (1 source) Obesity; 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: [Obesity, unspecified] Chronic Other screening for suspected conditions (not mental disorders or infectious disease) (13 sources) Raised prostate specific antigen; 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: [Elevated prostate specific antigen [PSA]] Onset: 02-08-2022 Episodic Pneumonia (except that caused by tuberculosis or sexually transmitted disease) (7 sources) Pneumonia 08-27-2019 Episodic Residual codes; unclassified (1 source) Sleep apnea, unspecified; 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: [SLEEP APNEA UNSPECIFIED] Onset: 10-01-2022 Chronic Residual codes; unclassified (1 source) Sleep apnea; 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: [Unspecified sleep apnea] Chronic Residual codes; unclassified (7 sources) H/O: anticoagulant therapy 08-27-2019 Episodic Respiratory failure; insufficiency; arrest (adult) (1 source) Dependence on supplemental oxygen; 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: [DEPENDENCE ON SUPPLEMENTAL OXYGEN] Onset: 10-01-2022 Chronic Screening and history of mental health and substance abuse codes (7 sources) Tobacco use and exposure - finding 08-27-2019 Chronic Screening and history of mental health and substance abuse codes (6 sources) Personal history of nicotine dependence; 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: [Ex-smoker] Onset: 10-01-2022 Episodic Unclassified (2 sources) Athscl heart disease of [place] coronary artery w/o ang pctrs / I25.10(ICD-9) Onset: 03-27-2018 Unclassified (7 sources) Long-term current use of aspirin 11-20-2021 [...] 10-01-2022 Episodic Other aftercare (1 source) Other nursing home (current) drug therapy; 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: [OTH TECHNOLOGY RECRUITER CURRENT DRUG THERAPY] Onset: 10-01-2022 Episodic Other aftercare (1 source) termite technician (current) use of aspirin; 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: [TECHNOLOGY RECRUITER CURRENT USE OF ASPIRIN] Onset: 10-01-2022 Episodic Other aftercare (1 source) termite technician (current) use of anticoagulants; 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: [GROUP HOME CURRNT USE ANTICOAGULANTS] Onset: 10-02-2022 Episodic Other aftercare (1 source) penitentiary (current) use of oral hypoglycemic drugs; 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: [TECHNOLOGY RECRUITER USE ORAL HYPOGLYCEMIC DX] Onset: 10-02-2022 Episodic Other male genital disorders (1 source) Other specified disorders of prostate; 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: [OTHER SPECIFIED DISORDERS PROSTATE] Onset: 02-14-2022 Episodic Residual codes; unclassified (1 source) Other specified postprocedural states; 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: [OTH SPECIFIED POSTPROCEDURAL STATES] Onset: 10-01-2022 Episodic Results Test Name Value Interpretation Reference Range Facil ity Ambulatory Visit Summaryon 0 03-30-2024 Ambulatory Visit Summary SHERON ERAZO JR :1955 Visit Date:03/30/2024 Ambulatory Visit Instructions Your Diagnosis Prostate cancer BPH with urinary obstruction Groin lump Your Care Team Attending Physician - Wayne TRINIDAD MD Primary Care Physician - ERNIE ELLIOTT JR, DO This Is Your Medications List Contact prescribing physician if questions or concerns aspirin ergocalciferol (Vitamin D) ezetimibe (ezetimibe 10 mg Tab) famotidine (famotidine 40 mg Tab) fluticasone/umeclidin ium/vilanterol (Trelegy Ellipta 100 mcg-62.5 mcg-25 mcg inhalation powder) hydrOXYzine (hydrOXYzine pamoate 25 mg Cap) metformin montelukast (montelukast 10 mg Tab) roflumilast (Daliresp) rosuvastatin (rosuvastatin 40 mg Tab) spironolactone (spironolactone 50 mg Tab) Procedures Performed Brachytherapy of prostate using fluoroscopic guidance (09/27/2022), External beam radiation therapy procedure (09/04/2022), MRI-US fusion guided transrectal biopsy of prostate (02/08/2022), TRUS w/bx (04/29/2017), TRUS w/bx (01/12/2014), Cataract, Colonoscopy, heart cath, Tonsillectomy. Discharge Vitals Height 182 cm Height 72 in Weight 111.5 kg Weight 245.3 lb BMI 33.66 What to do next Scheduled Follow-Up Appointments Saturday 1:15 PM EDT With: TANISHA GILL, Wayne Galicia Where: [facility] Patient Educationon 03-30-20 Patient Education Oncology Prostate Cancer The prostate [...] likelihood that the cancer will spread. ? [place] 6 or lower: This indicates that the cancer cells look similar to normal prostate cells (well differentiated). ? [place] 7: This indicates that the cancer cells look somewhat similar to normal prostate cells (moderately differentiated). ? [place] 8, 9, or 10: This indicates that [...] external be (more content not included)... Normal [facility] Urology Office/Clinic Noteon 03-30-2024 Urology Office/Clinic Note Chief Complaint 6m PSA HPI Staff 6 month f/u with PSA Dx: prostate cancer, nocturia and BPH with obstruction S/P EBRT 08/01/22 to 09/04/22 & Brachytherapy 09/27/22 *No Urology Meds PSA 03/12/24 - <0.13 Last Lupron given 01/14/23 Last encounter w/Dr Love 11/20/23. Plan is to f/u in 1yr. Still getting up 3-4x/night to void. Attributes to large fluid intake. Denies all other urinary sx. Noticed a bump in his groin are the other day in the shower. Denies redness/pain & swelling. History of Present Illness Tests reviewed: reviewed UA, PSA I have reviewed the previous health [...] See HPI. Physical Exam Vitals & Measurements HT: 72 in HT: 182 cm WT: 111.5 kg WT: 245.3 lb BMI: 33.66 General Appearance: alert, no distress, well nourished, well developed male. Genitourinary: normal scrotum, normal testes, normal urethra, normal epididymis, normal vas deferens/spermatic cord. Flank Pain: none. Bladder: nonpalpable. Assessment/Plan 1. Prostate cancer (C61: Malignant neoplasm of prostate) PSA 03/28/20 - 14.90 & 5.5% 02/27/21 - 17.52 09/20/21 - 18.39 06/11/22 - 18.77 01/07/23 - <0.13 09/09/23 - <0.13 03/12/24 - <0.13 Fusion bx 02/08/22 - GS 7 (3+4) in 1 core and GS 6 (3+3) in 1 core. GG 2. S/p EBRT 08/01/22 - 09/04/22. S/p Brachytherapy 09/27/22. S/p First Lupron given 07/23/22. Most recent Lupron given 01/14/23. Last encounter w Dr. Love 11/20/23 - Plan is to f/u in 1yr. PSA remains undetectable. Will cont to monitor. Follows with PCP around 4x/year. Follow up 1 yr with PSA or sooner if needed. Pt understands and agrees with plan. 2. BPH with urinary obstruction (N40.1: Benign prostatic hyperplasia with lower urinary tract symptoms) UA today negative for blood and infection. Not taking any BPH meds. No issues with urination. Voiding comfortably. Decent stream. Feels he empties completely. Still getting up 3-4x/night to void. Attributes to large fluid intake. 3. Groin lump (R19.09: Other intra-abdominal and pelvic swelling, mass and lump) Noticed groin lump the other day in the shower. PE: _1cm ?inclusion cyst R side adjacent to scrotum . Likely infected hair follicle. Doesn't currently require tx. -Cont to monitor for resolution. Follow-up With When Contact Information TANISHA GILL, Wayne Galicia, URL [facility] [address], [place] [address]- Additional Instructions: 1 yr with PSA Patient Education Prostate Cancer I, Toyin Fournier, personally scribed for Dr. Trinidad on 03/30/2024 13:08:00. . Documentation recorded by the scribe, Toyin Fournier, accurately reflects the services(s) I performed and decisions made by me. Authenticated by Dr. Trinidad on 03/30/2024 13:09:28. 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 Medications aspirin, 81 mg Daliresp, Oral, Daily ezetimibe 10 mg Tab famotidine 40 mg Tab hydrOXYzine pamoate 25 mg Cap metformin, Oral montelukast 10 mg Tab rosuvastatin 40 mg Tab spironolactone 50 mg Tab Trelegy Ellipta 100 mcg-62.5 mcg-25 mcg inhalation powder Vitamin D, Oral Allergies No Known Medication Allergies Social History Tobacco Former smoker, quit more than 30 days ago Tobacco Use:. Never Smokeless Tobacco Use:. Cigarettes, Household tobacco concerns: No. Yes, 03/30/2024 Family History Diabetes: Father. Heart disease: Father. Immunizations Vaccine Date Status Comments SARS-CoV-2 (COVID-19) mRNAMUL. (more content not included)... Normal [facility] Comment on above: Result Comment: Elec tronically Signed By: Wayne TRINIDAD MD\.br\Date and Time Signed: 03/30/24 13:09 EDT\.br\Electronically Co-Signed By: Toyin Fournier\.br\Date and Time Co-Signed: 03/30/24 13:08 EDT [facility] 2024 Lab Reports [id number] .00TIFF Normal [facility] Consultation Noteon 11-21-19 Consultation Note [id number] .00TIFF Normal [facility] Patient Educationon 09-16-20 Patient Education Oncology Prostate [...] likelihood that the cancer will spread. ? [place] 6 or lower: This indicates that the [...] external be (more content not included)... 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 Normal [facility] Comment on above: Result Comment: Elec tronically Signed By: Wayne TRINIDAD MD\.br\Date and Time Signed: 09/16/23 14:41 EST\.br\Electronically Co-Signed By: Guera Oswald\.br\Date and Time Co-Signed: 09/16/23 14:40 EST [facility] 09-10-2023 Lab Reports [id number] .00TIFF [facility] Office Visit (Cardiology)on 04-08-2023 Follow-up visit Diagnoses/Problems [...] Recorded: 08Apr2023 01:21PM Heart Rate78, R Radial [id number], LUE, Sitting [id number], LUE, Sitting Height6 ft Rfqugr118 lb BMI Tsmkfhirvd07.09 kg/m2 BSA Calculated2.32 Tobacco Useb) No PHQ-2 [...] Apr 08 2023 1:56PM EST (Author) Normal [facility] Tobacco Screening.on 023 Adult depression screening assessment No [facility] [address] DO Work Phone: Fall risk assessment a) No falls within the last year [facility] 250 DO Work Phone: Tobacco use status CP b) No [facility] 250 DO Work Phone: Refillon 01-16-2023 Refill [id number] Sheron Erazo Jr. 1955 M Date Provider Department Center 01/16/2023 JACQUELYN JACOBSON [facility] No family history on file Reason for Visit and Comments: Med Refill [[id number]] Normal [facility] CT LUNG CANCER SCREENINGon 0 10-26-2022 CT [...] by: MAIKEL ESTEVEZ Date: 2022-10-26 15:22 Normal [facility] Refillon 10-15-2022 Refill [id number] Sheron Erazo Jr. 1955 Date Provider Department Center 10/15/2022 JACQUELYN JACOBSON [facility] No family history on file Reason for Visit and Comments: Med Refill [[id number]] Normal [facility] XR PELVIS 1_2 VIEWSon 2021 XR PELVIS [...] by: MAIKEL ESTEVEZ Date: 2022-09-28 07:22 Normal [facility] CBC AUTO DIFFon 09-27-2022 BASO # 0.0 103/ul Normal 0.0-0.1 [facility] Comment on above: Performed By: #### B MP #### [facility] [address] [address] [address] Juanita Sagastume Basophils/100 WBC (Bld) 0.2 % Normal 0.2-2.0 [facility] Comment on above: Performed By: #### B MP #### [facility] [address] [place] [address] Dr. Juanita Sagastume EO # 0.2 103/ul Normal 0.0-0.7 [facility] Comment on above: Performed By: #### B MP #### [facility] [address] [place] [address] Dr. Juanita Sagastume Eosinophils/100 WBC (Bld) 2.2 % Normal 0.9-7.0 [facility] Comment on above: Performed By: #### B MP #### [facility] [address] [place] [address] Dr. Juanita Sagastume Erythrocyte distribution width (RBC) [Ratio] 17.5 % Critically high 11.0-15.0 [facility] Comment on above: Performed By: #### B MP #### [facility] [address] [place] [address] Dr. Juanita Sagastume Hematocrit (Bld) [Volume fraction] 41.3 % Critically low 42.0-54.0 [facility] Comment on above: Performed By: #### B MP #### [facility] [address] [place] [address] Dr. Juanita Sagastume Hemoglobin (Bld) [Mass/Vol] 13.5 g/dL Critically low 14.0-18.0 [facility] Comment on above: Performed By: #### B MP #### [facility] [address] [place] [address] Dr. Juanita Sagastume IG # 0.04 10e3/ul Critically high 0.00-0.03 [facility] Comment on above: Performed By: #### B MP #### [facility] [address] [place] [address] Dr. Juanita Sagastume IG % 0.5 % Normal 0.0-0.5 [facility] Comment on above: Performed By: #### B MP #### [facility] [address] [place] [address] Dr. Juanita Sagastume LYMPH # 0.8 103/ul Critically low 1.2-3.8 [facility] Comment on above: Performed By: #### B MP #### [facility] [address] [place] [address] Dr. Juanita Sagastume Lymphocytes/100 WBC (Bld) 9.3 % Critically low 20.5-60.0 [facility] Comment on above: Performed By: #### B MP #### [facility] [address] [place] [address] Dr. Juanita Sagastume MANUAL DIFF REQ NO Normal [facility] Comment on above: Performed By: #### B MP #### [facility] [address] [place] [address] Dr. Juanita Sagastume MCH (RBC) [Entitic mass] 26.7 pg Normal 25.9-34.0 [facility] Comment on above: Performed By: #### B MP #### [facility] [address] [place] [address] Dr. Juanita Sagastume MCHC (RBC) [Mass/Vol] 32.7 g/dL Normal 29.9-35.2 [facility] Comment on above: Performed By: #### B MP #### [facility] [address] [place] [address] Dr. Juanita Sagastume MCV (RBC) [Entitic vol] 81.8 fL Normal 80.0-94.0 [facility] Comment on above: Performed By: #### B MP #### [facility] [address] [place] [address] Dr. Juanita Sagastume MONO # 1.0 103/ul Critically high 0.3-0.8 [facility] Comment on above: Performed By: #### B MP #### [facility] [address] [place] [address] Dr. Juanita Sagastume Monocytes/100 WBC (Bld) 11.5 % Normal 1.7-12.0 [facility] Comment on above: Performed By: #### B MP #### [facility] [address] [place] [address] Dr. Juanita Sagastume NEUT # 6.3 103/ul Normal 1.4-6.5 [facility] Comment on above: Performed By: #### B MP #### [facility] [address] [address] [address] Juanita Sagastume Neutrophils/100 WBC (Bld) 76.3 % Critically high 43.0-75.0 [facility] Comment on above: Performed By: #### B MP #### [facility] [address] [address] [address] Juanita Sagastume Platelet mean volume (Bld) [Entitic vol] 8.5 fL Critically low 9.5-13.5 [facility] Comment on above: Performed By: #### B MP #### [facility] [address] [address] [address] Juanita Sagastume PLT 273 103/ul Normal 150-450 [facility] Comment on above: Performed By: #### B MP #### [facility] [address] [place] [address] Dr. Juanita Sagastume RBC 5.05 106/ul Normal 4.70-6.10 [facility] Comment on above: Performed By: #### B MP #### [facility] [address] [place] [address] Dr. Juanita Sagastume WBC 8.3 103/ul Normal 4.0-11.0 [facility] Comment on above: Performed By: #### B MP #### [facility] [address] [place] [address] Dr. Juanita Sagastume PROF CHEM 8 (BAS METB)on Anion gap [Moles/Vol] 10.9 mmol/L Normal [facility] Comment on above: Performed By: #### B MP #### [facility] [address] [place] [address] Dr. Juanita Sagastume Calcium [Mass/Vol] 10.2 mg/dL Critically high 8.5-10.1 [facility] Comment on above: Performed By: #### B MP #### [facility] [address] [place] [address] Dr. Juanita Sagastume Chloride [Moles/Vol] 98 mmol/L Normal 98-107 [facility] Comment on above: Performed By: #### B MP #### [facility] [address] [address] [address] Juanita Sagastume CO2 [Moles/Vol] 34.5 mmol/L Critically high 21.0-32.0 [facility] Comment on above: Performed By: #### B MP #### [facility] [address] [address] [address] Juanita Sagastume Creatinine [Mass/Vol] 1.06 mg/dL Normal 0.70-1.30 [facility] Comment on above: Performed By: #### B MP #### [facility] [address] [address] [address] Juanita Sagastume EGFR-AF AUSTRIAN >60 Normal >=60 [facility] Comment on above: Performed By: #### B MP #### [facility] [address] [place] [address] Dr. Juanita Sagastume EGFR-NON AF AUSTRIAN >60 Normal >=60 [facility] Comment on above: Performed By: #### B MP #### [facility] [address] [address] [address] Juanita Sagastume Glucose [Mass/Vol] 122 mg/dL Critically high 74-106 [facility] Comment on above: Performed By: #### B MP #### [facility] [address] [address] [address] Juaniat Sagastume Potassium [Moles/Vol] 4.4 mmol/L Normal 3.5-5.1 [facility] Comment on above: Performed By: #### B MP #### [facility] [address] [address] [address] Juanita Sagastume Sodium [Moles/Vol] 139 mmol/L Normal 136-145 [facility] Comment on above: Performed By: #### B MP #### [facility] [address] [address] [address] Juanita Sagastume Urea nitrogen [Mass/Vol] 16.0 mg/dL Normal 7.0-18.0 [facility] Comment on above: Performed By: #### B MP #### [facility] [address] [place] [address] Dr. Juanita Sagastume Urea nitrogen/Creatinin e [Mass ratio] 15.1 mg/mg Normal [facility] Comment on above: Performed By: #### B MP #### [facility] [address] [place] [address] Dr. Juanita Sagastume PROTIMEon 09-27-2022 INR Coag (PPP) [Relative time] 0.93 {INR} Normal [facility] Comment on above: Performed By: #### B MP #### [facility] [address] [place] [address] Dr. Juanita Sagastume INR GUIDELINES SEE BELOW Normal [facility] Comment on above: Result Comment: KAMINI RED INR: 2.0 - 3.0 CONDITIONS NOT LISTED BELOW 2.5 - 3.5 FOR PROSTHETIC HEART VALVE REPLACEMENT 2.5 - 3.5 RECURRENT THROMBOSIS Performed By: #### B MP #### [facility] [address] [place] [address] Dr. Juanita Sagastume PT Coag (PPP) [Time] 10.1 s Normal 9.0-11.6 [facility] Comment on above: Performed By: #### B MP #### [facility] [address] [place] [address] Dr. Juanita Sagastume [facility]on SARS-CoV-2 (COVID-19) RNA SKYLAR+probe Ql (Unsp spec) Not detected Normal NOT DETECTED [facility] Comment on above: Result Comment: This test is not yet approved or cleared by the [place] FDA. When there are no FDA-approved or cleared tests available, and other criteria are met, FDA can make tests available under an emergency access mechanism called an Emergency Use Authorization (EUA). The EUA for this test is supported by the [place] of Health and Human Service's (HHS's) declaration [...] SARS-CoV-2. Performed By: #### C VDTBH #### [facility] [address] [place] [address] Dr. Juanita Sagastume LIPID PROFILEon 03-16-2022 CHOL-HDL RATIO NORM SEE BELOW Normal [facility] Comment on above: Result Comment: 3.3 - 4.4 LOW RISK 4.4 - 7.1 AVERAGE RISK 7.1 - 11.0 MODERATE RISK >11.0 HIGH RISK Performed By: #### A LT, LIPID, AST #### [facility] [address] [place] [address] Dr. Juanita Sagastume Cholesterol [Mass/Vol] 111 mg/dL Normal <=200 [facility] Comment on above: Performed By: #### A LT, LIPID, AST #### [facility] [address] [place] [address] Dr. Juanita Sagastume Cholesterol in HDL [Mass/Vol] 35 mg/dL Critically low 40-60 [facility] Comment on above: Performed By: #### A LT, LIPID, AST #### [facility] [address] [place] [address] Dr. Juanita Sagastume Cholesterol in LDL [Mass/Vol] 29.6 mg/dL Normal [facility] Comment on above: Performed By: #### A LT, LIPID, AST #### [facility] [address] [place] [address] Dr. Juanita Sagastume Cholesterol.total/ Cholesterol in HDL [Mass ratio] 3.2 {ratio} Normal [facility] Comment on above: Performed By: #### A LT, LIPID, AST #### [facility] [address] [place] [address] Dr. Juanita Sagastume HDL NORMAL > or = 60 mg/dl - LO W CARDIOVASCULAR RISK <40 mg/dl - HIGH CARDIOVASCULAR RISK Normal [facility] Comment on above: Performed By: #### A LT, LIPID, AST #### [facility] [address] [address] [address] Juanita Sagastume LDL CALC NORMAL SEE BELOW Normal [facility] Comment on above: Result Comment: <100 mg/dl OPTIMAL 100 - 129 mg/dl NEAR OR ABOVE OPTIMAL 130 - 159 mg/dl BORDERLINE HIGH 160 - 189 mg/dl HIGH >190 mg/dl VERY HIGH Performed By: #### A LT, LIPID, AST #### [facility] [address] [address] [address] Juanita Sagastume Triglyceride [Mass/Vol] 232 mg/dL Critically high <=150 [facility] Comment on above: Performed By: #### A LT, LIPID, AST #### [facility] [address] [address] [address] Juanita Sagastume VLDL CALC 46.4 mg/dL Normal [facility] Comment on above: Performed By: #### A LT, LIPID, AST #### [facility] [address] [place] [address] Dr. Juanita Sagastume SGOTojalil 03-16-2022 AST [Catalytic activity/Vol] 22 U/L Normal 15-37 [facility] Comment on above: Performed By: #### A LT, LIPID, AST #### [facility] [address] [place] [address] Dr. Juanita Sagastume SGPTon 03-16-2022 ALT [Catalytic activity/Vol] 24 U/L Normal 16-63 [facility] Comment on above: Performed By: #### A LT, LIPID, AST #### [facility] [address] [place] [address] Dr. Juanita Sagastume CREATININEon 03-02-2022 Creatinine [Mass/Vol] 1.19 mg/dL Normal 0.70-1.30 [facility] Comment on above: Performed By: #### C KRYS #### [facility] [address] [place] [address] Dr. Juanita Sagastume EGFR-AF AUSTRIAN >60 Normal >=60 [facility] Comment on above: Performed By: #### C KRYS #### [facility] [address] [place] [address] Dr. Juanita Sagastume EGFR-NON AF AUSTRIAN >60 Normal >=60 [facility] Comment on above: Performed By: #### C KRYS #### [facility] [address] [address] [address] ABD/PELV WO W [...] by: MAIKEL ESTEVEZ Date: 2022-03-02 14:40 Normal [facility] BONE PR WH BODYon 022 NM BONE SC WH BODY EXAMINATION: NM BONE [facility] BODY HISTORY: Primary malignant neoplasm of [...] MAIKEL ESTEVEZ Date: 2022-03-02 15:26 Normal [facility] POINT OF CARE GLUCOSEon 01-13 Glucose [Mass/Vol] 117 mg/dL Critically high 74-106 [facility] Comment on above: Performed By: #### B MP #### [facility] [address] [place] [address] Dr. Juanita Sagastume Covid-19 PCR ([facility])on 01-13 SARS-CoV-2 (COVID-19) RNA SKYLAR+probe Ql (Unsp spec) Not detected Normal NOT DETECTED [facility] Comment on above: Result Comment: This test is not yet approved or cleared by the [place] FDA. When there are no FDA-approved or cleared tests available, and other criteria are met, FDA can make tests available under an emergency access mechanism called an Emergency Use Authorization (EUA). The EUA for this test is supported by the [place] of Health and Human Service's (HHS's) declaration [...] SARS-CoV-2. Performed By: #### C VDTB #### [facility] [address] [address] [address] Juanita Sagastume CBC AUTO DIFFon 01-29-2022 BASO # 0.0 103/ul Normal 0.0-0.1 [facility] Comment on above: Performed By: #### C BC #### [facility] [address] [place] [address] Dr. Juanita Sagastume Basophils/100 WBC (Bld) 0.3 % Normal 0.2-2.0 [facility] Comment on above: Performed By: #### C BC #### [facility] [address] [place], [place] [id number] Dr. Juanita Sagastume EO # 0.2 103/ul Normal 0.0-0.7 [facility] Comment on above: Performed By: #### C BC #### [facility] [address] [place] [address] Dr. Juanita Sagastume Eosinophils/100 WBC (Bld) 1.8 % Normal 0.9-7.0 [facility] Comment on above: Performed By: #### C BC #### [facility] [address] [place] [address] Dr. Juanita Sagastume Erythrocyte distribution width (RBC) [Ratio] 15.4 % Critically high 11.0-15.0 [facility] Comment on above: Performed By: #### C BC #### [facility] [address] [place] [address] Dr. Juanita Sagastume Hematocrit (Bld) [Volume fraction] 42.3 % Normal 42.0-54.0 [facility] Comment on above: Performed By: #### C BC #### [facility] [address] [place] [address] Dr. Juanita Sagastume Hemoglobin (Bld) [Mass/Vol] 13.3 g/dL Critically low 14.0-18.0 [facility] Comment on above: Performed By: #### C BC #### [facility] [address] [place] [address] Dr. Juanita Sagastume IG # 0.06 10e3/ul Critically high 0.00-0.03 [facility] Comment on above: Performed By: #### C BC #### [facility] [address] [place] [address] Dr. Juanita Sagastume IG % 0.5 % Normal 0.0-0.5 [facility] Comment on above: Performed By: #### C BC #### [facility] [address] [place] [address] Dr. uJanita Sagastume LYMPH # 2.0 103/ul Normal 1.2-3.8 [facility] Comment on above: Performed By: #### C BC #### [facility] [address] [place] [address] Dr. Juanita Sagastume Lymphocytes/100 WBC (Bld) 17.6 % Critically low 20.5-60.0 [facility] Comment on above: Performed By: #### C BC #### [facility] [address] [place] [address] Dr. Juantia Sagastume MANUAL DIFF REQ NO Normal [facility] Comment on above: Performed By: #### C BC #### [facility] [address] [place] [address] Dr. Juanita Sagastume MCH (RBC) [Entitic mass] 26.5 pg Normal 25.9-34.0 [facility] Comment on above: Performed By: #### C BC #### [facility] [address] [place] [address] Dr. Juanita Sagastume MCHC (RBC) [Mass/Vol] 31.4 g/dL Normal 29.9-35.2 [facility] Comment on above: Performed By: #### C BC #### [facility] [address] [place] [address] Dr. Juanita Sagastume MCV (RBC) [Entitic vol] 84.3 fL Normal 80.0-94.0 [facility] Comment on above: Performed By: #### C BC #### [facility] [address] [place] [address] Dr. Juanita Sagastume MONO # 0.9 103/ul Critically high 0.3-0.8 [facility] Comment on above: Performed By: #### C BC #### [facility] [address] [place] [address] Dr. Juanita Sagastume Monocytes/100 WBC (Bld) 7.6 % Normal 1.7-12.0 [facility] Comment on above: Performed By: #### C BC #### [facility] [address] [place] [address] Dr. Juanita Sagastume NEUT # 8.3 103/ul Critically high 1.4-6.5 [facility] Comment on above: Performed By: #### C BC #### [facility] [address] [place] [address] Dr. Juanita Sagastume Neutrophils/100 WBC (Bld) 72.2 % Normal 43.0-75.0 [facility] Comment on above: Performed By: #### C BC #### [facility] [address] [place] [address] Dr. Juanita Sagastume Platelet mean volume (Bld) [Entitic vol] 9.2 fL Critically low 9.5-13.5 [facility] Comment on above: Performed By: #### C BC #### [facility] [address] [place] [address] Dr. Juanita Sagastume PLT 343 103/ul Normal 150-450 [facility] Comment on above: Performed By: #### C BC #### [facility] [address] [place] [address] Dr. Juanita Sagastume RBC 5.02 106/ul Normal 4.70-6.10 [facility] Comment on above: Performed By: #### C BC #### [facility] [address] [place] [address] Dr. Juanita Sagastume WBC 11.5 103/ul Critically high 4.0-11.0 [facility] Comment on above: Performed By: #### C BC #### [facility] [address] [place] [address] Dr. Juanita Sagastume PROF CHEM 8 (BAS METB)on Anion gap [Moles/Vol] 14.6 mmol/L Normal [facility] Comment on above: Performed By: #### B MP #### [facility] [address] [place] [address] Dr. Juanita Sagastume Calcium [Mass/Vol] 9.6 mg/dL Normal 8.5-10.1 [facility] Comment on above: Performed By: #### B MP #### [facility] [address] [place] [address] Dr. Juanita Sagastume Chloride [Moles/Vol] 97 mmol/L Critically low 98-107 [facility] Comment on above: Performed By: #### B MP #### [facility] [address] [place] [address] Dr. Juanita Sagastume CO2 [Moles/Vol] 28.9 mmol/L Normal 22.0-30.0 [facility] Comment on above: Performed By: #### B MP #### [facility] [address] [place] [address] Dr. Juanita Sagastume Creatinine [Mass/Vol] 1.23 mg/dL Normal 0.66-1.25 [facility] Comment on above: Performed By: #### B MP #### [facility] [address] [address] [address] Juanita Sagastume EGFR-AF AUSTRIAN >60 Normal >=60 [facility] Comment on above: Performed By: #### B MP #### [facility] [address] [address] [address] Juanita Sagastume EGFR-NON AF AUSTRIAN 59 mL/min/1.73m2 Critically low >=60 [facility] Comment on above: Performed By: #### B MP #### [facility] [address] [place] [address] Dr. Juanita Sagastume Glucose [Mass/Vol] 105 mg/dL Normal 74-106 [facility] Comment on above: Performed By: #### B MP #### [facility] [address] [place] [address] Dr. Juanita Sagastume Potassium [Moles/Vol] 4.5 mmol/L Normal 3.4-5.0 [facility] Comment on above: Performed By: #### B MP #### [facility] [address] [place] [address] Dr. Juanita Sagastume Sodium [Moles/Vol] 136 mmol/L Critically low 137-[address] [facility] Comment on above: Performed By: #### B MP #### [facility] [address] [address] [address] Juanita Sagastume Urea nitrogen [Mass/Vol] 16.0 mg/dL Normal 7.0-18.0 [facility] Comment on above: Performed By: #### B MP #### [facility] [address] [place] [address] Dr. Juanita Sagastume Urea nitrogen/Creatinin e [Mass ratio] 13.0 mg/mg Normal [facility] Comment on above: Performed By: #### B MP #### [facility] [address] [place] [address] Dr. Juanita Sagastume PROTIMEon 01-29-2022 INR Coag (PPP) [Relative time] 0.98 {INR} Normal [facility] Comment on above: Performed By: #### B MP #### [facility] [address] [place] [address] Dr. Juanita Sagastume INR GUIDELINES SEE BELOW Normal [facility] Comment on above: Result Comment: KAMINI RED INR: 2.0 - 3.0 CONDITIONS NOT LISTED BELOW 2.5 - 3.5 FOR PROSTHETIC HEART VALVE REPLACEMENT 2.5 - 3.5 RECURRENT THROMBOSIS Performed By: #### B MP #### [facility] [address] [place] [address] Dr. Juanita Sagastume PT Coag (PPP) [Time] 10.6 s Normal 9.0-11.6 [facility] Comment on above: Performed By: #### B MP #### [facility] [address] [place] [address] Dr. Juanita Sagastume PTTon 01-29-2022 aPTT Coag (Bld) [Time] 28.5 s Normal 22.3-36.2 [facility] Comment on above: Performed By: #### B MP #### [facility] [address] [place] [address] Dr. Juanita Sagastume MR prostate wo/w conon 10-17 MR prostate wo/w con [facility] [place] [address] MRI Report Signed Patient: Sheron Erazo MR#: [id number] : 1955 Acct:[id number] Age/Sex: 66 / M ADM Date: 10/10/21 Loc: Room: Type: [facility] Attending Dr: Wayne Trinidad MD Ordering [...] PM COT by: Yousif Paz MD Diplomate, [place] [employer] Report Completed: Oct 17, [...] STAFF 10/17/21 1605 Signed By: 10/18/21 0750 [facility] Blood Urea Nitrogenon 2020 Urea nitrogen [Mass/Vol] 11 mg/dL Normal 9-23 [facility] Comment on above: Order Comment: STAT FOR MRI Performed By: #### B UN, CREAT #### [facility] [address] [place] [address] [place] Creatinineon 10-10-2021 Creatinine [Mass/Vol] 1.04 mg/dL Normal 0.64-1.27 [facility] Comment on above: Order Comment: STAT FOR MRI Performed By: #### B UN, CREAT #### [facility] [address] [place] [address] [place] Creatinine Clr Calc Pharmacy 90.84 [facility] Comment on above: Order Comment: STAT FOR MRI Result Comment: PERF ORMED BY: [place] [address] PATHOLOGIST HORSE IDENTIFIER XUAN GOMEZ M.D. Performed By: #### B UN, CREAT #### [facility] [address] [place] [address] Estimated GFR ( [place]ey[place] > 60 [facility] Comment on above: Order Comment: STAT FOR MRI Result Comment: GFR estimated reference range: According to KDOQI guidelines, <60 ml/min/1.73m2 is sufficient to diagnose a patient with chronic kidney disease. Performed By: #### B UN, CREAT #### [facility] [address] [address] [facility] Estimated GFR (Non- Am > 60 Normal [facility] Comment on above: Order Comment: STAT FOR MRI Performed By: #### B UN, CREAT #### [facility] [address] [address] [facility] CT CHEST HIGH RESOLUTION WIT HOUT CONTRASTon 10-05-2021 CT CHEST HIGH RESOLUTION WITHOUT CONTRAST [facility] Department of Radiology [address] [place] [address] Patient Name: SHERON ERAZO : 1955 Sex: M Age: Race: White Pt. Location: 29 Patient Status: O Ordered Date: 09/01/2021 11:35:00 AM Completed Date: 10/05/2021 02:33 PM Requesting Provider: JACQUELYN MAURER Attending Provider: JACQUELYN MAURER Report Copy To: ERNIE ELLIOTT Signs & Symptoms: J44.9 Chronic obstructive pulmonary disease, unspecified I10 History: [place] Comments: Exam: CT CHEST HIGH RESOLUTION WITHOUT [...] achievable Electronically signed: Nika Krause. Transcribed by: [email or web address], User Resident: Electronically Signed by: NIKA KRAUSE @ 10/05/2021 02:50 PM Normal [facility] Pulmonary Functionon 12-18-2 021 Pulmonary Function MR #: [id number] [facility] PT. Name: Sheron Erazo Jr Date: 09/29/2021 [...] Sykes MD Date Trans: 09/30/2021 05:58 P/ [id number] cc: Ernie Elliott D.O. [facility] [address] Normal [facility] ARTERIAL BLOOD GAS W/COOXon 09-29-2021 BASE EXCESS 10 mmol/L High -2-3 [facility] Comment on above: Performed By: #### 4 0055 #### [facility] [address] [place] [address], [facility] COHB 1.6 % High 0.0-1.5 [facility] Comment on above: Performed By: #### 4 0055 #### [facility] [address] [place] [address], [facility] [employer] ROOM AIR Normal [facility] Comment on above: Performed By: #### 4 0055 #### [facility] [address] [place] [address], [facility] FIO2 0 % Normal [facility] Comment on above: Performed By: #### 4 0055 #### [facility] [address] [place] [address], [facility] HCO3 (Bld) [Moles/Vol] 36 mmol/L Critically high 21-28 [facility] Comment on above: Performed By: #### 4 0055 #### [facility] [address] [place] [address], [facility] METHB 1.2 % Normal 0.0-1.5 [facility] Comment on above: Performed By: #### 4 0055 #### [facility] [address] [place] [address], [facility] Oxygen (Bld) [Partial pressure] 66 mm[Hg] Low 83-108 [facility] Comment on above: Performed By: #### 4 0055 #### [facility] [address] [place] [address], [facility] Oxygen saturation in Blood 92.2 % Low 94.0-97.0 [facility] Comment on above: Performed By: #### 4 0055 #### [facility] [address] [place] [address], [facility] PCO2 50 mmHg High 35-45 [facility] Comment on above: Performed By: #### 4 0055 #### [facility] [address] [place] [address], [place] pH (Bld) 7.46 [pH] High 7.35-7.45 [facility] Comment on above: Performed By: #### 4 0055 #### [facility] [address] [place] [address], [facility] THB 13.5 g/dL Normal 12.0-16.3 [facility] Comment on above: Performed By: #### 4 0055 #### [facility] [address] Vital Signs Date Time Vital Sign Value Performing Clinician Camilo espinal 09-16-2023 14:04-0500 Blood Pressure Location Wayneguero TRINIDAD [facility] 09-16-2023 14:04-0500 Diastolic blood pressure 71 mm[Hg] Wayne TRINIDAD [facility] 09-16-2023 14:04-0500 Heart rate 65 /min Wayne TRINIDAD [facility] 09-16-2023 14:04-0500 Respiratory rate 16 /min Wayne TRINIDAD [facility] 09-16-2023 14:04-0500 Systolic blood pressure 131 mm[Hg] Wayne TRINIDAD [facility] 04-08-2023 13:21-0400 Body height 182.88 cm Ernie Ogden [employer] Work Phone: [facility] [employer] 250 DO Work Phone: 04-08-2023 13:21-0400 Body mass index (BMI) [Ratio] 33.09 kg/m2 [employer] Work Phone: [facility] [employer] 250 DO Work Phone: 04-08-2023 13:21-0400 Body surface area Derived from formula 2.32 m2 [employer] Work Phone: [facility] 250 DO Work Phone: 04-08-2023 13:21-0400 Body weight 110.68 kg Ernie L Valone Work Phone: [facility] 250 DO Work Phone: 04-08-2023 13:21-0400 Diastolic blood pressure 62 mm[Hg] Ernie L Valone Work Phone: [facility] 250 DO Work Phone: 04-08-2023 13:21-0400 Heart rate 78 /min Ernie L Valone Work Phone: [facility] 250 DO Work Phone: 04-08-2023 13:21-0400 Systolic blood pressure 124 mm[Hg] Ernie L Valone Work Phone: [facility] 250 DO Work Phone: 01-14-2023 13:32-0400 Blood Pressure Location Wayneguero TRINIDAD [facility] 01-14-2023 13:32-0400 Diastolic blood pressure 84 mm[Hg] Wayne TRIINDAD [facility] 01-14-2023 13:32-0400 Heart rate 72 /min Wayne TRINIDAD [facility] 01-14-2023 13:32-0400 Respiratory rate 16 /min Wayne TRINIDAD [facility] 01-14-2023 13:32-0400 Systolic blood pressure 138 mm[Hg] Wayne TRINIDAD [facility] 10-29-2022 13:50-0500 Blood Pressure Location Wayne TRINIDAD [facility] 10-29-2022 13:50-0500 Diastolic blood pressure 77 mm[Hg] Wayne TRINIDAD [facility] 10-29-2022 13:50-0500 Heart rate 68 /min Wayne TRINIDAD [facility] 10-29-2022 13:50-0500 Respiratory rate 16 /min Wayne TRINIDAD [facility] 10-29-2022 13:50-0500 Systolic blood pressure 140 mm[Hg] Wayne TRINIDAD [facility] 06-25-2022 14:28-0400 Blood Pressure Location Wayne TRINIDAD [facility] 06-25-2022 14:28-0400 Diastolic blood pressure 97 mm[Hg] Wayne TRINIDAD [facility] 06-25-2022 14:28-0400 Heart rate 88 /min Wayne TRINIDAD [facility] 06-25-2022 14:28-0400 Respiratory rate 16 /min Wayne TRINIDAD [facility] 06-25-2022 14:28-0400 Systolic blood pressure 157 mm[Hg] Wayne TRINIDAD [facility] 02-16-2022 09:27-0400 Blood Pressure Location Wayne TRINIDAD [facility] 02-16-2022 09:27-0400 Diastolic blood pressure 84 mm[Hg] Wayne TRINIDAD [facility] 02-16-2022 09:27-0400 Heart rate 104 /min Wayne TRINIDAD [facility] 02-16-2022 09:27-0400 Respiratory rate 16 /min Wayne TRINIDAD [facility] 02-16-2022 09:27-0400 Systolic blood pressure 145 mm[Hg] Wayne TRINIDAD [facility] Encounters Encounter Date Encounter Type Care Provider Facility Start: 04-05-2025 ambulatory Wayne TRINIDAD Facili ty:[facility] Start: 03-30-2024 End: 03-30-2024 ambulatory Wayne TRINIDAD Facility:[facility] [place] Start: 03-30-2024 End: 03-30-2024 Patient encounter procedure Wayne TRINIDAD [facility] Start: 09-16-2023 End: 09-16-2023 ambulatory Wayne TRINIDAD Facility:[facility] [place] Start: 09-16-2023 End: 09-16-2023 Patient encounter procedure Wayne TRINIDAD [facility] Start: 04-08-2023 Office outpatient vi sit 25 minutes Ernie Elliott Work Phone: [facility] 250 DO Work Phone: Start: 04-08-2023 ambulatory Ngozi Carter Facility : Start: 01-14-2023 End: 01-14-2023 Patient encounter procedure Wayne TRINIDAD [facility] Start: 01-07-2023 End: 01-08-[address] WAYNE TRINIDAD . Facility:[facility] Start: 10-29-2022 End: 10-29-2022 Patient encounter procedure Wayne TRINIDAD [facility] Start: 10-26-2022 End: 10-27-[address] ERNIE ELLIOTT Facility:[facility] Start: 10-03-2022 End: 10-03-2022 Patient encounter procedure Andressa Quigley [facility] Start: 09-29-2022 End: 09-29-2022 ambulatory ITZ BRICE . Facility:[facility] Start: 09-27-2022 End: 09-27-[address] WAYNE TRINIDAD . Facility:[facility] Start: 09-24-2022 Encounter for preprocedural cardiovascular examination DR WAYNE TRINIDAD . [facility] Start: 09-24-2022 Encounter for preprocedural laboratory examination DR WAYNE TRINIDAD . [facility] Start: 09-24-[address] WAYNE TRINIDAD . Fac ility:[facility] Start: 09-21-2022 End: 09-22-[address] WAYNE TRINIDAD . Facility:[facility] Start: 09-21-2022 End: 09-22-2022 Encounter for preprocedural cardiovascular examination DR WAYNE TRINIDAD . Facility:[facility] Start: 06-25-2022 End: 06-25-2022 Patient encounter procedure Wayne TRINIDAD [facility] Start: 06-11-2022 End: 06-12-[address] WAYNE TRINIDAD . Facility:[facility] Start: 03-16-2022 End: 03-17-[address] NGOZI CARTER Facility:[facility] Start: 03-02-2022 End: 03-03-[address] WAYNE TRINIDAD . Facility:[facility] Start: 02-16-2022 End: 02-16-2022 Patient encounter procedure Wayne TRINIDAD [facility] Start: 02-08-2022 End: 02-08-[address] WAYNE TRINIDAD . Facility: Start: 02-07-2022 Encounter for preprocedural laboratory examination DR WAYNE TRINIDAD . [facility] Start: 02-05-2022 End: 02-06-[address] WAYNE TRINIDAD . Facility:[facility] Start: 02-05-2022 End: 02-06-2022 Encounter for preprocedural laboratory examination DR WAYNE TRINIDAD . Facility: Start: 02-01-2022 Encounter for preprocedural cardiovascular examination DR WAYNE TRINIDAD . [facility] Start: 01-29-2022 End: 01-30-[address] WAYNE TRINIDAD . Facility: Start: 09-25-2021 End: 10-19-2021 ambulatory JACQUELYN MAURER Facility:[facility] Start: 03-27-2018 Ambulatory DANII ANDERSRACHEL Fa cility:[id number] Procedures Date Procedure Procedure Detail Performing Clinician Start: 01-07-[address] WESTLEY TRINIDAD . Comment on above: Performed By: #### P SAD #### [facility] [address] [place] [address] Dr. Juanita Sagastume Start: 09-27-2022 Brachytherapy of pro state using fluoroscopic guidance Wayne TRINIDAD Start: 09-04-2022 Teleradiotherapy procedure Wayne TRINIDAD Start: 06-11-[address] WESTLEY TRINIDAD . Comment on above: Performed By: #### B MP #### [facility] [address] [place] [address] Dr. Juanita Sagastume Start: 02-08-2022 MRI-US fusion guided transrectal biopsy of prostate Wayne TRINIDAD Start: 04-29-2017 TRUS w/bx Wayne WOMACK Start: 01-12-2014 TRUS w/bx Wayen RADHA SHANTA Cataract (disorder) Wayne TRINIDAD Colonoscopy Wayne TRINIDAD [...] Ngozi Carter, Status: Pen, Time: 1:00 PM [facility] 250 DO Work Phone: Immunizations Immunization Date Immunization Notes Care Provider Fa isamar 07-05-2022 SARS-CoV-2 (COVID-19 ) [id number] Wayne TRINIDAD [facility] Comment on above: Result Comment: 2022: [id number] 08-15-2021 SARS-CoV-2 (COVID-19 ) mRNA BNT-162b2 vax Wayne TRINIDAD [facility] 01-23-2021 SARS-CoV-2 (COVID-19 ) mRNA BNT-162b2 vax Wayne TRINIDAD [facility] 01-10-2021 SARS-CoV-2 (COVID-19 ) mRNA BNT-162b2 vax Wayne TRINIDAD [facility] 12-19-2020 SARS-CoV-2 (COVID-19 ) mRNA BNT-162b2 vax Wayne TRINIDAD [facility] 07-14-2020 influenza virus vacc ine, unspecified formulation Wayne TRINIDAD [facility] 07-23-2019 influenza virus vacc ine, unspecified formulation Wayne TRINIDAD [facility] 07-23-2019 influenza, injectabl e, quadrivalent, preservative free Ernie L Valone Work Phone: [facility] 250 DO Work Phone: 07-14-2019 influenza virus vacc ine, unspecified formulation Wayne TRINIDAD [facility] 07-14-2019 influenza, high dose seasonal, preservative-free Ernie L Valone Work Phone: [facility] 250 DO Work Phone: 07-14-2018 influenza virus vacc ine, unspecified formulation Ernie L Valone Work Phone: [facility] 250 DO Work Phone: 07-14-2017 influenza virus vacc ine, unspecified formulation Ernie L Valone Work Phone: [facility] 250 DO Work Phone: 10-14-2015 pneumococcal polysaccharide vaccine, 23 valent Ernie L Valone Work Phone: [facility] 250 DO Work Phone: Payers Date Payer Category Payer Medicare [id number] 1955 Unknown [id number] 2.16.8 [id number] 1955 Unknown [id number] 2.16.84 0.1.324896.3.579.2.593 1955 Unknown [id number] 2.16.84 0.1.404442.3.579.2.593 1955 Unknown [id number] 2.16.84 0.1.999134.3.579.2.593 1955 Unknown [id number] 2.16.84 0.1.388875.3.579.2.593 1955 Unknown [id number] 2.16.84 0.1.599911.3.579.2.593 1955 Unknown [id number] 2.16.84 0.1.746706.3.579.2.593 1955 Unknown [id number] 2.16.84 0.1.691433.3.579.2.593 1955 Unknown [id number] 2.16.84 0.1.105833.3.579.2.593 1955 Unknown [id number] 2.16.84 0.1.267757.3.579.2.593 1955 Unknown [id number] 2.16.84 0.1.322116.3.579.2.593 1955 Unknown [id number] 2.16.84 0.1.985267.3.579.2.593 1955 Unknown [id number] 2.16.84 0.1.296819.3.579.2.593 1955 Unknown [id number] 2.16. 840.1.416672.3.579.2.356 1955 Unknown [id number] 2.16.8 40.1.794165.3.579.2.727 1955 Unknown [id number] 2.16.8 40.1.684303.3.579.2.727 1955 Unknown [id number] 2.16.8 40.1.386578.3.579.2.727 Medicare [id number] Unknown [id number] Unknown [id number] Unknown Social History Date Type Detail Facility Start: 11-20-2021 End: 03-30-2024 Tobacco smoking status Ex-smoker (finding) [facility] Sex Assigned At Male [facility] No alcohol use No alcohol use [facility] 250 DO Work Phone: Tobacco smoking status Never [facility] Functional Status Date Assessment Result Facility 03-30-2024 Functional Status N/A [facility] 09-16-2023 Functional Status N/A [facility] 01-14-2023 Functional Status N/A [facility] 10-29-2022 Functional Status N/A [facility] 06-25-2022 Functional Status N/A [facility] Clinical Notes 01-29-2022 to 03-30-2024 Note Date & Type Note Facility 03-30-2024 Hospital Discharge instructions Patient Education 03/30/2024 13:04:01 Prostate Cancer Prostate Cancer The prostate is [...] the likelihood that the cancer will spread. [place] 6 or lower: This indicates that the cancer cells look similar to normal prostate cells (well differentiated). [place] 7: This indicates that the cancer cells look somewhat similar to normal prostate cells (moderately differentiated). [place] 8, 9, or 10: This indicates that [...] stress of having cancer. General instructions Take rztw-get-evvrjpa and prescription medicines only as told by your health care provider. If you have to go to the hospital, notify your cancer specialist (oncologist). Keep all follow-up visits. This is important. Where to find more information [place] [employer]: www.cancer.org [place] Society of Clinical Oncology: www.cancer.net National Cancer [place]: www.cancer.gov Contact a health care provider if: [...] provider. Document Revised: 12/27/2021 Document Reviewed: 12/27/2021 [employer] Patient Education 2022 [employer]. Follow Up Care 09/16/2023 14:45:37 With:TANISHA GILL, Wayne Galicia, URL Address: [facility] [address] , [place] [address]- When: Unknown [facility] 09-16-2023 Hospital Discharge instructions Patient Education 09/16/2023 [...] similar to normal prostate cells (well differentiated). [place] 7: This indicates that the cancer [...] stress of having cancer. General instructions Take noht-ago-mijmqmc and prescription medicines only as told by your health care provider. If you have to go to the hospital, notify your cancer specialist (oncologist). Keep all follow-up visits. This is important. Where to find more information [place] [employer]: www.cancer.org [place] Society of Clinical Oncology: www.cancer.net National Cancer [place]: www.cancer.gov Contact a health care provider if: [...] provider. Document Revised: 12/27/2021 Document Reviewed: 12/27/2021 [employer] Patient Education 2022 [employer]. Follow Up Care 01/14/2023 14:33:04 With:TANISHA GILL, Wayne Galicia, URL Address: [facility] [address], [place] [phone] When: Unknown Comments:6 mos w/ PSA [facility] 01-14-2023 Hospital Discharge instructions Patient Education [...] if anything looks unusual. Men with a veoilp-evzb-zemymb risk for skin cancer may want to see a skin lap bonder (brick mason) for an annual body check. Where to find more information National Cancer [place]: https://www.cancer.gov/about-cance r/screening Centers for Disease Control and Prevention: https://www.cdc.gov/cancer/dcpc/pr evention/screening.htm [place] [employer]: https://www.cancer.org/latest-news /8-xgivzp-mmvmosava-vcucm-qoo-vfj. html Contact a health care provider if: [...] 06/27/2017 Document Revised: 06/19/2019 Document Reviewed: 06/27/2017 [employer] Patient Education 2020 [employer]. Follow Up Care 07/23/2022 16:04:42 With:TANISHA GILL, Wayne Galicia, URL Address: [facility] [address] , [place] [address]- When: Unknown [facility] 10-29-2022 Hospital Discharge instructions Patient Education 10/29/2022 [...] urethra. Follow these instructions at home: Take lebv-iwk-wozgbtu and prescription medicines only as told by [...] 09/30/2006 Document Revised: 08/25/2019 Document Reviewed: 11/04/2017 [employer] Patient Education 2020 [employer]. Follow Up Care 09/04/2022 11:18:16 With:TANISHA GILL, Wayne Galicia, URL Address: [facility] [address] , [place] [address]- When: Unknown [facility] 09-21-2022 Note EXAMINATION: XR CHES T [...] authenticated by: SANIA CANELA Date: 2022-09-21 12:38 [facility] 06-25-2022 Hospital Discharge instructions Patient Education [...] including vitamins, herbs, eye drops, creams, and nkgh-gfy-pbrcnmi medicines. Any problems you or family members [...] 03/10/2007 Document Revised: 09/12/2018 Document Reviewed: 10/09/2017 [employer] Patient Education 2020 [employer]. Follow Up Care 02/16/2022 11:08:20 With:TANISHA GILL, Wayne Galicia, URL Address: [facility] [address] , [place] [address]- [phone] When: Unknown [facility] 02-16-2022 Hospital Discharge instructions Patient Education 02/16/2022 [...] who: Are older than age 65. Are -[place]. Are obese. Have a family history of [...] cells. Follow these instructions at home: Take jdiu-tck-wyafbrn and prescription medicines only as told by [...] 09/30/2006 Document Revised: 09/12/2018 Document Reviewed: 06/10/2017 [employer] Patient Education [employer]. Follow Up Care 01/22/2022 16:42:55 With:Wayne TRINIDAD MD, URL Address: [facility] [address] , [place] [address]- When:06/19/2022 Comments:w/ PSA [facility] 01-29-2022 Note EXAMINATION: XR CHES T [...] authenticated by: MAIKEL ESTEVEZ Date: 2022-01-29 13:48 [facility] Evaluation + Plan note Future Appointments Appointment Date:03/30/2022 08:30:00 AM Scheduled Provider:Wayne TRINIDAD MD Location:[facility] Appointment Type:URO Office Visit Appointment Date:06/25/2022 02:15:00 PM Scheduled Provider:Wayne TRINIDAD MD Location:[facility] Appointment Type:URO Office Visit Diagnostic Tests PendingPSA Total 02/16/22 [facility] Evaluation + Plan note [facility] Evaluation + Plan note Future Appointments Appointment Date:10/29/2022 01:30:00 PM Scheduled Provider:Wayne TRINIDAD MD Location:[facility] Appointment Type:URO Office Visit Appointment Date:01/14/2023 01:15:00 PM Scheduled Provider:Wayne TRINIDAD MD Location:[facility] Appointment Type:URO Office Visit [facility] Evaluation + Plan note Future Appointments Appointment Date:01/14/2023 01:15:00 PM Scheduled Provider:Wayne TRINIDAD MD Location:[facility] Appointment Type:URO Office Visit Appointment Date:02/04/2023 01:15:00 PM Scheduled Provider:Wayne TRINIDAD [facility] Appoint[facility] Type:URO Office Visit Diagnostic Tests PendingPSA Total 10/29/22 [facility] Evaluation + Plan note Future Appointments Appointment Date:09/16/2023 01:45:00 PM Scheduled Provider:Wayne TRINIDAD MD [facility] Appoint[facility] Type:URO Office Visit Diagnostic Tests PendingPSA Total 01/14/23 [facility] Evaluation + Plan note Future Appointments Appointment Date:03/23/2024 01:45:00 PM Scheduled Provider:Wayne TRINIDAD MD [facility] Appointment Type:URO Office Visit Diagnostic Tests PendingPSA Total 09/16/23 [facility] Evaluation + Plan note Future Appointments Appointment Date:04/05/2025 01:15:00 PM Scheduled Provider:Wayne TRINIDAD MD Location:[facility] Appointment Type:URO Office Visit Diagnostic Tests PendingPSA Total 03/30/24 [facility] Hospital course Narrative No data available for this section [facility] Hospital Discharge instructions No data available for this section [facility] Progress note No data available for this section [facility] Reason for referral (narrative) Referred by: Wayne TRINIDAD MD [facility] Summary Purpose Family History No Family [...] section and content) DATE CREATED AUTHOR 04/01/2018 [facility] DATE CREATED AUTHOR AUTHOR'S ORGANIZ ATION 10/20/2021 [facility] DATE CREATED AUTHOR AUTHOR'S ORGANIZ ATION 01/01/2022 [facility] DATE CREATED AUTHOR AUTHOR'S ORGANIZ ATION 01/16/2023 [facility] DATE CREATED AUTHOR AUTHOR'S ORGANIZ ATION 01/19/2023 [facility] DATE CREATED AUTHOR AUTHOR'S ORGANIZ ATION 04/09/2023 [facility] DATE CREATED AUTHOR AUTHOR'S ORGANIZ ATION 04/09/2023 [employer] DATE CREATED AUTHOR AUTHOR'S ORGANIZ ATION 04/01/2024 [facility] Care Team (unrecognized sect ion and content) Personnel Name: ERNIE ELLIOTT JR, DO Address: [address] [place] [address] Personnel Name: ERNIE ELLIOTT JR, DO Address: Address: [address] [place] [address] Personnel Name: ERNIE ELLIOTT JR, DO Address: Address: [address] [place] [address] Personnel Name: ERNIE ELLIOTT JR, DO Address: Address: [address] [place] [address] Personnel Name: ERNIE ELLIOTT JR, DO Address: Address: [address] [place] [address] Personnel Name: ERNIE ELLIOTT JR, DO Address: Address: [address] [place] [address] FOR RECORDS PERTAINING TO PATIENTS WHO ARE [...] BE BASED ON THE PRIMARY CLINICAL RECORDS. [facility], [facility]. provides no warranty or guarantee of the accuracy or completeness of information in this document.
--- NOTE | 2024-04-27 19:19 | ECG_ITS ---
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
--- NOTE | 2024-04-27 19:20 | ED_ITS ---
HPI HPI - General Adult General Chief complaint: Shortness of Breath/Dyspnea Stated complaint: COPD PROBLEMS Time Seen by Provider: 04/27/24 19:06 Source: patient Mode of arrival: walk-in Limitations: no limitations History of Present Illness HPI narrative: Patient is a 69-year-old male with a history of COPD who presents to the emergency department for worsening shortness of breath that began this morning. He was hospitalized last month for the same. He denies chest pain, fevers, sputum production or peripheral edema. 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 Olivarez. He states that his maintenance inhaler was switched from Trelegy and he does not believe the new inhaler is working as well for him. He does have oxygen at home that he wears at 2 L by nasal cannula chronically. He states he has not had to turn up his oxygen today. Related Data Home Medications ?Medication ?Instructions ?Recorded ?Confirmed ergocalciferol (vitamin D2) 1,250 50,000 unit PO QWEEK 03/27/24 04/27/24 mcg (50,000 unit) capsule ezetimibe 10 mg tablet 10 mg PO QDAY 03/27/24 04/27/24 famotidine 40 mg tablet 40 mg PO QDAY 03/27/24 04/27/24 fluticasone fur. 100 mcg-umeclid 1 inh inhalation Q24H 03/27/24 04/27/24 62.5 mcg-vilant 25 mcg inhalat.powder (Trelegy Ellipta) metformin 1,000 mg tablet 1,000 mg PO BID 03/27/24 04/27/24 montelukast 10 mg tablet 10 mg PO QDAY 03/27/24 04/27/24 roflumilast 500 mcg tablet 500 mcg PO QDAY 03/27/24 04/27/24 rosuvastatin 40 mg tablet 40 mg PO .QHS 03/27/24 04/27/24 spironolactone 50 mg tablet 50 mg PO QDAY 03/27/24 04/27/24 Previous Rx's ?Medication ?Instructions ?Recorded hydroxyzine pamoate 25 mg capsule 25 mg PO TID PRN Anxiety 10 days 03/29/24 #30 caps levalbuterol HCl 0.63 mg/3 mL 0.63 mg (3 mL) inhalation Q6H PRN 03/29/24 solution for nebulization Shortness Of Breath Or Wheezing 7 days #72 mL Allergies Allergy/AdvReac Type Severity Reaction Status Date / Time No Known Drug Allergies Allergy Verified 04/27/24 19:09 Opioid HPI Opioid Management Most Recent Opioid Data: Last Pain Assessment 04/27/24 23:47 Last ORT Total Score 0 04/27/24 22:19 Last ORT Risk Category Low Risk 04/27/24 22:19 Review of Systems ROS Constitutional Denies: fever or chills Ears, nose, mouth, and throat Denies: throat pain or nasal congestion Cardiovascular Denies: chest pain Respiratory Reports: shortness of breath, cough and wheezing; Denies: change in phlegm color or coughing up blood Gastrointestinal Denies: abdominal pain, nausea or vomiting Integumentary/Breast Denies: rash Neurological Denies: headache Hematologic/Lymphatic Denies: easy bruising or easy bleeding [facility] Medical History (Updated 04/27/24 @ 21:05 by KAUR Finney) Non-insulin dependent diabetes mellitus Primary hypertension ?I10 - Essential (primary) hypertension (ICD-10) Dyslipidemia ?E78.5 - Hyperlipidemia, unspecified (ICD-10) GERD without esophagitis ?K21.9 - Gastro-esophageal reflux disease without esophagitis (ICD-10) Diabetes ?E11.9 - Type 2 diabetes mellitus without complications (ICD-10) Fx wrist ?S62.109A - Fracture of unspecified carpal bone, unspecified wrist, initial encounter for closed fracture (ICD-10) Fracture, jaw ?S02.609A - Fracture of mandible, unspecified, initial encounter for closed fracture (ICD-10) Surgical History H/O cardiac catheterization ?Z98.890 - Other specified postprocedural states (ICD-10) History of tonsillectomy ?Z90.89 - Acquired absence of other organs (ICD-10) Family History Father Family history of myocardial infarction Family history of diabetes mellitus Grandmother Family history of cancer Aunt Family history of cancer Social History Within the past year, how often did you have a drink containing alcohol: never Score interpretation: A score less than 4 is consistent with normal alcohol consumption. Smoking status: Former smoker Non-prescribed substance use details: baby aspirin Previous occupational history: [employer] Known occupational exposures/hazards: No Highest level of school completed/degree received: high school graduate Are you now , , , , never or living with a partner: In a typical week, how many times do you talk on the telephone with family, friends, or neighbors: 3 or more times per week How often do you get together with friends or relatives: 3 or more times per week How often do you attend [employer] or latter-day services: never Do you belong to any clubs or organizations such as [employer] groups unions, [employer] or athletic groups, or school groups: no Total score: 2 Score interpretation: A score of greater than or equal to 2 indicates the lowest level of social isolation. Little interest or pleasure in doing things: not at all Feeling down, depressed, or hopeless: not at all Feel stressed/tense/nervous/anxious/difficulty sleeping: rather much Due to disability, difficulty making decisions: No Do you think of yourself as: straight/heterosexual Gender Identity: male Exam Narrative Exam Narrative: Gen.: Awake, alert, in no distress Head: Normocephalic, atraumatic ENT: Moist mucous membranes Respiratory: No respiratory distress, oxygen by nasal cannula, tachypnea noted with difficulty speaking in complete sentences. Diminished lung sounds globally Cardio: Regular rate and rhythm Extremities: Moves extremities equally, no pedal edema Psych: Normal mood and affect Neuro: No focal neuro deficit Skin: Warm, dry, intact Constitutional Vital Signs, click to edit/add: Last Vital Signs Temp 96.7 F L 04/27/24 19:10 Pulse 99 H 04/28/24 00:00 Resp 20 04/27/24 23:27 BP 148/74 H 04/27/24 21:15 Pulse Ox 94 L 04/27/24 23:27 O2 Del Method Nasal Cannula 04/27/24 23:27 O2 Flow Rate 2 04/27/24 23:27 Course Vital Signs Vital signs: Vital Signs Temperature 96.7 F L 04/27/24 19:10 Pulse Rate 109 H 04/27/24 19:10 Respiratory Rate 22 H 04/27/24 19:10 Blood Pressure 171/89 H 04/27/24 19:10 Pulse Oximetry 95 04/27/24 19:10 Oxygen Delivery Method Nasal Cannula 04/27/24 19:10 Oxygen Delivery Flow Rate 2 04/27/24 19:10 Temperature 96.7 F L 04/27/24 19:10 Pulse Rate 99 H 04/28/24 00:00 Respiratory Rate 20 04/27/24 23:27 Blood Pressure 148/74 H 04/27/24 21:15 Pulse Oximetry 94 L 04/27/24 23:27 Oxygen Delivery Method Nasal Cannula 04/27/24 23:27 Oxygen Delivery Flow Rate 2 04/27/24 23:27 Medical Decision Making MDM Narrative Medical decision making narrative: Treated with IV fluids, Solu-Medrol, breathing treatments in the emergency department. He maintains normal oxygen saturation on 2 L by nasal cannula which is his home oxygen. He does continue to have increased work of breathing, tachypnea and difficulty speaking in full sentences with diminished lung sounds. Chest x-ray is stable, previous chest x-ray from a month ago was read as basilar atelectasis, no significant change today. Lab studies showed normal white blood cell count, normal troponin and BNP. Discussed with hospitalist service and we will admit for COPD exacerbation. Levaquin given in the ER and the patient is admitted to [facility] [place] [place] with telemetry for observation. Stable at time of admission. SUPERVISED APC VISIT, PHYSICIAN ATTESTATION: Based on the medical record the care appears appropriate. ? Medical Records Medical records reviewed: Yes I reviewed the patient's medical records Lab Data Lab results reviewed: Yes I reviewed the patient's lab results Labs: Lab Results 04/27/24 Range/Units 19:20 WBC 8.1 (4.0-11.0) 10^3/uL RBC 4.97 (4.70-6.10) 10^6/uL Hgb 12.8 L (14.0-18.0) g/dL Hct 40.5 L (42.0-54.0) % MCV 81.5 (80.0-94.0) fL MCH 25.8 L (25.9-34.0) pg MCHC 31.6 (29.9-35.2) g/dL RDW 18.6 H (11.0-15.0) % Plt Count 240 (150-450) 10^3/uL MPV 9.5 (9.5-13.5) fL Neut % (Auto) 78.8 H (43.0-75.0) % Lymph % (Auto) 13.6 L (20.5-60.0) % [place] % (Auto) 5.3 (1.7-12.0) % Eos % (Auto) 2.0 (0.9-7.0) % Baso % (Auto) 0.1 L (0.2-2.0) % Neut # (Auto) 6.4 (1.4-6.5) 10^3/uL Lymph # (Auto) 1.1 L (1.2-3.8) 10^3/uL [place] # (Auto) 0.4 (0.3-0.8) 10^3/uL Eos # (Auto) 0.2 (0.0-0.7) 10^3/uL Baso # (Auto) 0.0 (0.0-0.1) 10^3/uL Abs Immat Gran (auto) 0.02 (0.00-0.03) 10^3/uL Imm/Tot Granulo (auto) 0.2 (0.0-0.5) % PT 10.4 (9.0-11.6) sec INR 0.98 VBG pH 7.460 H (7.330-7.430) VBG pCO2 42.8 (40.0-52.0) mmHg Sodium 137 (136-145) mmol/L Potassium 4.3 (3.5-5.1) mmol/L Chloride 101 (98-107) mmol/L Carbon Dioxide 29.1 (21.0-32.0) mmol/L Anion Gap 11.2 BUN 16.0 (7.0-18.0) mg/dL Creatinine 1.34 H (0.70-1.30) mg/dL Est GFR ( Amer) >60 (>=60) Est GFR (Non-Af Amer) 53 L (>=60) BUN/Creatinine Ratio 11.9 Glucose 203 H (74-106) mg/dL Lactate 1.9 (0.4-2.0) mmol/L Calcium 9.1 (8.5-10.1) mg/dL Total Bilirubin 0.5 (0.2-1.0) mg/dL AST 30 (15-37) U/L ALT 43 (16-63) U/L Alkaline Phosphatase 85 (46-116) U/L Troponin I High Sens 13.8 (4.0-76.1) pg/mL NT-Pro-B Natriuret Pep 46.0 (<=900.0) pg/mL Total Protein 6.9 (6.4-8.2) g/dL Albumin 3.0 L (3.4-5.0) g/dL Globulin 3.9 g/dL Albumin/Globulin Ratio 0.8 Imaging Data Chest x-ray: Attestation: I have reviewed the pertinent imaging results. ECG Data Attestation: I personally reviewed and interpreted this ECG as follows: (Sinus tachycardia at a rate of 103, no acute ST elevation or ectopy. EKG reviewed by attending physician) Discharge Plan Discharge Chief Complaint: Shortness of Breath/Dyspnea Clinical Impression: COPD exacerbation Patient Disposition: Admitted as Observation Time of Disposition Decision: 21:05 Condition: Good Discharge Date/Time: 04/27/24 22:05
[2024-04-27] MEDS: ALBUTEROL SULFATE 2.5 MG/3 ML VIAL NEB IH (19:25)
[2024-04-27] MEDS: IPRATROPIUM/ALBUTEROL SULFATE 3 ML AMPUL.NEB IH ×2 (19:25→23:27)
[2024-04-27 19:40] LABS: Basophils Percent Auto 0.1 % (0.2-2.0); Eosinophils Absolute Auto 0.2 10^3/uL (0.0-0.7); Hematocrit 40.5 % (42.0-54.0); Hemoglobin 12.8 g/dL (14.0-18.0); Immature Granulocytes Abs Auto 0.02 10^3/uL (0.00-0.03); Immature Granulocytes Pct Auto 0.2 % (0.0-0.5); Lymphocytes Absolute Auto 1.1 10^3/uL (1.2-3.8); Lymphocytes Percent Auto 13.6 % (20.5-60.0); Mean Corpuscular HGB Conc 31.6 g/dL (29.9-35.2); Mean Corpuscular Hemoglobin 25.8 pg (25.9-34.0); Mean Corpuscular Volume 81.5 fL (80.0-94.0); Mean Platelet Volume 9.5 fL (9.5-13.5); Monocytes Absolute Auto 0.4 10^3/uL (0.3-0.8); Monocytes Percent Auto 5.3 % (1.7-12.0); Neutrophils Absolute Auto 6.4 10^3/uL (1.4-6.5); Neutrophils Percent Auto 78.8 % (43.0-75.0); PCO2 VBG 42.8 mmHg (40.0-52.0); Platelet Count 240 10^3/uL (150-450); Red Blood Count 4.97 10^6/uL (4.70-6.10); Red Cell Distribution Width 18.6 % (11.0-15.0); White Blood Count 8.1 10^3/uL (4.0-11.0)
--- NOTE | 2024-04-27 19:44 | XR_ITS ---
[address] [address] Patient Name: SHERON ERAZO MRN: [id number] date: 1955 Sex: M Assigned Patient Location: ER Current Patient Location: [place] Accession/Order Number: [id number] Exam Date: 04/27/2024 20:35 Report Date: 04/27/2024 23:28 At the request of: JOSE MIGUEL AYOUB Procedure: XR chest 1V EXAM: XR chest 1V HISTORY: Shortness of breath COMPARISON: 03/27/2024 FINDINGS/IMPRESSION: 1. Patchy atelectasis/scarring at the right lung base. 2. No pneumothorax. No pleural effusion. 3. Heart size and mediastinal contours are normal. 4. No acute osseous abnormality. 5. Upper abdominal bowel gas pattern is nonspecific and nonobstructive. 6. Mild degeneration of the bilateral acromioclavicular joints. Electronically authenticated by: KARLEY HARRIS Date: 04/27/2024 23:28
[2024-04-27] MEDS: METHYLPREDNISOLONE SOD SUCC PF 125 MG/2 ML VIAL IVP (19:51)
[2024-04-27] MEDS: 0.9 % SODIUM CHLORIDE 1,000 ML 999 ML IV (19:52)
[2024-04-27 19:56] LABS: INR 0.98; Prothrombin Time 10.4 sec (9.0-11.6)
[2024-04-27 19:59] LABS: Alanine Aminotransferase 43 U/L (16-63); Albumin Globulin Ratio 0.8; Alkaline Phosphatase 85 U/L (46-116); Anion Gap 11.2; Aspartate Amino Transferase 30 U/L (15-37); BUN Creatinine Ratio 11.9; Bilirubin Total 0.5 mg/dL (0.2-1.0); Calcium 9.1 mg/dL (8.5-10.1); Carbon Dioxide 29.1 mmol/L (21.0-32.0); Chloride 101 mmol/L (98-107); Estimated GFR (African America >60 (>=60); Estimated GFR (Non-African Ame 53 (>=60); Globulin 3.9 g/dL; Glucose 203 mg/dL (74-106); Potassium 4.3 mmol/L (3.5-5.1); Sodium 137 mmol/L (136-145); Total Protein 6.9 g/dL (6.4-8.2)
[2024-04-27 20:01] LABS: Lactate/Lactic Acid 1.9 mmol/L (0.4-2.0)
[2024-04-27 20:05] LABS: Troponin I High Sensitivity 13.8 pg/mL (4.0-76.1)
[2024-04-27] MEDS: LEVOFLOXACIN IN DEXTROSE 5 % 750 MG/150 ML IV.SOLN 100 MG IV (21:12)
--- OUTSIDE RECORDS SUMMARY | 2024-04-27 22:11 | XMS_ITS ---
Patient Summarization (C-CDA 2.1 CCD) Created on: April 27, 2024 SHERON ERAZO JR : 1955 Sex: Male Author Organization Sample organization Care Team Providers Care Pulmonary Physical Therapist Name Role Phone DANII MALDONADO Unavailable Unavailabl e ERNIE ELLIOTT Unavailable Unavailable MEI MAURERAMED Attending Unavailable EARL, ERNIE Primary Care Unavailable EARL, ERNIE Referring Unavailable JACQUELYN MAURER Admitting Unavailable ERNIE ELLIOTT JR Primary Care Physician [phone] TANISHA ., DR MCPHERSON Admitting Unavailable TRINIDAD ., DR MCPHERSON Consulting Unavailable TRINIDAD ., DR MCPHERSON Attending Unavailable VALONE, DR DURANT Primary Care Unavailable ENGELER, DR JUDAH Herrera Consulting Unavailable ZIEBER, DR MAIKEL Glaicia Consulting Unavailable SHARP, YONI Consulting Unavailable GEMBUS, GENESIS Consulting Unavailable TRINIDAD ., DR MCPHERSON Admitting Unavailable TRINIDAD ., DR MCPHERSON Consulting Unavailable VALONE, DR DURANT Primary Care Unavailable TRINIDAD ., DR MCPHERSON Attending Unavailable AGUBOSIM, MENDOZA Consulting Unavailable LANGENBERGJUAN CARLOS Consulting Unavailable TRINIDAD ., DR MCPHERSON [...] Unavailable WEST, DR SANIA Mccauley Consulting Unavailable TRIINDAD ., DR MCPHERSON Admitting Unavailable TRINIDAD ., DR MCPHERSON Consulting Unavailable TRINIDAD ., DR MCPHERSON Attending Unavailable VALONE, DR DURANT Primary Care Unavailable ZIEBER, DR MAIKEL Galicia Consulting Unavailable FRANCES VELASQUEZ Consulting Unavailable Ngozi Carter Attending Unavailable Ngozi Carter Referring Unavailable Earl Jr, Dr. Ernie Romero Primary Care Jes vailable Earl, Ernie Ogden Unavailable Unavailable Unavailable Wayne TRINIDAD Attending Unavailable TRINIDAD, Wayne Galicia Attending Unavailable TRINIDADWayne Attending Unavailable Allergies Allergy Classification Reported Allergen(s) Allergy Type Date of Onset Reaction(s) Facility (1 source) Ramipril Drug Allergy 2 [facility] Repository (1 source) No Known Medication Allergies; 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: [No Known Medication Allergies] Propensity to adverse reactions (disorder) [facility] Repository Encounters Encounter Date Encounter Type Care Provider Facility Start: 04-05-2025 ambulatory Wayne TRINIDAD Facili ty:[facility] Start: 03-30-2024 End: 03-30-2024 ambulatory Wayne TRINIDAD Facility:[facility] Start: 03-30-2024 End: 03-30-2024 Patient encounter procedure Wayne TRINIDAD [facility] Start: 09-16-2023 End: 09-16-2023 ambulatory Wayne TRINIDAD Facility:[facility] Start: 09-16-2023 End: 09-16-2023 Patient encounter procedure Wayne TRINIDAD [facility] Start: 04-08-2023 Office outpatient vi sit 25 minutes Ernie Elliott Work Phone: [facility] 250 DO Work Phone: Start: 04-08-2023 ambulatory Ngozi Carter Facility : Start: 01-14-2023 End: 01-14-2023 Patient encounter procedure Wayne TRINIDAD [facility] Start: 01-07-2023 End: 01-08-[address] WAYNE TRINIDAD . Facility:[facility] Start: 10-29-2022 End: 10-29-2022 Patient encounter procedure Wayne TRINIDAD [facility] Start: 10-26-2022 End: 10-27-[address] ERNIE ELLIOTT Facility:[facility] Start: 10-03-2022 End: 10-03-2022 Patient encounter procedure Andressa CannonChalo Quigley [facility] Start: 09-29-2022 End: 09-29-2022 ambulatory ITZ BRICE . Facility:[facility] Start: 09-27-2022 End: 09-27-[address] WAYNE TRINIDAD . Facility:[facility] Start: 09-24-2022 Encounter for preprocedural cardiovascular examination DR WAYNE TRINIDAD . [facility] Start: 09-24-2022 Encounter for preprocedural laboratory examination DR WAYNE TRINIDAD . [facility] Start: 09-24-[address] WAYNE TRINIDAD . Fac ility:[facility] Start: 09-21-2022 End: 09-22-[address] WAYNE TRINIDAD . Facility:[facility] Start: 09-21-2022 End: 09-22-2022 Encounter for preprocedural cardiovascular examination DR WAYNE TRINIDAD . Facility:[facility] Start: 06-25-2022 End: 06-25-2022 Patient encounter procedure Wayne TRINIDAD [facility] Start: 06-11-2022 End: 06-12-[address] WAYNE TRINIDAD . Facility:[facility] Start: 03-16-2022 End: 03-17-[address] NGOZI CARTER Facility:[facility] Start: 03-02-2022 End: 03-03-[address] WAYNE TRINIDAD . Facility:[facility] Start: 02-16-2022 End: 02-16-2022 Patient encounter procedure Wayne TRINIDAD [facility] Start: 02-08-2022 End: 02-08-[address] WAYNE TRINIDAD . Facility:[facility] Start: 02-07-2022 Encounter for preprocedural laboratory examination DR WAYNE TRINIDAD . [facility] Start: 02-05-2022 End: 02-06-[address] WAYNE TRINIDAD . Facility:[facility] Start: 02-05-2022 End: 02-06-2022 Encounter for preprocedural laboratory examination DR WAYNE TRINIDAD . Facility:[facility] Start: 02-01-2022 Encounter for preprocedural cardiovascular examination DR WAYNE TRINIDAD . [facility] Start: 01-29-2022 End: 01-30-[address] WAYNE TRINIDAD . Facility: Start: 09-25-2021 End: 10-19-2021 ambulatory JACQUELYN MAURER Facility:[facility] Start: 03-27-2018 Ambulatory DANII MALDONADO Fa cility:1532 Immunizations Immunization Date Immunization Notes Care Provider Fa cility 07-05-2022 SARS-CoV-2 (COVID-19 ) mRNAMUL.[id number] Wayne TRINIDAD [facility] Comment on above: Result Comment: 202216: [id number] 08-15-2021 SARS-CoV-2 (COVID-19 ) mRNA BNT-162b2 vax Wayne TRINIDAD [facility] 01-23-2021 SARS-CoV-2 (COVID-19 ) mRNA BNT-162b2 vax Wayne [employer] [facility] 01-10-2021 SARS-CoV-2 (COVID-19 ) mRNA BNT-162b2 vax Wayne [employer] [facility] 12-19-2020 SARS-CoV-2 (COVID-19 ) mRNA BNT-162b2 vax Wayne [employer] [facility] 07-14-2020 influenza virus vacc ine, unspecified formulation [employer] [facility] 07-23-2019 influenza virus vacc ine, unspecified formulation [employer] [facility] 07-23-2019 influenza, injectabl e, quadrivalent, preservative free Ernie L Valone Work Phone: [facility] Rep DO Work Phone: 07-14-2019 influenza virus vacc ine, unspecified formulation [employer] [facility] 07-14-2019 influenza, high dose seasonal, preservative-free Ernie L Valone Work Phone: [facility] [employer] 250 DO Work Phone: 07-14-2018 influenza virus vacc ine, unspecified formulation Ernie L Valone Work Phone: [facility] [employer] 250 DO Work Phone: 07-14-2017 influenza virus vacc ine, unspecified formulation Ernie L Valone Work Phone: [facility] [employer] 250 DO Work Phone: 10-14-2015 pneumococcal polysaccharide vaccine, 23 valent Ernie Elliott Work Phone: [facility] 250 DO Work Phone: Medications Current Medications Medication [...] Ordered Payers Date Payer Category Payer Medicare [id number] 1955 Unknown [id number] 2.16.8 [id number] 1955 Unknown [id number] 2.16.84 0.1.424265.3.579.2.593 1955 Unknown [id number] 2.16.84 0.1.443183.3.579.2.593 1955 Unknown [id number] 2.16.84 0.1.788365.3.579.2.593 1955 Unknown [id number] 2.16.84 0.1.115142.3.579.2.593 1955 Unknown [id number] 2.16.84 0.1.876078.3.579.2.593 1955 Unknown [id number] 2.16.84 0.1.659383.3.579.2.593 1955 Unknown [id number] 2.16.84 0.1.876216.3.579.2.593 1955 Unknown [id number] 2.16.84 0.1.630894.3.579.2.593 1955 Unknown [id number] 2.16.84 0.1.970594.3.579.2.593 1955 Unknown [id number] 2.16.84 0.1.367654.3.579.2.593 1955 Unknown [id number] 2.16.84 0.1.128083.3.579.2.593 1955 Unknown [id number] 2.16.84 0.1.334630.3.579.2.593 1955 Unknown [id number] 2.16. 840.1.892295.3.579.2.356 1955 Unknown [id number] 2.16.8 40.1.699252.3.579.2.727 1955 Unknown [id number] 2.16.8 40.1.502458.3.579.2.727 1955 Unknown [id number] 2.16.8 40.1.230218.3.579.2.727 Medicare [id number] Unknown [id number] Unknown [id number] Unknown Plan of Treatment Date Care Activity Detail Author Start: 04-13-2024 FUV, Provider: Ngozi Carter, Status: Pen, Time: 1:00 PM FUV, Provider: Ngozi Carter, Status: Pen, Time: 1:00 PM [facility] 250 DO Work Phone: Problems Active Problems Problem [...] disease (6 sources) Atherosclerotic heart disease of [place] coronary artery without angina pectoris; 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: [Coronary [...] Unclassified (2 sources) Athscl heart disease of [place] coronary artery w/o ang pctrs / I25.10(ICD-9) [...] 10-01-2022 Episodic Other aftercare (1 source) Other terminal clerk (current) drug therapy; 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: [OTH RETIREMENT CURRENT DRUG THERAPY] Onset: 10-01-2022 Episodic Other aftercare (1 source) terminal operator (current) use of aspirin; 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: [RETIREMENT CURRENT USE OF ASPIRIN] Onset: 10-01-2022 Episodic Other aftercare (1 source) terminal operator (current) use of anticoagulants; 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: [RETIREMENT CURRNT USE ANTICOAGULANTS] Onset: 10-02-2022 Episodic Other aftercare (1 source) nursing home (current) use of oral hypoglycemic drugs; 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: [RETIREMENT USE ORAL HYPOGLYCEMIC DX] Onset: 10-02-2022 Episodic [...] above: Performed By: #### P SAD #### [facility] [address] [place] [address] Dr. Juanita Sagastume Start: 09-27-2022 Brachytherapy of pro state using fluoroscopic guidance Wayne TRINIDAD Start: 09-04-2022 Teleradiotherapy procedure Wayne TRINIDAD Start: 06-11-[address] WESTLEY TRINIDAD . Comment on above: Performed By: #### B MP #### [facility] [address] [place] [address] Dr. Juanita Sagastume Start: 02-08-2022 MRI-US fusion guided transrectal biopsy of prostate Wayne TRINIDAD Start: 04-29-2017 TRUS w/bx Wayne LOZANOS Start: 01-12-2014 TRUS w/bx Wayne GARCIA TERS Cataract (disorder) Wayne TRINIDAD Colonoscopy Wayne TRINIDAD heart cath Wayne TRINIDAD Jaw and temporomandi bular joint operations Ernie Elliott Work Phone: Tonsillectomy Wayne TRINIDAD Tonsillectomy and adenoidectomy Ernie Elliott Work Phone: Total colonoscopy Ernie Elliott Work Phone: Results Test Name Value Interpretation Reference Range Facil ity Ambulatory Visit Summaryon 0 03-30-2024 Ambulatory Visit Summary CASTRO VALENZUELA SHERON Galicia :1955 Visit Date:03/30/2024 Ambulatory Visit Instructions Your [...] Wayne TRINIDAD MD Where: [facility] Patient Educationon 03-30-20 24 Patient Education Oncology Prostate Cancer The prostate [...] under a microscope. This is called the [place] score and the total score can range from 6?10, indicating how likely it is that the cancer will spread (metastasize) to other parts of the body. The higher the score, the greater the likelihood that the cancer will spread. ? [place] 6 or lower: This indicates that the [...] external be (more content not included)... Normal [facility] Urology Office/Clinic Noteon 03-30-2024 Urology Office/Clinic Note [...] [facility] [address], [place] [address]- Additional Instructions: 1 yr with PSA Patient Education Prostate Cancer I, Toyin Fournier, personally scribed for Dr. Trinidad on 03/30/2024 13:08:00. . Documentation recorded by the scribe, Toyin Fournier, accurately reflects the services(s) I performed and decisions made by me. Authenticated by Dr. rTinidad on 03/30/2024 13:09:28. Problem List/Past Medical History Ongoing Aspirin long-term use BPH with urinary obstruction COPD (chronic obstructive pulmonary disease) Elevated PSA Frequency of urination Glycosuria Groin lump Hx of alf use of blood thinners Hyperlipidemia Nocturia Personal [...] SARS-CoV-2 (COVID-19) mRNAMUL. (more content not included)... [facility] Comment on above: Result Comment: Elec tronically Signed By: Wayne TRINIDAD MD\.br\Date and Time Signed: 03/30/24 13:09 EDT\.br\Electronically Co-Signed By: Toyin Fournier\.br\Date and Time Co-Signed: 03/30/24 13:08 EDT [facility] 2024 Lab Reports [id number] .00TIFF [facility] Consultation Noteon 11-21-19 Consultation Note [id number] .00TIFF [facility] Patient Educationon 09-16-20 Patient Education Oncology Prostate [...] under a microscope. This is called the [place] score and the total score can range [...] external be (more content not included)... Normal [facility] Urology Office/Clinic Noteon 09-16-2023 Urology Office/Clinic [...] [facility] [address], [place] [address] [id number] Additional Instructions: 6 mos w/ PSA Patient Education Prostate Cancer I, Guera Oswald, personally scribed for Dr. Trinidad on 09/16/2023 14:40:01. . Documentation recorded by the scribeGuera, accurately reflects the services(s) I performed and decisions made by me. Authenticated by Dr. Trinidad on 09/16/2023 14:41:32. 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 [facility] Comment on above: Result Comment: Elec tronically Signed By: Wayne TRINIDAD MD\.br\Date and Time Signed: 09/16/23 14:41 EST\.br\Electronically Co-Signed By: Guera Oswald\.br\Date and Time Co-Signed: 09/16/23 14:40 EST [facility] 09-10-2023 Lab Reports [id number] .00TIFF [facility] Office Visit (Cardiology)on 04-08-2023 Follow-up visit Diagnoses/Problems [...] Recorded: 08Apr2023 01:21PM Heart Rate78, R Radial Dwwqyrkv347, LUE, Sitting Gevdapxgs24, LUE, Sitting Height6 ft Shjblp644 lb BMI Ohzquiiyxb10.09 kg/m2 BSA Calculated2.32 Tobacco Useb) No PHQ-2 [...] Screening.on 023 Adult depression screening assessment No [facility] [employer] 250 DO Work Phone: Fall risk assessment a) No falls within the last year [facility] [employer] 250 DO Work Phone: Tobacco use status CPHS b) No [facility] [employer] 250 DO Work Phone: [facility] 01-16-2023 Refill [id number] Sheron Erazo Jr. 1955 M Date Provider Department Center 01/16/2023 JACQUELYN JACOBSON ONC D[facility] No family history on file Reason for Visit and Comments: Med Refill [[id number]] Normal [facility] CT LUNG CANCER SCREENINGon 0 10-26-2022 CT [...] by: MAIKEL ESTEVEZ Date: 2022-10-26 15:22 Normal [facility] 10-15-2022 Refill [id number] Sheron Erazo Jr. 1955 M Date Provider Department Center 10/15/[address] [facility] ONC DCC No family history on file Reason for Visit and Comments: Med Refill [[id number]] Normal [facility] XR PELVIS 1_2 VIEWSon 2021 XR [...] MAIKEL ESTEVEZ Date: 2022-09-28 07:[address] [facility] CBC AUTO DIFFon 09-27-2022 BASO # 0.0 103/ul Normal 0.0-0.1 [facility] Comment on above: Performed By: #### B MP #### [facility] [address] [address] [address] Juanita Sagastume Basophils/100 WBC (Bld) 0.2 % Normal 0.2-2.0 [facility] Comment on above: Performed By: #### B MP #### [facility] [address] [address] [address] Juanita Sagastume EO # 0.2 103/ul Normal 0.0-0.7 [facility] Comment on above: Performed By: #### B MP #### [facility] [address] [address] [address] Juanita Sagastume Eosinophils/100 WBC (Bld) 2.2 % Normal 0.9-7.0 [facility] Comment on above: Performed By: #### B MP #### [facility] [address] [address] [address] Juanita Sagastume Erythrocyte distribution width (RBC) [Ratio] 17.5 % Critically high 11.0-15.0 [facility] Comment on above: Performed By: #### B MP #### [facility] [address] [address] [address] Juanita Sagastume Hematocrit (Bld) [Volume fraction] 41.3 % Critically low 42.0-54.0 [facility] Comment on above: Performed By: #### B MP #### [facility] [address] [address] [address] Juanita Sagastume Hemoglobin (Bld) [Mass/Vol] 13.5 g/dL Critically low 14.0-18.0 [facility] Comment on above: Performed By: #### B MP #### [facility] [address] [address] [address] Juanita Sagastume IG # 0.04 10e3/ul Critically high 0.00-0.03 [facility] Comment on above: Performed By: #### B MP #### [facility] [address] [address] [address] Juanita Sagastume IG % 0.5 % Normal 0.0-0.5 [facility] Comment on above: Performed By: #### B MP #### [facility] [address] [address] [address] Juanita Sagastume LYMPH # 0.8 103/ul Critically low 1.2-3.[address] [facility] Comment on above: Performed By: #### B MP #### [facility] [address] [address] [address] Juanita Sagastume Lymphocytes/100 WBC (Bld) 9.3 % Critically low 20.5-60.0 [facility] Comment on above: Performed By: #### B MP #### [facility] [address] [address] [address] Juanita Sagastume MANUAL DIFF REQ NO Normal [facility] Comment on above: Performed By: #### B MP #### [facility] [address] [address] [address] Juanita Sagastume MCH (RBC) [Entitic mass] 26.7 pg Normal 25.9-34.0 [facility] Comment on above: Performed By: #### B MP #### [facility] [address] [address] [address] Juanita Sagastume MCHC (RBC) [Mass/Vol] 32.7 g/dL Normal 29.9-35.2 [facility] Comment on above: Performed By: #### B MP #### [facility] [address] [address] [address] Juanita Sagastume MCV (RBC) [Entitic vol] 81.8 fL Normal 80.0-94.0 [facility] Comment on above: Performed By: #### B MP #### [facility] [address] [address] [address] Juanita Sagastume MONO # 1.0 103/ul Critically high 0.3-0.8 [facility] Comment on above: Performed By: #### B MP #### [facility] [address] [place] [address] Dr. Juanita Sagastume Monocytes/100 WBC (Bld) 11.5 % Normal 1.7-12.0 [facility] Comment on above: Performed By: #### B MP #### [facility] [address] [address] [address] Juanita Sagastume NEUT # 6.3 103/ul Normal 1.4-6.5 [facility] Comment on above: Performed By: #### B MP #### [facility] [address] [address] [address] Juanita Sagastume Neutrophils/100 WBC (Bld) 76.3 % Critically high 43.0-75.0 [facility] Comment on above: Performed By: #### B MP #### [facility] [address] [address] [address] Juanita Sagastume Platelet mean volume (Bld) [Entitic vol] 8.5 fL Critically low 9.5-13.5 [facility] Comment on above: Performed By: #### B MP #### [facility] [address] [address] [address] Juanita Sagastume PLT 273 103/ul Normal 150-[address] [facility] Comment on above: Performed By: #### B MP #### [facility] [address] [address] [address] Juanita Sagastume RBC 5.05 106/ul Normal 4.70-6.10 [facility] Comment on above: Performed By: #### B MP #### [facility] [address] [address] [address] Juanita Sagastume WBC 8.3 103/ul Normal 4.0-11.[address] [facility] Comment on above: Performed By: #### B MP #### [facility] [address] [place] [address] Dr. Juanita Sagastume PROF CHEM 8 (BAS METB)on Anion gap [Moles/Vol] 10.9 mmol/L Normal [facility] Comment on above: Performed By: #### B MP #### [facility] [address] [place] [address] Dr. Juanita Sagastume Calcium [Mass/Vol] 10.2 mg/dL Critically high 8.5-10.1 [facility] Comment on above: Performed By: #### B MP #### [facility] [address] [place] [address] Dr. Juanita Sagastume Chloride [Moles/Vol] 98 mmol/L Normal 98-107 [facility] Comment on above: Performed By: #### B MP #### [facility] [address] [place] [address] Dr. Juanita aSgastume CO2 [Moles/Vol] 34.5 mmol/L Critically high 21.0-32.[address] [facility] Comment on above: Performed By: #### B MP #### [facility] [address] [place] [address] Dr. Juanita Sagastume Creatinine [Mass/Vol] 1.06 mg/dL Normal 0.70-1.30 [facility] Comment on above: Performed By: #### B MP #### [facility] [address] [place] [address] Dr. Juanita Sagastume EGFR-AF ICELANDIC >60 Normal >=60 [facility] Comment on above: Performed By: #### B MP #### [facility] [address] [address] [address] Juanita Sagastume EGFR-NON AF ICELANDIC >60 Normal >=60 [facility] Comment on above: Performed By: #### B MP #### [facility] [address] [address] [address] Juanita Sagastume Glucose [Mass/Vol] 122 mg/dL Critically high 74-[address] [facility] Comment on above: Performed By: #### B MP #### [facility] [address] [address] [address] Juanita Sagastume Potassium [Moles/Vol] 4.4 mmol/L Normal 3.5-5.1 [facility] Comment on above: Performed By: #### B MP #### [facility] [address] [address] [address] Juanita Sagastume Sodium [Moles/Vol] 139 mmol/L Normal 136-145 [facility] Comment on above: Performed By: #### B MP #### [facility] [address] [address] [address] Juanita Sagastume Urea nitrogen [Mass/Vol] 16.0 mg/dL Normal 7.0-18.0 [facility] Comment on above: Performed By: #### B MP #### [facility] [address] [address] [address] Juanita Sagastume Urea nitrogen/Creatinin e [Mass ratio] 15.1 mg/mg Normal [facility] Comment on above: Performed By: #### B MP #### [facility] [address] [address] [address] Juanita Sagastume PROTIMEon 09-27-2022 INR Coag (PPP) [Relative time] 0.93 {INR} Normal [facility] Comment on above: Performed By: #### B MP #### [facility] [address] [address] [address] Juanita Sagastume INR GUIDELINES SEE BELOW Normal [facility] Comment on above: Result Comment: KAMINI RED INR: 2.0 - 3.0 CONDITIONS NOT LISTED BELOW 2.5 - 3.5 FOR PROSTHETIC HEART VALVE REPLACEMENT 2.5 - 3.5 RECURRENT THROMBOSIS Performed By: #### B MP #### [facility] [address] [place], [place] [address] Dr. Juanita Sagastume PT Coag (PPP) [Time] 10.1 s Normal 9.0-11.6 [facility] Comment on above: Performed By: #### B MP #### [facility] [address] [place], [place] [address] Dr. Juanita Sagastume Covid-19 PCR ([facility])on SARS-CoV-2 (COVID-19) RNA SKYLAR+probe Ql (Unsp spec) Not detected Normal NOT DETECTED [facility] Comment on above: Result Comment: This test is not yet approved or cleared by the [place] FDA. When there are no FDA-approved or cleared tests available, and other criteria are met, FDA can make tests available under an emergency access mechanism called an Emergency Use Authorization (EUA). The EUA for this test is supported by the Nuclear [employer] Operator of Health and Human Service's (HHS's) [...] SARS-CoV-2. Performed By: #### C VDTBH #### [facility] [address] [place], [place] [address] Dr. Juanita Sagastume LIPID PROFILEon 03-16-2022 CHOL-HDL RATIO NORM SEE BELOW Normal [facility] Comment on above: Result Comment: 3.3 - 4.4 LOW RISK 4.4 - 7.1 AVERAGE RISK 7.1 - 11.0 MODERATE RISK >11.0 HIGH RISK Performed By: #### A LT, LIPID, AST #### [facility] [address] [address] [address] Juanita Sagastume Cholesterol [Mass/Vol] 111 mg/dL Normal <=200 [facility] Comment on above: Performed By: #### A LT, LIPID, AST #### [facility] [address] [address] [address] Juanita Sagastume Cholesterol in HDL [Mass/Vol] 35 mg/dL Critically low 40-60 [facility] Comment on above: Performed By: #### A LT, LIPID, AST #### [facility] [address] [address] [address] Juanita Sagastume Cholesterol in LDL [Mass/Vol] 29.6 mg/dL Normal [facility] Comment on above: Performed By: #### A LT, LIPID, AST #### [facility] [address] [place] [address] Dr. Juanita Sagastume Cholesterol.total/ Cholesterol in HDL [Mass ratio] 3.2 {ratio} Normal [facility] Comment on above: Performed By: #### A LT, LIPID, AST #### [facility] [address] [address] [address] Juanita Sagastume HDL NORMAL > or = 60 mg/dl - LO W CARDIOVASCULAR RISK <40 mg/dl - HIGH CARDIOVASCULAR RISK Normal [facility] Comment on above: Performed By: #### A LT, LIPID, AST #### [facility] [address] [place] [address] Dr. Juanita Sagastume LDL CALC NORMAL SEE BELOW Normal [facility] Comment on above: Result Comment: <100 mg/dl OPTIMAL 100 - 129 mg/dl NEAR OR ABOVE OPTIMAL 130 - 159 mg/dl BORDERLINE HIGH 160 - 189 mg/dl HIGH >190 mg/dl VERY HIGH Performed By: #### A LT, LIPID, AST #### [facility] [address] [address] [address] Juanita Sagastume Triglyceride [Mass/Vol] 232 mg/dL Critically high <=[address] [facility] Comment on above: Performed By: #### A LT, LIPID, AST #### [facility] [address] [address] [address] Juanita Sagastume VLDL CALC 46.4 mg/dL Normal [facility] Comment on above: Performed By: #### A LT, LIPID, AST #### [facility] [address] [place] [address] Dr. Juanita Marien 03-16-2022 AST [Catalytic activity/Vol] 22 U/L Normal 15-37 [facility] Comment on above: Performed By: #### A LT, LIPID, AST #### [facility] [address] [place] [address] Dr. Juanita Sagastume SGPTon 03-16-2022 ALT [Catalytic activity/Vol] 24 U/L Normal 16-63 [facility] Comment on above: Performed By: #### A LT, LIPID, AST #### [facility] [address] [place] [address] Dr. Juanita Sagastume CREATININEon 03-02-2022 Creatinine [Mass/Vol] 1.19 mg/dL Normal 0.70-1.30 [facility] Comment on above: Performed By: #### C KRYS #### [facility] [address] [place] [address] Dr. Juanita Sagastume EGFR-AF ICELANDIC >60 Normal >=60 [facility] Comment on above: Performed By: #### C KRYS #### [facility] [address] [place] [address] Dr. Juanita Sagastume EGFR-NON AF ICELANDIC >60 Normal >=60 [facility] Comment on above: Performed By: #### C KRYS #### [facility] [address] [place] [address] ABD/PELV WO W [...] by: MAIKEL ESTEVEZ Date: 2022-03-02 14:40 Normal [facility] BODYon 022 [facility] BODY EXAMINATION: [facility] BODY HISTORY: Primary malignant neoplasm of [...] by: MAIKEL ESTEVEZ Date: 2022-03-02 15:26 Normal [facility] POINT OF CARE GLUCOSEon 01-13 Glucose [Mass/Vol] 117 mg/dL Critically high 74-[address] [facility] Comment on above: Performed By: #### B MP #### [facility] [address] [address] [address] Juanita Sagastume Covid-19 PCR (CVDTB)on 01-13 SARS-CoV-2 (COVID-19) RNA SKYLAR+probe Ql (Unsp spec) Not detected Normal NOT DETECTED [facility] Comment on above: Result Comment: This test is not yet approved or cleared by the [place] FDA. When there are no FDA-approved or cleared tests available, and other criteria are met, FDA can make tests available under an emergency access mechanism called an Emergency Use Authorization (EUA). The EUA for this test is supported by the [place] of Health and Human Service's (HHS's) declaration [...] SARS-CoV-2. Performed By: #### C VDTB #### [facility] [address] [place] [address] Dr. Juanita Sagastume CBC AUTO DIFFon 01-29-2022 BASO # 0.0 103/ul Normal 0.0-0.1 [facility] Comment on above: Performed By: #### C BC #### [facility] [address] [place] [address] Dr. Juanita Sagastume Basophils/100 WBC (Bld) 0.3 % Normal 0.2-2.0 [facility] Comment on above: Performed By: #### C BC #### [facility] [address] [place] [address] Dr. Juanita Sagastume EO # 0.2 103/ul Normal 0.0-0.7 [facility] Comment on above: Performed By: #### C BC #### [facility] [address] [place] [address] Dr. Juanita Sagastume Eosinophils/100 WBC (Bld) 1.8 % Normal 0.9-7.[address] [facility] Comment on above: Performed By: #### C BC #### [facility] [address] [place] [address] Dr. Juanita Sagastume Erythrocyte distribution width (RBC) [Ratio] 15.4 % Critically high 11.0-15.0 [facility] Comment on above: Performed By: #### C BC #### [facility] [address] [place] [address] Dr. Juanita Sagastume Hematocrit (Bld) [Volume fraction] 42.3 % Normal 42.0-54.0 [facility] Comment on above: Performed By: #### C BC #### [facility] [address] [place] [address] Dr. Juanita Sagastume Hemoglobin (Bld) [Mass/Vol] 13.3 g/dL Critically low 14.0-18.0 [facility] Comment on above: Performed By: #### C BC #### [facility] [address] [place] [address] Dr. Juanita Sagastume IG # 0.06 10e3/ul Critically high 0.00-0.03 [facility] Comment on above: Performed By: #### C BC #### [facility] [address] [place] [address] Dr. Juanita Sagastume IG % 0.5 % Normal 0.0-0.5 [facility] Comment on above: Performed By: #### C BC #### [facility] [address] [place] [address] Dr. Juanita Sagastume LYMPH # 2.0 103/ul Normal 1.2-3.8 [facility] Comment on above: Performed By: #### C BC #### [facility] [address] [place] [address] Dr. Juanita Sagastume Lymphocytes/100 WBC (Bld) 17.6 % Critically low 20.5-60.0 [facility] Comment on above: Performed By: #### C BC #### [facility] [address] [place] [address] Dr. Juanita Sagastume MANUAL DIFF REQ NO Normal [facility] Comment on above: Performed By: #### C BC #### [facility] [address] [place] [address] Dr. Juanita Sagastume MCH (RBC) [Entitic mass] 26.5 pg Normal 25.9-34.0 [facility] Comment on above: Performed By: #### C BC #### [facility] [address] [place] [address] Dr. Juanita Sagastume MCHC (RBC) [Mass/Vol] 31.4 g/dL Normal 29.9-35.2 [facility] Comment on above: Performed By: #### C BC #### [facility] [address] [place] [address] Dr. Juanita Sagastume MCV (RBC) [Entitic vol] 84.3 fL Normal 80.0-94.0 [facility] Comment on above: Performed By: #### C BC #### [facility] [address] [place] [address] Dr. Juanita Sagastume MONO # 0.9 103/ul Critically high 0.3-0.8 [facility] Comment on above: Performed By: #### C BC #### [facility] [address] [place] [address] Dr. Juanita Sagastume Monocytes/100 WBC (Bld) 7.6 % Normal 1.7-12.0 [facility] Comment on above: Performed By: #### C BC #### [facility] [address] [place] [address] Dr. Juanita Sagastume NEUT # 8.3 103/ul Critically high 1.4-6.5 [facility] Comment on above: Performed By: #### C BC #### [facility] [address] [place] [address] Dr. Juanita Sagastume Neutrophils/100 WBC (Bld) 72.2 % Normal 43.0-75.0 [facility] Comment on above: Performed By: #### C BC #### [facility] [address] [place] [address] Dr. Juanita Sagastume Platelet mean volume (Bld) [Entitic vol] 9.2 fL Critically low 9.5-13.5 [facility] Comment on above: Performed By: #### C BC #### [facility] [address] [place] [address] Dr. Juanita Sagastume PLT 343 103/ul Normal 150-[address] [facility] Comment on above: Performed By: #### C BC #### [facility] [address] [place] [address] Dr. Juanita Sagastume RBC 5.02 106/ul Normal 4.70-6.10 [facility] Comment on above: Performed By: #### C BC #### [facility] [address] [place] [address] Dr. Juanita Sagastume WBC 11.5 103/ul Critically high 4.0-11.0 [facility] Comment on above: Performed By: #### C BC #### [facility] [address] [place] [address] Dr. Juanita Sagastume PROF CHEM 8 (BAS METB)on Anion gap [Moles/Vol] 14.6 mmol/L Normal [facility] Comment on above: Performed By: #### B MP #### [facility] [address] [place] [address] Dr. Juanita Sagastume Calcium [Mass/Vol] 9.6 mg/dL Normal 8.5-10.1 [facility] Comment on above: Performed By: #### B MP #### [facility] [address] [place] [address] Dr. Juanita Sagastume Chloride [Moles/Vol] 97 mmol/L Critically low 98-107 [facility] Comment on above: Performed By: #### B MP #### [facility] [address] [place] [address] Dr. Juanita Sagastume CO2 [Moles/Vol] 28.9 mmol/L Normal 22.0-30.0 [facility] Comment on above: Performed By: #### B MP #### [facility] [address] [place] [address] Dr. Juanita Sagastume Creatinine [Mass/Vol] 1.23 mg/dL Normal 0.66-1.25 [facility] Comment on above: Performed By: #### B MP #### [facility] [address] [place] [address] Dr. Juanita Sagastume EGFR-AF ICELANDIC >60 Normal >=60 [facility] Comment on above: Performed By: #### B MP #### [facility] [address] [place] [address] Dr. Juanita Sagastume EGFR-NON AF ICELANDIC 59 mL/min/1.73m2 Critically low >=60 [facility] Comment on above: Performed By: #### B MP #### [facility] [address] [address] [address] Juanita Sagastume Glucose [Mass/Vol] 105 mg/dL Normal 74-106 [facility] Comment on above: Performed By: #### B MP #### [facility] [address] [address] [address] uJanita Sagastume Potassium [Moles/Vol] 4.5 mmol/L Normal 3.4-5.0 [facility] Comment on above: Performed By: #### B MP #### [facility] [address] [address] [address] Juanita Sagastume Sodium [Moles/Vol] 136 mmol/L Critically low 137-145 [facility] Comment on above: Performed By: #### B MP #### [facility] [address] [address] [address] Juanita Sagastume Urea nitrogen [Mass/Vol] 16.0 mg/dL Normal 7.0-18.0 [facility] Comment on above: Performed By: #### B MP #### [facility] [address] [address] [address] Juanita Sagastume Urea nitrogen/Creatinin e [Mass ratio] 13.0 mg/mg Normal [facility] Comment on above: Performed By: #### B MP #### [facility] [address] [address] [address] Juanita Sagastume PROTIMEon 01-29-2022 INR Coag (PPP) [Relative time] 0.98 {INR} Normal [facility] Comment on above: Performed By: #### B MP #### [facility] [address] [address] [address] Juanita Sagastume INR GUIDELINES SEE BELOW Normal [facility] Comment on above: Result Comment: KAMINI RED INR: 2.0 - 3.0 CONDITIONS NOT LISTED BELOW 2.5 - 3.5 FOR PROSTHETIC HEART VALVE REPLACEMENT 2.5 - 3.5 RECURRENT THROMBOSIS Performed By: #### B MP #### [facility] [address] [address] [address] Juanita Sagastume PT Coag (PPP) [Time] 10.6 s Normal 9.0-11.6 [facility] Comment on above: Performed By: #### B MP #### [facility] [address] [address] [address] Juanita Sagastume PTTon 01-29-2022 aPTT Coag (Bld) [Time] 28.5 s Normal 22.3-36.[address] [facility] Comment on above: Performed By: #### B MP #### [facility] [address] [address] [address] Juanita Sagastume MR prostate wo/w conon 10-17 MR prostate wo/w con [facility] [place] [address] MRI Report Signed Patient: Sheron Erazo MR#: [id number] : 1955 Acct:[id number] Age/Sex: 66 / M ADM Date: 10/10/21 Loc: Room: Type: [facility] Attending Dr: Wayne Trinidad MD [...] PM COT by: Yousif Paz MD Diplomate, [place] [employer] Report Completed: Oct 17, [...] 10/18/21 0749 Dictated By: NON STAFF 10/17/21 1604 Signed By: 10/18/21 9723 [facility] Blood Urea Nitrogenon 2020 Urea nitrogen [Mass/Vol] 11 mg/dL Normal 07-06 [facility] Comment on above: Order Comment: STAT FOR MRI Performed By: #### B UN, CREAT #### [facility] [address] [id number] [place] Creatinineon 10-10-2021 Creatinine [Mass/Vol] 1.04 mg/dL Normal 0.64-1.27 [facility] Comment on above: Order Comment: STAT FOR MRI Performed By: #### B UN, CREAT #### [facility] [address] [id number] [place] Creatinine Clr Calc Pharmacy 90.84 [facility] Comment on above: Order Comment: STAT FOR MRI Result Comment: PERF ORMED BY: [place] [address] PATHOLOGIST AUTOMATIC WHEEL LINE OPERATOR XUAN GOMEZ M.D. Performed By: #### B UN, CREAT #### [facility] [address] [place] [address] Estimated GFR ( Pey[place] > 60 [facility] Comment on above: Order Comment: STAT FOR MRI Result Comment: GFR estimated reference range: According to KDOQI guidelines, <60 ml/min/1.73m2 is sufficient to diagnose a patient with chronic kidney disease. Performed By: #### B UN, CREAT #### [facility] [address] [place], [place] [id number] [facility] Estimated GFR (Non- Am > 60 [facility] Comment on above: Order Comment: STAT FOR MRI Performed By: #### B UN, CREAT #### [facility] [address] [place] [address] CT CHEST HIGH RESOLUTION WIT HOUT CONTRASTon 10-05-2021 CT CHEST HIGH RESOLUTION WITHOUT CONTRAST [facility] Department of Radiology [address] [place] [address] Patient Name: SHERON ERAZO : [...] achievable Electronically signed: Nika Krause. Transcribed by: [email or web address], User Resident: Electronically Signed by: NIKA KRAUSE @ 10/05/2021 02:50 PM Normal [facility] Pulmonary Functionon 12-18-2 021 Pulmonary Function MR #: [id number] [facility] PT. Name: Sheron Erazo Jr Date: 09/29/2021 [...] Sykes MD Date Trans: 09/30/2021 05:58 P/ [id number] cc: Ernie Elliott D.O. [address] [place] [address]. [facility] [address] Normal [facility] ARTERIAL BLOOD GAS W/COOXon 09-29-2021 BASE EXCESS 10 mmol/L High -2-3 [facility] Comment on above: Performed By: #### 4 0055 #### [facility] [address] [facility] [address] COHB 1.6 % High 0.0-1.5 [facility] Comment on above: Performed By: #### 4 0055 #### [facility] [address] [employer] ROOM AIR Normal [place] Comment on above: Performed By: #### 4 0055 #### [facility] [address] [place] [address], [facility] FIO2 0 % Normal [facility] Comment on above: Performed By: #### 4 0055 #### [facility] [address] [place] [address], [facility] HCO3 (Bld) [Moles/Vol] 36 mmol/L Critically high 21-28 [facility] Comment on above: Performed By: #### 4 0055 #### [facility] [address] [place] [address], [facility] METHB 1.2 % Normal 0.0-1.5 [facility] Comment on above: Performed By: #### 4 0055 #### [facility] [address] [place] [address], [place] Oxygen (Bld) [Partial pressure] 66 mm[Hg] Low 83-108 [facility] Comment on above: Performed By: #### 4 0055 #### [facility] [address] [place] [address], [facility] Oxygen saturation in Blood 92.2 % Low 94.0-97.0 [facility] Comment on above: Performed By: #### 4 0055 #### [facility] [address] [place] [address], [facility] PCO2 50 mmHg High 35-45 [facility] Comment on above: Performed By: #### 4 0055 #### [facility] [address] [place] [address], [facility] pH (Bld) 7.46 [pH] High 7.35-7.45 [facility] Comment on above: Performed By: #### 4 0055 #### [facility] [address] [place] [address], [facility] THB 13.5 g/dL Normal 12.0-16.3 [facility] Comment on above: Performed By: #### 4 0055 #### [facility] [address] [place] [address], [facility] Social History Date Type Detail Facility Start: 11-20-2021 End: 03-30-2024 Tobacco smoking status Ex-smoker (finding) [facility] Sex Assigned At Male [facility] No alcohol use No alcohol use [facility] DO Work Phone: Tobacco smoking status Never [facility] Vital Signs Date Time Vital Sign Value Performing Clinician Camilo espinal 09-16-2023 14:04-0500 Blood Pressure Location Wayneguero [place] [facility] 09-16-2023 14:04-0500 Diastolic blood pressure 71 mm[Hg] Wayneguero [place] [facility] 09-16-2023 14:04-0500 Heart rate 65 /min Wayneguero [place] [facility] 09-16-2023 14:04-0500 Respiratory rate 16 /min Wayne [place] [facility] 09-16-2023 14:04-0500 Systolic blood pressure 131 mm[Hg] Wayne [place] [facility] 04-08-2023 13:21-0400 Body height 182.88 cm Ernie Elliott Work Phone: [facility] 250 DO Work Phone: 04-08-2023 13:21-0400 Body mass index (BMI) [Ratio] 33.09 kg/m2 Ernie Ogden [place] Work Phone: [facility] 250 DO Work Phone: 04-08-2023 13:21-0400 Body surface area Derived from formula 2.32 m2 Ernie Ogden [place] Work Phone: [facility] 250 DO Work Phone: 04-08-2023 13:21-0400 Body weight 110.68 kg Ernie Ogden Peers [employer] Work Phone: [facility] 250 DO Work Phone: 04-08-2023 13:21-0400 Diastolic blood pressure 62 mm[Hg] Ernie L Valone Work Phone: [facility] 250 DO Work Phone: 04-08-2023 13:21-0400 Heart rate 78 /min Ernie L Valone Work Phone: [facility] 250 DO Work Phone: 04-08-2023 13:21-0400 Systolic blood pressure 124 mm[Hg] Ernie L Valone Work Phone: [facility] 250 DO Work Phone: 01-14-2023 13:32-0400 Blood Pressure Location Wayne [place] [facility] 01-14-2023 13:32-0400 Diastolic blood pressure 84 mm[Hg] Wayne [place] [facility] 01-14-2023 13:32-0400 Heart rate 72 /min Wayne [place] [facility] 01-14-2023 13:32-0400 Respiratory rate 16 /min Wayne [place] [facility] 01-14-2023 13:32-0400 Systolic blood pressure 138 mm[Hg] Wayne [place] [facility] 10-29-2022 13:50-0500 Blood Pressure Location Wayne [place] [facility] 10-29-2022 13:50-0500 Diastolic blood pressure 77 mm[Hg] Wayne [place] [facility] 10-29-2022 13:50-0500 Heart rate 68 /min Wayne [place] [facility] 10-29-2022 13:50-0500 Respiratory rate 16 /min Wayne [place] [facility] 10-29-2022 13:50-0500 Systolic blood pressure 140 mm[Hg] Wayne [place] [facility] 06-25-2022 14:28-0400 Blood Pressure Location Wayne [place] [facility] 06-25-2022 14:28-0400 Diastolic blood pressure 97 mm[Hg] Wayne [place] [facility] 06-25-2022 14:28-0400 Heart rate 88 /min Wayne [place] [facility] 06-25-2022 14:28-0400 Respiratory rate 16 /min Wayne [place] [facility] 06-25-2022 14:28-0400 Systolic blood pressure 157 mm[Hg] Wayne [place] [facility] 02-16-2022 09:27-0400 Blood Pressure Location Wayne [place] [facility] 02-16-2022 09:27-0400 Diastolic blood pressure 84 mm[Hg] Wayne [place] [facility] 02-16-2022 09:27-0400 Heart rate 104 /min Wayne [place] [facility] 02-16-2022 09:27-0400 Respiratory rate 16 /min Wayne [place] [facility] 02-16-2022 09:27-0400 Systolic blood pressure 145 mm[Hg] Wayne [place] [facility] Functional Status Date Assessment Result Facility 03-30-2024 Functional Status N/A [facility] 09-16-2023 Functional Status N/A [facility] 01-14-2023 Functional Status N/A [facility] 10-29-2022 Functional Status N/A [facility] 06-25-2022 Functional Status N/A [facility] Clinical Notes 01-29-2022 to 03-30-2024 Note [...] under a microscope. This is called the [place] score and the total score can range from 6 10, indicating how likely it is that the cancer will spread (metastasize) to other parts of the body. The higher the score, the greater the likelihood that the cancer will spread. [place] 6 or lower: This indicates that the cancer cells look similar to normal prostate cells (well differentiated). [place] 7: This indicates that the cancer cells [...] stress of having cancer. General instructions Take oqxn-bfd-swczldb and prescription medicines only as told by your health care provider. If you have to go to the hospital, notify your cancer specialist (oncologist). Keep all follow-up visits. This is important. Where to find more information [place] [employer]: www.cancer.org [place] [employer] Oncology: www.cancer.net National Cancer [place]: www.cancer.gov Contact a health care provider if: [...] provider. Document Revised: 12/27/2021 Document Reviewed: 12/27/2021 Elsevier Patient Education 2022 [employer]. Follow Up Care 09/16/2023 14:45:37 With:TANISHA GILL, Wayne Galicia, URL Address: [facility] [address] , [place] [address]- When: Unknown [facility] 09-16-2023 Hospital Discharge instructions Patient Education [...] similar to normal prostate cells (well differentiated). [place] 7: This indicates that the cancer cells look somewhat similar to normal prostate cells (moderately differentiated). [place] 8, 9, or 10: This indicates that [...] stress of having cancer. General instructions Take fpot-vdu-jilvrxo and prescription medicines only as told by your health care provider. If you have to go to the hospital, notify your cancer specialist (oncologist). Keep all follow-up visits. This is important. Where to find more information [place] [employer]: www.cancer.org [place] Society [employer] Clinical Oncology: www.cancer.net National Cancer [place]: www.cancer.gov Contact a health care provider if: [...] provider. Document Revised: 12/27/2021 Document Reviewed: 12/27/2021 [employer] Patient Education 2022 [employer]. Follow Up Care 01/14/2023 14:33:04 With:TANISHA GILL, Wayne Galicia, URL Address: [facility] [address], [place] [address]- [phone] When: Unknown Comments:6 mos w/ PSA [facility] [facility] 01-14-2023 Hospital Discharge instructions Patient [...] if anything looks unusual. Men with a cjhzbk-socj-mfvymv risk for skin cancer may want to see a curatorial specialist (ham passer) for an annual body check. Where to find more information [employer] Cancer [place]: https://www.cancer.gov/about-cance r/screening Centers for Disease Control and Prevention: https://www.cdc.gov/cancer/dcpc/pr evention/screening.htm [place] [employer]: https://www.cancer.org/latest-news /6-dguepg-cywzlfzhc-qomgo-kkc-pbk. html Contact a health care provider if: [...] 06/27/2017 Document Revised: 06/19/2019 Document Reviewed: 06/27/2017 Elsevier Patient Education 2019 CrowdTogether. Follow Up Care 07/23/2022 16:04:42 With:TANISHA GILL, Wayne Galicia, URL Address: [facility] [address] , [place] [address]- When: Unknown [facility] 10-29-2022 Hospital Discharge instructions Patient Education [...] urethra. Follow these instructions at home: Take bafy-ldd-abnzayv and prescription medicines only as told by [...] 09/30/2006 Document Revised: 08/25/2019 Document Reviewed: 11/04/2017 Bounce Exchange Patient Education 2020 [employer]ogether. Follow Up Care 09/04/2022 11:18:16 With:TANISHA GILL, Wayne Galicia, URL Address: [facility] [address] , [place] [address]- When: Unknown [facility] 09-21-2022 Note EXAMINATION: XR CHES T [...] authenticated by: SANIA CANELA Date: 2022-09-21 12:38 [facility] 06-25-2022 Hospital Discharge instructions Patient Education 06/25/2022 [...] including vitamins, herbs, eye drops, creams, and ozfm-mmk-qesrocj medicines. Any problems you or family members [...] 03/10/2007 Document Revised: 09/12/2018 Document Reviewed: 10/09/2017 [employer] Patient Education 2020 [employer]. Follow Up Care 02/16/2022 11:08:20 With:TANISHA GILL, Wayne Galicia, URL Address: [facility] [address] , [place] [address]- [phone] When: Unknown [facility] 02-16-2022 Hospital Discharge instructions Patient Education [...] who: Are older than age 65. Are -[place]. Are obese. Have a family history of [...] cells. Follow these instructions at home: Take vmns-qrv-ogrjeot and prescription medicines only as told by [...] 09/30/2006 Document Revised: 09/12/2018 Document Reviewed: 06/10/2017 [employer] Patient Education [employer] Follow Up Care 01/22/2022 16:42:55 With:TANISHA GILL, Wayne Galicia, URL Address: [facility] [address], [place] [address]- When:06/19/2022 Comments:w/ PSA [facility] 01-29-2022 Note EXAMINATION: XR CHES T [...] authenticated by: MAIKEL ESTEVEZ Date: 2022-01-29 13:48 [facility] Evaluation + Plan note Future Appointments Appointment Date:03/30/2022 08:30:00 AM Scheduled Provider:Wayne TRINIDAD MD Location:[facility] Appointment Type:URO Office Visit Appointment Date:06/25/2022 02:15:00 PM Scheduled Provider:Wayne TRINIDAD MD Location:[facility] Appointment Type:URO Office Visit Diagnostic Tests PendingPSA Total 02/16/22 [facility] Evaluation + Plan note [facility] Evaluation + Plan note Future Appointments Appointment Date:10/29/2022 01:30:00 PM Scheduled Provider:Wayne TRINIDAD MD Location:[facility] Appointment Type:URO Office Visit Appointment Date:01/14/2023 01:15:00 PM Scheduled Provider:Wayne TRINIDAD MD Location:[facility] Appointment Type:URO Office Visit [facility] Evaluation + Plan note Future Appointments Appointment Date:01/14/2023 01:15:00 PM Scheduled Provider:Wayne TRINIDAD MD Location:[facility] Appointment Type:URO Office Visit Appointment Date:02/04/2023 01:15:00 PM Scheduled Provider:Wayne TRINIDAD MD Location:[facility] Appointment Type:URO Office Visit Diagnostic Tests PendingPSA Total 10/29/22 [facility] Evaluation + Plan note Future Appointments Appointment Date:09/16/2023 01:45:00 PM Scheduled Provider:Wayne TRINIDAD MD Location:[facility] Appointment Type:URO Office Visit Diagnostic Tests PendingPSA Total 01/14/23 [facility] Evaluation + Plan note Future Appointments Appointment Date:03/23/2024 01:45:00 PM Scheduled Provider:Wayne TRINIDAD MD Location:[facility] Appointment Type:URO Office Visit Diagnostic Tests PendingPSA Total 09/16/23 [facility] Evaluation + Plan note Future Appointments Appointment Date:04/05/2025 01:15:00 PM Scheduled Provider:Wayne TRINIDAD MD Location:[facility] Appointment Type:URO Office Visit Diagnostic Tests PendingPSA Total 03/30/24 [facility] Hospital course Narrative No data available for this section [facility] Hospital Discharge instructions No data available for this section [facility] Progress note No data available for this section [facility] Reason for referral (narrative) Referred by: Wayne TRINIDAD MD [facility] Summary Purpose Family History No Family [...] section and content) DATE CREATED AUTHOR 04/01/2018 [facility] DATE CREATED AUTHOR AUTHOR'S ORGANIZ ATION 10/20/2021 [facility] DATE CREATED AUTHOR AUTHOR'S ORGANIZ ATION 01/01/2022 [facility] DATE CREATED AUTHOR AUTHOR'S ORGANIZ ATION 01/16/2023 [facility] DATE CREATED AUTHOR AUTHOR'S ORGANIZ ATION 01/19/2023 [facility] DATE CREATED AUTHOR AUTHOR'S ORGANIZ ATION 04/09/2023 [facility] DATE CREATED AUTHOR AUTHOR'S ORGANIZ ATION 04/09/2023 [employer] DATE CREATED AUTHOR AUTHOR'S ORGANIZ ATION 04/01/2024 [facility] Care Team (unrecognized sect ion and content) Personnel Name: ERNIE ELLIOTT JR, DO Address: [address] [place] [address] Personnel Name: ERNIE ELLIOTT JR, DO Address: Address: [address] [place] [address] Personnel Name: ERNIE ELLIOTT JR, DO Address: Address: [address] [place], [place] [id number] Personnel Name: ERNIE ELLIOTT JR, DO Address: Address: [address] [place] [address] Personnel Name: ERNIE ELLIOTT JR, DO Address: Address: [address] [place], [place] [id number] Personnel Name: ERNIE ELLIOTT JR, DO Address: Address: [address] [place] [address] FOR RECORDS PERTAINING TO PATIENTS WHO ARE [...] BE BASED ON THE PRIMARY CLINICAL RECORDS. [facility]. provides no warranty or guarantee of the accuracy or completeness of information in this document.
[2024-04-27] MEDS: TEMAZEPAM 15 MG CAPSULE PO (23:20)
[2024-04-27] MEDS: HYDROXYZINE PAMOATE 25 MG CAPSULE PO (23:20)
[2024-04-27] MEDS: ENOXAPARIN SODIUM 40 MG/0.4 ML SYRINGE SUBQ (23:20)
[2024-04-27] MEDS: INSULIN ASPART 300 UNIT/3 ML PEN SUBQ (23:21)
[2024-04-27 23:29] LABS: Glucometer 152 mg/dL (74-106)
[2024-04-28] VITALS (21 sets, daily range): BP systolic 123–165; BP diastolic 65–76; PULSE 78–140; TEMP 36.5–36.7; O2SAT 91–97
[2024-04-28] MEDS: METHYLPREDNISOLONE SOD SUCC PF 40 MG/ML VIAL INJ (03:23)
[2024-04-28] MEDS: IPRATROPIUM/ALBUTEROL SULFATE 3 ML AMPUL.NEB IH ×4 (05:12→20:40)
[2024-04-28 06:09] LABS: Basophils Percent Auto 0.2 % (0.2-2.0); Hematocrit 40.4 % (42.0-54.0); Hemoglobin 12.4 g/dL (14.0-18.0); Immature Granulocytes Abs Auto 0.02 10^3/uL (0.00-0.03); Immature Granulocytes Pct Auto 0.4 % (0.0-0.5); Lymphocytes Absolute Auto 0.3 10^3/uL (1.2-3.8); Lymphocytes Percent Auto 5.4 % (20.5-60.0); Mean Corpuscular HGB Conc 30.7 g/dL (29.9-35.2); Mean Corpuscular Hemoglobin 25.3 pg (25.9-34.0); Mean Corpuscular Volume 82.4 fL (80.0-94.0); Mean Platelet Volume 9.3 fL (9.5-13.5); Monocytes Absolute Auto 0.1 10^3/uL (0.3-0.8); Monocytes Percent Auto 1.5 % (1.7-12.0); Neutrophils Percent Auto 92.5 % (43.0-75.0); Platelet Count 221 10^3/uL (150-450); Red Cell Distribution Width 18.8 % (11.0-15.0); White Blood Count 5.4 10^3/uL (4.0-11.0)
[2024-04-28 06:24] LABS: Alanine Aminotransferase 40 U/L (16-63); Albumin Globulin Ratio 0.7; Alkaline Phosphatase 78 U/L (46-116); Anion Gap 12.7; Aspartate Amino Transferase 23 U/L (15-37); BUN Creatinine Ratio 12.6; Bilirubin Total 0.3 mg/dL (0.2-1.0); Calcium 8.9 mg/dL (8.5-10.1); Carbon Dioxide 26.9 mmol/L (21.0-32.0); Chloride 101 mmol/L (98-107); Estimated GFR (African America >60 (>=60); Estimated GFR (Non-African Ame 56 (>=60); Globulin 4.1 g/dL; Glucose 188 mg/dL (74-106); Potassium 4.6 mmol/L (3.5-5.1); Sodium 136 mmol/L (136-145); Total Protein 7.1 g/dL (6.4-8.2)
[2024-04-28] MEDS: METHYLPREDNISOLONE SOD SUCC PF 40 MG/ML VIAL 60 MG INJ ×3 (08:22→20:44)
[2024-04-28] MEDS: MONTELUKAST SODIUM 10 MG TABLET PO (08:23)
[2024-04-28] MEDS: ENOXAPARIN SODIUM 40 MG/0.4 ML SYRINGE SUBQ (08:23)
[2024-04-28] MEDS: FAMOTIDINE 20 MG TABLET 40 MG PO (08:23)
[2024-04-28] MEDS: EZETIMIBE 10 MG TABLET PO (08:23)
[2024-04-28] MEDS: CEFTRIAXONE 1,000 MG in 0.9 % SODIUM CHLORIDE 50 ML 100 MG IV (08:23)
[2024-04-28] MEDS: METFORMIN HCL 500 MG TABLET 1000 MG PO ×2 (08:23→21:48)
[2024-04-28] MEDS: THEOPHYLLINE 300 MG TAB.ER.12H PO ×2 (08:23→21:49)
[2024-04-28] MEDS: INSULIN ASPART 300 UNIT/3 ML PEN SUBQ ×3 (08:25→21:51)
--- NOTE | 2024-04-28 08:25 | P.HP_ITS ---
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 Patient was seen and evaluated in the emergency room found to have significant hypothermia, respiratory distress secondary to right middle lobe pneumonia When I saw patient up on the medical surgical floor had some mild conversational dyspnea but otherwise no complaints Opioid HPI Opioid Management Most Recent Pain and Opioid Data: Last Pain Assessment 04/28/24 09:00 Last ORT Total Score 0 04/27/24 22:19 Last ORT Risk Category Low Risk 04/27/24 22:19 PFSH PFSH Medical History Non-insulin dependent diabetes mellitus Primary hypertension ?I10 - Essential (primary) hypertension (ICD-10) Dyslipidemia ?E78.5 - Hyperlipidemia, unspecified (ICD-10) GERD without esophagitis ?K21.9 - Gastro-esophageal reflux disease without esophagitis (ICD-10) Diabetes ?E11.9 - Type 2 diabetes mellitus without complications (ICD-10) Fx wrist ?S62.109A - Fracture of unspecified carpal bone, unspecified wrist, initial e ncounter for closed fracture (ICD-10) Fracture, jaw ?S02.609A - Fracture of mandible, unspecified, initial encounter for closed fracture (ICD-10) Surgical History H/O cardiac catheterization ?Z98.890 - Other specified postprocedural states (ICD-10) History of tonsillectomy ?Z90.89 - Acquired absence of other organs (ICD-10) Family History Father Family history of myocardial infarction Family history of diabetes mellitus Grandmother Family history of cancer Aunt Family history of cancer Social History Within the past year, how often did you have a drink containing alcohol: never Score interpretation: A score less than 4 is consistent with normal alcohol consumption. Smoking status: Former smoker Non-prescribed substance use details: baby aspirin Previous occupational history: [employer] Known occupational exposures/hazards: No Highest level of school completed/degree received: high school graduate Are you now , , , , never or living with a partner: In a typical week, how many times do you talk on the telephone with family, friends, or neighbors: 3 or more times per week How often do you get together with friends or relatives: 3 or more times per week How often do you attend buddhism or pentecostalism services: never Do you belong to any clubs or organizations such as buddhism groups unions, [employer] or athletic groups, or school groups: no Total score: 2 Score interpretation: A score of greater than or equal to 2 indicates the lowest level of social isolation. Little interest or pleasure in doing things: not at all Feeling down, depressed, or hopeless: not at all Feel stressed/tense/nervous/anxious/difficulty sleeping: rather much Due to disability, difficulty making decisions: No Do you think of yourself as: straight/heterosexual Gender Identity: male Meds Home Medications and Allergies Home Medications ?Medication ?Instructions ?Recorded ?Confirmed ?Type ergocalciferol (vitamin D2) 1,250 50,000 unit PO QWEEK 03/27/24 04/27/24 History mcg (50,000 unit) capsule ezetimibe 10 mg tablet 10 mg PO QDAY 03/27/24 04/27/24 History famotidine 40 mg tablet 40 mg PO QDAY 03/27/24 04/27/24 History fluticasone fur. 100 mcg-umeclid 1 inh inhalation Q24H 03/27/24 04/27/24 History 62.5 mcg-vilant 25 mcg inhalat.powder (Trelegy Ellipta) metformin 1,000 mg tablet 1,000 mg PO BID 03/27/24 04/27/24 History montelukast 10 mg tablet 10 mg PO QDAY 03/27/24 04/27/24 History roflumilast 500 mcg tablet 500 mcg PO QDAY 03/27/24 04/27/24 History rosuvastatin 40 mg tablet 40 mg PO .QHS 03/27/24 04/27/24 History spironolactone 50 mg tablet 50 mg PO QDAY 03/27/24 04/27/24 History hydroxyzine pamoate 25 mg capsule 25 mg PO TID PRN Anxiety 10 days 03/29/24 04/27/24 Rx #30 caps levalbuterol HCl 0.63 mg/3 mL 0.63 mg (3 mL) inhalation Q6H PRN 03/29/24 0 04/27/24 Rx solution for nebulization Shortness Of Breath Or Wheezing 7 days #72 mL Allergies Allergy/AdvReac Type Severity Reaction Status Date / Time No Known Drug Allergies Allergy Verified 04/27/24 19:09 Exam Constitutional Vital Signs, click to edit/add: Last Vital Signs Temp 98.0 F 04/28/24 03:27 Pulse 98 H 04/28/24 06:00 Resp 20 04/28/24 05:17 BP 123/65 04/28/24 03:27 Pulse Ox 91 L 04/28/24 05:17 O2 Del Method Nasal Cannula 04/28/24 05:17 O2 Flow Rate 1 04/28/24 05:17 Documenting provider has reviewed patient's vital signs: yes Common normals: apparent distress (Mild conversational dyspnea at rest) Chest Common normals: inspection of chest normal Respiratory Common normals: abnormal respiratory effort (mild conversational dyspnea at rest) Auscultation: rhonchi and wheezes Results Labs Labs: Short CBC 04/27/24 04/28/24 Range/Units 19:20 05:36 WBC 8.1 5.4 (4.0-11.0) 10^3/uL Hgb 12.8 L 12.4 L (14.0-18.0) g/dL Hct 40.5 L 40.4 L (42.0-54.0) % Plt Count 240 221 (150-450) 10^3/uL BMP 04/27/24 04/28/24 19:20 05:36 Sodium 137 136 Potassium 4.3 4.6 Chloride 101 101 Carbon Dioxide 29.1 26.9 BUN 16.0 16.0 Creatinine 1.34 H 1.27 Glucose 203 H 188 H Calcium 9.1 8.9 Liver Function 04/27/24 04/28/24 Range/Units 19:20 05:36 Total Bilirubin 0.5 0.3 (0.2-1.0) mg/dL AST 30 23 (15-37) U/L ALT 43 40 (16-63) U/L Alkaline Phosphatase 85 78 (46-116) U/L Albumin 3.0 L 3.0 L (3.4-5.0) g/dL ABG ABG results: 04/27/24 19:20 VBG pH 7.460 H VBG pCO2 42.8 Assessment and Plan Assessment and Plan (1) COPD exacerbation: (2) Non-insulin dependent diabetes mellitus: Plan On admission: Hypothermic with a temperature of 96.7, sinus tachycardia, respiratory distress secondary to right lower lobe pneumonia causing acute exacerbation of oxygen dependent COPD resulting in sepsis-consult to pulmonology, steroids, antibiotics, aerosol treatments. Try to obtain sputum culture. Moderate protein calorie malnutrition-diet management NIDDM-insulin sliding scale Acute kidney injury-baseline creatinine of 1.06, creatinine on admission 1.34 which resulted in 126.4% above baseline. Adjust medications and IV fluids GERD-continue with home medications Admission status: Patient with a recent discharge from the hospital post recent evaluation from his consulting services project manager so failed outpatient treatment, medically necessary treatment will span 2 midnights. Inpatient status.
[2024-04-28] MEDS: ROFLUMILAST 500 MCG TABLET PO (08:30)
--- NOTE | 2024-04-28 08:34 | CM.NOTE ---
Rounds made with Dr. Mesa. Continue with current treatment plan.
--- NOTE | 2024-04-28 10:49 | SWNOTE1 ---
SW met with pt to discuss dc needs. Pt lives at home with his . Pt does not use a walker or cane at home, he is independent. Pt [facility] He voiced he thinks it was for night time only, but has been wearing it continuously recently. Pt does not have any anticipated discharge needs at this time. SW to follow as needed. Important Message from Medicare reviewed and discussed with patient. Pt. verbalized understanding and signed the form. Original given to patient and copy placed in patient?s chart.
--- NOTE | 2024-04-28 11:05 | SWNOTE1 ---
NANCY called Joan and his script is for 2 liters continuous. NANCY let nursing know.
[2024-04-28] MEDS: BUDESONIDE 0.5 MG/2 ML AMPULE NEB IH ×2 (11:07→20:41)
[2024-04-28 11:08] LABS: Glucometer 164 mg/dL (74-106)
[2024-04-28 16:19] LABS: Glucometer 198 mg/dL (74-106)
--- NOTE | 2024-04-28 17:15 | PM.PLCN ---
History of Present Illness History of Present Illness Consult date: 04/28/24 Requesting physician: Juan Diego Mesa Chief complaint: COPD PROBLEMS EXACERBATION Narrative: 69yo male presents to [facility] with worsening dyspnea. I had just seen him in the office last week (04/22/2024) for F/U from a prior hospitalization for AECOPD in March 2024. He was feeling better, but not quite back to baseline. The plan was to repeat PFT to see if he were a candidate for endobronchial valves (he previously was too good for them). On arrival to the ER, a CXR revealed a new RLL infiltrate. He was started on antibiotics and admitted. This morning, he appears to have an increased work of breathing. He feels about the same as on admission. Review of Systems ROS Narrative Dyspnea, cough. Afebrile. Status of ROS 10 or more systems reviewed and unremarkable except as noted in history and below [facility] Medical History Non-insulin dependent diabetes mellitus Primary hypertension ?I10 - Essential (primary) hypertension (ICD-10) Dyslipidemia ?E78.5 - Hyperlipidemia, unspecified (ICD-10) GERD without esophagitis ?K21.9 - Gastro-esophageal reflux disease without esophagitis (ICD-10) Diabetes ?E11.9 - Type 2 diabetes mellitus without complications (ICD-10) Fx wrist ?S62.109A - Fracture of unspecified carpal bone, unspecified wrist, initial encounter for closed fracture (ICD-10) Fracture, jaw ?S02.609A - Fracture of mandible, unspecified, initial encounter for closed fracture (ICD-10) Surgical History H/O cardiac catheterization ?Z98.890 - Other specified postprocedural states (ICD-10) History of tonsillectomy ?Z90.89 - Acquired absence of other organs (ICD-10) Family History Father Family history of myocardial infarction Family history of diabetes mellitus Grandmother Family history of cancer Aunt Family history of cancer Social History Within the past year, how often did you have a drink containing alcohol: never Score interpretation: A score less than 4 is consistent with normal alcohol consumption. Smoking status: Former smoker Non-prescribed substance use details: baby aspirin Previous occupational history: [employer] Known occupational exposures/hazards: No Highest level of school completed/degree received: high school graduate Are you now , , , , never or living with a partner: In a typical week, how many times do you talk on the telephone with family, friends, or neighbors: 3 or more times per week How often do you get together with friends or relatives: 3 or more times per week How often do you attend synagogue or taoist services: never Do you belong to any clubs or organizations such as synagogue groups unions, [employer] or athletic groups, or school groups: no Total score: 2 Score interpretation: A score of greater than or equal to 2 indicates the lowest level of social isolation. Little interest or pleasure in doing things: not at all Feeling down, depressed, or hopeless: not at all Feel stressed/tense/nervous/anxious/difficulty sleeping: rather much Due to disability, difficulty making decisions: No Do you think of yourself as: straight/heterosexual Gender Identity: male Meds Home Medications and Allergies Home Medications ?Medication ?Instructions ?Recorded ?Confirmed ?Type ergocalciferol (vitamin D2) 1,250 50,000 unit PO QWEEK 03/27/24 04/27/24 History mcg (50,000 unit) capsule ezetimibe 10 mg tablet 10 mg PO QDAY 03/27/24 04/27/24 History famotidine 40 mg tablet 40 mg PO QDAY 03/27/24 04/27/24 History fluticasone fur. 100 mcg-umeclid 1 inh inhalation Q24H 03/27/24 04/27/24 History 62.5 mcg-vilant 25 mcg inhalat.powder (Trelegy Ellipta) metformin 1,000 mg tablet 1,000 mg PO BID 03/27/24 04/27/24 History montelukast 10 mg tablet 10 mg PO QDAY 03/27/24 04/27/24 History roflumilast 500 mcg tablet 500 mcg PO QDAY 03/27/24 04/27/24 History rosuvastatin 40 mg tablet 40 mg PO .QHS 03/27/24 04/27/24 History spironolactone 50 mg tablet 50 mg PO QDAY 03/27/24 04/27/24 History hydroxyzine pamoate 25 mg capsule 25 mg PO TID PRN Anxiety 10 days 03/29/24 04/27/24 Rx #30 caps levalbuterol HCl 0.63 mg/3 mL 0.63 mg (3 mL) inhalation Q6H PRN 03/29/24 04/27/24 Rx solution for nebulization Shortness Of Breath Or Wheezing 7 days #72 mL Allergies Allergy/AdvReac Type Severity Reaction Status Date / Time No Known Drug Allergies Allergy Verified 04/27/24 19:09 Exam Constitutional Vital Signs, click to edit/add: Last Vital Signs Temp 97.8 F 04/28/24 15:28 Pulse 106 H 04/28/24 16:24 Resp 16 04/28/24 16:24 BP 139/66 04/28/24 15:28 Pulse Ox 96 04/28/24 16:24 O2 Del Method Nasal Cannula 04/28/24 16:24 O2 Flow Rate 2 04/28/24 16:24 Documenting provider has reviewed patient's vital signs: yes General appearance: cooperative HENMT Other: Mallampati IV. Upper dentures. Poor lower dentition. Chest Other: Increased A-P diameter Respiratory Other: Mildly increased work of breathing. Diminished breath sounds with some expiratory wheezes, coarse in the right base. Cardio Other: Tachycardic (100's) with a regular rhythm GI Inspection: normal to inspection Extremity Common normals: normal to inspection Neuro Motor exam: no tremor noted Psych Attitude: calm and engaged Results Laboratory Findings ABG, PT/INR, D-dimer: PT/INR, D-dimer PT 10.4 sec (9.0-11.6) 04/27/24 19:20 INR 0.98 04/27/24 19:20 Abnormal lab findings: Abnormal Labs 04/27/24 04/27/24 04/28/24 19:20 23:18 05:36 Hgb 12.8 L 12.4 L Hct 40.5 L 40.4 L MCH 25.8 L 25.3 L RDW 18.6 H 18.8 H MPV 9.3 L Neut % (Auto) 78.8 H 92.5 H Lymph % (Auto) 13.6 L 5.4 L Stafford % (Auto) 1.5 L Eos % (Auto) 0.0 L Baso % (Auto) 0.1 L Lymph # (Auto) 1.1 L 0.3 L Stafford # (Auto) 0.1 L VBG pH 7.460 H Creatinine 1.34 H Est GFR (Non-Af Amer) 53 L 56 L Glucose 203 H 188 H Albumin 3.0 L 3.0 L POC Glucose 152 H 04/28/24 04/28/24 11:07 16:17 Hgb Hct MCH RDW MPV Neut % (Auto) Lymph % (Auto) Stafford % (Auto) Eos % (Auto) Baso % (Auto) Lymph # (Auto) Stafford # (Auto) VBG pH Creatinine Est GFR (Non-Af Amer) Glucose Albumin POC Glucose 164 H 198 H Assessment and Plan Assessment and Plan (1) COPD exacerbation: Assessment and Plan: 1. Healthcare associated pneumonia. New RLL infiltrate, previously admitted within the past ~32 days with AECOPD. Continue with current antibiotics, monitor for improvement. 2. Acute exacerbation of COPD. Patient has underlying centrilobular emphysema. Options outpatient were dwindling, he is not in a condition to have PFT done within the next several weeks. Medication options are limited to theophylline and prednisone daily. After discussion, patient voiced he wanted to try theophylline. Discussed potential adverse effects and the need to draw levels. Starting him on theophylline 300mg BID - obtain theophylline level tomorrow. 3. Chronic hypoxic respiratory failure. Baseline O2 is 2L/min. Of note, he was 87% on RA in the office last week for me - he did not bring his O2 with him. 4. ADRIAN. Non-compliant with PAP. 5. History of tobacco abuse. Quit 2017. His next LDCT is due 10/2024.
[2024-04-28 19:49] LABS: Glucometer 294 mg/dL (74-106)
[2024-04-28] MEDS: LEVOFLOXACIN IN DEXTROSE 5 % 750 MG/150 ML IV.SOLN 100 MG IV (22:59)
[2024-04-29] VITALS (24 sets, daily range): BP systolic 146–166; BP diastolic 68–81; PULSE 91–146; TEMP 36.3–36.7; O2SAT 93–97
[2024-04-29 01:54] LABS: Glucometer 137 mg/dL (74-106)
--- NOTE | 2024-04-29 01:59 | XR_ITS ---
The [address] [address] Patient Name: SHERON ERAZO MRN: [id number] date: 1955 Sex: M Assigned Patient Location: [place] Current Patient Location: [place] Accession/Order Number: [id number] Exam Date: 04/29/2024 02:12 Report Date: 04/29/2024 05:16 At the request of: ISIS VIZCAINO Procedure: XR chest 1V EXAM: XR chest 1V HISTORY: shortness of breath COMPARISON: 04/27/2024 TECHNIQUE: AP portable erect FINDINGS: LUNGS: The right lung is clear. Minimal linear opacity in the left lung base, atelectasis favored VASCULATURE: No increased pulmonary vasculature. PLEURA: No pneumothorax, effusion, or pleural thickening. CARDIAC: No cardiomegaly or cardiac silhouette abnormality. MEDIASTINUM: No visible mass or adenopathy. BONES: No fracture or visible bone lesion. OTHER: Negative. XR/XR chest 1V IMPRESSION: Left basilar atelectasis Electronically authenticated by: SANIA CANELA Date: 04/29/2024 05:16
[2024-04-29] MEDS: METHYLPREDNISOLONE SOD SUCC PF 40 MG/ML VIAL 60 MG INJ ×4 (02:24→21:19)
[2024-04-29] MEDS: HYDROXYZINE PAMOATE 25 MG CAPSULE PO ×2 (02:24→14:47)
[2024-04-29] MEDS: IPRATROPIUM/ALBUTEROL SULFATE 3 ML AMPUL.NEB IH (05:05)
[2024-04-29] MEDS: CEFTRIAXONE 1,000 MG in 0.9 % SODIUM CHLORIDE 50 ML 100 MG IV (05:13)
[2024-04-29 05:37] LABS: Basophils Percent Auto 0.1 % (0.2-2.0); Hematocrit 38.8 % (42.0-54.0); Immature Granulocytes Abs Auto 0.09 10^3/uL (0.00-0.03); Immature Granulocytes Pct Auto 0.8 % (0.0-0.5); Lymphocytes Absolute Auto 0.5 10^3/uL (1.2-3.8); Mean Corpuscular HGB Conc 30.9 g/dL (29.9-35.2); Mean Corpuscular Hemoglobin 25.5 pg (25.9-34.0); Mean Corpuscular Volume 82.4 fL (80.0-94.0); Mean Platelet Volume 9.2 fL (9.5-13.5); Monocytes Absolute Auto 0.4 10^3/uL (0.3-0.8); Monocytes Percent Auto 3.3 % (1.7-12.0); Neutrophils Absolute Auto 10.6 10^3/uL (1.4-6.5); Neutrophils Percent Auto 91.8 % (43.0-75.0); Platelet Count 232 10^3/uL (150-450); Red Blood Count 4.71 10^6/uL (4.70-6.10); Red Cell Distribution Width 19.2 % (11.0-15.0); White Blood Count 11.5 10^3/uL (4.0-11.0)
[2024-04-29 05:55] LABS: Theophylline 8.5 ug/mL (10.0-20.0)
[2024-04-29 05:58] LABS: Alanine Aminotransferase 31 U/L (16-63); Albumin Globulin Ratio 0.8; Alkaline Phosphatase 72 U/L (46-116); Anion Gap 11.3; Aspartate Amino Transferase 17 U/L (15-37); BUN Creatinine Ratio 19.4; Bilirubin Total 0.2 mg/dL (0.2-1.0); Calcium 9.1 mg/dL (8.5-10.1); Carbon Dioxide 27.3 mmol/L (21.0-32.0); Chloride 100 mmol/L (98-107); Estimated GFR (African America >60 (>=60); Estimated GFR (Non-African Ame 58 (>=60); Globulin 3.9 g/dL; Glucose 138 mg/dL (74-106); Potassium 4.6 mmol/L (3.5-5.1); Sodium 134 mmol/L (136-145); Total Protein 6.9 g/dL (6.4-8.2)
[2024-04-29] MEDS: ONDANSETRON PF 4 MG/2 ML VIAL IV (06:13)
--- NOTE | 2024-04-29 08:31 | CM.NOTE ---
Rounds made with Dr. Mesa. Plan to change HHN medication to Xopenex. No discharge today.
--- NOTE | 2024-04-29 08:32 | P.PN_ITS ---
Progress Note: Subjective Subjective Interval history: Patient not improved today, actually felt worse overnight., Worse than he did when he got admitted. Case discussed with pulmonology. Exam Constitutional Vital Signs, click to edit/add: Last Vital Signs Temp 97.3 F L 04/29/24 07:31 Pulse 146 H 04/29/24 08:00 Resp 18 04/29/24 07:31 BP 150/81 H 04/29/24 07:31 Pulse Ox 97 04/29/24 07:31 O2 Del Method Nasal Cannula 04/29/24 07:31 O2 Flow Rate 2 04/29/24 05:07 Documenting provider has reviewed patient's vital signs: yes General appearance: cooperative HENMT Other: Mallampati IV. Upper dentures. Poor lower dentition. Chest Other: Increased A-P diameter Respiratory Common normals: normal respiratory effort (Somewhat labored breathing) and no retractions Auscultation: rhonchi and diminished lung sounds Other: Mildly increased work of breathing. Diminished breath sounds with some expiratory wheezes, coarse in the right base. Cardio Common normals: regular rate and regular rhythm Other: Tachycardic (100's) with a regular rhythm GI Inspection: normal to inspection Extremity Common normals: normal to inspection Neuro Motor exam: no tremor noted Psych Attitude: calm and engaged Progress Note: Objective Labs Labs: Short CBC 04/29/24 Range/Units 04:50 WBC 11.5 H (4.0-11.0) 10^3/uL Hgb 12.0 L (14.0-18.0) g/dL Hct 38.8 L (42.0-54.0) % Plt Count 232 (150-450) 10^3/uL BMP 04/29/24 04:50 Sodium 134 L Potassium 4.6 Chloride 100 Carbon Dioxide 27.3 BUN 24.0 H Creatinine 1.24 Glucose 138 H Calcium 9.1 Liver Function 04/29/24 Range/Units 04:50 Total Bilirubin 0.2 (0.2-1.0) mg/dL AST 17 (15-37) U/L ALT 31 (16-63) U/L Alkaline Phosphatase 72 (46-116) U/L Albumin 3.0 L (3.4-5.0) g/dL Progress Note: A&P Assessment and Plan (1) COPD exacerbation: Plan On admission: Hypothermic with a temperature of 96.7, sinus tachycardia, respiratory distress secondary to right lower lobe pneumonia causing acute exacerbation of oxygen dependent COPD resulting in sepsis-consult to pulm onology, steroids, antibiotics, aerosol treatments. Try to obtain sputum culture. Significant tachycardia overnight, changing to Xopenex. Moderate protein calorie malnutrition-diet management NIDDM-insulin sliding scale Acute kidney injury-stable GERD-continue with home medications Admission status: Patient with a recent discharge from the hospital post recent evaluation from his laboratory chief so failed outpatient treatment, medically nece ssary treatment will span 2 midnights. Inpatient status. Likely here least 2 more days with patient's condition deteriorating overnight. ?
[2024-04-29] MEDS: THEOPHYLLINE 300 MG TAB.ER.12H PO ×2 (08:44→21:19)
[2024-04-29] MEDS: ROFLUMILAST 500 MCG TABLET PO (08:44)
[2024-04-29] MEDS: FAMOTIDINE 20 MG TABLET 40 MG PO (08:44)
[2024-04-29] MEDS: METFORMIN HCL 500 MG TABLET 1000 MG PO ×2 (08:44→21:19)
[2024-04-29] MEDS: HYDRALAZINE HCL 25 MG TABLET PO ×2 (08:44→21:19)
[2024-04-29] MEDS: ENOXAPARIN SODIUM 40 MG/0.4 ML SYRINGE SUBQ (08:45)
[2024-04-29] MEDS: EZETIMIBE 10 MG TABLET PO (08:45)
[2024-04-29] MEDS: MONTELUKAST SODIUM 10 MG TABLET PO (08:45)
[2024-04-29] MEDS: LEVALBUTEROL HCL 0.63 MG/3 ML VIAL.NEB IH ×3 (11:16→22:45)
[2024-04-29] MEDS: BUDESONIDE 0.5 MG/2 ML AMPULE NEB IH ×2 (11:16→22:45)
[2024-04-29] MEDS: IPRATROPIUM BROMIDE 0.5 MG/2.5 ML VIAL.NEB IH ×3 (11:16→22:45)
[2024-04-29 11:26] LABS: Glucometer 159 mg/dL (74-106)
--- NOTE | 2024-04-29 12:46 | PM.PLPN ---
Progress Note: A&P Assessment and Plan (1) COPD exacerbation: Assessment and Plan: 1. Healthcare associated pneumonia. CXR 04/29/2024 shows improvement of RLL infiltrate. Continue antibiotics. 2. Acute exacerbation of COPD. States more dyspneic today, but breath sounds are improved as well as CXR. Question more anxiety than actual COPD - he is on a few medications which could affect him such as steroids and beta agonists. Unclear if theophylline is contributing to it as well - level is 8.5 after 2 doses (therapeutic range ~10-20, toxic >20). Suggest keeping with theophylline for now to observe (as only other option is prednisone daily), recheck theophylline level tomorrow. Albuterol changed to levalbuterol which may help some. 3. Chronic hypoxic respiratory failure. Baseline O2 is 2L/min and saturations are maintained on this. 4. ADRIAN. Non-compliant with PAP. 5. History of tobacco abuse. Quit 2017. His next LDCT is due 10/2024. 6. Anxiety. Use hydroxyzine. Subjective Subjective Interval history: Patient states he had a rough night. He got up to use the restroom and he had a difficult time breathing. He did not have any desaturations during this time. It seems to be more of an anxiety or panic attack. When I came in this morning, he appeared short of breath, but his breath sounds were improved compared to yesterday as well as his CXR. Theophylline level was 8.5 this morning. Exam Constitutional Vital Signs, click to edit/add: Last Vital Signs Temp 97.3 F L 04/29/24 07:31 Pulse 109 H 04/29/24 11:56 Resp 18 04/29/24 11:56 BP 146/70 H 04/29/24 11:56 Pulse Ox 93 L 04/29/24 11:56 O2 Del Method Nasal Cannula 04/29/24 11:56 O2 Flow Rate 2 04/29/24 11:19 Documenting provider has reviewed patient's vital signs: yes General appearance: cooperative HENMD Other: Mallampati IV. Upper dentures. Poor lower dentition. No candidiasis. Chest Other: Increased A-P diameter Respiratory Other: Mildly increased work of breathing - appeared more anxious. Improved breath sounds today throughout, diminished some in the right base - coarse. Cardio Other: Tachycardic (100's) with a regular rhythm GI Inspection: normal to inspection Extremity Common normals: normal to inspection Neuro Motor exam: no tremor noted Psych Other: Appears anxious
[2024-04-29 16:02] LABS: Glucometer 174 mg/dL (74-106)
[2024-04-29] MEDS: INSULIN ASPART 300 UNIT/3 ML PEN SUBQ ×2 (16:25→21:20)
[2024-04-29 20:48] LABS: Glucometer 247 mg/dL (74-106)
[2024-04-29] MEDS: LEVOFLOXACIN IN DEXTROSE 5 % 750 MG/150 ML IV.SOLN 100 MG IV (22:10)
[2024-04-30] VITALS (25 sets, daily range): BP systolic 154–172; BP diastolic 76–89; PULSE 80–114; TEMP 36.4–36.8; O2SAT 91–98
[2024-04-30] MEDS: METHYLPREDNISOLONE SOD SUCC PF 40 MG/ML VIAL 60 MG INJ ×2 (03:59→08:10)
[2024-04-30] MEDS: LEVALBUTEROL HCL 0.63 MG/3 ML VIAL.NEB IH ×4 (04:39→23:09)
[2024-04-30] MEDS: IPRATROPIUM BROMIDE 0.5 MG/2.5 ML VIAL.NEB IH ×4 (04:39→23:09)
[2024-04-30] MEDS: CEFTRIAXONE 1,000 MG in 0.9 % SODIUM CHLORIDE 50 ML 100 MG IV (05:08)
[2024-04-30 05:51] LABS: Basophils Percent Auto 0.1 % (0.2-2.0); Hematocrit 39.5 % (42.0-54.0); Hemoglobin 12.2 g/dL (14.0-18.0); Immature Granulocytes Abs Auto 0.09 10^3/uL (0.00-0.03); Immature Granulocytes Pct Auto 0.9 % (0.0-0.5); Lymphocytes Absolute Auto 0.5 10^3/uL (1.2-3.8); Mean Corpuscular HGB Conc 30.9 g/dL (29.9-35.2); Mean Corpuscular Hemoglobin 25.6 pg (25.9-34.0); Mean Corpuscular Volume 82.8 fL (80.0-94.0); Mean Platelet Volume 9.2 fL (9.5-13.5); Monocytes Absolute Auto 0.3 10^3/uL (0.3-0.8); Monocytes Percent Auto 2.9 % (1.7-12.0); Neutrophils Absolute Auto 9.5 10^3/uL (1.4-6.5); Neutrophils Percent Auto 91.1 % (43.0-75.0); Platelet Count 240 10^3/uL (150-450); Red Blood Count 4.77 10^6/uL (4.70-6.10); Red Cell Distribution Width 19.4 % (11.0-15.0); White Blood Count 10.4 10^3/uL (4.0-11.0)
[2024-04-30 06:08] LABS: Theophylline 9.1 ug/mL (10.0-20.0)
[2024-04-30 06:18] LABS: Alanine Aminotransferase 32 U/L (16-63); Albumin Globulin Ratio 0.8; Albumin Level 3.1 g/dL (3.4-5.0); Alkaline Phosphatase 72 U/L (46-116); Anion Gap 14.2; Aspartate Amino Transferase 20 U/L (15-37); BUN Creatinine Ratio 26.4; Bilirubin Total 0.3 mg/dL (0.2-1.0); Calcium 9.4 mg/dL (8.5-10.1); Carbon Dioxide 29.6 mmol/L (21.0-32.0); Chloride 98 mmol/L (98-107); Estimated GFR (African America >60 (>=60); Estimated GFR (Non-African Ame 57 (>=60); Globulin 3.9 g/dL; Glucose 149 mg/dL (74-106); Potassium 4.8 mmol/L (3.5-5.1); Sodium 137 mmol/L (136-145)
[2024-04-30 06:30] LABS: Theophylline 10.3 ug/mL (10.0-20.0)
[2024-04-30] MEDS: MONTELUKAST SODIUM 10 MG TABLET PO (08:08)
[2024-04-30] MEDS: ROFLUMILAST 500 MCG TABLET PO (08:08)
[2024-04-30] MEDS: THEOPHYLLINE 300 MG TAB.ER.12H PO ×2 (08:09→22:37)
[2024-04-30] MEDS: METFORMIN HCL 500 MG TABLET 1000 MG PO ×2 (08:09→22:38)
[2024-04-30] MEDS: EZETIMIBE 10 MG TABLET PO (08:09)
[2024-04-30] MEDS: FAMOTIDINE 20 MG TABLET 40 MG PO (08:09)
[2024-04-30] MEDS: HYDRALAZINE HCL 25 MG TABLET PO ×2 (08:09→22:38)
[2024-04-30] MEDS: ENOXAPARIN SODIUM 40 MG/0.4 ML SYRINGE SUBQ (08:10)
--- NOTE | 2024-04-30 09:21 | P.PN_ITS ---
Progress Note: Subjective Subjective Interval history: Patient seems more comfortable with his breathing, but states he still has some significant dyspnea with any activity. Much worse than his baseline. Exam Constitutional Vital Signs, click to edit/add: Last Vital Signs Temp 97.7 F 04/30/24 07:21 Pulse 105 H 04/30/24 07:56 Resp 20 04/30/24 07:21 BP 159/81 H 04/30/24 07:21 Pulse Ox 96 04/30/24 07:21 O2 Del Method Nasal Cannula 04/30/24 07:21 O2 Flow Rate 2 04/30/24 07:21 Documenting provider has reviewed patient's vital signs: yes General appearance: cooperative HENMT Other: Mallampati IV. Upper dentures. Poor lower dentition. Chest Other: Increased A-P diameter Respiratory Common normals: normal respiratory effort (Somewhat labored breathing) and no retractions Auscultation: rhonchi (Better air than yesterday) and diminished lung sounds Other: Mildly increased work of breathing. Diminished breath sounds with some expiratory wheezes, coarse in the right base. Cardio Common normals: regular rate and regular rhythm Other: Tachycardic (100's) with a regular rhythm GI Inspection: normal to inspection Extremity Common normals: normal to inspection Neuro Motor exam: no tremor noted Psych Attitude: calm and engaged Progress Note: Objective Labs Labs: Short CBC 04/30/24 Range/Units 04:52 WBC 10.4 (4.0-11.0) 10^3/uL Hgb 12.2 L (14.0-18.0) g/dL Hct 39.5 L (42.0-54.0) % Plt Count 240 (150-450) 10^3/uL BMP 04/30/24 04:52 Sodium 137 Potassium 4.8 Chloride 98 Carbon Dioxide 29.6 BUN 33.0 H Creatinine 1.25 Glucose 149 H Calcium 9.4 Liver Function 04/30/24 Range/Units 04:52 Total Bilirubin 0.3 (0.2-1.0) mg/dL AST 20 (15-37) U/L ALT 32 (16-63) U/L Alkaline Phosphatase 72 (46-116) U/L Albumin 3.1 L (3.4-5.0) g/dL Progress Note: A&P Assessment and Plan (1) COPD exacerbation: Plan On admission: Hypothermic with a temperature of 96.7, sinus tachycardia, respiratory distress secondary to right lower lobe pneumonia causing acute exacerbation of oxygen dependent COPD resulting in sepsis-consult to pulmonology, steroids, antibiotics, aerosol treatments. Overall improved today, but still has significant dyspnea with any activity and likely becoming hypoxic with activity. He is on 3 L currently, his home oxygen level is 2 so not back to baseline. Continue with current management is overall is improved Moderate protein calorie malnutrition-diet management NIDDM-insulin sliding scale Sugar elevated today, will adjust medications Acute kidney injury-stable GERD-continue with home medications Admission status: Patient with a recent discharge from the hospital post recent evaluation from his automobile sales consultant so failed outpatient treatment, medically necessary treatment will span 2 midnights. Inpatient status. Likely here least 2 more days with patient's condition deteriorating overnight. ?
--- NOTE | 2024-04-30 09:40 | CM.NOTE ---
07:[address] Mesa[address]. Msea discussed labs and medications. Slim verbalized understanding. States he still feels rough. He wears O2 @ home @ 2 1/2 L currently on 3L. No discharge planned today.
[2024-04-30] MEDS: BUDESONIDE 0.5 MG/2 ML AMPULE NEB IH ×2 (10:13→23:09)
[2024-04-30] MEDS: HYDROXYZINE PAMOATE 25 MG CAPSULE PO ×2 (10:41→22:38)
[2024-04-30 11:18] LABS: Glucometer 182 mg/dL (74-106)
[2024-04-30] MEDS: METHYLPREDNISOLONE SOD SUCC PF 40 MG/ML VIAL INJ ×2 (14:16→22:37)
[2024-04-30 16:06] LABS: Glucometer 184 mg/dL (74-106)
[2024-04-30 20:40] LABS: Glucometer 213 mg/dL (74-106)
[2024-04-30] MEDS: LEVOFLOXACIN IN DEXTROSE 5 % 750 MG/150 ML IV.SOLN 100 MG IV (22:37)
[2024-04-30] MEDS: INSULIN ASPART 300 UNIT/3 ML PEN SUBQ (22:38)
[2024-05-01] VITALS (12 sets, daily range): BP systolic 147–169; BP diastolic 75–83; PULSE 80–143; TEMP 36.4–36.7; O2SAT 94–95
[2024-05-01] MEDS: METHYLPREDNISOLONE SOD SUCC PF 40 MG/ML VIAL INJ ×2 (04:09→10:19)
[2024-05-01] MEDS: LEVALBUTEROL HCL 0.63 MG/3 ML VIAL.NEB IH ×2 (04:22→10:54)
[2024-05-01] MEDS: IPRATROPIUM BROMIDE 0.5 MG/2.5 ML VIAL.NEB IH ×2 (04:22→10:54)
[2024-05-01] MEDS: CEFTRIAXONE 1,000 MG in 0.9 % SODIUM CHLORIDE 50 ML 100 MG IV (05:13)
[2024-05-01 05:44] LABS: Hematocrit 37.8 % (42.0-54.0); Hemoglobin 11.7 g/dL (14.0-18.0); Immature Granulocytes Pct Auto 1.2 % (0.0-0.5); Lymphocytes Absolute Auto 0.5 10^3/uL (1.2-3.8); Lymphocytes Percent Auto 5.7 % (20.5-60.0); Mean Corpuscular Hemoglobin 25.4 pg (25.9-34.0); Mean Corpuscular Volume 82.2 fL (80.0-94.0); Monocytes Absolute Auto 0.5 10^3/uL (0.3-0.8); Monocytes Percent Auto 5.5 % (1.7-12.0); Neutrophils Absolute Auto 7.2 10^3/uL (1.4-6.5); Neutrophils Percent Auto 87.6 % (43.0-75.0); Platelet Count 214 10^3/uL (150-450); Red Cell Distribution Width 19.4 % (11.0-15.0); White Blood Count 8.2 10^3/uL (4.0-11.0)
[2024-05-01 06:04] LABS: Theophylline 10.3 ug/mL (10.0-20.0)
[2024-05-01 06:12] LABS: Alanine Aminotransferase 54 U/L (16-63); Albumin Globulin Ratio 0.8; Albumin Level 2.9 g/dL (3.4-5.0); Alkaline Phosphatase 65 U/L (46-116); Anion Gap 12.3; Aspartate Amino Transferase 30 U/L (15-37); BUN Creatinine Ratio 29.8; Bilirubin Total 0.3 mg/dL (0.2-1.0); Carbon Dioxide 28.5 mmol/L (21.0-32.0); Chloride 99 mmol/L (98-107); Estimated GFR (African America >60 (>=60); Estimated GFR (Non-African Ame >60 (>=60); Globulin 3.6 g/dL; Glucose 138 mg/dL (74-106); Potassium 4.8 mmol/L (3.5-5.1); Sodium 135 mmol/L (136-145); Total Protein 6.5 g/dL (6.4-8.2)
[2024-05-01] MEDS: HYDRALAZINE HCL 25 MG TABLET PO (08:40)
[2024-05-01] MEDS: FAMOTIDINE 20 MG TABLET 40 MG PO (08:40)
[2024-05-01] MEDS: ENOXAPARIN SODIUM 40 MG/0.4 ML SYRINGE SUBQ (08:40)
[2024-05-01] MEDS: THEOPHYLLINE 300 MG TAB.ER.12H PO (08:41)
[2024-05-01] MEDS: MONTELUKAST SODIUM 10 MG TABLET PO (08:41)
[2024-05-01] MEDS: EZETIMIBE 10 MG TABLET PO (08:41)
[2024-05-01] MEDS: ROFLUMILAST 500 MCG TABLET PO (08:41)
[2024-05-01] MEDS: HYDROXYZINE PAMOATE 25 MG CAPSULE PO (08:41)
[2024-05-01] MEDS: METFORMIN HCL 500 MG TABLET 1000 MG PO (08:41)
--- NOTE | 2024-05-01 08:55 | CM.NOTE ---
Rounds made with Dr. Mesa. Potential discharge today after labs rechecked and IV meds this am. Mr. Paredes verbalizes understanding.
--- NOTE | 2024-05-01 09:07 | P.DS_ITS ---
DS: Providers Provider Date of admission: 04/28/24 08:25 Primary care physician: CARLEEN ELLIOTT DO Consults: 04/28/24 06:04 Consult to Pulmonology Routine Consulting Provider: Jona Olivarez Reason for consultation: Pt known to him Has provider been notified: No DS: Diagnosis Discharge Diagnosis (1) COPD exacerbation: Plan On admission: Hypothermic with a temperature of 96.7, sinus tachycardia, respiratory distress secondary to right lower lobe pneumonia causing acute exacerbation of oxygen dependent COPD resulting in sepsis-consult to pulmonology, steroids, antibiotics, aerosol treatments. Overall improved today, but still has significant dyspnea with any activity and likely becoming hypoxic with activity. He is on 3 L currently, his home oxygen level is 2 so not back to baseline. Continue with current management is overall is improved Moderate protein calorie malnutrition-diet management NIDDM-insulin sliding scale Sugar elevated today, will adjust medications Acute kidney injury-stable GERD-continue with home medications Admission status: Patient with a recent discharge from the hospital post recent evaluation from his strategic communications specialist so failed outpatient treatment, medically necessary treatment will span 2 midnights. Inpatient status. Likely here least 2 more days with patient's condition deteriorating overnight. DS: Summary Hospital Course Hospital Course: Patient was admitted with acute exacerbation of his COPD with resultant hypoxia. He was treated with IV antibiotics, steroids, his home medications which is extensive for his COPD. He does wear 2 L at home, it was not until yesterday that he was down to 3 L by nasal cannula. So still with O2 deficit the day prior to discharge. This morning he is down to his 2 L. The theophylline has seemed of helped. At this point he would be medically stable for discharge. He does have a fair amount of anxiety with this. Will add some hydroxyzine. He can take it as needed. Follow-up with pulmonology next week. Follow-up with his PCP next week also. Will do antibiotics, continue his home medications plus the theophylline and a prednisone taper. Status at Discharge Overall status at discharge: patient is not back to baseline Time Spent with Patient Time attestation: Total time spent providing and/or coordinating discharge services: Time spent: greater than 30 minutes Exam Constitutional Vital Signs, click to edit/add: Last Vital Signs Temp 97.7 F 05/01/24 08:46 Pulse 125 H 05/01/24 08:46 Resp 16 05/01/24 08:46 BP 169/75 H 05/01/24 08:46 Pulse Ox 94 L 05/01/24 08:46 O2 Del Method Nasal Cannula 05/01/24 08:46 O2 Flow Rate 2 05/01/24 08:46 Documenting provider has reviewed patient's vital signs: yes General appearance: cooperative HENMT Other: Mallampati IV. Upper dentures. Poor lower dentition. Chest Other: Increased A-P diameter Respiratory Common normals: normal respiratory effort (Much improved breathing other than he seems anxious.) and no retractions Auscultation: diminished lung sounds; no rhonchi (Resolved which is an improvement from the previous day) Other: Much improved from previous day Cardio Common normals: regular rate and regular rhythm Other: Tachycardic (100's) with a regular rhythm GI Inspection: normal to inspection Extremity Common normals: normal to inspection Neuro Motor exam: no tremor noted Psych Attitude: calm and engaged DS: Data Data Completed and Pending Labs on day of discharge: Labs from last 24 hours 05/01/24 04/30/24 04/30/24 05:08 20:38 16:05 WBC 8.2 RBC 4.60 L Hgb 11.7 L Hct 37.8 L MCV 82.2 MCH 25.4 L MCHC 31.0 RDW 19.4 H Plt Count 214 MPV 9.0 L Neut % (Auto) 87.6 H Lymph % (Auto) 5.7 L [place] % (Auto) 5.5 Eos % (Auto) 0.0 L Baso % (Auto) 0.0 L Neut # (Auto) 7.2 H Lymph # (Auto) 0.5 L [place] # (Auto) 0.5 Eos # (Auto) 0.0 Baso # (Auto) 0.0 Abs Immat Gran (auto) 0.10 H Imm/Tot Granulo (auto) 1.2 H Sodium 135 L Potassium 4.8 Chloride 99 Carbon Dioxide 28.5 Anion Gap 12.3 BUN 34.0 H Creatinine 1.14 Est GFR ( Amer) >60 Est GFR (Non-Af Amer) >60 BUN/Creatinine Ratio 29.8 Glucose 138 H Calcium 9.0 Total Bilirubin 0.3 AST 30 ALT 54 Alkaline Phosphatase 65 Total Protein 6.5 Albumin 2.9 L Globulin 3.6 Albumin/Globulin Ratio 0.8 Theophylline 10.3 POC Glucose 213 H 184 H 04/30/24 11:16 WBC RBC Hgb Hct MCV MCH MCHC RDW Plt Count MPV Neut % (Auto) Lymph % (Auto) [place] % (Auto) Eos % (Auto) Baso % (Auto) Neut # (Auto) Lymph # (Auto) [place] # (Auto) Eos # (Auto) Baso # (Auto) Abs Immat Gran (auto) Imm/Tot Granulo (auto) Sodium Potassium Chloride Carbon Dioxide Anion Gap BUN Creatinine Est GFR ( Amer) Est GFR (Non-Af Amer) BUN/Creatinine Ratio Glucose Calcium Total Bilirubin AST ALT Alkaline Phosphatase Total Protein Albumin Globulin Albumin/Globulin Ratio Theophylline POC Glucose 182 H Preliminary micro results at discharge 04/27/24 19:34 - Preliminary Blood - Right Antecubital NO GROWTH AT 36-48 HOURS. FINAL TO FOLLOW. 04/27/24 19:38 Blood Culture Result 1 - Preliminary Blood - Right Forearm NO GROWTH AT 36-48 HOURS. FINAL TO FOLLOW. Discharge Plan Discharge Disposition: Home, Self-Care Condition: Good Discharge Medications: New prednisone 10 mg tablet 40 mg PO DAILY Qty: 32 0RF Rx Instructions: 4/day for 3 days, 3/day for 3 days, 2/day for 3 days, 1/day for 3 days, 1/2 /day for 4 days levofloxacin 750 mg tablet 750 mg PO DAILY 7 Days Qty: 7 0RF hydroxyzine HCl 25 mg tablet 25 mg PO Q6H PRN (Reason: anxiety) Qty: 20 0RF theophylline 300 mg Tablet Extended Release 12 Hr 300 mg PO BID Qty: 60 11RF Continued ergocalciferol (vitamin D2) 1,250 mcg (50,000 unit) capsule 50,000 unit PO QWEEK ezetimibe 10 mg tablet 10 mg PO QDAY famotidine 40 mg tablet 40 mg PO QDAY Trelegy Ellipta 100-62.5-25 mcg blister with device 1 inh INHALATION Q24H metformin 1,000 mg tablet 1,000 mg PO BID montelukast 10 mg tablet 10 mg PO QDAY roflumilast 500 mcg tablet 500 mcg PO QDAY rosuvastatin 40 mg tablet 40 mg PO .QHS spironolactone 50 mg tablet 50 mg PO QDAY hydroxyzine pamoate 25 mg Capsule 25 mg PO TID PRN (Reason: Anxiety) 10 Days Qty: 30 0RF levalbuterol HCl 0.63 mg/3 mL Solution For Nebulization 0.63 mg inhalation Q6H PRN (Reason: Shortness Of Breath Or Wheezing) 7 Days Qty: 72 0RF Activity: resume usual activities as tolerated Print Language: Kyrgyz Patient Instructions: COPD (Chronic Obstructive Pulmonary Disease) (DC), Pneumonia (DC) Forms: Portal Instructions Follow Up Appointments: Please call Dr. Elliott's office on Saturday to schedule a post hospital stay follow up appt. for 5-7 days following discharge. [phone] Discharge Date/Time: 05/01/24 13:09
[2024-05-01] MEDS: BUDESONIDE 0.5 MG/2 ML AMPULE NEB IH (10:54)
[2024-05-01 11:41] LABS: Glucometer 119 mg/dL (74-106)
--- NOTE | 2024-05-04 13:16 | CM.DCFOLLOWU ---
Person spoke with: patient How are you feeling? well How is your pain? none Did you understand your discharge instructions? yes Do you have any questions about your discharge instructions? no Were you given any prescriptions at discharge? yes Were you able to get your prescriptions filled? yes Do you understand how to take your medications as ordered? yes Do you have any questions about your follow up appointment and do you plan to keep your follow up appointment? no questions, will call today to schedule follow up with PCP Is there anything else that you would like to discuss? no Questions/Comments/Concerns/Other: none
== END 2024-05-01 13:09 | disposition home or self-care (01) | DRG 871 ==
LOC: ER 21:28 → MS 22:09
PROVIDERS: Internal Medicine; Physician Assistant; Registered Nurse; Admitting Provider Family Medicine; Emergency Provider Emergency Medicine; PCP Internal Medicine; Visit Provider Family Medicine
DX: A41.9 Sepsis, unspecified organism (principal); J18.9 Pneumonia, unspecified organism; E44.0 Moderate protein-calorie malnutrition; N17.9 Acute kidney failure, unspecified; J96.11 Chronic respiratory failure with hypoxia; R68.0 Hypothermia, not associated with low environmental temperature; J43.2 Centrilobular emphysema; E11.9 Type 2 diabetes mellitus without complications; K21.9 Gastro-esophageal reflux disease without esophagitis; Z79.84 Long term (current) use of oral hypoglycemic drugs; Z87.891 Personal history of nicotine dependence; Z68.35 Body mass index [BMI] 35.0-35.9, adult; Y95 Nosocomial condition; Z99.81 Dependence on supplemental oxygen; G47.33 Obstructive sleep apnea (adult) (pediatric); Z91.148 Patient's other noncompliance with medication regimen for other reason; F41.9 Anxiety disorder, unspecified
CPT/HCPCS: 36415; 71045; 80053; 80061; 80198; 82800; 82948; 83605; 83735; 83880; 84100; 84145; 84484; 85025; 85610; 85730; 87040; 87070; 93005; 94640; 94667; 94668; 94761; 96365; 96366; 96372; 96375; 99285; G0378; J0696; J1650; J2405; J2919; Q0177

== ENCOUNTER 2024-11-10 12:47 | Outpatient (OUT) | payer MEDICARE, SELFPAY ==
--- OUTSIDE RECORDS SUMMARY | 2024-11-10 12:55 | XMS_ITS | CCD ---
Author Organization [facility] CliniSyal Care Team Providers Care Robotic Weld Technician Name Role Phone DANII MALDONADO Unavailable Unavailabl e ERNIE ELLIOTT Unavailable Unavailable JACQUELYN MAURER Attending Unavailable EARL, ERNIE Primary Care Unavailable EARL, ERNIE Referring Unavailable JACQUELYN MAURER Admitting Unavailable ERNIE ELLIOTT JR Primary Care Physician TRINIDAD ., DR MCPHERSON Admitting Unavailable TRINIDAD [...] Unavailable VALONE, DR KLEIN Primary Care Unavailable YNUIEL ., [employer] Unavailable TRINIDAD ., DR [...] Carter Referring Unavailable Earl Jr, Dr. Klein [facility] vailable Earl, Ernie Ogden Unavailable Unavailable Unavailable Wayne TRINIDAD Attending Unavailable TRINIDAD, Wayne Galicia Attending Unavailable TRINIDAD, Wayne Galicia Attending Unavailable Allergies Allergy Classification Reported Allergen(s) Allergy Type Date of Onset Reaction(s) Facility (1 source) Ramipril Drug Allergy 2 [facility] Repository (1 source) No Known Medication Allergies; 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: [No Known Medication Allergies] Propensity to adverse reactions (disorder) [facility] Repository Medications Current Medications Medication Drug [...] disease (6 sources) Atherosclerotic heart disease of [place] coronary artery without angina pectoris; 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: [Coronary [...] Unclassified (2 sources) Athscl heart disease of [place] coronary artery w/o ang pctrs / I25.10(ICD-9) [...] 10-01-2022 Episodic Other aftercare (1 source) Other snf (current) drug therapy; 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: [OTH [facility]CI CURRENT DRUG THERAPY] Onset: 10-01-2022 Episodic 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; 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: [FCI CURRENT USE OF ASPIRIN] Onset: 10-01-2022 Episodic Other aftercare (1 source) [facility] (current) use of anticoagulants; 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] Onset: 10-02-2022 Episodic Other aftercare (1 source) [facility] (current) use of oral hypoglycemic drugs; 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: [[facility]I USE ORAL HYPOGLYCEMIC DX] Onset: 10-02-2022 Episodic Other male genital disorders (1 source) Other specified disorders of prostate; 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: [OTHER SPECIFIED DISORDERS PROSTATE] Onset: 02-14-2022 Episodic Residual codes; unclassified (1 source) Other specified postprocedural states; 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: [OTH SPECIFIED POSTPROCEDURAL STATES] Onset: 10-01-2022 Episodic Results Test Name Value Interpretation Reference Range Facil ity Ambulatory Visit Summaryon 0 03-30-2024 Ambulatory Visit Summary SHERON ERAOZ JR :1955 Visit Date:03/30/2024 Ambulatory Visit Instructions [...] GILL, Wayne Galicia Where: [facility] Patient Educationon 03-30-20 Patient Education Oncology [...] to normal prostate cells (moderately differentiated). ? [place] 8, 9, or 10: This indicates that [...] external be (more content not included)... 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 (more content not included)... Normal [facility] Comment on above: Result Comment: Elec tronically Signed By: Wayne TRINIDAD MD\.br\Date and Time Signed: 03/30/24 13:09 EDT\.br\Electronically Co-Signed By: Toyin Fournier\.br\Date and Time Co-Signed: 03/30/24 13:08 EDT [facility] 2024 Lab Reports [id number] .00TIFF Normal [facility] Consultation Noteon 11-21-19 Consultation Note [id number] .00TIFF Normal [facility] Patient Educationon 09-16-20 Patient Education Oncology [...] under a microscope. This is called the Dallas score and the total score can range from 6?10, indicating how likely it is that the cancer will spread (metastasize) to other parts of the body. The higher the score, the greater the likelihood that the cancer will spread. ? [place] 6 or lower: This indicates that the cancer cells look similar to normal prostate cells (well differentiated). ? [place] 7: This indicates that the cancer cells [...] external be (more content not included)... 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 Normal [facility] Comment on above: Result Comment: Elec tronically Signed By: Wayne TRINIDAD MD\.br\Date and Time Signed: 09/16/23 14:41 EST\.br\Electronically Co-Signed By: Guera Oswald\.br\Date and Time Co-Signed: 09/16/23 14:40 EST [facility] 09-10-2023 Lab Reports [id number] .00TIFF [facility] Office Visit (Cardiology)on 04-08-2023 Follow-up visit Diagnoses/Problems [...] Recorded: 08Apr2023 01:21PM Heart Rate78, R Radial Ooxybvto135, LUE, Sitting Ddzedoqdd88, LUE, Sitting Height6 ft Tgbdgr101 lb BMI Odidyfxmzx38.09 kg/m2 BSA Calculated2.32 Tobacco Useb) No PHQ-2 [...] Apr 08 2023 1:56PM EST (Author) Normal [facility] Tobacco Screening.on 023 Adult depression screening assessment No [facility] [employer] 250 DO Work Phone: Fall risk assessment a) No falls within the last year [facility] [employer] 250 DO Work Phone: Tobacco use status CP b) No [facility] Heart-Carter 250 DO Work Phone: Refillon 01-16-2023 Refill [id number] Sheron Erazo Jr. 1955 M Date Provider Department Center 01/16/2023 JACQUELYN JACOBSON ONC DCC No family history on file Reason for Visit and Comments: Med Refill [[id number]] Normal [facility] CT LUNG CANCER SCREENINGon 0 10-26-2022 CT [...] by: MAIKEL ESTEVEZ Date: 2022-10-26 15:22 Normal [facility] Refillon 10-15-2022 Refill [id number] Sheron Erazo Jr. 1955 Date Provider Department Center 10/15/2022 JACQUELYN JACOBSON [facility] ONC D[facility] No family history on file Reason for Visit and Comments: Med Refill [[id number]] Normal [facility] XR PELVIS 1_2 VIEWSon 2021 XR PELVIS [...] by: MAIKEL ESTEVEZ Date: 2022-09-28 07:22 Normal [facility] CBC AUTO DIFFon 09-27-2022 BASO # 0.0 103/ul Normal 0.0-0.1 [facility] Comment on above: Performed By: #### B MP #### [facility] [address] [address] [address] Juanita Sagastume Basophils/100 WBC (Bld) 0.2 % Normal 0.2-2.0 [facility] Comment on above: Performed By: #### B MP #### [facility] [address] [place] [address] Dr. Juanita Sagastume EO # 0.2 103/ul Normal 0.0-0.7 [facility] Comment on above: Performed By: #### B MP #### [facility] [address] [place] [address] Dr. Juanita Sagastume Eosinophils/100 WBC (Bld) 2.2 % Normal 0.9-7.0 [facility] Comment on above: Performed By: #### B MP #### [facility] [address] [place] [address] Dr. Juanita Sagastume Erythrocyte distribution width (RBC) [Ratio] 17.5 % Critically high 11.0-15.0 [facility] Comment on above: Performed By: #### B MP #### [facility] [address] [place] [address] Dr. Juanita Sagastume Hematocrit (Bld) [Volume fraction] 41.3 % Critically low 42.0-54.0 [facility] Comment on above: Performed By: #### B MP #### [facility] [address] [place] [address] Dr. Juanita Sagastume Hemoglobin (Bld) [Mass/Vol] 13.5 g/dL Critically low 14.0-18.0 [facility] Comment on above: Performed By: #### B MP #### [facility] [address] [place] [address] Dr. Juanita Sagastume IG # 0.04 10e3/ul Critically high 0.00-0.03 [facility] Comment on above: Performed By: #### B MP #### [facility] [address] [place] [address] Dr. Juanita Sagastume IG % 0.5 % Normal 0.0-0.5 [facility] Comment on above: Performed By: #### B MP #### [facility] [address] [place] [address] Dr. Juanita Sagastume LYMPH # 0.8 103/ul Critically low 1.2-3.8 [facility] Comment on above: Performed By: #### B MP #### [facility] [address] [place] [address] Dr. Juanita Sagastume Lymphocytes/100 WBC (Bld) 9.3 % Critically low 20.5-60.0 [facility] Comment on above: Performed By: #### B MP #### [facility] [address] [place] [address] Dr. Juanita Sagastume MANUAL DIFF REQ NO Normal [facility] Comment on above: Performed By: #### B MP #### [facility] [address] [place] [address] Dr. Juanita Sagastume MCH (RBC) [Entitic mass] 26.7 pg Normal 25.9-34.0 [facility] Comment on above: Performed By: #### B MP #### [facility] [address] [place] [address] Dr. Juanita Sagastume MCHC (RBC) [Mass/Vol] 32.7 g/dL Normal 29.9-35.2 [facility] Comment on above: Performed By: #### B MP #### [facility] [address] [place] [address] Dr. Juanita Sagastume MCV (RBC) [Entitic vol] 81.8 fL Normal 80.0-94.0 [facility] Comment on above: Performed By: #### B MP #### [facility] [address] [place] [address] Dr. Juanita Sagastume MONO # 1.0 103/ul Critically high 0.3-0.8 [facility] Comment on above: Performed By: #### B MP #### [facility] [address] [place] [address] Dr. Juanita Sagastume Monocytes/100 WBC (Bld) 11.5 % Normal 1.7-12.0 [facility] Comment on above: Performed By: #### B MP #### [facility] [address] [place] [address] Dr. Juanita Sagastume NEUT # 6.3 103/ul Normal 1.4-6.5 [facility] Comment on above: Performed By: #### B MP #### [facility] [address] [address] [address] Juanita Sagastume Neutrophils/100 WBC (Bld) 76.3 % Critically high 43.0-75.0 [facility] Comment on above: Performed By: #### B MP #### [facility] [address] [address] [address] Juanita Sagastume Platelet mean volume (Bld) [Entitic vol] 8.5 fL Critically low 9.5-13.5 [facility] Comment on above: Performed By: #### B MP #### [facility] [address] [address] [address] Juanita Sagastume PLT 273 103/ul Normal 150-450 [facility] Comment on above: Performed By: #### B MP #### [facility] [address] [place] [address] Dr. Juanita Sagastume RBC 5.05 106/ul Normal 4.70-6.10 [facility] Comment on above: Performed By: #### B MP #### [facility] [address] [place] [address] Dr. Juanita Sagastume WBC 8.3 103/ul Normal 4.0-11.0 [facility] Comment on above: Performed By: #### B MP #### [facility] [address] [place] [address] Dr. Juanita Sagastume PROF CHEM 8 (BAS METB)on Anion gap [Moles/Vol] 10.9 mmol/L Normal [facility] Comment on above: Performed By: #### B MP #### [facility] [address] [place] [address] Dr. Juanita Sagastume Calcium [Mass/Vol] 10.2 mg/dL Critically high 8.5-10.1 [facility] Comment on above: Performed By: #### B MP #### [facility] [address] [place] [address] Dr. Juanita Sagastume Chloride [Moles/Vol] 98 mmol/L Normal 98-107 [facility] Comment on above: Performed By: #### B MP #### [facility] [address] [address] [address] Juanita Sagastume CO2 [Moles/Vol] 34.5 mmol/L Critically high 21.0-32.0 [facility] Comment on above: Performed By: #### B MP #### [facility] [address] [address] [address] Juanita Sagastume Creatinine [Mass/Vol] 1.06 mg/dL Normal 0.70-1.30 [facility] Comment on above: Performed By: #### B MP #### [facility] [address] [address] [address] Juanita Sagastume EGFR-AF SERBIAN >60 Normal >=60 [facility] Comment on above: Performed By: #### B MP #### [facility] [address] [place] [address] Dr. Juanita Sagastume EGFR-NON AF SERBIAN >60 Normal >=60 [facility] Comment on above: Performed By: #### B MP #### [facility] [address] [address] [address] Juanita Sagastume Glucose [Mass/Vol] 122 mg/dL Critically high 74-106 [facility] Comment on above: Performed By: #### B MP #### [facility] [address] [address] [address] Juanita Sagastume Potassium [Moles/Vol] 4.4 mmol/L Normal 3.5-5.1 [facility] Comment on above: Performed By: #### B MP #### [facility] [address] [address] [address] Juanita Sagastume Sodium [Moles/Vol] 139 mmol/L Normal 136-145 [facility] Comment on above: Performed By: #### B MP #### [facility] [address] [address] [address] Juanita Sagastume Urea nitrogen [Mass/Vol] 16.0 mg/dL Normal 7.0-18.0 [facility] Comment on above: Performed By: #### B MP #### [facility] [address] [place] [address] Dr. Juanita Sagastume Urea nitrogen/Creatinin e [Mass ratio] 15.1 mg/mg Normal [facility] Comment on above: Performed By: #### B MP #### [facility] [address] [place] [address] Dr. Juanita Sagastume PROTIMEon 09-27-2022 INR Coag (PPP) [Relative time] 0.93 {INR} Normal [facility] Comment on above: Performed By: #### B MP #### [facility] [address] [place] [address] Dr. Juanita Sagastume INR GUIDELINES SEE BELOW Normal [facility] Comment on above: Result Comment: KAMINI RED INR: 2.0 - 3.0 CONDITIONS NOT LISTED BELOW 2.5 - 3.5 FOR PROSTHETIC HEART VALVE REPLACEMENT 2.5 - 3.5 RECURRENT THROMBOSIS Performed By: #### B MP #### [facility] [address] [place] [address] Dr. Juanita Sagastume PT Coag (PPP) [Time] 10.1 s Normal 9.0-11.6 [facility] Comment on above: Performed By: #### B MP #### [facility] [address] [place] [address] Dr. Juanita Sagastume [facility]on SARS-CoV-2 (COVID-19) RNA SKYLAR+probe Ql (Unsp spec) Not detected Normal NOT DETECTED [facility] Comment on above: Result Comment: This test is not yet approved or cleared by the [place] FDA. When there are no FDA-approved or cleared tests available, and other criteria are met, FDA can make tests available under an emergency access mechanism called an Emergency Use Authorization (EUA). The EUA for this test is supported by the [place] of Health and Human Service's (HHS's) declaration [...] SARS-CoV-2. Performed By: #### C VDTBH #### [facility] [address] [place] [address] Dr. Juanita Sagastume LIPID PROFILEon 03-16-2022 CHOL-HDL RATIO NORM SEE BELOW Normal [facility] Comment on above: Result Comment: 3.3 - 4.4 LOW RISK 4.4 - 7.1 AVERAGE RISK 7.1 - 11.0 MODERATE RISK >11.0 HIGH RISK Performed By: #### A LT, LIPID, AST #### [facility] [address] [place] [address] Dr. Juanita Sagastume Cholesterol [Mass/Vol] 111 mg/dL Normal <=200 [facility] Comment on above: Performed By: #### A LT, LIPID, AST #### [facility] [address] [place] [address] Dr. Juanita Sagastume Cholesterol in HDL [Mass/Vol] 35 mg/dL Critically low 40-60 [facility] Comment on above: Performed By: #### A LT, LIPID, AST #### [facility] [address] [place] [address] Dr. Juanita Sagastume Cholesterol in LDL [Mass/Vol] 29.6 mg/dL Normal [facility] Comment on above: Performed By: #### A LT, LIPID, AST #### [facility] [address] [place] [address] Dr. Juanita Sagastume Cholesterol.total/ Cholesterol in HDL [Mass ratio] 3.2 {ratio} Normal [facility] Comment on above: Performed By: #### A LT, LIPID, AST #### [facility] [address] [place] [address] Dr. Juanita Sagastume HDL NORMAL > or = 60 mg/dl - LO W CARDIOVASCULAR RISK <40 mg/dl - HIGH CARDIOVASCULAR RISK Normal [facility] Comment on above: Performed By: #### A LT, LIPID, AST #### [facility] [address] [address] [address] Juanita Sagastume LDL CALC NORMAL SEE BELOW Normal [facility] Comment on above: Result Comment: <100 mg/dl OPTIMAL 100 - 129 mg/dl NEAR OR ABOVE OPTIMAL 130 - 159 mg/dl BORDERLINE HIGH 160 - 189 mg/dl HIGH >190 mg/dl VERY HIGH Performed By: #### A LT, LIPID, AST #### [facility] [address] [address] [address] Juanita Sagastume Triglyceride [Mass/Vol] 232 mg/dL Critically high <=150 [facility] Comment on above: Performed By: #### A LT, LIPID, AST #### [facility] [address] [address] [address] Juanita Sagastume VLDL CALC 46.4 mg/dL Normal [facility] Comment on above: Performed By: #### A LT, LIPID, AST #### [facility] [address] [place] [address] Dr. Juanita Sagastume SGOTojalil 03-16-2022 AST [Catalytic activity/Vol] 22 U/L Normal 15-37 [facility] Comment on above: Performed By: #### A LT, LIPID, AST #### [facility] [address] [place] [address] Dr. Juanita Sagastume SGPTon 03-16-2022 ALT [Catalytic activity/Vol] 24 U/L Normal 16-63 [facility] Comment on above: Performed By: #### A LT, LIPID, AST #### [facility] [address] [place] [address] Dr. Juanita Sagastume CREATININEon 03-02-2022 Creatinine [Mass/Vol] 1.19 mg/dL Normal 0.70-1.30 [facility] Comment on above: Performed By: #### C KRYS #### [facility] [address] [place] [address] Dr. Juanita Sagastume EGFR-AF SERBIAN >60 Normal >=60 [facility] Comment on above: Performed By: #### C KRYS #### [facility] [address] [place] [address] Dr. Juanita Sagastume EGFR-NON AF SERBIAN >60 Normal >=60 [facility] Comment on above: Performed By: #### C KRYS #### [facility] [address] [address] [address] ABD/PELV WO W [...] by: MAIKEL ESTEVEZ Date: 2022-03-02 14:40 Normal [facility] BONE [place] WH BODYon 022 NM BONE [place] [facility] BODY EXAMINATION: NM BONE [facility] BODY HISTORY: Primary malignant neoplasm of prostate [...] MAIKEL ESTEVEZ Date: 2022-03-02 15:26 Normal [facility] POINT OF CARE GLUCOSEon 01-13 Glucose [Mass/Vol] 117 mg/dL Critically high 74-106 T [facility] Comment on above: Performed By: #### B MP #### [facility] [address] [place] [address] Dr. Juanita Sagastume Covid-19 PCR ([facility])on 01-13 SARS-CoV-2 (COVID-19) RNA SKYLAR+probe Ql (Unsp spec) Not detected Normal NOT DETECTED [facility] Comment on above: Result Comment: This test is not yet approved or cleared by the [place] FDA. When there are no FDA-approved or cleared tests available, and other criteria are met, FDA can make tests available under an emergency access mechanism called an Emergency Use Authorization (EUA). The EUA for this test is supported by the [place] of Health and Human Service's (HHS's) declaration [...] SARS-CoV-2. Performed By: #### C VDTB #### [facility] [address] [address] [address] Juanita Sagastume CBC AUTO DIFFon 01-29-2022 BASO # 0.0 103/ul Normal 0.0-0.1 [facility] Comment on above: Performed By: #### C BC #### [facility] [address] [place] [address] Dr. Juanita Sagastume Basophils/100 WBC (Bld) 0.3 % Normal 0.2-2.0 [facility] Comment on above: Performed By: #### C BC #### [facility] [address] [place], [place] [id number] Dr. Juanita Sagastume EO # 0.2 103/ul Normal 0.0-0.7 [facility] Comment on above: Performed By: #### C BC #### [facility] [address] [place] [address] Dr. Juanita Sagastume Eosinophils/100 WBC (Bld) 1.8 % Normal 0.9-7.0 [facility] Comment on above: Performed By: #### C BC #### [facility] [address] [place] [address] Dr. Juanita Sagastume Erythrocyte distribution width (RBC) [Ratio] 15.4 % Critically high 11.0-15.0 [facility] Comment on above: Performed By: #### C BC #### [facility] [address] [place] [address] Dr. Juanita Sagastume Hematocrit (Bld) [Volume fraction] 42.3 % Normal 42.0-54.0 [facility] Comment on above: Performed By: #### C BC #### [facility] [address] [place] [address] Dr. Juanita Sagastume Hemoglobin (Bld) [Mass/Vol] 13.3 g/dL Critically low 14.0-18.0 [facility] Comment on above: Performed By: #### C BC #### [facility] [address] [place] [address] Dr. Juanita Sagastume IG # 0.06 10e3/ul Critically high 0.00-0.03 [facility] Comment on above: Performed By: #### C BC #### [facility] [address] [place] [address] Dr. Juanita Sagastume IG % 0.5 % Normal 0.0-0.5 [facility] Comment on above: Performed By: #### C BC #### [facility] [address] [place] [address] Dr. Juanita Sagastume LYMPH # 2.0 103/ul Normal 1.2-3.8 [facility] Comment on above: Performed By: #### C BC #### [facility] [address] [place] [address] Dr. Juanita Sagastume Lymphocytes/100 WBC (Bld) 17.6 % Critically low 20.5-60.0 [facility] Comment on above: Performed By: #### C BC #### [facility] [address] [place] [address] Dr. Juanita Sagastume MANUAL DIFF REQ NO Normal [facility] Comment on above: Performed By: #### C BC #### [facility] [address] [place] [address] Dr. Juanita Sagastume MCH (RBC) [Entitic mass] 26.5 pg Normal 25.9-34.0 [facility] Comment on above: Performed By: #### C BC #### [facility] [address] [place] [address] Dr. Juanita Sagastume MCHC (RBC) [Mass/Vol] 31.4 g/dL Normal 29.9-35.2 [facility] Comment on above: Performed By: #### C BC #### [facility] [address] [place] [address] Dr. Juanita Sagastume MCV (RBC) [Entitic vol] 84.3 fL Normal 80.0-94.0 [facility] Comment on above: Performed By: #### C BC #### [facility] [address] [place] [address] Dr. Juanita Sagastume MONO # 0.9 103/ul Critically high 0.3-0.8 [facility] Comment on above: Performed By: #### C BC #### [facility] [address] [place] [address] Dr. Juanita Sagastume Monocytes/100 WBC (Bld) 7.6 % Normal 1.7-12.0 [facility] Comment on above: Performed By: #### C BC #### [facility] [address] [place] [address] Dr. Juanita Sagastume NEUT # 8.3 103/ul Critically high 1.4-6.5 [facility] Comment on above: Performed By: #### C BC #### [facility] [address] [place] [address] Dr. Juanita Sagastume Neutrophils/100 WBC (Bld) 72.2 % Normal 43.0-75.0 [facility] Comment on above: Performed By: #### C BC #### [facility] [address] [place] [address] Dr. Juanita Sagastume Platelet mean volume (Bld) [Entitic vol] 9.2 fL Critically low 9.5-13.5 [facility] Comment on above: Performed By: #### C BC #### [facility] [address] [place] [address] Dr. Juanita Sagastume PLT 343 103/ul Normal 150-450 [facility] Comment on above: Performed By: #### C BC #### [facility] [address] [place] [address] Dr. Juanita Sagastume RBC 5.02 106/ul Normal 4.70-6.10 [facility] Comment on above: Performed By: #### C BC #### [facility] [address] [place] [address] Dr. Juanita Sagastume WBC 11.5 103/ul Critically high 4.0-11.0 [facility] Comment on above: Performed By: #### C BC #### [facility] [address] [place] [address] Dr. Juanita Sagastume PROF CHEM 8 (BAS METB)on Anion gap [Moles/Vol] 14.6 mmol/L Normal [facility] Comment on above: Performed By: #### B MP #### [facility] [address] [place] [address] Dr. Juanita Sagastume Calcium [Mass/Vol] 9.6 mg/dL Normal 8.5-10.1 [facility] Comment on above: Performed By: #### B MP #### [facility] [address] [place] [address] Dr. Juanita Sagastume Chloride [Moles/Vol] 97 mmol/L Critically low 98-107 [facility] Comment on above: Performed By: #### B MP #### [facility] [address] [place] [address] Dr. Juanita Sagastume CO2 [Moles/Vol] 28.9 mmol/L Normal 22.0-30.0 [facility] Comment on above: Performed By: #### B MP #### [facility] [address] [place] [address] Dr. Juanita Sagastume Creatinine [Mass/Vol] 1.23 mg/dL Normal 0.66-1.25 [facility] Comment on above: Performed By: #### B MP #### [facility] [address] [address] [address] Juanita Sagastume EGFR-AF SERBIAN >60 Normal >=60 [facility] Comment on above: Performed By: #### B MP #### [facility] [address] [address] [address] Juanita Sagastume EGFR-NON AF SERBIAN 59 mL/min/1.73m2 Critically low >=60 [facility] Comment on above: Performed By: #### B MP #### [facility] [address] [place] [address] Dr. Juanita Sagastume Glucose [Mass/Vol] 105 mg/dL Normal 74-106 [facility] Comment on above: Performed By: #### B MP #### [facility] [address] [place] [address] Dr. Juanita Sagastume Potassium [Moles/Vol] 4.5 mmol/L Normal 3.4-5.0 [facility] Comment on above: Performed By: #### B MP #### [facility] [address] [place] [address] Dr. Juanita Sagastume Sodium [Moles/Vol] 136 mmol/L Critically low 137-145 [facility] Comment on above: Performed By: #### B MP #### [facility] [address] [address] [address] Juanita Sagastume Urea nitrogen [Mass/Vol] 16.0 mg/dL Normal 7.0-18.0 [facility] Comment on above: Performed By: #### B MP #### [facility] [address] [place] [address] Dr. Juanita Sagastume Urea nitrogen/Creatinin e [Mass ratio] 13.0 mg/mg Normal [facility] Comment on above: Performed By: #### B MP #### [facility] [address] [place] [address] Dr. Juanita Sagastume PROTIMEon 01-29-2022 INR Coag (PPP) [Relative time] 0.98 {INR} Normal [facility] Comment on above: Performed By: #### B MP #### [facility] [address] [place] [address] Dr. Juanita Sagastume INR GUIDELINES SEE BELOW Normal [facility] Comment on above: Result Comment: KAMINI RED INR: 2.0 - 3.0 CONDITIONS NOT LISTED BELOW 2.5 - 3.5 FOR PROSTHETIC HEART VALVE REPLACEMENT 2.5 - 3.5 RECURRENT THROMBOSIS Performed By: #### B MP #### [facility] [address] [place] [address] Dr. Juanita Sagastume PT Coag (PPP) [Time] 10.6 s Normal 9.0-11.6 [facility] Comment on above: Performed By: #### B MP #### [facility] [address] [place] [address] Dr. Juanita Sagastume PTTon 01-29-2022 aPTT Coag (Bld) [Time] 28.5 s Normal 22.3-36.2 [facility] Comment on above: Performed By: #### B MP #### [facility] [address] [place] [address] Dr. Juanita Sagastume MR prostate wo/w conon 10-17 MR prostate wo/w con [facility] [place] [address] MRI Report Signed Patient: Sheron Erazo MR#: [id number] : 1955 Acct:[id number] Age/Sex: 66 / M ADM Date: 10/10/21 Loc: Room: Type: [facility] Attending Dr: Wayne Trinidad MD Ordering [...] PM COT by: Yousif Paz MD Diplomate, [place] [employer] Report Completed: Oct 17, [...] STAFF 10/17/21 1605 Signed By: 10/18/21 0750 [facility] Blood Urea Nitrogenon 2020 Urea nitrogen [Mass/Vol] 11 mg/dL Normal 9-23 [facility] Comment on above: Order Comment: STAT FOR MRI Performed By: #### B UN, CREAT #### [facility] [address] [place] [address] [place] Creatinineon 10-10-2021 Creatinine [Mass/Vol] 1.04 mg/dL Normal 0.64-1.27 [facility] Comment on above: Order Comment: STAT FOR MRI Performed By: #### B UN, CREAT #### [facility] [address] [place] [address] [place] Creatinine Clr Calc Pharmacy 90.84 [facility] Comment on above: Order Comment: STAT FOR MRI Result Comment: PERF ORMED BY: [place] [address] PATHOLOGIST GOLF CART ATTENDANT XUAN GOMEZ M.D. Performed By: #### B UN, CREAT #### [facility] [address] [place] [address] Estimated GFR ( Peyton > 60 [facility] Comment on above: Order Comment: STAT FOR MRI Result Comment: GFR estimated reference range: According to KDOQI guidelines, <60 ml/min/1.73m2 is sufficient to diagnose a patient with chronic kidney disease. Performed By: #### B UN, CREAT #### [facility] [id number] [facility] Estimated GFR (Non- Am > 60 Normal [facility] Comment on above: Order Comment: STAT FOR MRI Performed By: #### B UN, CREAT #### [facility] [id number] [facility] CT CHEST HIGH RESOLUTION WIT HOUT CONTRASTon 10-05-2021 CT CHEST HIGH RESOLUTION WITHOUT CONTRAST [facility] Department of Radiology [address] [place] [address] Patient Name: SHERON ERAZO : 1955 Sex: M Age: Race: White Pt. Location: 29 Patient Status: O Ordered Date: 09/01/2021 11:35:00 AM Completed Date: 10/05/2021 02:33 PM Requesting Provider: JACQUELYN MAURER Attending Provider: JACQUELYN MAURER Report Copy To: ERNIE ELLIOTT Signs & Symptoms: J44.9 Chronic obstructive pulmonary disease, unspecified I10 History: [place] Comments: Exam: CT CHEST HIGH RESOLUTION WITHOUT [...] achievable Electronically signed: Nika Krause. Transcribed by: [email or web address], User Resident: Electronically Signed by: NIKA KRAUSE @ 10/05/2021 02:50 PM Normal [facility] Pulmonary Functionon 12-18-2 021 Pulmonary Function MR #: [id number] [facility] PT. Name: Sheron Erazo Jr Date: 09/29/2021 [...] Sykes MD Date Trans: 09/30/2021 05:58 P/ [id number] cc: Ernie Elliott D.O. [facility] [address] Normal [facility] ARTERIAL BLOOD GAS W/COOXon 09-29-2021 BASE EXCESS 10 mmol/L High -2-3 [facility] Comment on above: Performed By: #### 4 0055 #### [facility] [address] [place] [address], [facility] COHB 1.6 % High 0.0-1.5 [facility] Comment on above: Performed By: #### 4 0055 #### [facility] [address] [place] [address], [facility] [employer] ROOM AIR Normal [facility] Comment on above: Performed By: #### 4 0055 #### [facility] [address] [place] [address], [facility] FIO2 0 % Normal [facility] Comment on above: Performed By: #### 4 0055 #### [facility] [address] [place] [address], [facility] HCO3 (Bld) [Moles/Vol] 36 mmol/L Critically high 21-28 [facility] Comment on above: Performed By: #### 4 0055 #### [facility] [address] [place] [address], [facility] METHB 1.2 % Normal 0.0-1.5 [facility] Comment on above: Performed By: #### 4 0055 #### [facility] [address] [place] [address], [facility] Oxygen (Bld) [Partial pressure] 66 mm[Hg] Low 83-108 [facility] Comment on above: Performed By: #### 4 0055 #### [facility] [address] [place] [address], [facility] Oxygen saturation in Blood 92.2 % Low 94.0-97.0 [facility] Comment on above: Performed By: #### 4 0055 #### [facility] [address] [place] [address], [facility] PCO2 50 mmHg High 35-45 [facility] Comment on above: Performed By: #### 4 0055 #### [facility] [address] [place] [address], [place] pH (Bld) 7.46 [pH] High 7.35-7.45 [facility] Comment on above: Performed By: #### 4 0055 #### [facility] [address] [place] [address], [facility] THB 13.5 g/dL Normal 12.0-16.3 [facility] Comment on above: Performed By: #### 4 0055 #### [facility] [address] Vital Signs Date Time Vital Sign Value Performing Clinician Camilo espinal 09-16-2023 14:04-0500 Blood Pressure Location Wayneguero TRINIDAD [facility] 09-16-2023 14:04-0500 Diastolic blood pressure 71 mm[Hg] Wayne TRINIDAD [facility] 09-16-2023 14:04-0500 Heart rate 65 /min Wayne TRINIDAD [facility] 09-16-2023 14:04-0500 Respiratory rate 16 /min Wayne TRINIDAD [facility] 09-16-2023 14:04-0500 Systolic blood pressure 131 mm[Hg] Wayne TRINIDAD [facility] 04-08-2023 13:21-0400 Body height 182.88 cm Ernie Ogden [employer] Work Phone: [facility] [place] 250 DO Work Phone: 04-08-2023 13:21-0400 Body mass index (BMI) [Ratio] 33.09 kg/m2 [employer] Work Phone: [facility] [employer] 250 DO Work Phone: 04-08-2023 13:21-0400 Body surface area Derived from formula 2.32 m2 [employer] Work Phone: [facility] 250 DO Work Phone: 04-08-2023 13:21-0400 Body weight 110.68 kg Ernie L Valone Work Phone: [facility] 250 DO Work Phone: 04-08-2023 13:21-0400 Diastolic blood pressure 62 mm[Hg] Ernie L Valone Work Phone: [facility] 250 DO Work Phone: 04-08-2023 13:21-0400 Heart rate 78 /min Ernie L Valone Work Phone: [facility] 250 DO Work Phone: 04-08-2023 13:21-0400 Systolic blood pressure 124 mm[Hg] Ernie L Valone Work Phone: [facility] 250 DO Work Phone: 01-14-2023 13:32-0400 Blood Pressure Location Wayneguero [facility] 01-14-2023 13:32-0400 Diastolic blood pressure 84 mm[Hg] Wayne TRINIDAD [facility] 01-14-2023 13:32-0400 Heart rate 72 /min Wayne TRINIDAD [facility] 01-14-2023 13:32-0400 Respiratory rate 16 /min Wayne TRINIDAD [facility] 01-14-2023 13:32-0400 Systolic blood pressure 138 mm[Hg] Wayne TRIINDAD [facility] 10-29-2022 13:50-0500 Blood Pressure Location Wayne TRINIDAD [facility] 10-29-2022 13:50-0500 Diastolic blood pressure 77 mm[Hg] Wayne TRINIDAD [facility] 10-29-2022 13:50-0500 Heart rate 68 /min Wayne TRINIDAD [facility] 10-29-2022 13:50-0500 Respiratory rate 16 /min Wayne TRINIDAD [facility] 10-29-2022 13:50-0500 Systolic blood pressure 140 mm[Hg] Wayne TRINIDAD [facility] 06-25-2022 14:28-0400 Blood Pressure Location Wayne TRINIDAD [facility] 06-25-2022 14:28-0400 Diastolic blood pressure 97 mm[Hg] Wayne TRINIDAD [facility] 06-25-2022 14:28-0400 Heart rate 88 /min Wayne TRINIDAD [facility] 06-25-2022 14:28-0400 Respiratory rate 16 /min Wayne TRINIDAD [facility] 06-25-2022 14:28-0400 Systolic blood pressure 157 mm[Hg] Wayne TRINIDAD [facility] 02-16-2022 09:27-0400 Blood Pressure Location Wayne TRINIDAD [facility] 02-16-2022 09:27-0400 Diastolic blood pressure 84 mm[Hg] Wayne TRINIDAD [facility] 02-16-2022 09:27-0400 Heart rate 104 /min Wayne TRINIDAD [facility] 02-16-2022 09:27-0400 Respiratory rate 16 /min Wayne TRINIDAD [facility] 02-16-2022 09:27-0400 Systolic blood pressure 145 mm[Hg] Wayne TRINIDAD [facility] Encounters Encounter Date Encounter Type Care Provider Facility Start: 04-05-2025 ambulatory Wayne TRINIDAD Facili ty:[facility] Start: 03-30-2024 End: 03-30-2024 ambulatory Wayne TRINIDAD Facility:[facility] Start: 03-30-2024 End: 03-30-2024 Patient encounter procedure Wayne TRINIDAD [facility] Start: 09-16-2023 End: 09-16-2023 ambulatory Wayne TRINIDAD Facility:[facility] Start: 09-16-2023 End: 09-16-2023 Patient encounter procedure Wayne TRINIDAD [facility] Start: 04-08-2023 Office outpatient vi sit 25 minutes Ernie Elliott Work Phone: [facility] 250 DO Work Phone: Start: 04-08-2023 ambulatory Ngozi Carter Facility : Start: 01-14-2023 End: 01-14-2023 Patient encounter procedure Wayne TRINIDAD [facility] Start: 01-07-2023 End: 01-08-[address] WAYNE TRINIDAD . Facility:[facility] Start: 10-29-2022 End: 10-29-2022 Patient encounter procedure Wayne TRINIDAD [facility] Start: 10-26-2022 End: 10-27-[address] ERNIE ELLIOTT Facility:[facility] Start: 10-03-2022 End: 10-03-2022 Patient encounter procedure Andressa Quigley [facility] Start: 09-29-2022 End: 09-29-2022 ambulatory ITZ BRICE . Facility:[facility] Start: 09-27-2022 End: 09-27-[address] WAYNE TRINIDAD . Facility:[facility] Start: 09-24-2022 Encounter for preprocedural cardiovascular examination DR WAYNE TRINIDAD . [facility] Start: 09-24-2022 Encounter for preprocedural laboratory examination DR WAYNE TRINIDAD . [facility] Start: 09-24-[address] WAYNE TRINIDAD . Fac ility:[facility] Start: 09-21-2022 End: 09-22-[address] WAYNE TRINIDAD . Facility:[facility] Start: 09-21-2022 End: 09-22-2022 Encounter for preprocedural cardiovascular examination DR WAYNE TRINIDAD . Facility:[facility] Start: 06-25-2022 End: 06-25-2022 Patient encounter procedure Wayne TRINIDAD [facility] Start: 06-11-2022 End: 06-12-[address] WAYNE TRINIDAD . Facility:[facility] Start: 03-16-2022 End: 03-17-[address] NGOZI CARTER Facility:[facility] Start: 03-02-2022 End: 03-03-[address] WAYNE TRINIDAD . Facility:[facility] Start: 02-16-2022 End: 02-16-2022 Patient encounter procedure Wayne TRINIDAD [facility] Start: 02-08-2022 End: 02-08-[address] WAYNE TRINIDAD . Facility: Start: 02-07-2022 Encounter for preprocedural laboratory examination DR WAYNE TRINIDAD . [facility] Start: 02-05-2022 End: 02-06-[address] WAYNE TRINIDAD . Facility:[facility] Start: 02-05-2022 End: 02-06-2022 Encounter for preprocedural laboratory examination DR WAYNE TRINIDAD . Facility: Start: 02-01-2022 Encounter for preprocedural cardiovascular examination DR WAYNE TRINIDAD . [facility] Start: 01-29-2022 End: 01-30-[address] WAYNE TRINIDAD . Facility: Start: 09-25-2021 End: 10-19-2021 ambulatory JACQUELYN MAURER Facility:[facility] Start: 03-27-2018 Ambulatory DANII ANDERSRACHEL Fa cility:[id number] Procedures Date Procedure Procedure Detail Performing Clinician Start: 01-07-[address] WESTLEY TRINIDAD . Comment on above: Performed By: #### P SAD #### [facility] [address] [place] [address] Dr. Juanita Sagastume Start: 09-27-2022 Brachytherapy of pro state using fluoroscopic guidance Wayne TRINIDAD Start: 09-04-2022 Teleradiotherapy procedure Wayne TRINIDAD Start: 06-11-[address] WESTLEY TRINIDAD . Comment on above: Performed By: #### B MP #### [facility] [address] [place] [address] Dr. Juanita Sagastume Start: 02-08-2022 MRI-US fusion guided transrectal biopsy of prostate Wayne TRINIDAD Start: 04-29-2017 TRUS w/bx Wayne WOMACK Start: 01-12-2014 TRUS w/bx Wayne RADHA SHANTA Cataract (disorder) Wayne TRINIDAD Colonoscopy [...] Ngozi Carter, Status: Pen, Time: 1:00 PM [facility] 250 DO Work Phone: Immunizations Immunization Date Immunization Notes Care Provider Fa isamar 07-05-2022 SARS-CoV-2 (COVID-19 ) [id number] Wayne TRINIDAD [facility] Comment on above: Result Comment: 2022: [id number] 08-15-2021 SARS-CoV-2 (COVID-19 ) mRNA BNT-162b2 vax Wayne TRINIDAD [facility] 01-23-2021 SARS-CoV-2 (COVID-19 ) mRNA BNT-162b2 vax Wayne TRINIDAD [facility] 01-10-2021 SARS-CoV-2 (COVID-19 ) mRNA BNT-162b2 vax Wayne TRINIDAD [facility] 12-19-2020 SARS-CoV-2 (COVID-19 ) mRNA BNT-162b2 vax Wayne TRINIDAD [facility] 07-14-2020 influenza virus vacc ine, unspecified formulation Wayen TRINIDAD [facility] 07-23-2019 influenza virus vacc ine, unspecified formulation Wayne TRINIDAD [facility] 07-23-2019 influenza, injectabl e, quadrivalent, preservative free Ernie L Valone Work Phone: [facility] 250 DO Work Phone: 07-14-2019 influenza virus vacc ine, unspecified formulation Wayne TRINIDAD [facility] 07-14-2019 influenza, high dose seasonal, preservative-free Ernie L Valone Work Phone: [facility] 250 DO Work Phone: 07-14-2018 influenza virus vacc ine, unspecified formulation Ernie L Valone Work Phone: [facility] 250 DO Work Phone: 07-14-2017 influenza virus vacc ine, unspecified formulation Ernie L Valone Work Phone: [facility] 250 DO Work Phone: 10-14-2015 pneumococcal polysaccharide vaccine, 23 valent Ernie L Valone Work Phone: [facility] 250 DO Work Phone: Payers Date Payer Category Payer Medicare [id number] 1955 Unknown [id number] 2.16.8 [id number] 1955 Unknown [id number] 2.16.84 [id number] 1955 Unknown [id number] 2.16.84 0.1.960478.3.579.2.593 1955 Unknown [id number] 2.16.84 0.1.585873.3.579.2.593 1955 Unknown [id number] 2.16.84 0.1.057353.3.579.2.593 1955 Unknown [id number] 2.16.84 0.1.994063.3.579.2.593 1955 Unknown [id number] 2.16.84 0.1.823758.3.579.2.593 1955 Unknown [id number] 2.16.84 0.1.257400.3.579.2.593 1955 Unknown [id number] 2.16.84 0.1.708494.3.579.2.593 1955 Unknown [id number] 2.16.84 0.1.058366.3.579.2.593 1955 Unknown [id number] 2.16.84 0.1.168548.3.579.2.593 1955 Unknown [id number] 2.16.84 0.1.741996.3.579.2.593 1955 Unknown [id number] 2.16.84 0.1.543550.3.579.2.593 1955 Unknown [id number] 2.16. 840.1.642518.3.579.2.356 1955 Unknown [id number] 2.16.8 40.1.480369.3.579.2.727 1955 Unknown [id number] 2.16.8 40.1.377738.3.579.2.727 1955 Unknown [id number] 2.16.8 40.1.500503.3.579.2.727 Medicare [id number] Unknown [id number] Unknown [id number] Unknown Social History Date Type Detail Facility Start: 11-20-2021 End: 03-30-2024 Tobacco smoking status Ex-smoker (finding) [facility] Sex Assigned At Male [facility] No alcohol use No alcohol use [facility] 250 DO Work Phone: Tobacco smoking status Never [facility] Functional Status Date Assessment Result Facility 03-30-2024 Functional Status N/A [facility] 09-16-2023 Functional Status N/A [facility] 01-14-2023 Functional Status N/A [facility] 10-29-2022 Functional Status N/A [facility] 06-25-2022 Functional Status N/A [facility] Clinical Notes 01-29-2022 to 03-30-2024 Note [...] under a microscope. This is called the Dallas score and the total score can range from 6 10, indicating how likely it is that the cancer will spread (metastasize) to other parts of the body. The higher the score, the greater the likelihood that the cancer will spread. Dallas 6 or lower: This indicates that the cancer cells look similar to normal prostate cells (well differentiated). Kenan 7: This indicates that the cancer cells look somewhat similar to normal prostate cells (moderately differentiated). Dallas 8, 9, or 10: This indicates that [...] stress of having cancer. General instructions Take vuis-awl-zdtdkfn and prescription medicines only as told by your health care provider. If you have to go to the hospital, notify your cancer specialist (oncologist). Keep all follow-up visits. This is important. Where to find more information [place] [employer]: www.cancer.org [place] [employer] Clinical Oncology: www.cancer.net National Cancer Urich: www.cancer.gov Contact a health care provider if: [...] provider. Document Revised: 12/27/2021 Document Reviewed: 12/27/2021 [employer] Patient Education 2022 [employer]. Follow Up Care 09/16/2023 14:45:37 With:TANISHA GILL, Wayne Galicia, URL Address: [facility] [address] , [place] [address]- When: Unknown [facility] 09-16-2023 Hospital Discharge instructions Patient Education [...] under a microscope. This is called the Dallas score and the total score can range from 6 10, indicating how likely it is that the cancer will spread (metastasize) to other parts of the body. The higher the score, the greater the likelihood that the cancer will spread. Kenan 6 or lower: This indicates that the cancer cells look similar to normal prostate cells (well differentiated). Dallas 7: This indicates that the cancer cells look somewhat similar to normal prostate cells (moderately differentiated). Dallas 8, 9, or 10: This indicates that [...] stress of having cancer. General instructions Take eyro-cha-dfpcghl and prescription medicines only as told by your health care provider. If you have to go to the hospital, notify your cancer specialist (oncologist). Keep all follow-up visits. This is important. Where to find more information [place] [employer]: www.cancer.org [place] [employer] Clinical Oncology: www.cancer.net National Cancer Urich: www.cancer.gov Contact a health care provider if: [...] provider. Document Revised: 12/27/2021 Document Reviewed: 12/27/2021 [employer] Patient Education 2022 [employer]. Follow Up Care 01/14/2023 14:33:04 With:TANISHA GILL, Wayne Galicia, URL Address: [facility] [address], [place] [address] [phone] When: Unknown Comments:6 mos w/ PSA [facility] [place] 01-14-2023 Hospital Discharge instructions [...] if anything looks unusual. Men with a qokspv-ajez-cggjmi risk for skin cancer may want to see a community product specialist (line supervisor) for an annual body check. Where to find more information National Cancer Urich: https://www.cancer.gov/about-cance r/screening Centers for Disease Control and Prevention: https://www.cdc.gov/cancer/dcpc/pr evention/screening.htm [place] [employer]: https://www.cancer.org/latest-news /8-jwdqeo-gadstfnjm-dzjpo-rfe-hph. html Contact a health care provider if: [...] 06/27/2017 Document Revised: 06/19/2019 Document Reviewed: 06/27/2017 [employer] Patient Education 2020 [employer]. Follow Up Care 07/23/2022 16:04:42 With:TANISHA GILL, Wayne Galicia, URL Address: [facility] [address] , [place] [address]- When: Unknown [facility] 10-29-2022 Hospital Discharge instructions Patient Education [...] urethra. Follow these instructions at home: Take yjal-uex-smmdtha and prescription medicines only as told by [...] 09/30/2006 Document Revised: 08/25/2019 Document Reviewed: 11/04/2017 [employer] Patient Education 2020 [employer]. Follow Up Care 09/04/2022 11:18:16 With:TANISHA GILL, Wayne Galicia, URL Address: [facility] [address] , [place] [address]- When: Unknown [facility] 09-21-2022 Note EXAMINATION: XR CHES T [...] authenticated by: SANIA CANELA Date: 2022-09-21 12:38 [facility] 06-25-2022 Hospital Discharge instructions Patient Education [...] including vitamins, herbs, eye drops, creams, and vjmr-hoy-ikwaigy medicines. Any problems you or family members [...] 03/10/2007 Document Revised: 09/12/2018 Document Reviewed: 10/09/2017 [employer] Patient Education 2020 [employer]. Follow Up Care 02/16/2022 11:08:20 With:TANISHA GILL, Wayne Galicia, URL Address: [facility] [address] , [place] [address]- [phone] When: Unknown [facility] 02-16-2022 Hospital Discharge instructions Patient Education [...] who: Are older than age 65. Are -[place]. Are obese. Have a family history of [...] cells. Follow these instructions at home: Take ecbu-nmt-ypaijrl and prescription medicines only as told by [...] 09/30/2006 Document Revised: 09/12/2018 Document Reviewed: 06/10/2017 [employer] Patient Education [employer]. Follow Up Care 01/22/2022 16:42:55 With:Wayne TRINIDAD MD, URL Address: [facility] [address] , [place] [address]- When:06/19/2022 Comments:w/ PSA [facility] 01-29-2022 Note EXAMINATION: XR CHES T [...] by: MAIKEL ESTEVEZ Date: 2022-01-29 13:48 [facility] Evaluation + Plan note Future Appointments Appointment Date:03/30/2022 08:30:00 AM Scheduled Provider:Wayne TRINIDAD MD Location:[facility] Appointment Type:URO Office Visit Appointment Date:06/25/2022 02:15:00 PM Scheduled Provider:Wayne TRINIDAD MD Location:[facility] Appointment Type:URO Office Visit Diagnostic Tests PendingPSA Total 02/16/22 [facility] Evaluation + Plan note [facility] Evaluation + Plan note Future Appointments Appointment Date:10/29/2022 01:30:00 PM Scheduled Provider:Wayne TRINIDAD MD Location:[facility] Appointment Type:URO Office Visit Appointment Date:01/14/2023 01:15:00 PM Scheduled Provider:Wayne TRINIDAD MD Location:[facility] Appointment Type:URO Office Visit [facility] Evaluation + Plan note Future Appointments Appointment Date:01/14/2023 01:15:00 PM Scheduled Provider:Wayne TRINIDAD MD Location:[facility] Appointment Type:URO Office Visit Appointment Date:02/04/2023 01:15:00 PM Scheduled Provider:Wayne TRINIDAD MD [facility] Appoint[facility] Type:URO Office Visit Diagnostic Tests PendingPSA Total 10/29/22 [facility] Evaluation + Plan note Future Appointments Appointment Date:09/16/2023 01:45:00 PM Scheduled Provider:Wayne TRINIDAD MD [facility] Appoint[facility] Type:URO Office Visit Diagnostic Tests PendingPSA Total 01/14/23 [facility] Evaluation + Plan note Future Appointments Appointment Date:03/23/2024 01:45:00 PM Scheduled Provider:Wayne TRINIDAD MD [facility] Appointment Type:URO Office Visit Diagnostic Tests PendingPSA Total 09/16/23 [facility] Evaluation + Plan note Future Appointments Appointment Date:04/05/2025 01:15:00 PM Scheduled Provider:Wayne TRINIDAD MD Location:[facility] Appointment Type:URO Office Visit Diagnostic Tests PendingPSA Total 03/30/24 [facility] Hospital course Narrative No data available for this section [facility] Hospital Discharge instructions No data available for this section [facility] Progress note No data available for this section [facility] Reason for referral (narrative) Referred by: Wayne TRINIDAD MD [facility] [place] Summary Purpose Family History No Family History [...] section and content) DATE CREATED AUTHOR 04/01/2018 [facility] DATE CREATED AUTHOR AUTHOR'S ORGANIZ ATION 10/20/2021 [facility] DATE CREATED AUTHOR AUTHOR'S ORGANIZ ATION 01/01/2022 [facility] DATE CREATED AUTHOR AUTHOR'S ORGANIZ ATION 01/16/2023 [facility] DATE CREATED AUTHOR AUTHOR'S ORGANIZ ATION 01/19/2023 [facility] DATE CREATED AUTHOR AUTHOR'S ORGANIZ ATION 04/09/2023 [facility] DATE CREATED AUTHOR AUTHOR'S ORGANIZ ATION 04/09/2023 [employer] DATE CREATED AUTHOR AUTHOR'S ORGANIZ ATION 04/01/2024 [facility] Care Team (unrecognized sect ion and content) Personnel Name: ERNIE ELLIOTT JR, DO Address: [address] [place] [address] Personnel Name: ERNIE ELLIOTT JR, DO Address: Address: [address] [place] [address] Personnel Name: ERNIE ELLIOTT JR, DO Address: Address: [address] [place] [address] Personnel Name: ERNIE ELLIOTT JR, DO Address: Address: [address] [place] [address] Personnel Name: ERNIE ELLIOTT JR, DO Address: Address: [address] [place] [address] Personnel Name: ERNIE ELLIOTT JR, DO Address: Address: [address] [place] [address] FOR RECORDS PERTAINING TO PATIENTS WHO ARE [...] BE BASED ON THE PRIMARY CLINICAL RECORDS. [facility], [facility]. provides no warranty or guarantee of the accuracy or completeness of information in this document.
[2024-11-10 13:00] LABS: Hemoglobin 12.3 g/dL (14.0-18.0)
--- NOTE | 2024-11-10 13:48 | RT_ITS ---
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 Findings were considered accurate and reproducible. Both pre- and post-bronchodilator values utilized for spirometry. Spirometry (based on pre-bronchodilator values): -FEV1/FVC: Reduced @ 62% -FEV1: Severely reduced @ 49% -FVC: Reduced @ 59% -TTY71-71%: Reduced @ 30% -There is a positive bronchodilator resposne in DVI29-03%, but diagnostic and clinical significance is unclear. Lung volumes by plethysmography (based on pre-bronchodilator values): -RV: Increased @ 137% -TLC: Normal @ 89% Diffusion capacity: -DLCO: Moderate reduction @ 63% when corrected for Hb 12.3/dL Impressions: -Spirometry suggests severe obstruction. An elevated RV suggests air trapping. There is a moderately reduced diffusion capacity. Overall study is compatible with COPD/emphysema. Clinical correlation required. Electronically Signed On 11-10-2024 16:28:04 EST by Jona Olivarez
[2024-11-10] MEDS: ALBUTEROL SULFATE 2.5 MG/3 ML VIAL NEB IH (13:51)
--- NOTE | 2024-11-10 14:17 | CT_ITS ---
The [address] [address] Patient Name: SHERON ERAZO MRN: [id number] date: 1955 Sex: M Assigned Patient Location: CARD Current Patient Location: Accession/Order Number: [id number] Exam Date: 11/10/2024 14:34 Report Date: 11/11/2024 10:34 At the request of: JOLEEN ANDERSON Procedure: CT lung screening low-dose EXAM: CT lung screening low-dose HISTORY: Nicotine Dependence COMPARISON: CT lung screening low-dose examination dated 11/05/2023. TECHNIQUE: Routine low-dose CT lung screen examination without intravenous contrast. Dose reduction techniques were achieved by using automated exposure control and/or adjustment of mA and/or kV according to patient size and/or use of iterative reconstruction technique. FINDINGS: Cardiovascular: Severe multivessel coronary calcifications. Moderately severe aortic valvular calcification. Moderately severe atheromatous calcification thoracic aorta and great vessels off the aortic arch. Severe atheromatous calcification proximal abdominal aorta and imaged portions of the SMA. Lung: Paraseptal and centrilobular emphysema. Stable right apical pleural parenchymal scarring, moderate on the right mild on the left. There is mild peribronchial thickening consistent with acute and/or chronic bronchitis. Stable mild bilateral lower lobe parenchymal scar. There is mild right middle lobe and lingular atelectasis. There is a 1.5 cm lingular density with a flat configuration on the coronal and sagittal images suggesting atelectasis. Nodules: There are no suspicious masses or nodules within the lungs. There is a small calcified granuloma within the left lower lobe. Lymphadenopathy: Stable 1.3 x 1.2 cm precarinal lymph node. Other: Stable severe bilateral gynecomastia. The trachea, esophagus and thyroid gland are unremarkable. Upper abdomen: Atherosclerotic disease as described. Osseous: The bony structures may be osteopenic. There is mild to moderate dextroscoliosis of the thoracic spine. There are discogenic degenerative changes ranging from mild to severe at numerous levels along the spine. CT/CT lung screening low-dose IMPRESSION: Paraseptal and centrilobular emphysema. There is mild peribronchial thickening consistent with acute and/or chronic bronchitis. Stable mild bilateral lower lobe parenchymal scar. There is mild right middle lobe and lingular atelectasis. There is a 1.5 cm irregular density with a flat configuration on the coronal and sagittal images suggesting atelectasis. There are no suspicious masses or nodules within the lungs. There is a stable 1.3 x 1.2 cm precarinal lymph node. Severe multivessel coronary calcifications. Atherosclerotic disease as otherwise described. Stable severe bilateral gynecomastia. The bony structures may be osteopenic. There is mild to moderate dextroscoliosis of the thoracic spine. There are discogenic degenerative changes ranging from mild to severe at numerous levels along the spine. Lung rads score 1S. A low-dose CT lung screen examination in 12 months is recommended. Electronically authenticated by: ELVIN MCKEE Date: 11/11/2024 10:34
== END 2024-11-10 12:48 | disposition home or self-care (01) ==
LOC: CARD 12:47
PROVIDERS: PCP Internal Medicine; Visit Provider Internal Medicine
DX: J43.2 Centrilobular emphysema (principal); Z87.891 Personal history of nicotine dependence; Z12.2 Encounter for screening for malignant neoplasm of respiratory organs
CPT/HCPCS: 36415; 71271; 85018; 94060; 94726; 94729

== ENCOUNTER 2024-11-12 09:12 | Outpatient (OUT) | payer MEDICARE, SELFPAY ==
--- OUTSIDE RECORDS SUMMARY | 2024-11-12 09:16 | XMS_ITS | CCD ---
Author Organization [facility]ini[facility] Care Team Providers Care School Psychometrist Name Role Phone DANII MALDONADO Unavailable Unavailabl e ERNIE ELLIOTT Unavailable Unavailable JACQUELYN MAURER Attending Unavailable EARL, ERNIE Primary Care Unavailable EARL, ERNIE Referring Unavailable AJCQUELYN MAURER Admitting Unavailable ERNIE ELLIOTT JR Primary [...] ., DR MCPHERSON Attending Unavailable VALONE, DR KLENI Primary Care Unavailable TRINIDAD ., DR MCPHERSON [...] YUNIEL ., ITZ Attending Unavailable YUNIEL ., TIZ Admitting Unavailable VALONE, DR KLEIN Primary Care Unavailable YUNIEL ., ITZ Consulting Unavailable TRINIDAD ., DR MCPHERSON Admitting Unavailable TRINIDAD ., DR MCPHERSON Consulting Unavailable VALONE, DR KELIN Primary Care Unavailable TRINIDAD ., DR MCPHERSON [...] Consulting Unavailable Raul, Ngozi Attending Unavailable Ngozi Crater Referring Unavailable Earl Jr, Dr. [facility] Jes vailable Earl, Ernie Ogden Unavailable Unavailable Unavailable Wayne TRINIDAD Attending Unavailable TRINIDAD, Wayne Galicia Attending Unavailable TRINIDAD, Wayne Galicia Attending Unavailable Allergies Allergy Classification Reported Allergen(s) Allergy Type Date of Onset Reaction(s) Facility (1 source) Ramipril Drug Allergy 2 [facility] Repository (1 source) No Known Medication Allergies; 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: [No Known Medication Allergies] Propensity to adverse reactions (disorder) [facility] Repository Medications Current Medications Medication Drug [...] disease (6 sources) Atherosclerotic heart disease of [place] coronary artery without angina pectoris; 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: [Coronary [...] Unclassified (2 sources) Athscl heart disease of [place] coronary artery w/o ang pctrs / I25.10(ICD-9) [...] 10-01-2022 Episodic Other aftercare (1 source) Other custodial (current) drug therapy; 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: [OTH FDC CURRENT DRUG THERAPY] Onset: 10-01-2022 Episodic Other aftercare (1 source) 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 ? Bartow 8, 9, or 10: This indicates that [...] external be (more content not included)... 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 (more content not included)... Normal [facility] Comment on above: Result Comment: Elec tronically Signed By: Wayne TRINIDAD MD\.br\Date and Time Signed: 03/30/24 13:09 EDT\.br\Electronically Co-Signed By: Toyin Fournier\.br\Date and Time Co-Signed: 03/30/24 13:08 EDT Lab Report[facility] 2024 Lab Reports [id number] .00TIFF Normal [facility] Consultation Noteon 11-21-19 Consultation Note [id number] .00TIFF Normal [facility] Patient Educationon 09-16-20 Patient Education Oncology [...] under a microscope. This is called the Bartow score and the total score can range from 6?10, indicating how likely it is that the cancer will spread (metastasize) to other parts of the body. The higher the score, the greater the likelihood that the cancer will spread. ? Bartow 6 or lower: This indicates that the cancer cells look similar to normal prostate cells (well differentiated). ? Bartow 7: This indicates that the cancer cells [...] external be (more content not included)... Normal [facility] Urology Office/Clinic Noteon 09-16-2023 Urology Office/Clinic [...] [facility] [address], [place] [id number] Additional Instructions: 6 mos w/ PSA Patient [...] PSA Frequency of urination Glycosuria Hx of custodial use of blood thinners Hyperlipidemia Nocturia Personal [...] Immunizations Vaccine Date Status Comments SARS-CoV-2 (COVID-19) mRNAMUL.ORD![id number] 07/05/2022 Recorded 2022-10-29: [id number] SARS-CoV-2 (COVID-19) mRNA BNT-162b2 vax 08/15/2021 Recorded SARS-CoV-2 (COVID-19) mRNA BNT-162b2 vax 01/23/2021 Recorded SARS-CoV-2 (COVID-19) mRNA BNT-162b2 vax 01/10/2021 Recorded SARS-CoV-2 (COVID-1 (more content not included)... Normal [facility] Comment on above: Result Comment: Elec tronically Signed By: Wayne TRINIDAD MD\.br\Date and Time Signed: 09/16/23 14:41 EST\.br\Electronically Co-Signed By: Guera Oswald\.br\Date and Time Co-Signed: 09/16/23 14:40 EST Lab Report[facility] 09-10-2023 Lab Reports [id number] .00TIFF [facility] Office Visit (Cardiology)on 04-08-2023 Follow-up visit [...] Recorded: 08Apr2023 01:21PM Heart Rate78, R Radial Xwplyirz820, LUE, Sitting Tvqhoedlm79, LUE, Sitting Height6 ft Gbcfkl619 lb BMI Obiyxthtnm07.09 kg/m2 BSA Calculated2.32 Tobacco Useb) No PHQ-2 [...] Apr 08 2023 1:56PM EST (Author) Normal card.io Tobacco Screening.on 023 Adult depression screening assessment No [facility] [employer] 250 DO Work Phone: Fall risk assessment a) No falls within the last year [facility] [employer] 250 DO Work Phone: Tobacco use status CP b) No [facility] [employer] 250 DO Work Phone: Refillon 01-16-2023 Refill [id number] Sheron Erazo Jr. 1955 M Date Provider Department Center 01/16/2023 JACQUELYN JACOBSON ONC D[facility] No family history on file Reason for Visit and Comments: Med Refill [[id number]] Normal [facility] CT LUNG CANCER SCREENINGon 0 10-26-2022 [...] by: MAIKEL ESTEVEZ Date: 2022-10-26 15:22 Normal [facility] Refillon 10-15-2022 Refill [id number] Sheron Erazo Jr. 1955 Date Provider Department Center 10/15/2022 JACQUELYN JACOBSON [facility] ONC [facility] No family history on file Reason for Visit and Comments: Med Refill [[id number]] Normal [facility] XR PELVIS 1_2 VIEWSon 2021 XR [...] by: MAIKEL ESTEVEZ Date: 2022-09-28 07:22 Normal [facility] CBC AUTO DIFFon 09-27-2022 BASO # 0.0 103/ul Normal 0.0-0.1 [facility] Comment on above: Performed By: #### B MP #### [facility] [address] [address] [address] Juanita Sagastume Basophils/100 WBC (Bld) 0.2 % Normal 0.2-2.0 [facility] Comment on above: Performed By: #### B MP #### [facility] [address] [place] [address] Dr. Juanita Sagastume EO # 0.2 103/ul Normal 0.0-0.7 [facility] Comment on above: Performed By: #### B MP #### [facility] [address] [place] [address] Dr. Juanita Sagastume Eosinophils/100 WBC (Bld) 2.2 % Normal 0.9-7.0 [facility] Comment on above: Performed By: #### B MP #### [facility] [address] [place] [address] Dr. Juanita Sagastume Erythrocyte distribution width (RBC) [Ratio] 17.5 % Critically high 11.0-15.0 [facility] Comment on above: Performed By: #### B MP #### [facility] [address] [place] [address] Dr. Juanita Sagastume Hematocrit (Bld) [Volume fraction] 41.3 % Critically low 42.0-54.0 [facility] Comment on above: Performed By: #### B MP #### [facility] [address] [place] [address] Dr. Juanita Sagastume Hemoglobin (Bld) [Mass/Vol] 13.5 g/dL Critically low 14.0-18.0 [facility] Comment on above: Performed By: #### B MP #### [facility] [address] [place] [address] Dr. Juanita Sagastume IG # 0.04 10e3/ul Critically high 0.00-0.03 [facility] Comment on above: Performed By: #### B MP #### [facility] [address] [place] [address] Dr. Juanita Sagastume IG % 0.5 % Normal 0.0-0.5 [facility] Comment on above: Performed By: #### B MP #### [facility] [address] [place] [address] Dr. Juanita Sagastume LYMPH # 0.8 103/ul Critically low 1.2-3.8 [facility] Comment on above: Performed By: #### B MP #### [facility] [address] [place] [address] Dr. Juanita Sagastume Lymphocytes/100 WBC (Bld) 9.3 % Critically low 20.5-60.0 [facility] Comment on above: Performed By: #### B MP #### [facility] [address] [place] [address] Dr. Juanita Sagastume MANUAL DIFF REQ NO Normal [facility] Comment on above: Performed By: #### B MP #### [facility] [address] [place] [address] Dr. Juanita Sagastume MCH (RBC) [Entitic mass] 26.7 pg Normal 25.9-34.0 [facility] Comment on above: Performed By: #### B MP #### [facility] [address] [place] [address] Dr. Juanita Sagastume MCHC (RBC) [Mass/Vol] 32.7 g/dL Normal 29.9-35.2 [facility] Comment on above: Performed By: #### B MP #### [facility] [address] [place] [address] Dr. Juanita Sagastume MCV (RBC) [Entitic vol] 81.8 fL Normal 80.0-94.0 [facility] Comment on above: Performed By: #### B MP #### [facility] [address] [place] [address] Dr. Juanita Sagastume MONO # 1.0 103/ul Critically high 0.3-0.8 [facility] Comment on above: Performed By: #### B MP #### [facility] [address] [place] [address] Dr. Juanita Sagastume Monocytes/100 WBC (Bld) 11.5 % Normal 1.7-12.0 [facility] Comment on above: Performed By: #### B MP #### [facility] [address] [place] [address] Dr. Juanita Sagastume NEUT # 6.3 103/ul Normal 1.4-6.5 [facility] Comment on above: Performed By: #### B MP #### [facility] [address] [address] [address] Juanita Sagastume Neutrophils/100 WBC (Bld) 76.3 % Critically high 43.0-75.0 [facility] Comment on above: Performed By: #### B MP #### [facility] [address] [address] [address] Juanita Sagastume Platelet mean volume (Bld) [Entitic vol] 8.5 fL Critically low 9.5-13.5 [facility] Comment on above: Performed By: #### B MP #### [facility] [address] [address] [address] Juanita Sagastume PLT 273 103/ul Normal 150-450 [facility] Comment on above: Performed By: #### B MP #### [facility] [address] [place] [address] Dr. Juanita Sagastume RBC 5.05 106/ul Normal 4.70-6.10 [facility] Comment on above: Performed By: #### B MP #### [facility] [address] [place] [address] Dr. Juanita Sagastume WBC 8.3 103/ul Normal 4.0-11.0 [facility] Comment on above: Performed By: #### B MP #### [facility] [address] [place] [address] Dr. Juanita Sagastume PROF CHEM 8 (BAS METB)on Anion gap [Moles/Vol] 10.9 mmol/L Normal [facility] Comment on above: Performed By: #### B MP #### [facility] [address] [place] [address] Dr. Juanita Sagastume Calcium [Mass/Vol] 10.2 mg/dL Critically high 8.5-10.1 [facility] Comment on above: Performed By: #### B MP #### [facility] [address] [place] [address] Dr. Juanita Sagastume Chloride [Moles/Vol] 98 mmol/L Normal 98-107 [facility] Comment on above: Performed By: #### B MP #### [facility] [address] [address] [address] Juanita Sagastume CO2 [Moles/Vol] 34.5 mmol/L Critically high 21.0-32.0 [facility] Comment on above: Performed By: #### B MP #### [facility] [address] [address] [address] Juanita Sagastume Creatinine [Mass/Vol] 1.06 mg/dL Normal 0.70-1.30 [facility] Comment on above: Performed By: #### B MP #### [facility] [address] [address] [address] Juanita Sagastume EGFR-AF SAO TOMEAN >60 Normal >=60 [facility] Comment on above: Performed By: #### B MP #### [facility] [address] [place] [address] Dr. Juanita Sagastume EGFR-NON AF SAO TOMEAN >60 Normal >=60 [facility] Comment on above: Performed By: #### B MP #### [facility] [address] [address] [address] Juanita Sagastume Glucose [Mass/Vol] 122 mg/dL Critically high 74-106 [facility] Comment on above: Performed By: #### B MP #### [facility] [address] [address] [address] Juanita Sagastume Potassium [Moles/Vol] 4.4 mmol/L Normal 3.5-5.1 [facility] Comment on above: Performed By: #### B MP #### [facility] [address] [address] [address] Juanita Sagastume Sodium [Moles/Vol] 139 mmol/L Normal 136-145 [facility] Comment on above: Performed By: #### B MP #### [facility] [address] [address] [address] Juanita Sagastume Urea nitrogen [Mass/Vol] 16.0 mg/dL Normal 7.0-18.0 [facility] Comment on above: Performed By: #### B MP #### [facility] [address] [place] [address] Dr. Juanita Sagastume Urea nitrogen/Creatinin e [Mass ratio] 15.1 mg/mg Normal [facility] Comment on above: Performed By: #### B MP #### [facility] [address] [place] [address] Dr. Juanita Sagastume PROTIMEon 09-27-2022 INR Coag (PPP) [Relative time] 0.93 {INR} Normal [facility] Comment on above: Performed By: #### B MP #### [facility] [address] [place] [address] Dr. Juanita Sagastume INR GUIDELINES SEE BELOW Normal [facility] Comment on above: Result Comment: KAMINI RED INR: 2.0 - 3.0 CONDITIONS NOT LISTED BELOW 2.5 - 3.5 FOR PROSTHETIC HEART VALVE REPLACEMENT 2.5 - 3.5 RECURRENT THROMBOSIS Performed By: #### B MP #### [facility] [address] [place] [address] Dr. Juanita Sagastume PT Coag (PPP) [Time] 10.1 s Normal 9.0-11.6 [facility] Comment on above: Performed By: #### B MP #### [facility] [address] [place] [address] Dr. Juanita Sagastume [facility]on SARS-CoV-2 (COVID-19) RNA SKYLAR+probe Ql (Unsp spec) Not detected Normal NOT DETECTED [facility] Comment on above: Result Comment: This test is not yet approved or cleared by the [place] FDA. When there are no FDA-approved or cleared tests available, and other criteria are met, FDA can make tests available under an emergency access mechanism called an Emergency Use Authorization (EUA). The EUA for this test is supported by the [place] of Health and Human Service's (HHS's) declaration [...] SARS-CoV-2. Performed By: #### C VDTBH #### [facility] [address] [place] [address] Dr. Juanita Sagastume LIPID PROFILEon 03-16-2022 CHOL-HDL RATIO NORM SEE BELOW Normal [facility] Comment on above: Result Comment: 3.3 - 4.4 LOW RISK 4.4 - 7.1 AVERAGE RISK 7.1 - 11.0 MODERATE RISK >11.0 HIGH RISK Performed By: #### A LT, LIPID, AST #### [facility] [address] [place] [address] Dr. Juanita Sagastume Cholesterol [Mass/Vol] 111 mg/dL Normal <=200 [facility] Comment on above: Performed By: #### A LT, LIPID, AST #### [facility] [address] [place] [address] Dr. Juanita Sagastume Cholesterol in HDL [Mass/Vol] 35 mg/dL Critically low 40-60 [facility] Comment on above: Performed By: #### A LT, LIPID, AST #### [facility] [address] [place] [address] Dr. Juanita Sagastume Cholesterol in LDL [Mass/Vol] 29.6 mg/dL Normal [facility] Comment on above: Performed By: #### A LT, LIPID, AST #### [facility] [address] [place] [address] Dr. Juanita Sagastume Cholesterol.total/ Cholesterol in HDL [Mass ratio] 3.2 {ratio} Normal [facility] Comment on above: Performed By: #### A LT, LIPID, AST #### [facility] [address] [place] [address] Dr. Juanita Sagastume HDL NORMAL > or = 60 mg/dl - LO W CARDIOVASCULAR RISK <40 mg/dl - HIGH CARDIOVASCULAR RISK Normal [facility] Comment on above: Performed By: #### A LT, LIPID, AST #### [facility] [address] [address] [address] Juanita Sagastume LDL CALC NORMAL SEE BELOW Normal [facility] Comment on above: Result Comment: <100 mg/dl OPTIMAL 100 - 129 mg/dl NEAR OR ABOVE OPTIMAL 130 - 159 mg/dl BORDERLINE HIGH 160 - 189 mg/dl HIGH >190 mg/dl VERY HIGH Performed By: #### A LT, LIPID, AST #### [facility] [address] [address] [address] Juanita Sagastume Triglyceride [Mass/Vol] 232 mg/dL Critically high <=150 [facility] Comment on above: Performed By: #### A LT, LIPID, AST #### [facility] [address] [address] [address] Juanita Sagastume VLDL CALC 46.4 mg/dL Normal [facility] Comment on above: Performed By: #### A LT, LIPID, AST #### [facility] [address] [place] [address] Dr. Juanita Sagastume SGOTojalil 03-16-2022 AST [Catalytic activity/Vol] 22 U/L Normal 15-37 [facility] Comment on above: Performed By: #### A LT, LIPID, AST #### [facility] [address] [place] [address] Dr. Juanita Sagastume SGPTon 03-16-2022 ALT [Catalytic activity/Vol] 24 U/L Normal 16-63 [facility] Comment on above: Performed By: #### A LT, LIPID, AST #### [facility] [address] [place] [address] Dr. Juanita Sagastume CREATININEon 03-02-2022 Creatinine [Mass/Vol] 1.19 mg/dL Normal 0.70-1.30 [facility] Comment on above: Performed By: #### C KRYS #### [facility] [address] [place] [address] Dr. Juanita Sagastume EGFR-AF SAO TOMEAN >60 Normal >=60 [facility] Comment on above: Performed By: #### C KRYS #### [facility] [address] [place] [address] Dr. Juanita Sagastume EGFR-NON AF SAO TOMEAN >60 Normal >=60 [facility] Comment on above: Performed By: #### C KRYS #### [facility] [address] [address] [address] ABD/PELV WO W [...] by: MAIKEL ESTEVEZ Date: 2022-03-02 14:40 Normal [facility] BONE LA WH BODYon 022 NM BONE SC WH BODY EXAMINATION: NM BONE [facility] BODY HISTORY: Primary malignant neoplasm [...] MAIKEL ESTEVEZ Date: 2022-03-02 15:26 Normal [facility] POINT OF CARE GLUCOSEon 01-13 Glucose [Mass/Vol] 117 mg/dL Critically high 74-106 T [facility] Comment on above: Performed By: #### B MP #### [facility] [address] [place] [address] Dr. Juanita Sagastume Covid-19 PCR ([facility])on 01-13 SARS-CoV-2 (COVID-19) RNA SKYLAR+probe Ql (Unsp spec) Not detected Normal NOT DETECTED [facility] Comment on above: Result Comment: This test is not yet approved or cleared by the [place] FDA. When there are no FDA-approved or cleared tests available, and other criteria are met, FDA can make tests available under an emergency access mechanism called an Emergency Use Authorization (EUA). The EUA for this test is supported by the [place] of Health and Human Service's (HHS's) declaration [...] SARS-CoV-2. Performed By: #### C VDTB #### [facility] [address] [address] [address] Juanita Sagastume CBC AUTO DIFFon 01-29-2022 BASO # 0.0 103/ul Normal 0.0-0.1 [facility] Comment on above: Performed By: #### C BC #### [facility] [address] [place] [address] Dr. Juanita Sagastume Basophils/100 WBC (Bld) 0.3 % Normal 0.2-2.0 [facility] Comment on above: Performed By: #### C BC #### [facility] [address] [place], [place] [id number] Dr. Juanita Sagastume EO # 0.2 103/ul Normal 0.0-0.7 [facility] Comment on above: Performed By: #### C BC #### [facility] [address] [place] [address] Dr. Juanita Sagastume Eosinophils/100 WBC (Bld) 1.8 % Normal 0.9-7.0 [facility] Comment on above: Performed By: #### C BC #### [facility] [address] [place] [address] Dr. Juanita Sagastume Erythrocyte distribution width (RBC) [Ratio] 15.4 % Critically high 11.0-15.0 [facility] Comment on above: Performed By: #### C BC #### [facility] [address] [place] [address] Dr. Juanita Sagastume Hematocrit (Bld) [Volume fraction] 42.3 % Normal 42.0-54.0 [facility] Comment on above: Performed By: #### C BC #### [facility] [address] [place] [address] Dr. Juanita Sagastume Hemoglobin (Bld) [Mass/Vol] 13.3 g/dL Critically low 14.0-18.0 [facility] Comment on above: Performed By: #### C BC #### [facility] [address] [place] [address] Dr. Juanita Sagastume IG # 0.06 10e3/ul Critically high 0.00-0.03 [facility] Comment on above: Performed By: #### C BC #### [facility] [address] [place] [address] Dr. Juanita Sagastume IG % 0.5 % Normal 0.0-0.5 [facility] Comment on above: Performed By: #### C BC #### [facility] [address] [place] [address] Dr. Juanita Sagastume LYMPH # 2.0 103/ul Normal 1.2-3.8 [facility] Comment on above: Performed By: #### C BC #### [facility] [address] [place] [address] Dr. Juanita Sagastume Lymphocytes/100 WBC (Bld) 17.6 % Critically low 20.5-60.0 [facility] Comment on above: Performed By: #### C BC #### [facility] [address] [place] [address] Dr. Juanita Sagastume MANUAL DIFF REQ NO Normal [facility] Comment on above: Performed By: #### C BC #### [facility] [address] [place] [address] Dr. Juanita Sagastume MCH (RBC) [Entitic mass] 26.5 pg Normal 25.9-34.0 [facility] Comment on above: Performed By: #### C BC #### [facility] [address] [place] [address] Dr. Juanita Sagastume MCHC (RBC) [Mass/Vol] 31.4 g/dL Normal 29.9-35.2 [facility] Comment on above: Performed By: #### C BC #### [facility] [address] [place] [address] Dr. Juanita Sagastume MCV (RBC) [Entitic vol] 84.3 fL Normal 80.0-94.0 [facility] Comment on above: Performed By: #### C BC #### [facility] [address] [place] [address] Dr. Juanita Sagastume MONO # 0.9 103/ul Critically high 0.3-0.8 [facility] Comment on above: Performed By: #### C BC #### [facility] [address] [place] [address] Dr. Juanita Sagastume Monocytes/100 WBC (Bld) 7.6 % Normal 1.7-12.0 [facility] Comment on above: Performed By: #### C BC #### [facility] [address] [place] [address] Dr. Juanita Sagastume NEUT # 8.3 103/ul Critically high 1.4-6.5 [facility] Comment on above: Performed By: #### C BC #### [facility] [address] [place] [address] Dr. Juanita Sagastume Neutrophils/100 WBC (Bld) 72.2 % Normal 43.0-75.0 [facility] Comment on above: Performed By: #### C BC #### [facility] [address] [place] [address] Dr. Juanita Sagastume Platelet mean volume (Bld) [Entitic vol] 9.2 fL Critically low 9.5-13.5 [facility] Comment on above: Performed By: #### C BC #### [facility] [address] [place] [address] Dr. Juanita Sagastume PLT 343 103/ul Normal 150-450 [facility] Comment on above: Performed By: #### C BC #### [facility] [address] [place] [address] Dr. Juanita Sagastume RBC 5.02 106/ul Normal 4.70-6.10 [facility] Comment on above: Performed By: #### C BC #### [facility] [address] [place] [address] Dr. Juanita Sagastume WBC 11.5 103/ul Critically high 4.0-11.0 [facility] Comment on above: Performed By: #### C BC #### [facility] [address] [place] [address] Dr. Juanita Sagastume PROF CHEM 8 (BAS METB)on Anion gap [Moles/Vol] 14.6 mmol/L Normal [facility] Comment on above: Performed By: #### B MP #### [facility] [address] [place] [address] Dr. Juanita Sagastume Calcium [Mass/Vol] 9.6 mg/dL Normal 8.5-10.1 [facility] Comment on above: Performed By: #### B MP #### [facility] [address] [place] [address] Dr. Juanita Sagastume Chloride [Moles/Vol] 97 mmol/L Critically low 98-107 [facility] Comment on above: Performed By: #### B MP #### [facility] [address] [place] [address] Dr. Juanita Sagastume CO2 [Moles/Vol] 28.9 mmol/L Normal 22.0-30.0 [facility] Comment on above: Performed By: #### B MP #### [facility] [address] [place] [address] Dr. Juanita Sagastume Creatinine [Mass/Vol] 1.23 mg/dL Normal 0.66-1.25 [facility] Comment on above: Performed By: #### B MP #### [facility] [address] [address] [address] Juanita Sagastume EGFR-AF SAO TOMEAN >60 Normal >=60 [facility] Comment on above: Performed By: #### B MP #### [facility] [address] [address] [address] Juanita Sagastume EGFR-NON AF SAO TOMEAN 59 mL/min/1.73m2 Critically low >=60 [facility] Comment on above: Performed By: #### B MP #### [facility] [address] [place] [address] Dr. Juanita Sagastume Glucose [Mass/Vol] 105 mg/dL Normal 74-106 [facility] Comment on above: Performed By: #### B MP #### [facility] [address] [place] [address] Dr. Juanita Sagastume Potassium [Moles/Vol] 4.5 mmol/L Normal 3.4-5.0 [facility] Comment on above: Performed By: #### B MP #### [facility] [address] [place] [address] Dr. Juanita Sagastume Sodium [Moles/Vol] 136 mmol/L Critically low 137-145 [facility] Comment on above: Performed By: #### B MP #### [facility] [address] [address] [address] Juanita Sagastume Urea nitrogen [Mass/Vol] 16.0 mg/dL Normal 7.0-18.0 [facility] Comment on above: Performed By: #### B MP #### [facility] [address] [place] [address] Dr. Juanita Sagastume Urea nitrogen/Creatinin e [Mass ratio] 13.0 mg/mg Normal [facility] Comment on above: Performed By: #### B MP #### [facility] [address] [place] [address] Dr. Juanita Sagastume PROTIMEon 01-29-2022 INR Coag (PPP) [Relative time] 0.98 {INR} Normal [facility] Comment on above: Performed By: #### B MP #### [facility] [address] [place] [address] Dr. Juanita Sagastume INR GUIDELINES SEE BELOW Normal [facility] Comment on above: Result Comment: KAMINI RED INR: 2.0 - 3.0 CONDITIONS NOT LISTED BELOW 2.5 - 3.5 FOR PROSTHETIC HEART VALVE REPLACEMENT 2.5 - 3.5 RECURRENT THROMBOSIS Performed By: #### B MP #### [facility] [address] [place] [address] Dr. Juanita Sagastume PT Coag (PPP) [Time] 10.6 s Normal 9.0-11.6 [facility] Comment on above: Performed By: #### B MP #### [facility] [address] [place] [address] Dr. Juanita Sagastume PTTon 01-29-2022 aPTT Coag (Bld) [Time] 28.5 s Normal 22.3-36.2 [facility] Comment on above: Performed By: #### B MP #### [facility] [address] [place] [address] Dr. Juanita Sagastume MR prostate wo/w conon 10-17 MR prostate wo/w con [facility] [place] [address] MRI Report Signed Patient: Sheron Erazo MR#: [id number] : 1955 Acct:[id number] Age/Sex: 66 / M ADM Date: 10/10/21 Loc: Room: Type: [facility] Attending Dr: Wayne Trinidad MD [...] PM COT by: Yousif Paz MD Diplomate, [employer] Report Completed: Oct 17, [...] STAFF 10/17/21 1605 Signed By: 10/18/21 0750 [facility] Blood Urea Nitrogenon 2020 Urea nitrogen [Mass/Vol] 11 mg/dL Normal 9-23 [facility] Comment on above: Order Comment: STAT FOR MRI Performed By: #### B UN, CREAT #### [facility] [address] [place] [address] [place] Creatinineon 10-10-2021 Creatinine [Mass/Vol] 1.04 mg/dL Normal 0.64-1.27 [facility] Comment on above: Order Comment: STAT FOR MRI Performed By: #### B UN, CREAT #### [facility] [address] [place] [address] [place] Creatinine Clr Calc Pharmacy 90.84 [facility] Comment on above: Order Comment: STAT FOR MRI Result Comment: PERF ORMED BY: [place] [address] PATHOLOGIST PHOTOGRAPHY EDITOR XUAN GOMEZ M.D. Performed By: #### B UN, CREAT #### [facility] [address] [place] [address] Estimated GFR ( Peyton > 60 [facility] Comment on above: Order Comment: STAT FOR MRI Result Comment: GFR estimated reference range: According to KDOQI guidelines, <60 ml/min/1.73m2 is sufficient to diagnose a patient with chronic kidney disease. Performed By: #### B UN, CREAT #### [facility] [address] [id number] [facility] Estimated GFR (Non- Am > 60 Normal [facility] Comment on above: Order Comment: STAT FOR MRI Performed By: #### B UN, CREAT #### [facility] [address] [id number] [facility] CT CHEST HIGH RESOLUTION WIT HOUT CONTRASTon 10-05-2021 CT CHEST HIGH RESOLUTION WITHOUT CONTRAST [facility] Department of Radiology [address] [place] [address] Patient Name: SHERON ERAZO : 1955 Sex: M Age: Race: White Pt. Location: 29 Patient Status: O Ordered Date: 09/01/2021 11:35:00 AM Completed Date: 10/05/2021 02:33 PM Requesting Provider: JACQUELYN MAURER Attending Provider: JACQUELYN MAURER Report Copy To: ERNIE ELLIOTT Signs & Symptoms: J44.9 Chronic obstructive pulmonary disease, unspecified I10 History: [place] Comments: Exam: CT CHEST HIGH RESOLUTION WITHOUT [...] achievable Electronically signed: Nika Krause. Transcribed by: [email or web address], User Resident: Electronically Signed by: NIKA KRAUSE @ 10/05/2021 02:50 PM Normal [facility] Pulmonary Functionon 12-18-2 021 Pulmonary Function MR #: [id number] [facility] PT. Name: Sheron Erazo Jr Date: [...] Sykes MD Date Trans: 09/30/2021 05:58 P/ [id number] cc: Ernie Elliott D.O. [facility] [address] Normal [facility] ARTERIAL BLOOD GAS W/COOXon 09-29-2021 BASE EXCESS 10 mmol/L High -2-3 [facility] Comment on above: Performed By: #### 4 0055 #### [facility] [address] [place] [address], [facility] COHB 1.6 % High 0.0-1.5 [facility] Comment on above: Performed By: #### 4 0055 #### [facility] [address] [place] [address], [facility] [employer] ROOM AIR Normal [facility] Comment on above: Performed By: #### 4 0055 #### [facility] [address] [place] [address], [facility] FIO2 0 % Normal [facility] Comment on above: Performed By: #### 4 0055 #### [facility] [address] [place] [address], [facility] HCO3 (Bld) [Moles/Vol] 36 mmol/L Critically high 21-28 [facility] Comment on above: Performed By: #### 4 0055 #### [facility] [address] [place] [address], [facility] METHB 1.2 % Normal 0.0-1.5 [facility] Comment on above: Performed By: #### 4 0055 #### [facility] [address] [place] [address], [facility] Oxygen (Bld) [Partial pressure] 66 mm[Hg] Low 83-108 [facility] Comment on above: Performed By: #### 4 0055 #### [facility] [address] [place] [address], [facility] Oxygen saturation in Blood 92.2 % Low 94.0-97.0 [facility] Comment on above: Performed By: #### 4 0055 #### [facility] [address] [place] [address], [facility] PCO2 50 mmHg High 35-45 [facility] Comment on above: Performed By: #### 4 0055 #### [facility] [address] [place] [address], [place] pH (Bld) 7.46 [pH] High 7.35-7.45 [facility] Comment on above: Performed By: #### 4 0055 #### [facility] [address] [place] [address], [facility] THB 13.5 g/dL Normal 12.0-16.3 [facility] Comment on above: Performed By: #### 4 0055 #### [facility] [address] Vital Signs Date Time Vital Sign Value Performing Clinician Camilo espinal 09-16-2023 14:04-0500 Blood Pressure Location Wayneguero TRIN[facility]AD [facility] 09-16-2023 14:04-0500 Diastolic blood pressure 71 mm[Hg] Wayne TRINIDAD [facility] 09-16-2023 14:04-0500 Heart rate 65 /min Wayne TRINIDAD [facility] 09-16-2023 14:04-0500 Respiratory rate 16 /min Wayne TRINIDAD [facility] 09-16-2023 14:04-0500 Systolic blood pressure 131 mm[Hg] Wayne TRINIDAD [facility] 04-08-2023 13:21-0400 Body height 182.88 cm Ernie Ogden [employer] Work Phone: [facility] [employer] 250 DO Work Phone: 04-08-2023 13:21-0400 Body mass index (BMI) [Ratio] 33.09 kg/m2 [email or web address] Work Phone: [facility] [place] 250 DO Work Phone: 04-08-2023 13:21-0400 Body surface area Derived from formula 2.32 m2 [email or web address] Work Phone: [facility] 250 DO Work Phone: 04-08-2023 13:21-0400 Body weight 110.68 kg Ernie L Valone Work Phone: [facility] 250 DO Work Phone: 04-08-2023 13:21-0400 Diastolic blood pressure 62 mm[Hg] Ernie L Valone Work Phone: [facility] 250 DO Work Phone: 04-08-2023 13:21-0400 Heart rate 78 /min Ernie L Valone Work Phone: [facility] 250 DO Work Phone: 04-08-2023 13:21-0400 Systolic blood pressure 124 mm[Hg] Ernie L Valone Work Phone: [facility] 250 DO Work Phone: 01-14-2023 13:32-0400 Blood Pressure Location Wayneguero [facility] 01-14-2023 13:32-0400 Diastolic blood pressure 84 mm[Hg] Wayne TRINIDAD [facility] 01-14-2023 13:32-0400 Heart rate 72 /min Wayne TRINIDAD [facility] 01-14-2023 13:32-0400 Respiratory rate 16 /min Wayne TRINIDAD [facility] 01-14-2023 13:32-0400 Systolic blood pressure 138 mm[Hg] Wayne TRINIDAD [facility] 10-29-2022 13:50-0500 Blood Pressure Location Wayne TRINIDAD [facility] 10-29-2022 13:50-0500 Diastolic blood pressure 77 mm[Hg] Wayne TRINIDAD [facility] 10-29-2022 13:50-0500 Heart rate 68 /min Wayne TRINIDAD [facility] 10-29-2022 13:50-0500 Respiratory rate 16 /min Wayne TRINIDAD [facility] 10-29-2022 13:50-0500 Systolic blood pressure 140 mm[Hg] Wayne TRINIDAD [facility] 06-25-2022 14:28-0400 Blood Pressure Location Wayne TRIN[facility] 06-25-2022 14:28-0400 Diastolic blood pressure 97 mm[Hg] Wayne TRINIDAD [facility] 06-25-2022 14:28-0400 Heart rate 88 /min Wayen TRINIDAD [facility] 06-25-2022 14:28-0400 Respiratory rate 16 /min Wayne TRINIDAD [facility] 06-25-2022 14:28-0400 Systolic blood pressure 157 mm[Hg] Wayne TRINIDAD [facility] 02-16-2022 09:27-0400 Blood Pressure Location Wayne TRIN[facility] 02-16-2022 09:27-0400 Diastolic blood pressure 84 mm[Hg] Wayne TRINIDAD [facility] 02-16-2022 09:27-0400 Heart rate 104 /min Wayne TRINIDAD [facility] 02-16-2022 09:27-0400 Respiratory rate 16 /min Wayne TRNIIDAD [facility] [place] 02-16-2022 09:27-0400 Systolic blood pressure 145 mm[Hg] Wayne TRINIDAD [facility] Encounters Encounter Date Encounter Type Care Provider Facility Start: 04-05-2025 ambulatory Wayne TRINIDAD Facili ty:[facility] [place] Start: 03-30-2024 End: 03-30-2024 ambulatory Wayne TRINIDAD Facility:[facility] [place] Start: 03-30-2024 End: 03-30-2024 Patient encounter procedure Wayne TRINIDAD [facility] [place] Start: 09-16-2023 End: 09-16-2023 ambulatory Wayne TRINIDAD Facility:[facility] [place] Start: 09-16-2023 End: 09-16-2023 Patient encounter procedure Wayne TRINIDAD [facility] [place] Start: 04-08-2023 Office outpatient vi sit 25 minutes Ernie Elliott Work Phone: [facility] 250 DO Work Phone: Start: 04-08-2023 ambulatory Ngozi Carter Facility : Start: 01-14-2023 End: 01-14-2023 Patient encounter procedure Wayne TRINIDAD [facility] Start: 01-07-2023 End: 01-08-[address] WAYNE TRINIDAD . Facility:[facility] Start: 10-29-2022 End: 10-29-2022 Patient encounter procedure Wayne TRINIDAD [facility] Start: 10-26-2022 End: 10-27-[address] ERNIE ELLIOTT Facility:[facility] Start: 10-03-2022 End: 10-03-2022 Patient encounter procedure Andressa Quigley [facility] Start: 09-29-2022 End: 09-29-2022 ambulatory ITZ BRICE . Facility:[facility] Start: 09-27-2022 End: 09-27-[address] WAYNE TRINIDAD . Facility:[facility] Start: 09-24-2022 Encounter for preprocedural cardiovascular examination DR WAYNE TRINIDAD . [facility] Start: 09-24-2022 Encounter for preprocedural laboratory examination DR WAYNE TRINIDAD . [facility] Start: 09-24-[address] WAYNE TRINIDAD . Fac ility:[facility] Start: 09-21-2022 End: 09-22-[address] WAYNE TRINIDAD . Facility:[facility] Start: 09-21-2022 End: 09-22-2022 Encounter for preprocedural cardiovascular examination DR WAYNE TRINIDAD . Facility:[facility] Start: 06-25-2022 End: 06-25-2022 Patient encounter procedure Wayne TRINIDAD [facility] Start: 06-11-2022 End: 06-12-[address] WAYNE TRINIDAD . Facility:[facility] Start: 03-16-2022 End: 03-17-[address] NGOZI CARTER Facility:[facility] Start: 03-02-2022 End: 03-03-[address] WAYNE TRINIDAD . Facility:[facility] Start: 02-16-2022 End: 02-16-2022 Patient encounter procedure Wayne TRINIDAD [facility] Start: 02-08-2022 End: 02-08-[address] WAYNE TRINIDAD . Facility: Start: 02-07-2022 Encounter for preprocedural laboratory examination DR WAYNE TRINIDAD . [facility] Start: 02-05-2022 End: 02-06-[address] WAYNE TRINIDAD . Facility:[facility] Start: 02-05-2022 End: 02-06-2022 Encounter for preprocedural laboratory examination DR WAYNE TRINIDAD . Facility: Start: 02-01-2022 Encounter for preprocedural cardiovascular examination DR WAYNE TRINIDAD . [facility] Start: 01-29-2022 End: 01-30-[address] WAYNE TRINIDAD . Facility: Start: 09-25-2021 End: 10-19-2021 ambulatory JACQUELYN MAURER Facility:[facility] Start: 03-27-2018 Ambulatory DANII ANDERSRACHEL Fa cility:[id number] Procedures Date Procedure Procedure Detail Performing Clinician Start: 01-07-[address] WESTLEY TRINIDAD . Comment on above: Performed By: #### P SAD #### [facility] [address] [place] [address] Dr. Juanita Sagastume Start: 09-27-2022 Brachytherapy of [place] using fluoroscopic guidance Wayne TRINIDAD Start: 09-04-2022 Teleradiotherapy procedure Wayne TRINIDAD Start: 06-11-[address] WESTLEY TRINIDAD . Comment on above: Performed By: #### B MP #### [facility] [address] [place] [address] Dr. Juanita Sagastume Start: 02-08-2022 MRI-US fusion [...] Ngozi Carter, Status: Pen, Time: 1:00 PM [facility] 250 DO Work Phone: Immunizations Immunization Date Immunization Notes Care Provider Fa isamar 07-05-2022 SARS-CoV-2 (COVID-19 ) [id number] Wayne TRINIDAD [facility] Comment on above: Result Comment: 2022: [id number] 08-15-2021 SARS-CoV-2 (COVID-19 ) mRNA BNT-162b2 vax Wayne TRINIDAD [facility] 01-23-2021 SARS-CoV-2 (COVID-19 ) mRNA BNT-162b2 vax Wayne TRINIDAD [facility] 01-10-2021 SARS-CoV-2 (COVID-19 ) mRNA BNT-162b2 vax Wayne TRINIDAD [facility] 12-19-2020 SARS-CoV-2 (COVID-19 ) mRNA BNT-162b2 vax Wayne TRINIDAD [facility] 07-14-2020 influenza virus vacc ine, unspecified formulation Wayne TRINIDAD [facility] 07-23-2019 influenza virus vacc ine, unspecified formulation Wayne TRINIDAD [facility] 07-23-2019 influenza, injectabl e, quadrivalent, preservative free Ernie L Valone Work Phone: [facility] 250 DO Work Phone: 07-14-2019 influenza virus vacc ine, unspecified formulation Wayne TRINIDAD [facility] 07-14-2019 influenza, high dose seasonal, preservative-free Ernie L Valone Work Phone: [facility] 250 DO Work Phone: 07-14-2018 influenza virus vacc ine, unspecified formulation Ernie L Valone Work Phone: [facility] 250 DO Work Phone: 07-14-2017 influenza virus vacc ine, unspecified formulation Ernie L Valone Work Phone: [facility] 250 DO Work Phone: 10-14-2015 pneumococcal polysaccharide vaccine, 23 valent Ernie L Valone Work Phone: [facility] 250 DO Work Phone: Payers Date Payer Category Payer Medicare [id number] 1955 Unknown [id number] 2.16.8 [id number] 1955 Unknown [id number] 2.16.84 [id number] 1955 Unknown [id number] 2.16.84 0.1.457113.3.579.2.593 1955 Unknown [id number] 2.16.84 0.1.034586.3.579.2.593 1955 Unknown [id number] 2.16.84 0.1.816651.3.579.2.593 1955 Unknown [id number] 2.16.84 0.1.491809.3.579.2.593 1955 Unknown [id number] 2.16.84 0.1.379810.3.579.2.593 1955 Unknown [id number] 2.16.84 0.1.659135.3.579.2.593 1955 Unknown [id number] 2.16.84 0.1.100181.3.579.2.593 1955 Unknown [id number] 2.16.84 0.1.060672.3.579.2.593 1955 Unknown [id number] 2.16.84 0.1.912812.3.579.2.593 1955 Unknown [id number] 2.16.84 0.1.023750.3.579.2.593 1955 Unknown [id number] 2.16.84 0.1.194525.3.579.2.593 1955 Unknown [id number] 2.16. 840.1.741327.3.579.2.356 1955 Unknown [id number] 2.16.8 40.1.368439.3.579.2.727 1955 Unknown [id number] 2.16.8 40.1.010973.3.579.2.727 1955 Unknown [id number] 2.16.8 40.1.847364.3.579.2.727 Medicare [id number] Unknown [id number] Unknown [id number] Unknown Social History Date Type Detail Facility Start: 11-20-2021 End: 03-30-2024 Tobacco smoking status Ex-smoker (finding) [facility] Sex Assigned At Male [facility] No alcohol use No alcohol use [facility] 250 DO Work Phone: Tobacco smoking status Never [facility] Functional Status Date Assessment Result Facility 03-30-2024 Functional Status N/A [facility] 09-16-2023 Functional Status N/A [facility] 01-14-2023 Functional Status N/A [facility] 10-29-2022 Functional Status N/A [facility] 06-25-2022 Functional Status N/A [facility] Clinical Notes 01-29-2022 to 03-30-2024 Note [...] under a microscope. This is called the Bartow score and the total score can range from 6 10, indicating how likely it is that the cancer will spread (metastasize) to other parts of the body. The higher the score, the greater the likelihood that the cancer will spread. Bartow 6 or lower: This indicates that the cancer cells look similar to normal prostate cells (well differentiated). Kenan 7: This indicates that the cancer cells look somewhat similar to normal prostate cells (moderately differentiated). Bartow 8, 9, or 10: This indicates that [...] stress of having cancer. General instructions Take fcxp-hzp-akcrual and prescription medicines only as told by your health care provider. If you have to go to the hospital, notify your cancer specialist (oncologist). Keep all follow-up visits. This is important. Where to find more information [employer]: www.cancer.org [place] [employer] Oncology: www.cancer.net National Cancer [place]: www.cancer.gov Contact a health care provider if: [...] provider. Document Revised: 12/27/2021 Document Reviewed: 12/27/2021 [employer] Patient Education 2022 [employer]. Follow Up Care 09/16/2023 14:45:37 With:TANISHA GILL, Wayne Galicia, URL Address: [facility] [address] , [place] [address]- When: Unknown [facility] 09-16-2023 Hospital Discharge instructions Patient Education [...] under a microscope. This is called the Bartow score and the total score can range from 6 10, indicating how likely it is that the cancer will spread (metastasize) to other parts of the body. The higher the score, the greater the likelihood that the cancer will spread. Kenan 6 or lower: This indicates that the cancer cells look similar to normal prostate cells (well differentiated). Bartow 7: This indicates that the cancer cells look somewhat similar to normal prostate cells (moderately differentiated). Bartow 8, 9, or 10: This indicates that [...] stress of having cancer. General instructions Take wxgj-adb-niqkfzc and prescription medicines only as told by your health care provider. If you have to go to the hospital, notify your cancer specialist (oncologist). Keep all follow-up visits. This is important. Where to find more information [employer]: www.cancer.org [place] Society of Clinical Oncology: www.cancer.net National Cancer [place]: www.cancer.gov Contact a health care provider if: [...] provider. Document Revised: 12/27/2021 Document Reviewed: 12/27/2021 [employer] Patient Education 2022 [employer]. Follow Up Care 01/14/2023 14:33:04 With:TANISHA GILL, Wayne Galicia, URL Address: [facility] [address], [place] [phone] When: Unknown Comments:6 mos w/ PSA [facility] [place] 01-14-2023 Hospital Discharge instructions Patient [...] if anything looks unusual. Men with a qsvlzv-okli-rfmbad risk for skin cancer may want to see a pcmh specialist (vascular nurse) for an annual body check. Where to find more information National Cancer [place]: https://www.cancer.gov/about-cance r/screening Centers for Disease Control and Prevention: https://www.cdc.gov/cancer/dcpc/pr evention/screening.htm [employer]: https://www.cancer.org/latest-news /2-soqrpm-cfpnnldpz-gtqox-hnp-crs. html Contact a health care provider if: [...] 06/27/2017 Document Revised: 06/19/2019 Document Reviewed: 06/27/2017 [employer] Patient Education 2020 [employer]. Follow Up Care 07/23/2022 16:04:42 With:TANISHA GILL, Wayne Galicia, URL Address: [facility] [address] , [place] [address]- When: Unknown [facility] 10-29-2022 Hospital Discharge instructions Patient Education [...] urethra. Follow these instructions at home: Take kspw-lev-rvzstrs and prescription medicines only as told by [...] 09/30/2006 Document Revised: 08/25/2019 Document Reviewed: 11/04/2017 [employer] Patient Education 2020 [employer]. Follow Up Care 09/04/2022 11:18:16 With:TANISHA GILL, Wayne Galicia, URL Address: [facility] [address] , [place] [address]- When: Unknown [facility] 09-21-2022 Note EXAMINATION: XR CHES T [...] authenticated by: SANIA CANELA Date: 2022-09-21 12:38 [facility] 06-25-2022 Hospital Discharge instructions Patient Education 06/25/2022 [...] including vitamins, herbs, eye drops, creams, and xrhz-cvp-ragrlwd medicines. Any problems you or family members [...] 03/10/2007 Document Revised: 09/12/2018 Document Reviewed: 10/09/2017 [employer] Patient Education 2020 [employer]. Follow Up Care 02/16/2022 11:08:20 With:TANISHA GILL, Wayne Galicia, URL Address: [facility] [address] , [place] [address]- [phone] When: Unknown [facility] 02-16-2022 Hospital Discharge instructions Patient Education [...] who: Are older than age 65. Are -Pakistani. Are obese. Have a family history of [...] cells. Follow these instructions at home: Take pqza-kkx-qgqlxfx and prescription medicines only as told by [...] 09/30/2006 Document Revised: 09/12/2018 Document Reviewed: 06/10/2017 [employer] Patient Education [employer]. Follow Up Care 01/22/2022 16:42:55 With:Wayne TRINIDAD MD, URL Address: [facility] [address] , [place] [address]- When:06/19/2022 Comments:w/ PSA [facility] 01-29-2022 Note EXAMINATION: XR CHES T [...] by: MAIKEL ESTEVEZ Date: 2022-01-29 13:48 [facility] Evaluation + Plan note Future Appointments Appointment Date:03/30/2022 08:30:00 AM Scheduled Provider:Wayne TRINIDAD MD Location:[facility] Appointment Type:URO Office Visit Appointment Date:06/25/2022 02:15:00 PM Scheduled Provider:Wayne TRINIDAD MD Location:[facility] Appointment Type:URO Office Visit Diagnostic Tests PendingPSA Total 02/16/22 [facility] Evaluation + Plan note [facility] Evaluation + Plan note Future Appointments Appointment Date:10/29/2022 01:30:00 PM Scheduled Provider:Wayne TRINIDAD MD Location:[facility] Appointment Type:URO Office Visit Appointment Date:01/14/2023 01:15:00 PM Scheduled Provider:Wayne TRINIDAD MD Location:[facility] Appointment Type:URO Office Visit [facility] Evaluation + Plan note Future Appointments Appointment Date:01/14/2023 01:15:00 PM Scheduled Provider:Wayne TRINIDAD MD Location:[facility] Appointment Type:URO Office Visit Appointment Date:02/04/2023 01:15:00 PM Scheduled Provider:Wayne TRINIDAD MD [facility] Appointment Type:URO Office Visit Diagnostic Tests PendingPSA Total 10/29/22 [facility] Evaluation + Plan note Future Appointments Appointment Date:09/16/2023 01:45:00 PM Scheduled Provider:Wayne TRINIDAD MD [facility] Appointment Type:URO Office Visit Diagnostic Tests PendingPSA Total 01/14/23 [facility] Evaluation + Plan note Future Appointments Appointment Date:03/23/2024 01:45:00 PM Scheduled Provider:Wayne TRINIDAD MD [facility] Appointment Type:URO Office Visit Diagnostic Tests PendingPSA Total 09/16/23 [facility] Evaluation + Plan note Future Appointments Appointment Date:04/05/2025 01:15:00 PM Scheduled Provider:Wayne TRINIDAD MD Location:[facility] Appointment Type:URO Office Visit Diagnostic Tests PendingPSA Total 03/30/24 [facility] Hospital course Narrative No data available for this section [facility] Hospital Discharge instructions No data available for this section [facility] Progress note No data available for this section [facility] Reason for referral (narrative) Referred by: Wayne TRINIDAD MD [facility] Summary Purpose Family History No Family [...] section and content) DATE CREATED AUTHOR 04/01/2018 [facility] DATE CREATED AUTHOR AUTHOR'S ORGANIZ ATION 10/20/2021 [facility] DATE CREATED AUTHOR AUTHOR'S ORGANIZ ATION 01/01/[address] [facility] DATE CREATED AUTHOR AUTHOR'S ORGANIZ ATION 01/16/2023 [facility] DATE CREATED AUTHOR AUTHOR'S ORGANIZ ATION 01/19/2023 [facility] DATE CREATED AUTHOR AUTHOR'S ORGANIZ ATION 04/09/2023 [facility] [place] DATE CREATED AUTHOR AUTHOR'S ORGANIZ ATION 04/09/2023 [employer] DATE CREATED AUTHOR AUTHOR'S ORGANIZ ATION 04/01/2024 [facility] Care Team (unrecognized sect ion and content) Personnel Name: ERNIE ELLIOTT JR, DO Address: [address] [place] [address] Personnel Name: ERNEI ELLIOTT JR, DO Address: Address: [address] [place] [address] Personnel Name: ERNIE ELLIOTT JR, DO Address: Address: [address] [place] [address] Personnel Name: ERNIE ELLIOTT JR, DO Address: Address: [address] [place] [address] Personnel Name: ERNIE ELLIOTT JR, DO Address: Address: [address] [place] [address] Personnel Name: ERNIE ELLIOTT JR, DO Address: Address: [address] [place] [address] FOR RECORDS PERTAINING TO PATIENTS WHO ARE [...] BE BASED ON THE PRIMARY CLINICAL RECORDS. [facility], [facility]. provides no warranty or guarantee of the accuracy or completeness of information in this document.
[2024-11-12 13:34] LABS: Theophylline 8.2 ug/mL (10.0-20.0)
== END 2024-11-12 09:13 | disposition home or self-care (01) ==
LOC: LAB 09:12
PROVIDERS: PCP Internal Medicine; Visit Provider Internal Medicine
DX: J43.2 Centrilobular emphysema (principal); Z51.81 Encounter for therapeutic drug level monitoring
CPT/HCPCS: 36415; 80198

== ENCOUNTER 2025-03-03 12:32 | Outpatient (OUT) | payer MEDICARE, SELFPAY ==
--- OUTSIDE RECORDS SUMMARY | 2025-03-03 12:37 | XMS_ITS | CCD ---
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 Name Role Phone CHAGOTHERESEElisabetDANII GLASGOW Unavailable Unavailabl e ERNIE ELLIOTT Unavailable Unavailable JACQUELYN MAURER Attending Unavailable EARL, ERNIE Primary Care Unavailable EARL, ERNIE Referring Unavailable JACQUELYN MAURER Admitting Unavailable ERNIE ELLIOTT JR Primary Care Physician Earl Reyes, Ernie Romero Primary Care Provider Earl Reyes, Ernie Romero Primary Care Provider TRINIDAD ., DR MCPHERSON Admitting Unavailable TRINIDAD [...] DR MAIKEL Galicia Consulting Unavailable CARTER, DR JERAD Cannon Consulting Unavailable VALONE, DR DURANT Primary Care Unavailable CARTER, DR JERAD Cannon Attending Unavailable CARTER, DR JERAD Cannon Admitting Unavailable TRINIDAD ., DR MCPHERSON [...] ZIEBER, DR MAIKEL Galicia Consulting Unavailable VELASQUEZ, OLINDA Consulting Unavailable Raul, Jerad Attending Unavailable Jerad Carter Referring Unavailable Earl Finley, Dr. Ernie Romero Primary Care Jes vailable Ernie Elliott Unavailable Unavailable Unavailable Ky TRINIDAD Attending Unavailable TRINIDAD, Ky Galicia Attending Unavailable TANISHA, Ky Galicia Attending Unavailable Earl Reyes, Ernie RIVERA [facility] Provi jamil Adelso LOVE Attending Unavailable ERNIE ELLIOTT JR Primary [facility] Unavail able Allergies Allergy Classification Reported Allergen(s) Allergy Type Date of Onset Reaction(s) Facility (1 source) Ramipril Drug Allergy [address] [facility] Repository (13 sources) Ramipril; 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: [RAMIPRIL] Drug Allergy 2 Unknown [facility] (1 source) No Known Medication Allergies; 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: [No Known Medication Allergies] Propensity to adverse reactions (disorder) [facility] Repository Medications Current Medications Medication Drug Class(es) Dates Sig (Normalized) Sig (Original) Aspirin (20 sources) Platelet Aggregation Inhibitor, Nonsteroidal Anti-inflammatory Drug Start: 08-27-2019 aspirin 81 mg, Refills(s) 0 Start Date: 08/27/19 Status: Ordered aspirin 81 mg ch ewable tablet q 24 HR. Active take 1 tablet by mouth once luis y Aspirin 81 MG Oral Tablet Delayed Release TAKE 1 TABLET DAILY. Quantity: 90 Refills: 3 Ordered: 08-Apr-2023 Jerad Carter MD Active Comment on above: q 24 HR. atorvastatin 10 mg oral tablet (6 sources) HMG-CoA Reductase Inhibitor Start: 03-27-20 take 1 mg by mouth once daily atorvastatin 10 mg Tab mg tab(s), Oral, Daily, Refills(s) 0 Start Date: 03/27/21 Status: Ordered eplerenone 25 mg oral tablet (1 source) Aldosterone Antagonist Start: 09-18-20 24 eplerenone (INSPRA) 25 mg tablet 09/18/2024 Active ergocalciferol 1.25 mg oral capsule (20 sources) Provitamin D2 Compound ergocalciferol 50,00 0 unit capsule (VITAMIN D2, DRISDOL) q 24 HR. Active Comment on above: q 24 HR. ezetimibe 10 mg oral tablet (8 sources) Dietary Cholesterol Absorption Inhibitor Start: 10-29-19 ezetimibe (ZETIA) 10 mg tablet ezetimibe 10 mg Tab Refills(s) 0 Start Date: 10/29/22 Status: Ordered 10/29/2022 Active Comment on above: ezetimibe 10 mg Tab Refills(s) 0 Start Date: 10/29/22 Status: Ordered famotidine 40 mg oral tablet (20 sources) Histamine-2 Receptor Antagonist Start: 06-27-20 22 famotidine (PEPCID) 40 mg tablet 06/27/2022 Active hydrOXYzine pamoate 25 mg oral capsule (2 sources) Antihistamine Start: 03-30-20 24 hydrOXYzine pamoate (VISTARIL) 25 mg capsule Refills(s) 0 03/30/2024 Active irbesartan (6 sources) Angiotensin 2 Receptor Genet Start: 08-27-20 19 irbesartan Oral, Daily, Refills(s) 0 Start Date: 08/27/19 Status: Ordered metFORMIN hydrochloride 1000 mg oral tablet (20 sources) Biguanide Start: 06-27-20 22 metFORMIN (GLUCOPHAGE) 1,000 mg tablet 06/27/2022 Active Start: 08-27-2019 metformin Oral , Refills(s) 0 Start Date: 08/27/19 Status: Ordered montelukast 10 mg oral tablet (20 sources) Leukotriene Receptor Antagonist Start: 05-23-2022 montelukast (SINGULAIR) 10 mg tablet 05/23/2022 Active Teagan (3 sources) Start: 08-27-2019 Teagan Oral, Da diana, Refills(s) 0 Start Date: 08/27/19 Status: Ordered Daliresp (20 sources) Phosphodiesterase 4 Inhibitor Start: 08-27-2019 Daliresp Oral, Daily, Refills(s) 0 Start Date: 08/27/19 Status: Ordered take 1 tablet by mouth once luis y roflumilast (DALIRESP) 500 mcg tab Take 500 mcg by mouth once daily. Active Comment on above: Take 500 mcg by mout h once daily. rosuvastatin calcium 40 mg oral tablet (20 sources) HMG-CoA Reductase Inhibitor Start: 06-27-20 22 rosuvastatin (CRESTOR) 40 mg tablet 06/27/2022 Active theophylline 300 mg extended release oral tablet (1 source) Methylxanthine Start: 10-08-20 theophylline ER 300 mg 12 hr tablet 10/08/2024 Active Trelegy Ellipta 100 mcg-62.5 mcg-25 mcg inhalation powder (4 sources) Start: 10-29-19 23 Trelegy Ellipta 100 mcg-62.5 mcg-25 mcg inhalation powder Refills(s) 0 Start Date: 10/29/22 Status: Ordered valsartan 40 mg oral tablet (3 sources) Angiotensin 2 Receptor Genet Start: 03-27-20 take 1 mg by mouth twice daily valsartan 40 mg Tab mg tab(s), Oral, BID, Refills(s) 0 Start Date: 03/27/21 Status: Ordered Vitamin D (7 sources) Start: 08-27-20 19 Vitamin D Oral, Refills(s) 0 Start Date: 08/27/19 Status: Ordered Completed/Discontinued Medications Medication Drug Class(es) Dates Sig (Normalized) Sig (Original) empagliflozin 10 mg oral tablet (1 source) Sodium-Glucose Cotransporter 2 Inhibitor take 1 tablet by mouth every week Jardiance 10 MG Oral Tablet TAKE 1 TABLET BY MOUTH ONCE A WEEK Quantity: 90 Refills: 3 Ordered: 08-Apr-2023 DO Active ertugliflozin 5 mg oral tablet (20 sources) End: 12-02-2024 take 7.5 mg by mouth once daily ertugliflozin (STEGLATRO) 5 mg tablet Take 7.5 mg by mouth once daily. 12/02/2024 Discontinued (Course of therapy completed) Comment on above: Take 7.5 mg by mouth once daily. 30 actuat fluticasone furoate 0.1 mg/actuat / umeclidinium 0.0625 mg/actuat / vilanterol 0.025 mg/actuat dry powder inhaler (20 sources) Anticholinergic, Corticosteroid, beta2-Adrenergic Agonist Start: 05-16-2022 End: 12-02-2024 TRELEGY ELLIPTA 100-62.5-25 mcg inhalation powder 05/16/2022 12/02/2024 Discontinued (Course of therapy completed) Trelegy Ellipta 100-62.5-25 MCG/ACT Inhalation Aerosol Powder Breath Activated as directed Quantity: 0 Refills: 0 Ordered: 08-Apr-2023 DO Active spironolactone 50 mg oral tablet (20 sources) Aldosterone Antagonist Start: 05-02-2022 End: 12-02-2024 spironolactone (ALDACTONE) 50 mg tablet 05/02/2022 12/02/2024 Discontinued (Course of therapy completed) tiotropium 0.018 mg inhalation powder (3 sources) [...] Documented Da te Episodic/Chronic Cancer of prostate (20 sources) Malignant neoplasm of prostate; 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: [Malignant tumor of prostate] Onset: 02-16-2022 Chronic Cancer of prostate (3 sources) History of malignant neoplasm of prostate; 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: [Personal history of malignant neoplasm of prostate] 05-15-2023 Episodic Chronic kidney disease (1 source) Chronic kidney [...] disease (6 sources) Atherosclerotic heart disease of [place] coronary artery without angina pectoris; 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: [Coronary [...] Unclassified (2 sources) Athscl heart disease of [place] coronary artery w/o ang pctrs / I25.10(ICD-9) [...] 10-01-2022 Episodic Other aftercare (1 source) 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; 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: [OTH [facility] CURRENT DRUG THERAPY] Onset: 10-01-2022 Episodic Other aftercare (1 source) halfway (current) use of aspirin; 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: [RN ADMISSION CURRENT USE OF ASPIRIN] Onset: 10-01-2022 Episodic Other aftercare (1 source) halfway (current) use of anticoagulants; 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: [[facility] CURRNT USE ANTICOAGULANTS] Onset: 10-02-2022 Episodic Other aftercare (1 source) superintendent terminal (current) use of oral hypoglycemic drugs; 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: [RN ADMISSION USE ORAL HYPOGLYCEMIC DX] Onset: 10-02-2022 Episodic Other male genital disorders (1 source) Other specified disorders of prostate; 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: [OTHER SPECIFIED DISORDERS PROSTATE] Onset: 02-14-2022 Episodic Residual codes; unclassified (1 source) Other specified postprocedural states; 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: [OTH SPECIFIED POSTPROCEDURAL STATES] Onset: 10-01-2022 Episodic Results Test Name Value Interpretation Reference Range Facility CNOV 12-02-2024 CNOV Office Visit (RADTSA ) SHERON ERAZO ([id number]) 1955 M Date Time Provider Department 12/02/24 10:45 AM Adelso LOVE During your visit today, we recorded the following information about you: Temperature Pulse Respiration Blood pressure 97.8 degrees 96/minute 18/minute 149/82 Weight 110.4 kg Olinda Torres RN 12/10/2024 1:09 PM Signed AUA 5 WILLI Ruiz G Phillip, MD 12/10/2024 1:09 PM Signed Radiation Oncology - Follow Up Note PATIENT NAME: Sheron Erazo PATIENT DIAGNOSIS: Prostate adenocarcinoma, initial PSA 18.77, biopsy [place] score 3 + 4 = 7 (grade group 2), clinical stage T2a, N0, M0, stage IIB [T1-T2, N0, M0, PSA <20, GG 2] (AJCC 8th ed.), s/p TRUS Random and MR Targeted biopsy. Prostate cancer (C61), 2019 NCCN Risk Group: Unfavorable Intermediate Risk Group RADIATION SUMMARY: Pelvis external IMRT: 08/01/2022 to 09/04/2022 Prostate brachytherapy: 09/27/22 DELIVERED DOSE: Area: Pelvis 45Gy in 25 fractions, 3 Rivera, IMRT, 10MV with daily CBCT Area: Prostate brachytherapy boost, Pd103 100 Gy INTERVAL HISTORY: The patient presents for routine follow-up. He states he is doing well. Denies dysuria hematuria other new problems. PSA. (no units) Date Value 03/12/2024 <0.13 09/09/2023 <0.13 05/10/2023 <0.13 01/07/2023 <0.13 ALLERGIES Allergen Reactions Ramipril Unknown theophylline ER 300 mg 12 hr tablet hydrOXYzine pamoate (VISTARIL) 25 mg capsule Refills(s) 0 eplerenone (INSPRA) 25 mg tablet ezetimibe (ZETIA) 10 mg tablet ezetimibe 10 mg Tab Refills(s) 0 Start Date: 10/29/22 Status: Ordered metFORMIN (GLUCOPHAGE) 1,000 mg tablet montelukast (SINGULAIR) 10 mg tablet ergocalciferol 50,000 unit capsule (VITAMIN D2, DRISDOL) q 24 HR. famotidine (PEPCID) 40 mg tablet aspirin 81 mg chewable tablet q 24 HR. rosuvastatin (CRESTOR) 40 mg tablet roflumilast (DALIRESP) 500 mcg tab Take 500 mcg by mouth once daily. REVIEW OF SYSTEMS: D/N = 4-6/1-2 Hematuria: No Dysuria: No Incontinence: No Urgency: no Catheter use: No Medications to aid urination: no - Total AUA Score: 5 Bowel movement frequency: 1/day Bowel movement quality: normal Blood per rectum: none PHYSICAL EXAM: BP 149/82 Pulse 96 Temp 36.6 ?C (97.8 ?F) Resp 18 Wt 110.4 kg (243 lb 6.2 oz) SpO2 93% BMI 33.71 kg/m? KPS: 100 General Appearance: Alert and oriented. No acute distress. No neck supraclavicular or axillary lymphadenopathy Abdomen without masses or hepatosplenomegaly Rectal exam is deferred. ASSESSMENT/PLAN: Prostate adenocarcinoma, initial PSA 18.77, biopsy [place] score 3 + 4 = 7 (grade group 2), clinical stage T2a, N0, M0, stage IIB [T1-T2, N0, M0, PSA <20, GG 2] (AJCC 8th ed.), s/p TRUS Random and MR Targeted biopsy. Prostate cancer (C61), 2019 NCCN Risk Group: Unfavorable Intermediate Risk Group status post external beam pelvic treatment followed by brachytherapy boost September 2022. Patient overall doing well. PSA remains low. He continues close follow-up with Dr. Trinidad. Plan to see patient back in 1 year for further post radiation treatment follow-up. Signed by: Adelso Love MD cc: Ernie Elliott Jr, DO ([facility]) Dr. Trinidad Allergies As of Date: 12/02/2024 Noted Allergy Reaction RAMIPRIL 04/17/2012 16 - Unknown Date Reviewed: 12/02/2024 Reviewed by: Olinda Torres RN - Fully Assessed Reason for Visit: Prostate Cancer [590] Primary Visit Diagnosis:History of prostate cancer [Z85.46] Order(s):PSA (OUTSIDE) [[id number]] Order #: [id number] Prescriptions as of 12/10/2024 - theophylline ER 300 mg 12 hr tablet - hydrOXYzine pamoate (VISTARIL) 25 mg capsule Refills(s) 0 - eplerenone (INSPRA) 25 mg tablet - ezetimibe (ZETIA) 10 mg tablet ezetimibe 10 mg Tab Refills(s) 0 Start Date: 10/29/22 Status: Ordered - metFORMIN (GLUCOPHAGE) 1,000 mg tablet - montelukast (SINGULAIR) 10 mg tablet - ergocalciferol 50,000 unit capsule (VITAMIN D2, DRISDOL) q 24 HR. - famotidine (PEPCID) 40 mg tablet - aspirin 81 mg chewable tablet q 24 HR. - rosuvastatin (CRESTOR) 40 mg tablet - roflumilast (DALIRESP) 500 mcg tab Take 500 mcg by mouth once daily. Problem List As Of Date: 12/02/2024 (None) Medications Discontinued During This Encounter Prescriptions - TRELEGY ELLIPTA 100-62.5-25 mcg inhalation powder (Discontinued) - spironolactone (ALDACTONE) 50 mg tablet (Discontinued) - ertugliflozin (STEGLATRO) 5 mg tablet (Discontinued) Take 7.5 mg by mouth once daily. Level of Service: OFFICE/OUTPATIENT ESTABLISHED [facility] 10 MIN [51005] Additional E/M codes: VISIT CPLX INHERENT EANDM ASSOC WITH MED * Disposition: Return in about 1 year (around 12/02/2025). Follow-up and Disposition History for Encounter Date Provider Department Center 12/02/2024 [id number] Encounter Number: [id number] (more content not included)... Normal [facility] Ambulatory Visit Summaryon 0 03-30-2024 Ambulatory Visit Summary SHERON ERAZO JR :1955 Visit Date:03/30/2024 Ambulatory Visit Instructions Your Diagnosis Prostate cancer BPH with urinary obstruction Groin lump Your Care Team Attending Physician - TANISHA GILL, Ky Galicia Primary Care Physician - ERNIE ELLIOTT JR, DO This Is Your Medications List Contact prescribing physician if questions or concerns aspirin ergocalciferol (Vitamin D) ezetimibe (ezetimibe 10 mg Tab) famotidine (famotidine 40 mg Tab) fluticasone/umeclidiniu m/vilanterol (Trelegy Ellipta 100 mcg-62.5 mcg-25 mcg inhalation [...] Saturday 1:15 PM EDT With: TANISHA GILL, Ky Galicia Where: [facility] Patient Educationon 03-30-20 Patient Education Oncology [...] likelihood that the cancer will spread. ? [place] 6 or lower: This indicates that the cancer cells look similar to normal prostate cells (well differentiated). ? [place] 7: This indicates that the cancer cells look somewhat similar to normal prostate cells (moderately differentiated). ? [place] 8, 9, or 10: This indicates that [...] external be (more content not included)... 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 (more content not included)... Normal [facility] Comment on above: Result Comment: Elec tronically Signed By: Ky TRINIDAD MD\.br\Date and Time Signed: 03/30/24 13:09 EDT\.br\Electronically Co-Signed By: Toyin Fournier\.br\Date and Time Co-Signed: 03/30/24 13:08 EDT [facility] 2024 Lab Reports [id number] IFF Normal [facility] PSA (OUTSIDE)on 03-12-2024 [facility] Consultation Noteon 11-21-19 Consultation Note [id number] IFF Normal [facility] Patient Educationon 09-16-20 Patient Education Oncology Prostate [...] under a microscope. This is called the [place] score and the total score can range from 6?10, indicating how likely it is that the cancer will spread (metastasize) to other parts of the body. The higher the score, the greater the likelihood that the cancer will spread. ? [place] 6 or lower: This indicates that the cancer cells look similar to normal prostate cells (well differentiated). ? [place] 7: This indicates that the cancer cells look somewhat similar to normal prostate cells (moderately differentiated). ? [place] 8, 9, or 10: This indicates that [...] be (more content not included)... Normal [facility] Urology Office/Clinic Noteon 09-16-2023 Urology Office/Clinic [...] Follow-up With When Contact Information TANISHA GILL, Ky Galicia, URL [facility] [address], [facility] [place] [address]- [phone] Additional Instructions: 6 mos w/ PSA Patient Education Prostate Cancer IGuera, personally scribed for Dr. Trinidad on 09/16/2023 14:40:01. . Documentation recorded by the scribGuera hall, accurately reflects the services(s) I performed and decisions made by me. Authenticated by Dr. Trinidad on 09/16/2023 14:41:32. Problem List/Past Medical History Ongoing Aspirin long-term use BPH with urinary obstruction COPD (chronic obstructive pulmonary disease) Elevated PSA Frequency of urination Glycosuria Hx of intermediate use of blood thinners Hyperlipidemia Nocturia Personal [...] Immunizations Vaccine Date Status Comments SARS-CoV-2 (COVID-19) [id number] 07/05/2022 Recorded 2022-10-29: [id number] SARS-CoV-2 (COVID-19) mRNA BNT-162b2 vax 08/15/2021 Recorded SARS-CoV-2 (COVID-19) mRNA BNT-162b2 vax 01/23/2021 Recorded SARS-CoV-2 (COVID-19) mRNA BNT-162b2 vax 01/10/2021 Recorded SARS-CoV-2 (COVID-1 (more content not included)... Normal [facility] Comment on above: Result Comment: Elec tronically Signed By: Ky TRINIDAD MD\.br\Date and Time Signed: 09/16/23 14:41 EST\.br\Electronically Co-Signed By: Guera Oswald\.br\Date and Time Co-Signed: 09/16/23 14:40 EST [facility] 09-10-2023 Lab Reports [id number]#1.00T IFF Normal [facility] Office Visit (Cardiology)on 04-08-2023 Follow-up visit [...] Former smoker Tobacco Use Screening; Status:Complete; Done: [id number] Patient Instructions Please bring all medicines, vitamins, [...] for diminished breath sounds caused by COPD. Assessment/recommendati ons: 1?mild coronary artery disease by cardiac catheterization [...] Recorded: 08Apr2023 01:21PM Heart Rate78, R Radial Gtnujlfq051, LUE, Sitting Glnswbzjq38, LUE, Sitting Height6 ft Cgenlq880 lb BMI Ybpgimrqfl12.09 kg/m2 BSA Calculated2.32 Tobacco Useb) No PHQ-2 [...] time . Signatures Electronically signed by : Jerad Carter MD; Apr 08 2023 1:56PM EST (Author) Normal [employer] Tobacco Screening.on 023 Adult depression screening assessment No [facility] 250 DO Work Phone: Fall risk assessment a) No falls within the last year [facility] [employer] 250 DO Work Phone: Tobacco use status [facility] b) No [facility] 250 DO Work Phone: Refillon 01-16-2023 Refill [id number] Sheron Erazo Jr. 1955 M Date Provider Department Center 01/16/2023 JACQUELYN JACOBSON ONC [facility] No family history on file Reason for Visit and Comments: Med Refill [[id number]] Normal [facility] CT LUNG CANCER SCREENINGon 0 10-26-2022 [...] Normal [facility] Refillon 10-15-2022 Refill [id number] Sheron Erazo Jr. 1955 M Date Provider Department Center 10/15/2022 JACQUELYN JACOBSON [facility] ONC [facility] No family history on file Reason for Visit and Comments: Med Refill [[id number]] Normal [facility] XR PELVIS 1_2 VIEWSon 2021 XR [...] above: Performed By: #### B MP #### [facility] [address] [address] [address] Juanita Sagastume Basophils/100 WBC (Bld) 0.2 % Normal 0.2-2.0 [facility] Comment on above: Performed By: #### B MP #### [facility] [address] [address] [address] Juanita Sagastume EO # 0.2 103/ul Normal 0.0-0.7 [facility] Comment on above: Performed By: #### B MP #### [facility] [address] [address] [address] Juanita Sagastume Eosinophils/100 WBC (Bld) 2.2 % Normal 0.9-7.0 [facility] Comment on above: Performed By: #### B MP #### [facility] [address] [address] [address] Juanita Sagastume Erythrocyte distribution width (RBC) [Ratio] 17.5 % Critically high 11.0-15.0 [facility] Comment on above: Performed By: #### B MP #### [facility] [address] [address] [address] Juanita Sagastume Hematocrit (Bld) [Volume fraction] 41.3 % Critically low 42.0-54.0 [facility] Comment on above: Performed By: #### B MP #### [facility] [address] [place] [address] Dr. Juanita Sagastume Hemoglobin (Bld) [Mass/Vol] 13.5 g/dL Critically low 14.0-18.0 [facility] Comment on above: Performed By: #### B MP #### [facility] [address] [place] [address] Dr. Juanita Sagastume IG # 0.04 10e3/ul Critically high 0.00-0.03 [facility] Comment on above: Performed By: #### B MP #### [facility] [address] [place] [address] Dr. Juanita Sagastume IG % 0.5 % Normal 0.0-0.5 [facility] Comment on above: Performed By: #### B MP #### [facility] [address] [place] [address] Dr. Juanita Sagastume LYMPH # 0.8 103/ul Critically low 1.2-3.8 [facility] Comment on above: Performed By: #### B MP #### [facility] [address] [place] [address] Dr. Juanita Sagastume Lymphocytes/100 WBC (Bld) 9.3 % Critically low 20.5-60.0 [facility] Comment on above: Performed By: #### B MP #### [facility] [address] [place] [address] Dr. Juanita Sagastume MANUAL DIFF REQ NO Normal [facility] Comment on above: Performed By: #### B MP #### [facility] [address] [place] [address] Dr. Juanita Sagastume MCH (RBC) [Entitic mass] 26.7 pg Normal 25.9-34.0 [facility] Comment on above: Performed By: #### B MP #### [facility] [address] [address] [address] Juanita Sagastume MCHC (RBC) [Mass/Vol] 32.7 g/dL Normal 29.9-35.2 [facility] Comment on above: Performed By: #### B MP #### [facility] [address] [address] [address] Juanita Sagastume MCV (RBC) [Entitic vol] 81.8 fL Normal 80.0-94.0 [facility] Comment on above: Performed By: #### B MP #### [facility] [address] [address] [address] Juanita Sagastume MONO # 1.0 103/ul Critically high 0.3-0.8 [facility] Comment on above: Performed By: #### B MP #### [facility] [address] [address] [address] Juanita Sagastume Monocytes/100 WBC (Bld) 11.5 % Normal 1.7-12.0 [facility] Comment on above: Performed By: #### B MP #### [facility] [address] [address] [address] Juanita Sagastume NEUT # 6.3 103/ul Normal 1.4-6.5 [facility] Comment on above: Performed By: #### B MP #### [facility] [address] [address] [address] Juanita Sagastume Neutrophils/100 WBC (Bld) 76.3 % Critically high 43.0-75.0 [facility] Comment on above: Performed By: #### B MP #### [facility] [address] [address] [address] Juanita Sagastume Platelet mean volume (Bld) [Entitic vol] 8.5 fL Critically low 9.5-13.5 [facility] Comment on above: Performed By: #### B MP #### [facility] [address] [address] [address] Juanita Sagastume PLT 273 103/ul Normal 150-450 [facility] Comment on above: Performed By: #### B MP #### [facility] [address] [address] [address] Juanita Sagastume RBC 5.05 106/ul Normal 4.70-6.10 [facility] Comment on above: Performed By: #### B MP #### [facility] [address] [address] [address] Juanita Sagastume WBC 8.3 103/ul Normal 4.0-11.0 [facility] Comment on above: Performed By: #### B MP #### [facility] [address] [place] [address] Dr. Juanita Sagastume PROF CHEM 8 (BAS METB)on Anion gap [Moles/Vol] 10.9 mmol/L Normal [facility] Comment on above: Performed By: #### B MP #### [facility] [address] [place] [address] Dr. Juanita Sagastume Calcium [Mass/Vol] 10.2 mg/dL Critically high 8.5-10.1 [facility] Comment on above: Performed By: #### B MP #### [facility] [address] [place] [address] Dr. Juanita Sagastume Chloride [Moles/Vol] 98 mmol/L Normal 98-107 [facility] Comment on above: Performed By: #### B MP #### [facility] [address] [place] [address] Dr. Juanita Sagastume CO2 [Moles/Vol] 34.5 mmol/L Critically high 21.0-32.0 [facility] Comment on above: Performed By: #### B MP #### [facility] [address] [place] [address] Dr. Juanita Sagastume Creatinine [Mass/Vol] 1.06 mg/dL Normal 0.70-1.30 [facility] Comment on above: Performed By: #### B MP #### [facility] [address] [place] [address] Dr. Juanita Sagastume EGFR-AF TAJIK >60 Normal >=60 [facility] Comment on above: Performed By: #### B MP #### [facility] [address] [address] [address] Juanita Sagastume EGFR-NON AF TAJIK >60 Normal >=60 [facility] Comment on above: Performed By: #### B MP #### [facility] [address] [address] [address] Juanita Sagastume Glucose [Mass/Vol] 122 mg/dL Critically high 74-106 [facility] Comment on above: Performed By: #### B MP #### [facility] [address] [address] [address] Juanita Sagastume Potassium [Moles/Vol] 4.4 mmol/L Normal 3.5-5.1 [facility] Comment on above: Performed By: #### B MP #### [facility] [address] [address] [address] Juanita Sagastume Sodium [Moles/Vol] 139 mmol/L Normal 136-145 [facility] Comment on above: Performed By: #### B MP #### [facility] [address] [address] [address] Juanita Sagastume Urea nitrogen [Mass/Vol] 16.0 mg/dL Normal 7.0-18.0 [facility] Comment on above: Performed By: #### B MP #### [facility] [address] [address] [address] Juanita Sagastume Urea nitrogen/Creatini ne [Mass ratio] 15.1 mg/mg Normal [facility] Comment on above: Performed By: #### B MP #### [facility] [address] [address] [address] Juanita Sagastume PROTIMEon 09-27-2022 INR Coag (PPP) [Relative time] 0.93 {INR} Normal [facility] Comment on above: Performed By: #### B MP #### [facility] [address] [address] [address] Juanita Sagastume INR GUIDELINES SEE BELOW Normal [facility] Comment on above: Result Comment: KAMINI RED INR: 2.0 - 3.0 CONDITIONS NOT LISTED BELOW 2.5 - 3.5 FOR PROSTHETIC HEART VALVE REPLACEMENT 2.5 - 3.5 RECURRENT THROMBOSIS Performed By: #### B MP #### [facility] [address] [place], [place] [address] Dr. Juanita Sagastume PT Coag (PPP) [Time] 10.1 s Normal 9.0-11.6 [facility] Comment on above: Performed By: #### B MP #### [facility] [address] [address] [address] Juanita Sagastume [facility] SARS-CoV-2 (COVID-19) RNA SKYLAR+probe Ql (Unsp spec) Not detected Normal NOT DETECTED [facility] Comment on above: Result Comment: This test is not yet approved or cleared by the [place] FDA. When there are no FDA-approved or cleared tests available, and other criteria are met, FDA can make tests available under an emergency access mechanism called an Emergency Use Authorization (EUA). The EUA for this test is supported by the [place] of Health and Human Service's (HHS's) declaration [...] SARS-CoV-2. Performed By: #### C VDTBH #### [facility] [address] [place] [address] Juanita Sagastume LIPID PROFILEon 03-16-2022 CHOL-HDL RATIO NORM SEE BELOW Normal [facility] Comment on above: Result Comment: 3.3 - 4.4 LOW RISK 4.4 - 7.1 AVERAGE RISK 7.1 - 11.0 MODERATE RISK >11.0 HIGH RISK Performed By: #### A LT, LIPID, AST #### [facility] [address] [place] [address] Dr. Juanita Sagastume Cholesterol [Mass/Vol] 111 mg/dL Normal <=200 [facility] Comment on above: Performed By: #### A LT, LIPID, AST #### [facility] [address] [address] [address] Juanita Sagastume Cholesterol in HDL [Mass/Vol] 35 mg/dL Critically low 40-60 [facility] Comment on above: Performed By: #### A LT, LIPID, AST #### [facility] [address] [address] [address] Juanita Sagastume Cholesterol in LDL [Mass/Vol] 29.6 mg/dL Normal [facility] Comment on above: Performed By: #### A LT, LIPID, AST #### [facility] [address] [address] [address] Juanita Sagastume Cholesterol.total /Cholesterol in HDL [Mass ratio] 3.2 {ratio} Normal [facility] Comment on above: Performed By: #### A LT, LIPID, AST #### [facility] [address] [address] [address] Juanita Sagastume HDL NORMAL > or = 60 mg/dl - LO W CARDIOVASCULAR RISK <40 mg/dl - HIGH CARDIOVASCULAR RISK Normal [facility] Comment on above: Performed By: #### A LT, LIPID, AST #### [facility] [address] [address] [address] Juanita Sagastume LDL CALC NORMAL SEE BELOW Normal [facility] Comment on above: Result Comment: <100 mg/dl OPTIMAL 100 - 129 mg/dl NEAR OR ABOVE OPTIMAL 130 - 159 mg/dl BORDERLINE HIGH 160 - 189 mg/dl HIGH >190 mg/dl VERY HIGH Performed By: #### A LT, LIPID, AST #### [facility] [address] [address] [address] Juanita Sagastume Triglyceride [Mass/Vol] 232 mg/dL Critically high <=150 [facility] Comment on above: Performed By: #### A LT, LIPID, AST #### [facility] [address] [address] [address] Juanita Sagastume VLDL CALC 46.4 mg/dL Normal [facility] Comment on above: Performed By: #### A LT, LIPID, AST #### [facility] [address] [place] [address] Dr. Juanita Marien 03-16-2022 AST [Catalytic activity/Vol] 22 U/L Normal 15-37 [facility] Comment on above: Performed By: #### A LT, LIPID, AST #### [facility] [address] [place] [address] Dr. Juanita Sagastume SGPTon 03-16-2022 ALT [Catalytic activity/Vol] 24 U/L Normal 16-63 [facility] Comment on above: Performed By: #### A LT, LIPID, AST #### [facility] [address] [place] [address] Dr. Juanita Sagastume CREATININEon 03-02-2022 Creatinine [Mass/Vol] 1.19 mg/dL Normal 0.70-1.30 [facility] Comment on above: Performed By: #### C KRYS #### [facility] [address] [place] [address] Dr. Juanita Sagastume EGFR-AF TAJIK >60 Normal >=60 [facility] Comment on above: Performed By: #### C KRYS #### [facility] [address] [place] [address] Dr. Juanita Sagastume EGFR-NON AF TAJIK >60 Normal >=60 [facility] Comment on above: Performed By: #### C KRYS #### [facility] [address] [place] [address] ABD/PELV WO W [...] MAIKEL ESTEVEZ Date: 2022-03-02 14:40 Normal [facility] BODYon 022 [facility] EXAMINATION: [facility]ODY HISTORY: Primary malignant neoplasm of prostate [...] MAIKEL ESTEVEZ Date: 2022-03-02 15:26 Normal [facility] POINT OF CARE GLUCOSEon 01-13 Glucose [Mass/Vol] 117 mg/dL Critically high 74-106 [facility] Comment on above: Performed By: #### B MP #### [facility] [address] [address] [address] Juanita Sagastume Covid-19 PCR (CVD[facility])on 01-13 SARS-CoV-2 (COVID-19) RNA SKYLAR+probe Ql (Unsp spec) Not detected Normal NOT DETECTED [facility] Comment on above: Result Comment: This test is not yet approved or cleared by the [place] FDA. When there are no FDA-approved or cleared tests available, and other criteria are met, FDA can make tests available under an emergency access mechanism called an Emergency Use Authorization (EUA). The EUA for this test is supported by the [employer] of Health and Human Service's (HHS's) declaration [...] SARS-CoV-2. Performed By: #### C VDTB #### [facility] [address] [place] [address] Dr. Juanita Sagastume CBC AUTO DIFFon 01-29-2022 BASO # 0.0 103/ul Normal 0.0-0.1 [facility] Comment on above: Performed By: #### C BC #### [facility] [address] [place] [address] Dr. Juanita Sagastume Basophils/100 WBC (Bld) 0.3 % Normal 0.2-2.0 [facility] Comment on above: Performed By: #### C BC #### [facility] [address] [place] [address] Dr. Juanita Sagastume EO # 0.2 103/ul Normal 0.0-0.7 [facility] Comment on above: Performed By: #### C BC #### [facility] [address] [place] [address] Dr. Juanita Sagastume Eosinophils/100 WBC (Bld) 1.8 % Normal 0.9-7.0 [facility] Comment on above: Performed By: #### C BC #### [facility] [address] [place] [address] Dr. Juanita Sagastume Erythrocyte distribution width (RBC) [Ratio] 15.4 % Critically high 11.0-15.0 [facility] Comment on above: Performed By: #### C BC #### [facility] [address] [place] [address] Dr. Juanita Sagastume Hematocrit (Bld) [Volume fraction] 42.3 % Normal 42.0-54.0 [facility] Comment on above: Performed By: #### C BC #### [facility] [address] [place] [address] Dr. Juanita Sagastume Hemoglobin (Bld) [Mass/Vol] 13.3 g/dL Critically low 14.0-18.0 [facility] Comment on above: Performed By: #### C BC #### [facility] [address] [place] [address] Dr. Juanita Sagastume IG # 0.06 10e3/ul Critically high 0.00-0.03 [facility] Comment on above: Performed By: #### C BC #### [facility] [address] [place] [address] Dr. Juanita Sagastume IG % 0.5 % Normal 0.0-0.5 [facility] Comment on above: Performed By: #### C BC #### [facility] [address] [place] [address] Dr. Juanita Sagastume LYMPH # 2.0 103/ul Normal 1.2-3.8 [facility] Comment on above: Performed By: #### C BC #### [facility] [address] [place] [address] Dr. Juanita Sagastume Lymphocytes/100 WBC (Bld) 17.6 % Critically low 20.5-60.0 [facility] Comment on above: Performed By: #### C BC #### [facility] [address] [place] [address] Dr. Juanita Sagastume MANUAL DIFF REQ NO Normal [facility] Comment on above: Performed By: #### C BC #### [facility] [address] [place] [address] Dr. Juanita Sagastume MCH (RBC) [Entitic mass] 26.5 pg Normal 25.9-34.0 [facility] Comment on above: Performed By: #### C BC #### [facility] [address] [place] [address] Dr. Juanita Sagastume MCHC (RBC) [Mass/Vol] 31.4 g/dL Normal 29.9-35.2 [facility] Comment on above: Performed By: #### C BC #### [facility] [address] [place] [address] Dr. Juanita Sagastume MCV (RBC) [Entitic vol] 84.3 fL Normal 80.0-94.0 [facility] Comment on above: Performed By: #### C BC #### [facility] [address] [place] [address] Dr. Juanita Sagastume MONO # 0.9 103/ul Critically high 0.3-0.8 [facility] Comment on above: Performed By: #### C BC #### [facility] [address] [place] [address] Dr. Juanita Sagastume Monocytes/100 WBC (Bld) 7.6 % Normal 1.7-12.0 [facility] Comment on above: Performed By: #### C BC #### [facility] [address] [place] [address] Dr. Juanita Sagastume NEUT # 8.3 103/ul Critically high 1.4-6.5 [facility] Comment on above: Performed By: #### C BC #### [facility] [address] [place] [address] Dr. Juanita Sagastume Neutrophils/100 WBC (Bld) 72.2 % Normal 43.0-75.0 [facility] Comment on above: Performed By: #### C BC #### [facility] [address] [place] [address] Dr. Juanita Sagastume Platelet mean volume (Bld) [Entitic vol] 9.2 fL Critically low 9.5-13.5 [facility] Comment on above: Performed By: #### C BC #### [facility] [address] [place] [address] Dr. Juanita Sagastume PLT 343 103/ul Normal 150-450 [facility] Comment on above: Performed By: #### C BC #### [facility] [address] [place] [address] Dr. Juanita Sagastume RBC 5.02 106/ul Normal 4.70-6.10 [facility] Comment on above: Performed By: #### C BC #### [facility] [address] [address] [address] Juanita Sagastume WBC 11.5 103/ul Critically high 4.0-11.0 [facility] Comment on above: Performed By: #### C BC #### [facility] [address] [place] [address] Dr. Juanita Sagastume PROF CHEM 8 (BAS METB)on Anion gap [Moles/Vol] 14.6 mmol/L Normal [facility] Comment on above: Performed By: #### B MP #### [facility] [address] [place] [address] Dr. Juanita Sagastume Calcium [Mass/Vol] 9.6 mg/dL Normal 8.5-10.1 [facility] Comment on above: Performed By: #### B MP #### [facility] [address] [place] [address] Dr. Juanita Sagastume Chloride [Moles/Vol] 97 mmol/L Critically low 98-107 [facility] Comment on above: Performed By: #### B MP #### [facility] [address] [place] [address] Dr. Juanita Sagastume CO2 [Moles/Vol] 28.9 mmol/L Normal 22.0-30.0 [facility] Comment on above: Performed By: #### B MP #### [facility] [address] [place] [address] Dr. Juanita Sagastume Creatinine [Mass/Vol] 1.23 mg/dL Normal 0.66-1.25 [facility] Comment on above: Performed By: #### B MP #### [facility] [address] [place] [address] Dr. Juanita Sagastume EGFR-AF TAJIK >60 Normal >=60 [facility] Comment on above: Performed By: #### B MP #### [facility] [address] [place] [address] Dr. Juanita Sagastume EGFR-NON AF TAJIK 59 mL/min/1.73m2 Critically low >=60 [facility] Comment on above: Performed By: #### B MP #### [facility] [address] [address] [address] Juanita Sagastume Glucose [Mass/Vol] 105 mg/dL Normal 74-106 [facility] Comment on above: Performed By: #### B MP #### [facility] [address] [address] [address] Juanita Sagastume Potassium [Moles/Vol] 4.5 mmol/L Normal 3.4-5.0 [facility] Comment on above: Performed By: #### B MP #### [facility] [address] [address] [address] Juanita Sagastume Sodium [Moles/Vol] 136 mmol/L Critically low 137-145 [facility] Comment on above: Performed By: #### B MP #### [facility] [address] [address] [address] Juanita Sagastume Urea nitrogen [Mass/Vol] 16.0 mg/dL Normal 7.0-18.0 [facility] Comment on above: Performed By: #### B MP #### [facility] [address] [address] [address] Juanita Sagastume Urea nitrogen/Creatini ne [Mass ratio] 13.0 mg/mg Normal [facility] Comment on above: Performed By: #### B MP #### [facility] [address] [address] [address] Juanita Sagastume PROTIMEon 01-29-2022 INR Coag (PPP) [Relative time] 0.98 {INR} Normal [facility] Comment on above: Performed By: #### B MP #### [facility] [address] [address] [address] Juanita Sagastume INR GUIDELINES SEE BELOW Normal [facility] Comment on above: Result Comment: KAMINI RED INR: 2.0 - 3.0 CONDITIONS NOT LISTED BELOW 2.5 - 3.5 FOR PROSTHETIC HEART VALVE REPLACEMENT 2.5 - 3.5 RECURRENT THROMBOSIS Performed By: #### B MP #### [facility] [address] [address] [address] Juanita Sagastume PT Coag (PPP) [Time] 10.6 s Normal 9.0-11.6 [facility] Comment on above: Performed By: #### B MP #### [facility] [address] [address] [address] Juanita Sagastume PTTon 01-29-2022 aPTT Coag (Bld) [Time] 28.5 s Normal 22.3-36.2 [facility] Comment on above: Performed By: #### B MP #### [facility] [address] [address] [address] Juanita Sagastume MR prostate wo/w conon 10-17 MR prostate wo/w con [facility] [place] [place] [address] MRI Report Signed Patient: Sheron Erazo MR#: [id number] : 1955 Acct:[id number] Age/Sex: 66 / M ADM Date: 10/10/21 Loc: MR Room: Type: [facility] Attending Dr: Ky Trinidad MD Ordering Provider: Ky Trinidad MD Date of Service: 10/10/21 MR/MR prostate wo/w con: R97.20 Copies to: Ky Trinidad MD MRI OF THE PROSTATE GLAND [...] PM COT by: Yousif Paz MD Diplomate, [place] [employer] Report Completed: Oct 17, [...] 10/18/21 0749 Dictated By: NON STAFF 10/17/21 9467 Signed By: 10/18/21 7277 [facility] Blood Urea Nitrogenon 2020 Urea nitrogen [Mass/Vol] 11 mg/dL Normal 07-06 [facility] Comment on above: Order Comment: STAT FOR MRI Performed By: #### B UN, CREAT #### [facility] [address] [id number] [place] Creatinineon 10-10-2021 Creatinine [Mass/Vol] 1.04 mg/dL Normal 0.64-1.27 [facility] Comment on above: Order Comment: STAT FOR MRI Performed By: #### B UN, CREAT #### [facility] [address] [id number] [facility] Creatinine Clr Calc Pharmacy 90.84 Normal [facility] Comment on above: Order Comment: STAT FOR MRI Result Comment: PERF ORMED BY: [place] [address] PATHOLOGIST FITTER TYPE BAR AND SEGMENT XUAN GOMEZ M.D. Performed By: #### B UN, CREAT #### [facility] [address] [place] [address] Estimated GFR ( Peyton > 60 [facility] Comment on above: Order Comment: STAT FOR MRI Result Comment: GFR estimated reference range: According to KDOQI guidelines, <60 ml/min/1.73m2 is sufficient to diagnose a patient with chronic kidney disease. Performed By: #### B UN, CREAT #### [facility] [address] [place], [place] [id number] [facility] Estimated GFR (Non- Am > 60 [facility] Comment on above: Order Comment: STAT FOR MRI Performed By: #### B UN, CREAT #### [facility] [address] [place] [address] CT CHEST HIGH RESOLUTION WIT HOUT CONTRASTon 10-05-2021 CT CHEST HIGH RESOLUTION WITHOUT CONTRAST [facility] Department of Radiology [address] [place] [address] ===== Patient Name: SHERON ERAZO : 1955 Sex: M Age: Race: White Pt. Location: 29 Patient Status: O Ordered Date: 09/01/2021 11:35:00 AM Completed Date: 10/05/2021 02:33 PM Requesting Provider: JACQUELYN MAURER Attending Provider: JACQUELYN MAURER Report Copy To: ERNIE ELLIOTT Signs & Symptoms: J44.9 Chronic obstructive pulmonary disease, unspecified I10 History: Ne Comments: Exam: CT CHEST HIGH RESOLUTION WITHOUT CONTRAST ===== CT CHEST HIGH RESOLUTION WITHOUT CONTRAST 10/05/2021 [...] achievable Electronically signed: Nika Krause. Transcribed by: [email or web address], User Resident: Electronically Signed by: NIKA KRAUSE @ 10/05/2021 02:[address] [facility] Pulmonary Functionon 12-18-2 021 Pulmonary Function MR #: [id number] [facility] PT. Name: Sheron Erazo Jr Date: [...] Sykes MD Date Trans: 09/30/2021 05:58 P/ [id number] cc: Ernie Elliott D.O. [address] [facility] [facility] [address] Normal [facility] ARTERIAL BLOOD GAS W/COOXon 09-29-2021 BASE EXCESS 10 mmol/L High -2-3 [facility] Comment on above: Performed By: #### 4 0055 #### [facility] [address] [facility] COHB 1.6 % High 0.0-1.5 [facility] Comment on above: Performed By: #### 4 0055 #### [facility] [address] [place] [address], [facility] [employer] ROOM AIR Normal [facility] Comment on above: Performed By: #### 4 0055 #### [facility] [address] [place] [address], [facility] FIO2 0 % Normal [facility] Comment on above: Performed By: #### 4 0055 #### [facility] [address] [place] [address], [facility] HCO3 (Bld) [Moles/Vol] 36 mmol/L Critically high 21-[address] [facility] Comment on above: Performed By: #### 4 0055 #### [facility] [address] [place] [address], [place] METHB 1.2 % Normal 0.0-1.[address] [facility] Comment on above: Performed By: #### 4 0055 #### [facility] [address] [place] [address], [place] Oxygen (Bld) [Partial pressure] 66 mm[Hg] Low 83-[address] [facility] Comment on above: Performed By: #### 4 0055 #### [facility] [address] [place] [address], [place] Oxygen saturation in Blood 92.2 % Low 94.0-97.[address] [facility] Comment on above: Performed By: #### 4 0055 #### [facility] [address] [place] [address], [place] PCO2 50 mmHg High 35-[address] [facility] Comment on above: Performed By: #### 4 0055 #### [facility] [address] [place] [address], [place] pH (Bld) 7.46 [pH] High 7.35-7.[address] [facility] Comment on above: Performed By: #### 4 0055 #### [facility] [address] [place] [address], [place] THB 13.5 g/dL Normal 12.0-16.[address] [facility] Comment on above: Performed By: #### 4 0055 #### [facility] [address] [place] [address], [place] Vital Signs Date Time Vital Sign Value Performing Clinician Facility 12-02-2024 10:32-0500 Body mass index (BMI) [Ratio] 33.71 kg/m2 DEB Love MD Work Phone: [facility] 12-02-2024 10:32-0500 Body temperature 97.81 [degF] DEB Love MD Work Phone: [facility] 12-02-2024 10:32-0500 Body weight 110.4 kg DEB Love MD Work Phone: [facility] 12-02-2024 10:32-0500 Diastolic blood pressure 82 mm[Hg] DEB Love MD Work Phone: [facility] 12-02-2024 10:32-0500 Heart rate 96 /min DEB Love MD Work Phone: [facility] 12-02-2024 10:32-0500 Respiratory rate 18 /min DEB Love MD Work Phone: [facility] 12-02-2024 10:32-0500 SaO2% (BldA) [Mass fraction] 93 % EDB Love MD Work Phone: [facility] 12-02-2024 10:32-0500 Systolic blood pressure 149 mm[Hg] DEB Love MD Work Phone: [facility] 11-20-2023 10:29-0500 Body temperature 97.39 [degF] DEB Love MD Work Phone: [facility] 11-20-2023 10:29-0500 Body weight 113.8 kg DEB Love MD Work Phone: [facility] 11-20-2023 10:29-0500 Diastolic blood pressure 82 mm[Hg] DEB Love MD Work Phone: [facility] 11-20-2023 10:29-0500 Heart rate 106 /min DEB Love MD Work Phone: [facility] 11-20-2023 10:29-0500 Respiratory rate 18 /min DEB Love MD Work Phone: [facility] 11-20-2023 10:29-0500 SaO2% (BldA) [Mass fraction] 91 % DEB Love MD Work Phone: [facility] 11-20-2023 10:29-0500 Systolic blood pressure 158 mm[Hg] DEB Love MD Work Phone: [facility] 09-16-2023 14:04-0500 Blood Pressure Location Ky [facility] 09-16-2023 14:04-0500 Diastolic blood pressure 71 mm[Hg] Ky TRINIDAD [facility] 09-16-2023 14:04-0500 Heart rate 65 /min Ky TRINIDAD [facility] 09-16-2023 14:04-0500 Respiratory rate 16 /min Ky [facility] [facility] 09-16-2023 14:04-0500 Systolic blood pressure 131 mm[Hg] Ky TRINIDAD [facility] 05-15-2023 09:48-0400 Body temperature 96.01 [degF] DEB Love MD Work Phone: [facility] 05-15-2023 09:48-0400 Body weight 109.77 kg DEB Love MD Work Phone: [facility] 05-15-2023 09:48-0400 Diastolic blood pressure 93 mm[Hg] DEB Love MD Work Phone: [facility] 05-15-2023 09:48-0400 Heart rate 91 /min DEB Love MD Work Phone: [facility] 05-15-2023 09:48-0400 Respiratory rate 16 /min DEB Love MD Work Phone: [facility] 05-15-2023 09:48-0400 SaO2% (BldA) [Mass fraction] 93 % DEB Love MD Work Phone: [facility] 05-15-2023 09:48-0400 Systolic blood pressure 155 mm[Hg] DEB Love MD Work Phone: [facility] 04-08-2023 13:21-0400 Body height 182.88 cm Ernie Elliott Work Phone: [facility] 250 DO Work Phone: 04-08-2023 13:21-0400 Body mass index (BMI) [Ratio] 33.09 kg/m2 Ernie Ogden Valone Work Phone: [facility] 250 DO Work Phone: 04-08-2023 13:21-0400 Body surface area Derived from formula 2.32 m2 Ernie Ayalaone Work Phone: [facility] 250 DO Work Phone: 04-08-2023 13:21-0400 Body weight 110.68 kg Ernie Ayalaone Work Phone: [facility] 250 DO Work Phone: 04-08-2023 13:21-0400 Diastolic blood pressure 62 mm[Hg] Ernie Ayalaone Work Phone: [facility] 250 DO Work Phone: 04-08-2023 13:21-0400 Heart rate 78 /min Ernie Ogden Valone Work Phone: [facility] 250 DO Work Phone: 04-08-2023 13:21-0400 Systolic blood pressure 124 mm[Hg] Ernie Ogden Valone Work Phone: [facility] 250 DO Work Phone: 01-14-2023 13:32-0400 Blood Pressure Location Ky TRINIDAD [facility] 01-14-2023 13:32-0400 Diastolic blood pressure 84 mm[Hg] Ky TRINIDAD [facility] 01-14-2023 13:32-0400 Heart rate 72 /min Ky TRINIDAD [facility] 01-14-2023 13:32-0400 Respiratory rate 16 /min Ky TRINIDAD [facility] 01-14-2023 13:32-0400 Systolic blood pressure 138 mm[Hg] Ky TRINIDAD [facility] 10-29-2022 13:50-0500 Blood Pressure Location Ky TRINIDAD [facility] 10-29-2022 13:50-0500 Diastolic blood pressure 77 mm[Hg] Ky TRINIDAD [facility] 10-29-2022 13:50-0500 Heart rate 68 /min Ky TRINIDAD [facility] 10-29-2022 13:50-0500 Respiratory rate 16 /min Ky TRINIDAD [facility] 10-29-2022 13:50-0500 Systolic blood pressure 140 mm[Hg] Ky TRINIDAD [facility] 10-10-2022 09:43-0500 Body temperature 98.2 [degF] DEB Love MD Work Phone: [facility] 10-10-2022 09:43-0500 Body weight 111.13 kg DEB Love MD Work Phone: [facility] 10-10-2022 09:43-0500 Diastolic blood pressure 94 mm[Hg] DEB Love MD Work Phone: [facility] 10-10-2022 09:43-0500 Heart rate 106 /min DEB Love MD Work Phone: [facility] 10-10-2022 09:43-0500 Respiratory rate 18 /min DEB Love MD Work Phone: [facility] 10-10-2022 09:43-0500 SaO2% (BldA) [Mass fraction] 96 % DEB Love MD Work Phone: [facility] 10-10-2022 09:43-0500 Systolic blood pressure 166 mm[Hg] DEB Love MD Work Phone: [facility] 09-03-2022 13:12-0500 Body temperature 96.69 [degF] DEB Love MD Work Phone: [facility] 09-03-2022 13:12-0500 Body weight 102.88 kg DEB Love MD Work Phone: [facility] 09-03-2022 13:12-0500 Diastolic blood pressure 84 mm[Hg] DEB Love MD Work Phone: [facility] 09-03-2022 13:12-0500 Heart rate 98 /min DEB Love MD Work Phone: [facility] 09-03-2022 13:12-0500 Respiratory rate 18 /min DEB Love MD Work Phone: [facility] 09-03-2022 13:12-0500 Systolic blood pressure 170 mm[Hg] DEB Love MD Work Phone: [facility] 08-27-2022 13:01-0500 Body temperature 97.59 [degF] DEB Love MD Work Phone: [facility] 08-27-2022 13:01-0500 Body weight 107.78 kg DEB Love MD Work Phone: [facility] 08-27-2022 13:01-0500 Diastolic blood pressure 69 mm[Hg] DEB Love MD Work Phone: [facility] 08-27-2022 13:01-0500 Heart rate 96 /min DEB Love MD Work Phone: [facility] 08-27-2022 13:01-0500 Respiratory rate 18 /min DEB Love MD Work Phone: [facility] 08-27-2022 13:01-0500 Systolic blood pressure 149 mm[Hg] DEB Love MD Work Phone: [facility] 08-20-2022 12:54-0500 Body temperature 96.91 [degF] DEB Love MD Work Phone: [facility] 08-20-2022 12:54-0500 Body weight 107.96 kg DEB Love MD Work Phone: [facility] 08-20-2022 12:54-0500 Diastolic blood pressure 74 mm[Hg] DEB Love MD Work Phone: [facility] 08-20-2022 12:54-0500 Heart rate 78 /min DEB Love MD Work Phone: [facility] 08-20-2022 12:54-0500 Respiratory rate 18 /min DEB Love MD Work Phone: [facility] 08-20-2022 12:54-0500 SaO2% (BldA) [Mass fraction] 95 % DEB Love MD Work Phone: [facility] 08-20-2022 12:54-0500 Systolic blood pressure 145 mm[Hg] DEB Love MD Work Phone: [facility] 08-13-2022 12:59-0400 Body temperature 97.9 [degF] DEB Love MD Work Phone: [facility] 08-13-2022 12:59-0400 Body weight 104.78 kg DEB Love MD Work Phone: [facility] 08-13-2022 12:59-0400 Diastolic blood pressure 80 mm[Hg] DEB Love MD Work Phone: [facility] 08-13-2022 12:59-0400 Heart rate 98 /min DEB Love MD Work Phone: [facility] 08-13-2022 12:59-0400 Respiratory rate 18 /min DEB Love MD Work Phone: [facility] 08-13-2022 12:59-0400 SaO2% (BldA) [Mass fraction] 91 % NA Kate GILL Work Phone: [facility] 08-13-2022 12:59-0400 Systolic blood pressure 174 mm[Hg] DEB Love MD Work Phone: [facility] 08-06-2022 12:27-0400 Body temperature 97.5 [degF] NA Kate GILL Work Phone: [facility] 08-06-2022 12:27-0400 Body weight 107.05 kg NA Kate GILL Work Phone: [facility] 08-06-2022 12:27-0400 Diastolic blood pressure 83 mm[Hg] DEB Love MD Work Phone: [facility] 08-06-2022 12:27-0400 Heart rate 101 /min DEB Love MD Work Phone: [facility] 08-06-2022 12:27-0400 Respiratory rate 16 /min DEB Love MD Work Phone: [facility] 08-06-2022 12:27-0400 SaO2% (BldA) [Mass fraction] 93 % DEB Love MD Work Phone: [facility] 08-06-2022 12:27-0400 Systolic blood pressure 127 mm[Hg] DEB Love MD Work Phone: [facility] 06-28-2022 14:28-0400 Body height 181 cm DEB Love MD Work Phone: [facility] 06-28-2022 14:28-0400 Body temperature 98.01 [degF] DEB Love MD Work Phone: [facility] 06-28-2022 14:28-0400 Body weight 106.14 kg DEB Love MD Work Phone: [facility] 06-28-2022 14:28-0400 Diastolic blood pressure 91 mm[Hg] DEB Love MD Work Phone: [facility] 06-28-2022 14:28-0400 Heart rate 95 /min DEB Love MD Work Phone: [facility] 06-28-2022 14:28-0400 Respiratory rate 20 /min DEB Love MD Work Phone: [facility] 06-28-2022 14:28-0400 SaO2% (BldA) [Mass fraction] 93 % DEB Love MD Work Phone: [facility] 06-28-2022 14:28-0400 Systolic blood pressure 150 mm[Hg] DEB Love MD Work Phone: [facility] 06-25-2022 14:28-0400 Blood Pressure Location Ky TRINIDAD [facility] 06-25-2022 14:28-0400 Diastolic blood pressure 97 mm[Hg] Ky TRINIDAD [facility] 06-25-2022 14:28-0400 Heart rate 88 /min Ky TRINIDAD [facility] 06-25-2022 14:28-0400 Respiratory rate 16 /min Ky TRINIDAD [facility] 06-25-2022 14:28-0400 Systolic blood pressure 157 mm[Hg] Ky TRINIDAD [facility] 02-16-2022 09:27-0400 Blood Pressure Location Ky TRINIDAD [facility] 02-16-2022 09:27-0400 Diastolic blood pressure 84 mm[Hg] Ky TRINIDAD [facility] 02-16-2022 09:27-0400 Heart rate 104 /min Ky TRINIDAD [facility] 02-16-2022 09:27-0400 Respiratory rate 16 /min Ky TRINIDAD [facility] 02-16-2022 09:27-0400 Systolic blood pressure 145 mm[Hg] Ky TRINIDAD [facility] Encounters Encounter Date Encounter Type Care Provider Facility Start: 04-05-2025 ambulatory Ky Moeller ty:[facility] Start: 12-02-2024 End: 12-02-2024 ambulatory Adelso LOVE Facility:[facility] Start: 12-02-2024 End: 12-02-2024 Office outpatient visit 10 minutes Adelso Love MD Work Phone: Rad[facility] Oncology Comment on above: History of prostate cancer (Primary Dx) Start: 03-30-2024 End: 03-30-2024 ambulatory Ky TRINIDAD Facility:[facility] Start: 03-30-2024 End: 03-30-2024 Patient encounter procedure Ky TRINIDAD [facility] Start: 11-20-2023 End: 11-20-2023 Patient encounter procedure Adelso Love MD Work Phone: [facility] Comment on above: History of prostate cancer (Primary Dx) Start: 09-16-2023 End: 09-16-2023 ambulatory Ky TRINIDAD Facility:[facility] Start: 09-16-2023 End: 09-16-2023 Patient encounter procedure Ky TRINIDAD [facility] Start: 05-15-2023 End: 05-15-2023 Patient encounter procedure Adelso Love MD Work Phone: Radiation Oncology Comment on above: History of prostate cancer (Primary Dx) Start: 05-08-2023 Telephone encounter Adelso Love MD Work Phone: Radiation Oncology Comment on above: Appointment Start: 04-08-2023 Office outpatient vi sit 25 minutes Enrie Elliott Work Phone: [facility] 250 DO Work Phone: Start: 04-08-2023 ambulatory Jerad Carter Facility : Start: 01-14-2023 End: 01-14-2023 Patient encounter procedure Ky TRINIDAD [facility] Start: 01-07-2023 End: 01-08-[address] KY TRINIDAD . Facility: Start: 10-29-2022 End: 10-29-2022 Patient encounter procedure Ky TRINIDAD [facility] Start: 10-26-2022 End: 10-27-[address] ERNIE ELLIOTT Facility:[facility] Start: 10-25-2022 Patient encounter procedure Adelso Love MD Work Phone: [facility] Start: 10-25-2022 Radiation Oncology Note Adelso Love MD Work Phone: Radiation Oncology Comment on above: Simulation Note Start: 10-25-2022 End: 10-25-2022 Subsequent hospital visit by physician [facility] Work Phone: Radiology [facility] Start: 10-10-2022 End: 10-10-2022 Patient encounter procedure Adelso Love MD Work Phone: Radiation Oncology Comment on above: Malignant neoplasm o f prostate (HCC) (Primary Dx) Start: 10-03-2022 End: 10-03-2022 Patient encounter procedure Andressabassem Quigley [facility] Start: 09-29-2022 End: 09-29-2022 ambulatory ITZ BRICE . Facility:[facility] Start: 09-27-2022 End: 09-27-[address] KY TRINIDAD . Facility:[facility] Start: 09-27-2022 End: 09-27-2022 Patient encounter procedure Adelso Love MD Work Phone: Radiation Oncology Comment on above: Malignant neoplasm o f prostate (HCC) (Primary Dx) Start: 09-24-2022 Encounter for preprocedural cardiovascular examination DR KY TRINIDAD . [facility] Start: 09-24-2022 Encounter for preprocedural laboratory examination DR KY TRINIDAD . [facility] Start: 09-24-[address] KY TRINIDAD . Fac ility:[facility] Start: 09-21-2022 End: 09-22-[address] KY TRINIDAD . Facility:[facility] Start: 09-21-2022 End: 09-22-2022 Encounter for preprocedural cardiovascular examination DR KY TRINIDAD . Facility:[facility] Start: 09-18-2022 Patient encounter procedure Adelso Love MD Work Phone: [facility] Start: 09-18-2022 Radiation Oncology Note Adelso Love MD Work Phone: Radiation Oncology Comment on above: Treatment Planning Start: 09-12-2022 End: 09-12-2022 Patient encounter procedure Adelso Love MD Work Phone: Radiation Oncology Comment on above: Malignant neoplasm o f prostate (HCC) (Primary Dx) Start: 09-03-2022 End: 09-03-2022 Patient encounter procedure Adelso Love MD Work Phone: Radiation Oncology Comment on above: Malignant neoplasm o f prostate (HCC) (Primary Dx) Start: 08-27-2022 End: 08-27-2022 Patient encounter procedure Adelso Love MD Work Phone: Radiation Oncology Comment on above: Malignant neoplasm o f prostate (HCC) (Primary Dx) Start: 08-22-2022 Patient encounter procedure [facility] Provider [facility] Start: 08-20-2022 End: 08-20-2022 Patient encounter procedure Adelso Love MD Work Phone: Radiation Oncology Comment on above: Malignant neoplasm o f prostate (HCC) (Primary Dx) Start: 08-13-2022 End: 08-13-2022 Patient encounter procedure Adelso Love MD Work Phone: Radiation Oncology Comment on above: Malignant neoplasm o f prostate (HCC) (Primary Dx) Start: 08-06-2022 End: 08-06-2022 Patient encounter procedure Adelso Love MD Work Phone: Radiation Oncology Comment on above: Malignant neoplasm o f prostate (HCC) (Primary Dx) Start: 08-01-2022 End: 08-01-2022 Patient encounter procedure Adelso Love MD Work Phone: Radiation Oncology Comment on above: Malignant neoplasm o f prostate (HCC) (Primary Dx) Start: 07-31-2022 Telephone encounter Adelso Love MD Work Phone: Radiation Oncology Comment on above: Orders Start: 07-26-2022 End: 07-26-2022 Patient encounter procedure Adelso Love MD Work Phone: [place] Comment on above: Prostate cancer (HCC ) (Primary Dx) Start: 07-26-2022 Radiation Oncology Note Adelso Love MD Work Phone: Radiation Oncology Comment on above: Simulation Note Start: 07-26-2022 End: 07-26-2022 Subsequent hospital visit by physician Adelso Love MD Work Phone: Radiology [facility] Start: 06-28-2022 End: 06-28-2022 Patient encounter procedure Adelso Love MD Work Phone: Radiation Oncology Comment on above: Malignant neoplasm o f prostate (HCC) (Primary Dx) Start: 06-25-2022 End: 06-25-2022 Patient encounter procedure Ky TRINIDAD [facility] Start: 06-11-2022 End: 06-12-[address] KY TRINIDAD . Facility:[facility] Start: 03-16-2022 End: 03-17-[address] JERAD CARTER Facility:[facility] Start: 03-02-2022 End: 03-03-[address] KY TRINIDAD . Facility:[facility] Start: 02-16-2022 End: 02-16-2022 Patient encounter procedure Ky TRINIDAD [facility] Start: 02-08-2022 End: 02-08-[address] KY TRINIDAD . Facility:[facility] Start: 02-07-2022 Encounter for preprocedural laboratory examination DR KY TRINIDAD . [facility] Start: 02-05-2022 End: 02-06-[address] KY TRINIDAD . Facility:[facility] Start: 02-05-2022 End: 02-06-2022 Encounter for preprocedural laboratory examination DR KY TRINIDAD . Facility:[facility] Start: 02-01-2022 Encounter for preprocedural cardiovascular examination DR KY TRINIDAD . [facility] Start: 01-29-2022 End: 01-30-[address] KY TRINIDAD . Facility:[facility] Start: 09-25-2021 End: 10-19-2021 ambulatory JACQUELYN MAURER Facility:[facility] Start: 03-27-2018 Ambulatory DANII MALDONADO Fa cility:[id number] Procedures Date Procedure Procedure Detail Performing Clinician Start: 03-12-2024 PSA screening [facility] Provi jamil Start: 09-09-2023 PSA screening [facility] Provi jamil Start: 05-10-2023 PSA screening [facility] Provi jamil Start: 01-07-2023 End: 01-07-2023 PSA screening [facility] Provider Comment on above: Performed By: #### P SAD #### [facility] [address] [place] [address] Dr. Juanita Sagastume Start: 09-27-2022 Brachytherapy of pro state using fluoroscopic guidance Ky TRINIDAD Start: 09-04-2022 Teleradiotherapy procedure Ky TRINIDAD Start: 06-11-[address] WESTLEY TRINIDAD . Comment on above: Performed By: #### B MP #### [facility] [address] [place] [address] Dr. Juanita Sagastume Start: 02-08-2022 MRI-US fusion guided transrectal biopsy of prostate Ky TRINIDAD Start: 04-29-2017 TRUS w/bx Ky GARCIA TERS Start: 01-12-2014 TRUS w/bx Ky WA TERS Cataract (disorder) Ky TRINIDAD Colonoscopy Ky TRINIDAD heart cath Ky TRINIDAD Jaw and temporomandi bular joint operations Ernie Elliott Work Phone: Tonsillectomy Ky TRINIDAD Tonsillectomy and adenoidectomy Ernie Elliott Work Phone: Total colonoscopy Ernie Elliott Work Phone: Plan of Treatment Date Care Activity Detail Author Start: 2030 RSV Vaccine (1 - 1-d ose 75+ series) RSV Vaccine (1 - 1-dose 75+ series) [facility] Start: 09-09-2028 Prostate specific antigen measurement Prostate Cancer Screening Discussion [facility] Start: 01-08-2028 PROSTATE CANCER SCREENING DISCUSSION PROSTATE CANCER SCREENING DISCUSSION [facility] Start: 06-11-2027 PROSTATE CANCER SCREENING DISCUSSION PROSTATE CANCER SCREENING DISCUSSION [facility] Start: 12-07-2025 End: 12-07-2025 Patient encounter procedure 12/07/2025 2:00 PM EST Office Visit Radiation Oncology [address] [place] [address] [place] [address] [place] [address] 1 YEAR FOLLOW UP Radiation Oncology Comment on above: 1 YEAR FOLLOW UP Start: 11-18-2024 End: 11-18-2024 Patient encounter procedure 11/18/2024 10:30 AM EST Office Visit Radiation Oncology [address] [address] Adelso Love MD [address] [place] [address] 6 Month Follow Up Radiation Oncology Comment on above: 6 Month Follow Up Start: 10-14-2024 Advance Directive Discussion Advance Directive Discussion [facility] Start: 06-14-2024 Covid-19 Vaccine ( season) Covid-19 Vaccine () [facility] Start: 06-14-2024 Covid-19 Vaccine ( season) Covid-19 Vaccine () [facility] Start: 06-14-2024 Influenza vaccination Influenza Vacc ine (#1) [facility] Start: 04-13-2024 FUV, Provider: Jerad Carter, Status: Pen, Time: 1:00 PM FUV, Provider: Jerad Carter, Status: Pen, Time: 1:00 PM [place] [id number] DO Work Phone: Start: 10-14-2023 Advance Directive Discussion Advance Directive Discussion [facility] Start: 10-14-2023 Depression Assessment Depression Ass essment [facility] Start: 06-14-2023 Covid-19 Vaccine ( season) Covid-19 Vaccine () [facility] Start: 06-14-2023 Influenza vaccination [facility] Start: 05-08-2023 End: 07-08-2023 Prostate specific Ag [Mass/volume] in Serum or Plasma PSA/PROSTSPECAG DIAG Lab Routine Malignant neoplasm of prostate (HCC) Expected: 05/08/2023, Expires: 07/08/2023 [facility] Work Phone: Comment on above: Expected: 05/08/2023 , Expires: 07/08/2023 Start: 11-10-2022 End: 01-10-2023 Prostate specific Ag [Mass/volume] in Serum or Plasma PSA/PROSTSPECAG DIAG Lab Routine Malignant neoplasm of prostate (HCC) Expected: 11/10/2022, Expires: 01/10/2023 [facility] Work Phone: Comment on above: Expected: 11/10/2022 , Expires: 01/10/2023 Start: 10-14-2022 ADVANCE DIRECTIVE DISCUSSION ADVANCE DIRECTIVE DISCUSSION [facility] Start: 10-14-2022 DEPRESSION ASSESSMENT DEPRESSION ASS ESSMENT [facility] Start: 08-09-2022 End: 07-31-2023 CBC W Auto Differential panel - Blood CBC + DIFF Lab Routine Prostate cancer (HCC) Expected: 08/09/2022, Expires: 07/31/2023 [facility] Work Phone: Comment on above: Expected: 08/09/2022 , Expires: 07/31/2023 Start: 06-14-2022 Influenza vaccination INFLUENZA (#1) [facility] Start: 04-06-2022 Screening for malign ant neoplasm of colon [facility] Start: 10-14-2021 ADVANCE DIRECTIVE DISCUSSION ADVANCE DIRECTIVE DISCUSSION [facility] Start: 10-14-2021 DEPRESSION ASSESSMENT DEPRESSION ASS ESSMENT [facility] Start: 10-10-2021 COVID-19 VACCINE (5 - Pfizer series) COVID-19 VACCINE (5 - Pfizer series) [facility] Start: 02-13-2021 COVID-19 VACCINE (2 - Pfizer series) COVID-19 VACCINE (2 - Pfizer series) [facility] Start: 2020 Pneumococcal Vaccine : 65+ (2 of 2 - PCV) Pneumococcal Vaccine: 65+ (2 of 2 - PCV) [facility] Start: 2020 PNEUMOCOCCAL: 65+ (1 - PCV) PNEUMOCOCCAL: 65+ (1 - PCV) [facility] Start: 10-14-2016 Pneumococcal Vaccine : 50+ (2 of 2 - PCV) Pneumococcal Vaccine: 50+ (2 of 2 - PCV) [facility] Start: 2015 RSV Vaccine (1 - 1-d ose 60+ series) RSV Vaccine (1 - 1-dose 60+ series) [facility] Start: 2015 RSV Vaccine (1 - Ris k 60-74 years 1-dose series) RSV Vaccine (1 - Risk 60-74 years 1-dose series) [facility] Start: 2010 PROSTATE CANCER SCREENING DISCUSSION PROSTATE CANCER SCREENING DISCUSSION [facility] Start: 2005 Influenza vaccination LUNG CANCER [facility] Start: 2005 SHINGRIX VACCINE (1 of 2) SHINGRIX VACCINE (1 of 2) [facility] Start: 2000 COLOGUARD (FIT-DNA) COLOGUARD (FIT-D NA) [facility] Start: 2000 Colonoscopy COLONOSCOPY [facility] Start: 2000 COLORECTAL CANCER SCREENING COLORECTAL CANCER SCREENING [facility] Start: [address] COLONOGRAPHY [facility] Start: 2000 DIABETES SCREEN DIABETES SCREEN [facility] Start: 2000 Diabetes Screening Diabetes Screenin g [facility] Start: 2000 FECAL OCCULT BLOOD FECAL OCCULT BLOO D [facility] Start: 2000 Screening for malign ant neoplasm of colon [facility] Start: 2000 SIGMOIDOSCOPY SIGMOIDOSCOPY [facility] Start: 1990 Lipid panel Lipid Screening [facility] Start: 1990 LIPID SCREEN LIPID SCREEN [facility] Start: 1974 Urine microalbumin profile [facility] Start: 1973 Anxiety Screening Anxiety Screening [facility] Start: 1973 Depression Screening Depression Scre ing [facility] Start: 1973 HEPATITIS C SCREENING HEPATITIS C [facility] Start: 1973 Hepatitis C screening Hepatitis [facility] Start: 1967 Adult depression screening assessment DEPRESSION SCREENING [facility] Start: 1955 COVID-19 VACCINE (#1) COVID-19 VACCI NE (#1) [facility] Start: 1955 ABDOMINAL AORTIC ANEURYSM SCREENING ABDOMINAL AORTIC ANEURYSM SCREENING [facility] Start: 1955 Abdominal aortic aneurysm screening Abdominal Aortic Aneurysm Screening [facility] Immunizations Immunization Date Immunization Notes Care Provider Cori penn 07-05-2022 SARS-CoV-2 (COVID-19 ) [id number] Ky TRINIDAD [facility] Comment on above: Result Comment: 202216: [id number] 08-15-2021 SARS-CoV-2 (COVID-19 ) mRNA BNT-162b2 vax Ky TRINIDAD [facility] 01-23-2021 SARS-CoV-2 (COVID-19 ) mRNA BNT-162b2 vax Ky TRINIDAD [facility] 01-10-2021 SARS-CoV-2 (COVID-19 ) mRNA BNT-162b2 vax [facility]IDAD [facility] [facility] 12-19-2020 SARS-CoV-2 (COVID-19 ) mRNA BNT-162b2 vax [place] [facility] 07-14-2020 influenza virus vacc ine, unspecified formulation [place] [facility] 07-23-2019 influenza virus vacc ine, unspecified formulation [place] [facility] 07-23-2019 influenza, injectabl e, quadrivalent, preservative free Ernie L Valone Work Phone[facility] Work Phone: 07-14-2019 influenza virus vacc ine, unspecified formulation [place] [facility] 07-14-2019 influenza, high dose seasonal, preservative-free Ernie L [facility]one [facility] Phone: [facility] DO Work Phone: 07-14-2018 influenza virus vacc ine, unspecified formulation Ernie L Valone [facility] Phone: [facility] Work Phone: 07-14-2017 influenza virus vacc ine, unspecified formulation Ernie L Valone Work Phone: [facility] 250 DO Work Phone: 10-14-2015 pneumococcal polysaccharide vaccine, 23 valent Ernie L Valone Work Phone: [facility] 250 DO Work Phone: Payers Date Payer Category Payer Medicare HUMANA MEDICARE HUMANA MEDICARE PPO [id number] 2021-Present [phone] [place] [address] PPO [id number] 2021 Medicare (Managed Care) HUMANA M EDICARE [id number] 1959 Medicare [id number] 1955 Unknown [id number] 2.16.840.1.311931.3.579.2. 647 1955 Unknown [id number] 2.16.840.1.054007.3.579.2. 593 1955 Unknown [id number] 2.16.840.1.276917.3.579.2. 593 1955 Unknown [id number] 2.16.840.1.692738.3.579.2. 593 1955 Unknown [id number] 2.16.840.1.548387.3.579.2. 593 1955 Unknown [id number] 2.16.840.1.751869.3.579.2. 593 1955 Unknown [id number] 2.16.840.1.670607.3.579.2. 593 1955 Unknown [id number] 2.16.840.1.425290.3.579.2. 593 1955 Unknown [id number] 2.16.840.1.368345.3.579.2. 593 1955 Unknown [id number] 2.16.840.1.459970.3.579.2. 593 1955 Unknown [id number] 2.16.840.1.566719.3.579.2. 593 1955 Unknown [id number] 2.16.840.1.391504.3.579.2. 593 1955 Unknown [id number] 2.16.840.1.854101.3.579.2. 593 1955 Unknown [id number] 2.16.840.1.713952.3.579.2. 356 1955 Unknown [id number] 2.16.840.1.738434.3.579.2. 727 1955 Unknown [id number] 2.16.840.1.564856.3.579.2. 727 1955 Unknown [id number] 2.16.840.1.743797.3.579.2. 727 Medicare [id number] Unknown [id number] Unknown [id number] Unknown Social History Date Type Detail Facility Start: 11-20-2021 End: 06-28-2022 Tobacco smoking status Ex-smoker (finding) [facility] Start: 11-08-2022 End: 05-15-2023 Sex Assigned At Male [facility] Start: 10-14-1981 End: 10-14-2016 History of tobacco use Current smoker [facility] Start: 10-14-1981 End: 10-14-2016 History of tobacco use Cigarette Smoker [facility] Start: 06-28-2022 End: 05-15-2023 Cigarettes smoked current (pack per day) - Reported 1 [facility] Start: 06-28-2022 Tobacco use and exposure Smokeless tobacco non-user [facility] Start: 06-28-2022 End: 11-08-2022 Alcohol intake Lifetime non-drinker (finding) [facility] Start: 1955 Sex Assigned At Not on file [facility] Start: 06-18-2022 End: 09-12-2022 Exposure to SARS-CoV-2 (event) Not sure [facility] National Score (1-10 0), lower number is lower risk 62 [facility] Functional Status Date Assessment Result Facility 03-30-2024 Functional Status N/A [facility] 09-16-2023 Functional Status N/A [facility] 01-14-2023 Functional Status N/A [facility] 10-29-2022 Functional Status N/A [facility] 06-25-2022 Functional Status N/A [facility] Clinical Notes 01-29-2022 to 12-02-2024 Adelso Love MD - 12/02/2024 10:39 AM Olinda Marquez RN - 12/02/2024 10:37 AM Adelso Boss MD - 11/20/2023 10:32 AM Olinda Marquez RN - 11/20/2023 10:32 AM EST Note Date & Type Note Facility 12-02-2024 Note HNO ID: [id number] Author: Adelso LOVE MD Service: ? Author Type: Physician Type: Progress Notes Filed: 12/10/2024 13:09 Note Text: Radiation Oncology - Follow Up Note PATIENT NAME: Sheron Erazo PATIENT DIAGNOSIS: Prostate adenocarcinoma, initial PSA 18.77, biopsy Kenan score 3 + 4 = 7 (grade group 2), clinical stage T2a, N0, M0, stage IIB [T1-T2, N0, M0, PSA <20, GG 2] (AJCC 8th ed.), s/p TRUS Random and MR Targeted biopsy. Prostate cancer (C61), 2019 NCCN Risk Group: Unfavorable Intermediate Risk Group RADIATION SUMMARY: Pelvis external IMRT: 08/01/2022 to 09/04/2022 Prostate brachytherapy: 09/27/22 DELIVERED DOSE: Area: Pelvis 45Gy in 25 fractions, 3 Rivera, IMRT, 10MV with daily CBCT Area: Prostate brachytherapy boost, Pd103 100 Gy INTERVAL HISTORY: The patient presents for routine follow-up. He states he is doing well. Denies dysuria hematuria other new problems. PSA. (no units) Date Value 03/12/2024 <0.13 09/09/2023 <0.13 05/10/2023 <0.13 01/07/2023 <0.13 ALLERGIES Allergen Reactions Ramipril Unknown theophylline ER 300 mg 12 hr tablet hydrOXYzine pamoate (VISTARIL) 25 mg capsule Refills(s) 0 eplerenone (INSPRA) 25 mg tablet ezetimibe (ZETIA) 10 mg tablet ezetimibe 10 mg Tab Refills(s) 0 Start Date: 10/29/22 Status: Ordered metFORMIN (GLUCOPHAGE) 1,000 mg tablet montelukast (SINGULAIR) 10 mg tablet ergocalciferol 50,000 unit capsule (VITAMIN D2, DRISDOL) q 24 HR. famotidine (PEPCID) 40 mg tablet aspirin 81 mg chewable tablet q 24 HR. rosuvastatin (CRESTOR) 40 mg tablet roflumilast (DALIRESP) 500 mcg tab Take 500 mcg by mouth once daily. REVIEW OF SYSTEMS: D/N = 4-6/1-2 Hematuria: No Dysuria: No Incontinence: No Urgency: no Catheter use: No Medications to aid urination: no - Total AUA Score: 5 Bowel movement frequency: 1/day Bowel movement quality: normal Blood per rectum: none PHYSICAL EXAM: BP 149/82 Pulse 96 Temp 36.6 ?C (97.8 ?F) Resp 18 Wt 110.4 kg (243 lb 6.2 oz) SpO2 93% BMI 33.71 kg/m? KPS: 100 General Appearance: Alert and oriented. No acute distress. No neck supraclavicular or axillary lymphadenopathy Abdomen without masses or hepatosplenomegaly Rectal exam is deferred. ASSESSMENT/PLAN: Prostate adenocarcinoma, initial PSA 18.77, biopsy Kenan score 3 + 4 = 7 (grade group 2), clinical stage T2a, N0, M0, stage IIB [T1-T2, N0, M0, PSA <20, GG 2] (AJCC 8th ed.), s/p TRUS Random and MR Targeted biopsy. Prostate cancer (C61), 2019 NCCN Risk Group: Unfavorable Intermediate Risk Group status post external beam pelvic treatment followed by brachytherapy boost September 2022. Patient overall doing well. PSA remains low. He continues close follow-up with Dr. Trinidad. Plan to see patient back in 1 year for further post radiation treatment follow-up. Signed by: Adelso Love MD cc: Ernie Elliott Jr, DO (Dr) Dr. Trinidad [facility] 12-02-2024 History of Present illness Narrative Radiation Oncology - Follow Up Note PATIENT NAME: Sherno Erazo PATIENT DIAGNOSIS: Prostate adenocarcinoma, initial PSA 18.77, biopsy [place] score 3 + 4 = 7 (grade group 2), clinical stage T2a, N0, M0, stage IIB [T1-T2, N0, M0, PSA <20, GG 2] (AJCC 8th ed.), s/p TRUS Random and MR Targeted biopsy. Prostate cancer (C61), 2019 NCCN Risk Group: Unfavorable Intermediate Risk Group RADIATION SUMMARY: Pelvis external IMRT: 08/01/2022 to 09/04/2022 Prostate brachytherapy: 09/27/22 DELIVERED DOSE: Area: Pelvis 45Gy in 25 fractions, 3 Rivera, IMRT, 10MV with daily CBCT Area: Prostate brachytherapy boost, Pd103 100 Gy INTERVAL HISTORY: The patient presents for routine follow-up. He states he is doing well. Denies dysuria hematuria other new problems. PSA. (no units) Date Value 03/12/2024 <0.13 09/09/2023 <0.13 05/10/2023 <0.13 01/07/2023 <0.13 ALLERGIES Allergen Reactions Ramipril Unknown theophylline ER 300 mg 12 hr tablet hydrOXYzine pamoate (VISTARIL) 25 mg capsule Refills(s) 0 eplerenone (INSPRA) 25 mg tablet ezetimibe (ZETIA) 10 mg tablet ezetimibe 10 mg Tab Refills(s) 0 Start Date: 10/29/22 Status: Ordered metFORMIN (GLUCOPHAGE) 1,000 mg tablet montelukast (SINGULAIR) 10 mg tablet ergocalciferol 50,000 unit capsule (VITAMIN D2, DRISDOL) q 24 HR. famotidine (PEPCID) 40 mg tablet aspirin 81 mg chewable tablet q 24 HR. rosuvastatin (CRESTOR) 40 mg tablet roflumilast (DALIRESP) 500 mcg tab Take 500 mcg by mouth once daily. REVIEW OF SYSTEMS: D/N = 4-6/1-2 Hematuria: No Dysuria: No Incontinence: No Urgency: no Catheter use: No Medications to aid urination: no - Total AUA Score: 5 Bowel movement frequency: 1/day Bowel movement quality: normal Blood per rectum: none PHYSICAL EXAM: BP 149/82 Pulse 96 Temp 36.6 C (97.8 F) Resp 18 Wt 110.4 kg (243 lb 6.2 oz) SpO2 93% BMI 33.71 kg/m KPS: 100 General Appearance: Alert and oriented. No acute distress. No neck supraclavicular or axillary lymphadenopathy Abdomen without masses or hepatosplenomegaly Rectal exam is deferred. ASSESSMENT/PLAN: Prostate adenocarcinoma, initial PSA 18.77, biopsy Kenan score 3 + 4 = 7 (grade group 2), clinical stage T2a, N0, M0, stage IIB [T1-T2, N0, M0, PSA <20, GG 2] (AJCC 8th ed.), s/p TRUS Random and MR Targeted biopsy. Prostate cancer (C61), 2018 NCCN Risk Group: Unfavorable Intermediate Risk Group status post external beam pelvic treatment followed by brachytherapy boost September 2022. Patient overall doing well. PSA remains low. He continues close follow-up with Dr. Trinidad. Plan to see patient back in 1 year for further post radiation treatment follow-up. Signed by: Adelso Love MD cc: Ernie Elliott Jr, DO ([facility]) Dr. Trinidad NEY Torres RN documented in this encounter [facility] 12-02-2024 Note HNO ID: [id number] Author: OLINDA TORRES RN Service: ? Author Type: Registered Nurse Type: Progress Notes Filed: 12/10/2024 13:09 Note Text: NEY Torres RN [facility] 03-30-2024 Hospital Discharge instructions Patient Education 03/30/2024 [...] similar to normal prostate cells (well differentiated). [place] 7: This indicates that the cancer cells [...] stress of having cancer. General instructions Take xafm-qew-wcbnxzj and prescription medicines only as told by your health care provider. If you have to go to the hospital, notify your cancer specialist (oncologist). Keep all follow-up visits. This is important. Where to find more information [place] Cancer Society: www.cancer.org [place] Society of Clinical Oncology: www.cancer.net National Cancer Parker: www.cancer.gov Contact a health care provider if: [...] provider. Document Revised: 12/27/2021 Document Reviewed: 12/27/2021 [employer] Patient Education 2022 [employer] Follow Up Care 09/16/2023 14:45:37 With:TANISHA GILL, [place], URL Address: [facility] [address] [place] [address]- When: Unknown [facility] History of Present illness Narrative Radiation Oncology - Follow Up Note PATIENT NAME: Sheron Erazo PATIENT DIAGNOSIS: Prostate adenocarcinoma, initial PSA 18.77, biopsy Kenan score 3 + 4 = 7 (grade group 2), clinical stage T2a, N0, M0, stage IIB [T1-T2, N0, M0, PSA <20, GG 2] (AJCC 8th ed.), s/p TRUS Random and MR Targeted biopsy. Prostate cancer (C61), 2019 NCCN Risk Group: Unfavorable Intermediate Risk Group RADIATION SUMMARY: Pelvis external IMRT: 08/01/2022 to 09/04/2022 Prostate brachytherapy: 09/27/22 DELIVERED DOSE: Area: Pelvis 45Gy in 25 fractions, 3 Rivera, IMRT, 10MV with daily CBCT Area: Prostate brachytherapy boost, Pd103 100 Gy INTERVAL HISTORY: The patient presents for routine follow-up. He states he is doing well. Bladder function is good. Denies dysuria hematuria other new problems. PSA (ng/mL) Date Value 11/05/2022 <0.02 PSA. (no units) Date Value 09/09/2023 <0.13 05/10/2023 <0.13 01/07/2023 <0.13 Recent PSA 0.13 ALLERGIES Allergen Reactions Ramipril Unknown metFORMIN (GLUCOPHAGE) 1,000 mg tablet montelukast (SINGULAIR) 10 mg tablet ergocalciferol 50,000 unit capsule (VITAMIN D2, DRISDOL) q 24 HR. famotidine (PEPCID) 40 mg tablet TRELEGY ELLIPTA 100-62.5-25 mcg inhalation powder aspirin 81 mg chewable tablet q 24 HR. rosuvastatin (CRESTOR) 40 mg tablet spironolactone (ALDACTONE) 50 mg tablet roflumilast (DALIRESP) 500 mcg tab Take 500 mcg by mouth once daily. ezetimibe (ZETIA) 10 mg tablet ezetimibe 10 mg Tab Refills(s) 0 Start Date: 10/29/22 Status: Ordered ertugliflozin (STEGLATRO) 5 mg tablet Take 7.5 mg by mouth once daily. REVIEW OF SYSTEMS: D/N = 4-6/1-2 Hematuria: No Dysuria: No Incontinence: No Urgency: mild Catheter use: No Medications to aid urination: no - Total AUA Score: 7 Bowel movement frequency: 1/day Bowel movement quality: normal Blood per rectum: none PHYSICAL EXAM: BP 158/82 Pulse 106 Temp 36.3 C (97.4 F) Resp 18 Wt 113.8 kg (250 lb 14.1 oz) SpO2 91% BMI 34.75 kg/m KPS: 100 General Appearance: Alert and oriented. No acute distress. No neck supraclavicular or axillary lymphadenopathy Abdomen without masses or hepatosplenomegaly Rectal exam is deferred. ASSESSMENT/PLAN: Prostate adenocarcinoma, initial PSA 18.77, biopsy Kenan score 3 + 4 = 7 (grade group 2), clinical stage T2a, N0, M0, stage IIB [T1-T2, N0, M0, PSA <20, GG 2] (AJCC 8th ed.), s/p TRUS Random and MR Targeted biopsy. Prostate cancer (C61), 2019 NCCN Risk Group: Unfavorable Intermediate Risk Group status post external beam pelvic treatment followed by brachytherapy boost September 2022. Patient overall doing well. PSA remains low. He continues close follow-up with Dr. Trinidad. Plan to see patient back in 1 year for further post radiation treatment follow-up. Signed by: Adelso Love MD cc: Ernie Elliott Jr, DO ([facility]) Dr. Trinidad documented in this encounter [facility] 11-20-2023 Nurse Note AUA 7 Olinda Torres RN documented in this encounter [facility] 09-16-2023 Hospital Discharge instructions Patient Education [...] similar to normal prostate cells (well differentiated). [place] 7: This indicates that the cancer cells [...] stress of having cancer. General instructions Take salb-whs-tboyxlv and prescription medicines only as told by your health care provider. If you have to go to the hospital, notify your cancer specialist (oncologist). Keep all follow-up visits. This is important. Where to find more information [place] Cancer Society: www.cancer.org [place] Society of Clinical Oncology: www.cancer.net National Cancer Parker: www.cancer.gov Contact a health care provider if: [...] provider. Document Revised: 12/27/2021 Document Reviewed: 12/27/2021 [employer] Patient Education 2022 [employer]. Follow Up Care 01/14/2023 14:33:04 With:TANISHA GILL, [place], URL Address: [facility] [address] [place] [address] [phone] When: Unknown Comments:6 mos w/ PSA [facility] 05-15-2023 History of Present illness Narrative Radiation Oncology - Follow Up Note PATIENT NAME: Sheron Erazo PATIENT DIAGNOSIS: Prostate adenocarcinoma, initial PSA 18.77, biopsy Kenan score 3 + 4 = 7 (grade group 2), clinical stage T2a, N0, M0, stage IIB [T1-T2, N0, M0, PSA <20, GG 2] (AJCC 8th ed.), s/p TRUS Random and MR Targeted biopsy. Prostate cancer (C61), 2019 NCCN Risk Group: Unfavorable Intermediate Risk Group RADIATION SUMMARY: Pelvis external IMRT: 08/01/2022 to 09/04/2022 Prostate brachytherapy: 09/27/22 DELIVERED DOSE: Area: Pelvis 45Gy in 25 fractions, 3 Rivera, IMRT, 10MV with daily CBCT Area: Prostate brachytherapy boost, Pd103 100 Gy INTERVAL HISTORY: The patient presents for routine follow-up. He states he is doing well. Bladder function is good. Denies dysuria hematuria other new problems. PSA (ng/mL) Date Value 11/05/2022 <0.02 PSA. (no units) Date Value 01/07/2023 <0.13 Recent PSA 0.13 ALLERGIES Allergen Reactions Ramipril Unknown ezetimibe (ZETIA) 10 mg tablet ezetimibe 10 mg Tab Refills(s) 0 Start Date: 10/29/22 Status: Ordered metFORMIN (GLUCOPHAGE) 1,000 mg tablet ergocalciferol 50,000 unit capsule (VITAMIN D2, DRISDOL) q 24 HR. famotidine (PEPCID) 40 mg tablet TRELEGY ELLIPTA 100-62.5-25 mcg inhalation powder aspirin 81 mg chewable tablet q 24 HR. rosuvastatin (CRESTOR) 40 mg tablet spironolactone (ALDACTONE) 50 mg tablet roflumilast (DALIRESP) 500 mcg tab Take 500 mcg by mouth once daily. montelukast (SINGULAIR) 10 mg tablet ertugliflozin (STEGLATRO) 5 mg tablet Take 7.5 mg by mouth once daily. REVIEW OF SYSTEMS: D/N = 4-6/1-2 Hematuria: No Dysuria: No Incontinence: No Urgency: mild Catheter use: No Medications to aid urination: no - Total AUA Score: 6 Bowel movement frequency: 1/day Bowel movement quality: normal Blood per rectum: none PHYSICAL EXAM: BP 155/93 Pulse 91 Temp (!) 35.6 C (96 F) Resp 16 Wt 109.8 kg (242 lb) SpO2 93% BMI 33.52 kg/m KPS: 100 General Appearance: Alert and oriented. No acute distress. No neck supraclavicular or axillary lymphadenopathy Rectal exam is deferred. ASSESSMENT/PLAN: Prostate adenocarcinoma, initial PSA 18.77, biopsy Kenan score 3 + 4 = 7 (grade group 2), clinical stage T2a, N0, M0, stage IIB [T1-T2, N0, M0, PSA <20, GG 2] (AJCC 8th ed.), s/p TRUS Random and MR Targeted biopsy. Prostate cancer (C61), 2019 NCCN Risk Group: Unfavorable Intermediate Risk Group status post external beam pelvic treatment followed by brachytherapy boost September 2022. Patient overall doing well. No significant posttreatment related problems. PSA remains low. He continues close follow-up with Dr. Trinidad. Plan to see patient back in 6 months for further post radiation treatment follow-up. Signed by: Adelso Love MD cc: Ernie Elliott Jr, DO ([facility]) [facility] [address] [address] [address] Trinidad documented in this encounter [facility] 05-15-2023 Nurse Note AUA 6 Olinda Torres, WILLI documented in this encounter [facility] 05-10-2023 Miscellaneous Notes Got ahold of patient he is going to [place] for labs Sending order over to [place] I will try to keep calling patient looks like he gets it done there Sheron is scheduled for a six month follow up on 05/15/23. PSA is to be drawn prior to the appt but no order was placed. I attempted to call Sheron to notify him he needs a lab appt but there was no answer. Dr. Love/Dr. Kern: Please sign pended PSA order. Tomeka Carrera LPN documented in this encounter [facility] 01-14-2023 Hospital Discharge instructions Patient Education 01/14/2023 [...] if anything looks unusual. Men with a dquuus-kjhx-qrxlse risk for skin cancer may want to see a computer training specialist (fur trapper) for an annual body check. Where to find more information National Cancer Parker: https://www.cancer.gov/about-cance r/screening Centers for Disease Control and Prevention: https://www.cdc.gov/cancer/dcpc/pr evention/screening.htm [place] Cancer Society: https://www.cancer.org/latest-news /1-jjncgm-bjhstrfld-vczkq-mfq-ter. html Contact a health care provider if: [...] 06/27/2017 Document Revised: 06/19/2019 Document Reviewed: 06/27/2017 [employer] Patient Education 2020 [employer]. Follow Up Care 07/23/2022 16:04:42 With:TANISHA GILL, [place], URL Address: [facility] [address] , [place] [address]- When: Unknown [facility] Hospital Discharge instructions Patient Education 10/29/2022 [...] urethra. Follow these instructions at home: Take pxpn-pig-ejcicgq and prescription medicines only as told by [...] 09/30/2006 Document Revised: 08/25/2019 Document Reviewed: 11/04/2017 [employer] Patient Education 2020 [employer]. Follow Up Care 09/04/2022 11:18:16 With:TANISHA GILL, [place], URL Address: [facility] [address] [place] [address]- When: Unknown [facility] 10-25-2022 History of Present illness Narrative Patient: Sheron Erazo Date:10/25/2022 [facility] Department of Radiation Oncology [facility] RADIATION ONCOLOGY POST SEED IMPLANT SIMULATION NOTE DATE OF SIMULATION: 10/25/2022 MACHINE: CT Simulator AREA:Prostate PATIENT POSITION: Supine. CONTRAST: None PROTOCOL: None CONCURRENT THERAPY: None FIXATION DEVICE: None PROCEDURE: Patient was simulated on the CT scanner and CT images of the patients pelvis obtained. ASSESSMENT/PLAN: Patient tolerated simulation procedure well. CT images were obtained on the CT simulator for the prostate post brachy therapy seed implant planning. Post planning for the permanent seed prostate brachy procedure will commence following simulation. Electronically Signed QUINTEN LOVE M.D. 34:36 PM documented in this encounter [facility] 10-10-2022 History of Present illness Narrative Radiation Oncology - Follow Up Note PATIENT NAME: Sheron Erazo PATIENT DIAGNOSIS: Prostate adenocarcinoma, initial PSA 18.77, biopsy Kenan score 3 + 4 = 7 (grade group 2), clinical stage T2a, N0, M0, stage IIB [T1-T2, N0, M0, PSA <20, GG 2] (AJCC 8th ed.), s/p TRUS Random and MR Targeted biopsy. Prostate cancer (C61), 2019 NCCN Risk Group: Unfavorable Intermediate Risk Group RADIATION SUMMARY: Pelvis external IMRT: 08/01/2022 to 09/04/2022 Prostate brachytherapy: 09/27/22 DELIVERED DOSE: Area: Pelvis 45Gy in 25 fractions, 3 Rivera, IMRT, 10MV with daily CBCT Area: Prostate brachytherapy boost, Pd103 100 Gy INTERVAL HISTORY: The patient presents for routine follow-up after recent brachytherapy. He states he is doing well. Denies any pelvic pain, dysuria or hematuria. No fever. No perineal discomfort. No results found for: PSA, PSAPER ALLERGIES Allergen Reactions Ramipril Unknown metFORMIN (GLUCOPHAGE) 1,000 mg tablet montelukast (SINGULAIR) 10 mg tablet ergocalciferol 50,000 unit capsule (VITAMIN D2, DRISDOL) q 24 HR. famotidine (PEPCID) 40 mg tablet TRELEGY ELLIPTA 100-62.5-25 mcg inhalation powder aspirin 81 mg chewable tablet q 24 HR. rosuvastatin (CRESTOR) 40 mg tablet spironolactone (ALDACTONE) 50 mg tablet ertugliflozin (STEGLATRO) 5 mg tablet Take 7.5 mg by mouth once daily. roflumilast (DALIRESP) 500 mcg tab Take 500 mcg by mouth once daily. REVIEW OF SYSTEMS: D/N = 4-6/1-2 Hematuria: No Dysuria: No Incontinence: No Urgency: mild Catheter use: No Medications to aid urination: no - Total AUA Score: 15 Bowel movement frequency: 1/day Bowel movement quality: normal Blood per rectum: none PHYSICAL EXAM: BP 166/94 Pulse 106 Temp 36.8 C (98.2 F) (Temporal) Resp 18 Wt 111.1 kg (245 lb) SpO2 96% BMI 33.93 kg/m KPS: 100 General Appearance: Alert and oriented. No acute distress. Rectal exam is deferred. Perineal area without ecchymosis tenderness or seroma. ASSESSMENT/PLAN: Prostate adenocarcinoma, initial PSA 18.77, biopsy [place] score 3 + 4 = 7 (grade group 2), clinical stage T2a, N0, M0, stage IIB [T1-T2, N0, M0, PSA <20, GG 2] (AJCC 8th ed.), s/p TRUS Random and MR Targeted biopsy. Prostate cancer (C61), 2019 NCCN Risk Group: Unfavorable Intermediate Risk Group status post external beam pelvic treatment followed by brachytherapy boost September 2022. Patient overall doing well with improving post-implant urinary issues. No other new problems. Plan to have patient back in 2 weeks for post-implant CT, return for follow-up exam in 4 weeks. He continues close follow-up with his urologist as well. Signed by: Adelso Love MD cc: Ernie Elliott Jr DO ([facility]) [facility] [address] [address] [address] Trinidad documented in this encounter [facility] 10-10-2022 Nurse Note AUA=15 documented in this encounter [facility] 09-27-2022 History of Present illness Narrative Date: 09/27/22 Facility: [facility] Procedure: prostate transperineal brachytherapy implant Sources: [id number] Anesthesia:general Urologist: Dr. Trinidad This is an operative report supplement to Dr. Muñoz's note. Prior the the implant patient underwent planning using transrectal ultrasound based. The planning including outline of prostate and planning margin around prostate to deliver 100 Gy using Pd 103 sources. Prior to the procedure on the morning of the implant, patient identified by name and hospital ID bracelet. After anesthesia administered patient placed in dorsal-lithotomy position and ultrasound study done showing good correlation with planning images and excellent visualization of the gland. Implant was then carried out using transperineal technique with active ultrasound and fluoroscopic guidance. At the end of the case the treatment planning ultrasound computer was reviewwed and it was determined to place to addition sources The computer and ultrasound volumes showed captured seed located in expected position with appropriate target coverage. X-ray image showed good seed distribution and all 47 sources. Intraoperative dosimetry reviewed showing D90 of >90%, and excellent coverage of gland by the 100% IDL. 47 sources, for a total of 77.64 mCi was necessary using 14 needles. After the cystoscopy physics performed survey with meter of patient, cystoscopy fluid, floor, trash, work table and general area. No excess activity seen, results documented. Inessa Love MD [facility] documented in this encounter [facility] 09-21-2022 Note EXAMINATION: XR CHES T [...] authenticated by: SANIA CANELA Date: 2022-09-21 12:38 [facility] 09-18-2022 History of Present illness Narrative SHERON ERAZO [id number] 09/18/2022 [facility] Department of Radiation Oncology [facility] RADIATION ONCOLOGY BRACHYTHERAPY TREATMENT PLANNING NOTE For reasons stated in the consult note, SHERON ERAZO is a candidate for definitive radiation. Based on review and interpretation of the relevant diagnostic studies together with the exam findings, SHERON ERAZO was simulated on 09/12/2022 and the target volume to be treated as well as the critical normal structure(s) were delineated as indicated in the simulation note. I personally reviewed the TRUS and was able to create contours of the volume to be treated and the normal critical structures to be spared. In this particular case, the rectum was deemed to be a critical structure. Special consideration of this was given in light of the potential for increased toxicity if the rectum receives too much radiation dose. After participating in the treatment planning process with medical physics, I approved the best plan to deliver my prescribed course of radiation. The target tissue was planned using pre-planning to allow for the best isodose distribution to deliver a minimum dose of 100 Gy to the prostate. The dose to normal tissue (rectum) and target tissue was confirmed upon review of the calculated dose superimposed on the TRUS images containing the target tissue and the rectum. A completed summary of this plan dated 09/18/2022 incorporated herein by reference includes dose, energy, isodose distribution and DVH. Electronically Signed Quinten Love M.D. / GALILEA 212:05 PM documented in this encounter [facility] 09-12-2022 History of Present illness Narrative UNIVERSAL PROTOCOL / SAFETY CHECKLIST Procedure to be Performed: volume study Sign In: A Moment of CARE was completed. Personnel directly involved with the procedure wore the appropriate PPE (Personal Protective Equipment). Patient/Surrogate Stated/Verified: PATIENT VERIFIED(optional for EMERGENT procedures): Patient name, Date of , Relevant allergies, and The intended procedure Time Out Communication: Intended patient and procedure match the source documents. Consent documented and matches the intended procedure. Sign Out: SIGN OUT (optional for EMERGENT procedures): No specimen collected. Adelso Love MD documented in this encounter [facility] 09-03-2022 History of Present illness Narrative Radiation Oncology - On Treatment Review (OTR) Note PATIENT NAME: Sheron Erazo PATIENT DIAGNOSIS: Prostate adenocarcinoma, initial PSA 18.77, biopsy [place] score 3 + 4 = 7 (grade group 2), clinical stage T2a, N0, M0, stage IIB [T1-T2, N0, M0, PSA <20, GG 2] (AJCC 8th ed.), s/p TRUS Random and MR Targeted biopsy. Prostate cancer (C61), 2018 NCCN Risk Group: Unfavorable Intermediate Risk Group COURSE: definitive Current dose: 4320 cGy in 24 fx Planned dose: 4500 cGy in 25 fx SUBJECTIVE: Doing well denies changes or problems. PHYSICAL EXAM: There were no vitals filed for this visit. KPS: 100 General Appearance: Alert and oriented. No acute distress. IMAGING/LAB RESULTS: None TOXICITY ASSESSMENT (CTC v4.0): Fatigue:grade 0 - No symptoms Radiation Dermatitis: grade 0 - No symptoms Diarrhea:grade 1 Proctitis: grade 0 - No symptoms Urinary frequency: grade 0 - No symptoms Dysuria: grade 0 - No symptoms Urinary incontinence: grade 0 (No symptoms) Urinary retention: grade 0 - No symptoms Treatment chart checked: Yes Patient treatment site reviewed and verified:Yes Port films reviewed and current:Yes Medications started: None ASSESSMENT/PLAN: Patient doing well. Chart and imaging reviewed. Continue radiation as outlined. Upcoming implant discussed. Adelso Love MD documented in this encounter [facility] 08-27-2022 History of Present illness Narrative Radiation Oncology - On Treatment Review (OTR) Note PATIENT NAME: Sheron Erazo PATIENT DIAGNOSIS: Prostate adenocarcinoma, initial PSA 18.77, biopsy [place] score 3 + 4 = 7 (grade group 2), clinical stage T2a, N0, M0, stage IIB [T1-T2, N0, M0, PSA <20, GG 2] (AJCC 8th ed.), s/p TRUS Random and MR Targeted biopsy. Prostate cancer (C61), 2018 NCCN Risk Group: Unfavorable Intermediate Risk Group COURSE: definitive Current dose: 3420 cGy in 19 fx Planned dose: 4500 cGy in 25 fx SUBJECTIVE: Doing well denies changes or problems. PHYSICAL EXAM: 08/27/22 1301 BP: 149/69 Pulse: 96 Resp: 18 Temp: 36.4 C (97.6 F) TempSrc: Temporal Weight: 107.8 kg (237 lb 9.6 oz) KPS: 100 General Appearance: Alert and oriented. No acute distress. IMAGING/LAB RESULTS: None TOXICITY ASSESSMENT (CTC v4.0): Fatigue:grade 0 - No symptoms Radiation Dermatitis: grade 0 - No symptoms Diarrhea:grade 1 Proctitis: grade 0 - No symptoms Urinary frequency: grade 0 - No symptoms Dysuria: grade 0 - No symptoms Urinary incontinence: grade 0 (No symptoms) Urinary retention: grade 0 - No symptoms Treatment chart checked: Yes Patient treatment site reviewed and verified:Yes Port films reviewed and current:Yes Medications started: None ASSESSMENT/PLAN: Patient doing well. Chart and imaging reviewed. Continue radiation as outlined. Adelso Love MD documented in this encounter [facility] 08-20-2022 History of Present illness Narrative Radiation Oncology - On Treatment Review (OTR) Note PATIENT NAME: Sheron Erazo PATIENT DIAGNOSIS: Prostate adenocarcinoma, initial PSA 18.77, biopsy [place] score 3 + 4 = 7 (grade group 2), clinical stage T2a, N0, M0, stage IIB [T1-T2, N0, M0, PSA <20, GG 2] (AJCC 8th ed.), s/p TRUS Random and MR Targeted biopsy. Prostate cancer (C61), 2019 NCCN Risk Group: Unfavorable Intermediate Risk Group COURSE: definitive Current dose: 2520 cGy in 14 fx Planned dose: 4500 cGy in 25 fx SUBJECTIVE: Doing well denies changes or problems. PHYSICAL EXAM: 08/20/22 1254 BP: 145/74 Pulse: 78 Resp: 18 Temp: 36.1 C (96.9 F) SpO2: 95% Weight: 108 kg (238 lb) KPS: 100 General Appearance: Alert and oriented. No acute distress. IMAGING/LAB RESULTS: None TOXICITY ASSESSMENT (CTC v4.0): Fatigue:grade 0 - No symptoms Radiation Dermatitis: grade 0 - No symptoms Diarrhea:grade 0 - No symptoms Proctitis: grade 0 - No symptoms Urinary frequency: grade 0 - No symptoms Dysuria: grade 0 - No symptoms Urinary incontinence: grade 0 (No symptoms) Urinary retention: grade 0 - No symptoms Treatment chart checked: Yes Patient treatment site reviewed and verified:Yes Port films reviewed and current:Yes Medications started: None ASSESSMENT/PLAN: Patient doing well. Chart and imaging reviewed. Continue radiation as outlined. Adelso Love MD documented in this encounter [facility] 08-13-2022 History of Present illness Narrative Radiation Oncology - On Treatment Review (OTR) Note PATIENT NAME: Sheron Erazo PATIENT DIAGNOSIS: Prostate adenocarcinoma, initial PSA 18.77, biopsy [place] score 3 + 4 = 7 (grade group 2), clinical stage T2a, N0, M0, stage IIB [T1-T2, N0, M0, PSA <20, GG 2] (AJCC 8th ed.), s/p TRUS Random and MR Targeted biopsy. Prostate cancer (C61), 2019 NCCN Risk Group: Unfavorable Intermediate Risk Group COURSE: definitive Current dose: 1620 cGy in 9 fx Planned dose: 4500 cGy in 25 fx SUBJECTIVE: Doing well no new problems. PHYSICAL EXAM: 08/13/22 1259 BP: 174/80 Pulse: 98 Resp: 18 Temp: 36.6 C (97.9 F) SpO2: 91% Weight: 104.8 kg (231 lb) KPS: 100 General Appearance: Alert and oriented. No acute distress. IMAGING/LAB RESULTS: None TOXICITY ASSESSMENT (CTC v4.0): Fatigue:grade 0 - No symptoms Radiation Dermatitis: grade 0 - No symptoms Diarrhea:grade 0 - No symptoms Proctitis: grade 0 - No symptoms Urinary frequency: grade 0 - No symptoms Dysuria: grade 0 - No symptoms Urinary incontinence: grade 0 (No symptoms) Urinary retention: grade 0 - No symptoms Treatment chart checked: Yes Patient treatment site reviewed and verified:Yes Port films reviewed and current:Yes Medications started: None ASSESSMENT/PLAN: Patient doing well. Chart and imaging reviewed. Continue radiation as outlined. Adelso Love MD documented in this encounter [facility] 08-10-2022 History of Present illness Narrative Radiation Oncology - On Treatment Review (OTR) Note PATIENT NAME: Sheron Erazo PATIENT DIAGNOSIS: Prostate adenocarcinoma, initial PSA 18.77, biopsy [place] score 3 + 4 = 7 (grade group 2), clinical stage T2a, N0, M0, stage IIB [T1-T2, N0, M0, PSA <20, GG 2] (AJCC 8th ed.), s/p TRUS Random and MR Targeted biopsy. Prostate cancer (C61), 2019 NCCN Risk Group: Unfavorable Intermediate Risk Group COURSE: definitive Current dose: 720 cGy in 4 fx Planned dose: 4500 cGy in 25 fx SUBJECTIVE: No new concerns. PHYSICAL EXAM: KPS: 100 General Appearance: Alert and oriented. No acute distress. IMAGING/LAB RESULTS: None TOXICITY ASSESSMENT (CTC v4.0): Fatigue:grade 0 - No symptoms Radiation Dermatitis: grade 0 - No symptoms Diarrhea:grade 0 - No symptoms Proctitis: grade 0 - No symptoms Urinary frequency: grade 0 - No symptoms Dysuria: grade 0 - No symptoms Urinary incontinence: grade 0 (No symptoms) Urinary retention: grade 0 - No symptoms Treatment chart checked: Yes Patient treatment site reviewed and verified:Yes Port films reviewed and current:Yes Medications started: None ASSESSMENT/PLAN: Patient doing well. Chart and imaging reviewed. Continue radiation as outlined. Adelso Love MD documented in this encounter [facility] 08-01-2022 History of Present illness Narrative Radiation Oncology - On Treatment Review (OTR) Note PATIENT NAME: Sheron Erazo PATIENT DIAGNOSIS: Prostate adenocarcinoma, initial PSA 18.77, biopsy [place] score 3 + 4 = 7 (grade group 2), clinical stage T2a, N0, M0, stage IIB [T1-T2, N0, M0, PSA <20, GG 2] (AJCC 8th ed.), s/p TRUS Random and MR Targeted biopsy. Prostate cancer (C61), 2019 NCCN Risk Group: Unfavorable Intermediate Risk Group COURSE: definitive Current dose: 180 cGy in 1 fx Planned dose: 4500 cGy in 25 fx SUBJECTIVE: Here to start radiation, doing well. PHYSICAL EXAM: KPS: 100 General Appearance: Alert and oriented. No acute distress. IMAGING/LAB RESULTS: None TOXICITY ASSESSMENT (CTC v4.0): Fatigue:grade 0 - No symptoms Radiation Dermatitis: grade 0 - No symptoms Diarrhea:grade 0 - No symptoms Proctitis: grade 0 - No symptoms Urinary frequency: grade 0 - No symptoms Dysuria: grade 0 - No symptoms Urinary incontinence: grade 0 (No symptoms) Urinary retention: grade 0 - No symptoms Treatment chart checked: Yes Patient treatment site reviewed and verified:Yes Port films reviewed and current:Yes Medications started: None ASSESSMENT/PLAN: Patient starting radiation today. Plan of care and expectations again reviewed. Plan, MU calculations and qa report reviewed. Initial imaging including cone beam ct and verification reviewed and approved. First treatment given. Continue radiation as prescribed. Adelso Love MD documented in this encounter [facility] 07-31-2022 Miscellaneous Notes CBC order the second week of radiation is pending your approval. Tomeka Carrera LPN documented in this encounter [facility] 07-27-2022 History of Present illness Narrative sim documented in this encounter [facility] 07-26-2022 History of Present illness Narrative SHERON ERAZO [id number] 07/26/2022 [facility] Radiation Oncology Department SIMULATION NOTE DATE OF SIMULATION: 07/26/2022 THERAPIST: Darya Flores MACHINE: [employer] mCT DIAGNOSIS: Malignant neoplasm of [id number] AREA: PROSTATE CONTRAST: None Consent in Epic: Yes PATIENT POSITION: Supine. FIXATION DEVICE: In order to achieve accurate and reproducible treatments, the patient is immobilized with head on two pillows, sbrt knee sponge, custom vac bag A time-out was conducted and recorded by the therapist. CT scan was completed for target localization and planning. Field arrangement will be determined after plan has been completed. The patient is scheduled for a verification simulation on the treatment machine to ensure proper set-up and field arrangement is correct prior to the first treatment of primary and boost rivera if applicable. Patient education will be completed per nursing. Electronically Signed Quinten Love M.D. / CDT 2:51 PM documented in this encounter [facility] 06-28-2022 Nurse Note NEY Torres RN documented in this encounter [facility] 06-28-2022 History of Present illness Narrative Radiation Oncology - Prostate Cancer New Patient/Consult Note PATIENT NAME: Sheron Erazo PATIENT REQUESTING PROVIDER: Dr. Trinidad DIAGNOSIS: 67 year old male with prostate adenocarcinoma, initial PSA 18.77, biopsy [place] score 3 + 4 = 7 (grade group 2), clinical stage T2a, N0, M0, stage IIB [T1-T2, N0, M0, PSA <20, GG 2] (AJCC 8th ed.), s/p TRUS Random and MR Targeted biopsy. Cancer Staging No matching staging information was found for the patient. HPI: 67 year old male with prostate adenocarcinoma who presents for an opinion regarding the role of radiation therapy in the management of the patient's disease. Final recommendations will be communicated back to the requesting physician by way of the shared medical record, or letter to requesting physician via US mail. The patient was diagnosed with prostate cancer and comes in today to discuss treatment options. Patient has a history of elevated and rising PSA. He has had a prior biopsy without remarkable findings in 2013 and 2016. Most recent PSA 18.77 on 06/11/2022. Previous PSA values: 08/14/2019 12.1 2017 7.1 He underwent prostate MRI on 10/10/2021, which demonstrated: 46.9 cm gland. PI-RADS 4 lesion left anterior transitional zone, 6 x 12 x 13 mm, second lesion peripheral zone midline at the apex. No extraprostatic extension. No seminal vesicle invasion noted. No evidence of suspicious adenopathy or bony changes. Prostate biopsy on February 09, 2022 revealed: Adenocarcinoma Kenan 7 (3+4) involving region of interest, grade 2, seen in 1 cores, 11% of the core. In addition to Kenan 6 (3+3) from L3 biopsy, 25% of that core Total # of positive biopsy cores: 2 Total # of biopsy cores sampled: 10 Greatest % cancer in any single core: 25-50% Staging Studies: MR Results: see hpi Bone Scan Results: 03/02/2022, no evidence of metastatic disease CAT Scan Results: CT abdomen and pelvis 03/02/2022 no suspicious findings notable. Previous Treatment for Prostate Cancer: None Genomic Testing: None The patient reports the following pertinent history: Urinary frequency (D/N): 4-6/1-2 Dysuria: No Incontinence: 1- No pads Hematuria: No AUA=4 Bowel Movement Frequency: 1/day Bowel Movement Quality: Normal Blood per Rectum: No Last Colonoscopy: na Baseline Erectile Function: 1- Normal Androgen Deprivation: none Prior Radiation Therapy, Collagen Vascular Disease, or Inflammatory Bowel Disease: No Currently on Anticoagulation: No History of Hip Replacement: No History of Prior TURP: No ALLERGIES No Known Allergies metFORMIN (GLUCOPHAGE) 1,000 mg tablet montelukast (SINGULAIR) 10 mg tablet ergocalciferol 50,000 unit capsule (VITAMIN D2, DRISDOL) q 24 HR. famotidine (PEPCID) 40 mg tablet TRELEGY ELLIPTA 100-62.5-25 mcg inhalation powder aspirin 81 mg chewable tablet q 24 HR. rosuvastatin (CRESTOR) 40 mg tablet spironolactone (ALDACTONE) 50 mg tablet ertugliflozin (STEGLATRO) 5 mg tablet Take 7.5 mg by mouth once daily. roflumilast (DALIRESP) 500 mcg tab Take 500 mcg by mouth once daily. PAST MEDICAL HISTORY Diagnosis Date COPD (chronic obstructive pulmonary disease) (HCC) Diabetes mellitus (HCC) HTN (hypertension) Hypercholesteremia PAST SURGICAL HISTORY Procedure Laterality Date TONSILLECTOMY & ADENOIDECTOMY <AGE 12 FAMILY HISTORY Problem Relation Age of Onset other (bone cancer) Maternal Grandmother Cancer Maternal Aunt Social History Tobacco Use Smoking status: Former Packs/day: 1.00 Years: 35.00 Pack years: 35.00 Types: Cigarettes Quit date: 2017 Years since quittin.7 Smokeless tobacco: Never Substance Use Topics Alcohol use: Never Drug use: Never REVIEW OF SYSTEMS: GENERAL: feeling well without fatigue, no recent change in weight NECK: denies swelling or pain in neck RESPIRATORY: no cough, no wheezing or shortness of breath CARDIOVASCULAR: no chest pain, no palpitations MUSCULOSKELETAL: denies any painful or swollen joints, no muscle aches SKIN: no rash NEURO: no numbness or paresthesias and no weakness of the extremities PHYSICAL EXAM: VS: BP 150/91 Pulse 95 Temp 36.7 C (98 F) Resp 20 Ht 181 cm (5' 11.25 ) Wt 106.1 kg (234 lb) SpO2 93% BMI 32.41 kg/m KARNOFSKY PERFORMANCE STATUS: 100 General Appearance: Alert and oriented. No acute distress. HEENT: NCAT. Sclera anicteric. PERRL. EOMI. Neck: Normal ROM. No palpable cervical or supraclavicular adenopathy. Chest: No respiratory distress. Lungs clear to auscultation bilaterally. Heart: Regular rate and rhythm. Abdomen: Soft. Nontender. Nondistended. Musculoskeletal: No edema. Normal ROM in extremities. No bone or spine tenderness. Neuro: Speech fluent. Gait normal. No focal deficits. Skin: No rashes noted Lymphatics: No palpable lymphadenopathy. GENITOURINARY: Deferred exam RECTAL: Deferred exam RADIOLOGY/LABORATORY DATA: see HPI ASSESSMENT/PLAN: Prostate adenocarcinoma, initial PSA 18.77, biopsy [place] score 3 + 4 = 7 (grade group 2), clinical stage T2a, N0, M0, stage IIB [T1-T2, N0, M0, PSA <20, GG 2] (AJCC 8th ed.), s/p TRUS Random and MR Targeted biopsy. Prostate cancer (C61), 2019 NCCN Risk Group: Unfavorable Intermediate Risk Group Clinical State: Localized Cancer - New Diagnosis Patient has a localized unfavorable intermediate risk presentations. Otherwise performance status is excellent. I certainly do feel definitive treatment is warranted. We discussed options including both surgical and radiation approaches. We spent considerable time on radiation options including both external beam and brachytherapy. Discussed EBRT moderate hypofractionated treatment and brachytherapy as monotherapy as well as combined radiation with brachytherapy boost and additon of ADT given his psa of nearly 20. Patient expressed understanding of the information presented, and wants to proceed with combined treatment. Discussed with patient potential acute and long-term effects of treatment. Discussed radiation safety precautions after brachytherapy component. We will plan to coordinate treatment with Dr. Trinidad office. Signed by: Adelso Love MD cc: Ernie Elliott Jr, DO ([facility]) [address] [facility] [address] [place] [address] [place] Trinidad [address] [facility] [address] documented in this encounter [facility] 06-25-2022 Hospital Discharge instructions Patient Education [...] including vitamins, herbs, eye drops, creams, and wlto-rku-mofgzad medicines. Any problems you or family members [...] 03/10/2007 Document Revised: 09/12/2018 Document Reviewed: 10/09/2017 [employer] Patient Education 2020 [employer]. Follow Up Care 02/16/2022 11:08:20 With:TANISHA GILL, [place], URL Address: [facility] [address] [place] [address] [phone] When: Unknown [facility] 02-16-2022 Hospital Discharge instructions Patient Education [...] who: Are older than age 65. Are -Slovenian. Are obese. Have a family history of [...] cells. Follow these instructions at home: Take saeg-qnk-xufzkis and prescription medicines only as told by [...] 09/30/2006 Document Revised: 09/12/2018 Document Reviewed: 06/10/2017 [employer] Patient Education 2020 [employer]. Follow Up Care 01/22/2022 16:42:55 With:TANISHA GILL, [place], URL Address: [facility] [address], [place] [address]- When:06/19/2022 Comments:w/ LESVIA [facility] 01-29-2022 Note EXAMINATION: XR CHES T 2 [...] Future Appointments Appointment Date:03/30/2022 08:30:00 AM Scheduled Provider:Ky TRINIDAD MD [facility] App[facility] Type:URO Office Visit Appointment Date:06/25/2022 02:15:00 PM Scheduled Provider:Ky TRINIDAD MD [facility] Appointment Type:URO Office Visit Diagnostic Tests PendingPSA Total 02/16/22 [facility] Evaluation + Plan note [facility] Evaluation + Plan note Future Appointments Appointment Date:10/29/2022 01:30:00 PM Scheduled Provider:Ky TRINIDAD MD [facility] Appointment Type:URO Office Visit Appointment Date:01/14/2023 01:15:00 PM Scheduled Provider:Ky TRINIDAD MD [facility] Appointment Type:URO Office Visit [facility] Evaluation + Plan note Future Appointments Appointment Date:01/14/2023 01:15:00 PM Scheduled Provider:Ky TRINIDAD MD [facility] Appointment Type:URO Office Visit Appointment Date:02/04/2023 01:15:00 PM Scheduled Provider:Ky TRINIDAD [facility] Type:[facility]O Office Visit Diagnostic Tests PendingPSA Total 10/29/22 [facility] Evaluation + Plan note Future Appointments Appointment Date:09/16/2023 01:45:00 PM Scheduled Provider:Ky TRINIDAD MD [facility] Appoint[facility] Type:URO Office Visit Diagnostic Tests PendingPSA Total 01/14/23 [facility] Evaluation + Plan note Future Appointments Appointment Date:03/23/2024 01:45:00 PM Scheduled Provider:Ky TRINIDAD MD Location:[facility] Appointment Type:URO Office Visit Diagnostic Tests PendingPSA Total 09/16/[address] [facility] Evaluation + Plan note Future Appointments Appointment Date:04/05/2025 01:15:00 PM Scheduled Provider:Ky TRINIDAD MD Location:[facility] Appointment Type:URO Office Visit Diagnostic Tests PendingPSA Total 03/30/[address] [facility] Evaluation note Diagnosis Malignant neoplasm of prostate (HCC)- Primary Malignant neoplasm of [facility] Prostate cancer (H[facility])- Primary Malignant neoplasm of prostate [facility] Pro[facility] cancer ([facility])- [facility] of [facility] Diagnosis Malignant neoplasm of prostate (HCC)- Primary Malignant neoplasm of [facility] Diagnosis Malignant neoplasm of prostate (HCC)- Primary Malignant neoplasm of prostate [facility] Diagnosis Malignant neoplasm of prostate (HCC)- Primary Malignant neoplasm of prostate [facility] Diagnosis Malignant neoplasm of prostate (HCC)- Primary Malignant [facility]oplasm of prostate [facility] Diagnosis Malignant neoplasm of prostate (HCC)- Primary Malignant neoplasm of prostate [facility] Diagnosis Malignant neoplasm of prostate (HCC)- Primary Malignant neoplasm of prostate [facility] Diagnosis Malignant neoplasm of prostate (HCC)- Primary Malignant neoplasm of prostate [facility] Diagnosis Malignant neoplasm of prostate (HCC)- Primary Malignant neoplasm of prostate [facility] Diagnosis Malignant neoplasm of prostate (HCC)- Primary Malignant neoplasm of prostate [facility] Diagnosis History of prostate cancer- Primary Personal history of malignant neoplasm of prostate documented in this encounter [facility] note* Diagnosis History of prostate cancer- Primary Personal history of malignant neoplasm of prostate documented in this encounter [facility] note* Diagnosis History of prostate cancer- Primary Personal history of malignant neoplasm of prostate [facility] Narrative No data available for this section [facility] Hospital Discharge instructions No data available for this section [facility] progress note No data available for this section [facility] [place] [facility] reason for referral (narrative) Referred by: TANISHA GILL, [place] [facility] [place] [employer] reasvs for visit Narrative* Diagnostic Procedure Only (Routine) - Closed Specialty Diagnoses / Procedures Referred By Adam silver Referred To Contact Radiology / RADIO PET CT SAND Diagnoses Post Implant CT Procedures CT POST OP SEED IMPLANT Ernie Elliott Jr., [address] [place] [address] [place] [address] Referral ID Status Reason Start Date Expiration Date Visits Re quested Visits Authorized [id number] Closed 10/25/2022 11/25/2022 1 1 [facility] Summary Purpose Family History No Family [...] and content) DATE CREATED AUTHOR 04/01/2018 [facility] DATE CREATED AUTHOR AUTHOR'S ORGANIZ ATION 10/20/2021 [facility] DATE CREATED AUTHOR AUTHOR'S ORGANIZ ATION 01/01/2022 [facility] DATE CREATED AUTHOR AUTHOR'S ORGANIZ ATION 01/16/2023 [facility] DATE CREATED AUTHOR AUTHOR'S ORGANIZ ATION 01/19/2023 [facility] DATE CREATED AUTHOR AUTHOR'S ORGANIZ ATION 04/09/2023 [facility] DATE CREATED AUTHOR AUTHOR'S ORGANIZ ATION 04/09/2023 [employer] DATE CREATED AUTHOR AUTHOR'S ORGANIZ ATION 04/01/2024 [facility] DATE CREATED AUTHOR AUTHOR'S ORGANIZ ATION 12/12/2024 [facility] Care Team (unrecognized sect ion and content) 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 [address] [place] [address] PCP - General Internal Medicine 02/02/15 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 [address] [place] [address] PCP - General Internal Medicine 02/02/15 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 [address] [place] [address] PCP - General Internal Medicine 02/02/15 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 [address] [place] [address] PCP - General Internal Medicine 02/02/15 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 [address] [place] [address] PCP - General Internal Medicine 02/02/15 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 [address] [place] [address] PCP - General Internal Medicine 02/02/15 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 [address] [place] [address] PCP - General Internal Medicine 02/02/15 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 [address] [place] [address] PCP - General Internal Medicine 02/02/15 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 [address] [place] [address] PCP - General Internal Medicine 02/02/15 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 [address] [place] [address] PCP - General Internal Medicine 02/02/15 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, DO [address] [place] [phone] PCP - General Internal Medicine 02/02/15 Source Comments (unrecognize d section and content) In the event this informatio n is protected by the Federal Confidentiality of Alcohol and Drug Abuse Patient Records regulations: The Federal rules restrict any use of the information to criminally investigate or prosecute any alcohol or drug abuse patient.[facility] the event this information is protected by the Federal Confidentiality of Alcohol and Drug Abuse Patient Records regulations: The Federal rules restrict any use of the information to criminally investigate or prosecute any alcohol or drug abuse patient.[facility] the event this information is protected by the Federal Confidentiality of Alcohol and Drug Abuse Patient Records regulations: The Federal rules restrict any use of the information to criminally investigate or prosecute any alcohol or drug abuse patient.[facility] the event this information is protected by the Federal Confidentiality of Alcohol and Drug Abuse Patient Records regulations: The Federal rules restrict any use of the information to criminally investigate or prosecute any alcohol or drug abuse patient.[facility] the event this information is protected by the Federal Confidentiality of Alcohol and Drug Abuse Patient Records regulations: The Federal rules restrict any use of the information to criminally investigate or prosecute any alcohol or drug abuse patient.[facility] the event this information is protected by the Federal Confidentiality of Alcohol and Drug Abuse Patient Records regulations: The Federal rules restrict any use of the information to criminally investigate or prosecute any alcohol or drug abuse patient.[facility] the event this information is protected by the Federal Confidentiality of Alcohol and Drug Abuse Patient Records regulations: The Federal rules restrict any use of the information to criminally investigate or prosecute any alcohol or drug abuse patient.[facility] the event this information is protected by the Federal Confidentiality of Alcohol and Drug Abuse Patient Records regulations: The Federal rules restrict any use of the information to criminally investigate or prosecute any alcohol or drug abuse patient.[facility] the event this information is protected by the Federal Confidentiality of Alcohol and Drug Abuse Patient Records regulations: The Federal rules restrict any use of the information to criminally investigate or prosecute any alcohol or drug abuse patient.[facility] the event this information is protected by the Federal Confidentiality of Alcohol and Drug Abuse Patient Records regulations: The Federal rules restrict any use of the information to criminally investigate or prosecute any alcohol or drug abuse patient.[facility] the event this information is protected by the Federal Confidentiality of Alcohol and Drug Abuse Patient Records regulations: The Federal rules restrict any use of the information to criminally investigate or prosecute any alcohol or drug abuse patient.[facility] the event this information is protected by the Federal Confidentiality of Alcohol and Drug Abuse Patient Records regulations: The Federal rules restrict any use of the information to criminally investigate or prosecute any alcohol or drug abuse patient.[facility] the event this information is protected by the Federal Confidentiality of Alcohol and Drug Abuse Patient Records regulations: The Federal rules restrict any use of the information to criminally investigate or prosecute any alcohol or drug abuse patient.[facility] the event this information is protected by the Federal Confidentiality of Alcohol and Drug Abuse Patient Records regulations: The Federal rules restrict any use of the information to criminally investigate or prosecute any alcohol or drug abuse patient.[facility] the event this information is protected by the Federal Confidentiality of Alcohol and Drug Abuse Patient Records regulations: The Federal rules restrict any use of the information to criminally investigate or prosecute any alcohol or drug abuse patient.[facility] the event this information is protected by the Federal Confidentiality of Alcohol and Drug Abuse Patient Records regulations: The Federal rules restrict any use of the information to criminally investigate or prosecute any alcohol or drug abuse patient.[facility] the event this information is protected by the Federal Confidentiality of Alcohol and Drug Abuse Patient Records regulations: The Federal rules restrict any use of the information to criminally investigate or prosecute any alcohol or drug abuse patient.[facility] the event this information is protected by the Federal Confidentiality of Alcohol and Drug Abuse Patient Records regulations: The Federal rules restrict any use of the information to criminally investigate or prosecute any alcohol or drug abuse patient.[facility] the event this information is protected by the Federal Confidentiality of Alcohol and Drug Abuse Patient Records regulations: The Federal rules restrict any use of the information to criminally investigate or prosecute any alcohol or drug abuse patient.[facility] the event this information is protected by the Federal Confidentiality of Alcohol and Drug Abuse Patient Records regulations: The Federal rules restrict any use of the information to criminally investigate or prosecute any alcohol or drug abuse patient.[facility] the event this information is protected by the Federal Confidentiality of Alcohol and Drug Abuse Patient Records regulations: The Federal rules restrict any use of the information to criminally investigate or prosecute any alcohol or drug abuse patient.[facility] the event this information is protected by the Federal Confidentiality of Alcohol and Drug Abuse Patient Records regulations: The Federal rules restrict any use of the information to criminally investigate or prosecute any alcohol or drug abuse patient.[facility] Reason for Visit (unrecogniz ed section and content) Reason Comments Prostate Cancer Reason Onset Date Comments Simulation Request Form 07/26/2022 Reason Comments Orders Reason Comments Radiotherapy On-treatment Visit Reason Comments Prostate Cancer Weekly check Reason Comments Prostate Cancer Follow up Reason Comments Appointment Specialty Diagnoses / Procedures Referred By Contac t Referred To Contact Radiation Oncology / RADIATION ONCOLOGY Diagnoses Malignant neoplasm of prostate pre SIM Procedures SIMULATION MILY IMRT 35 fractions / brachy boost Adelso Love MD [address] [place] [address] [place] [address] Adelso Love MD [address] [place] [address] [place] [address] Referral ID Status Reason Start Date Expiration Date Visits Re quested Visits Authorized [id number] Closed 07/26/2022 10/24/2022 35 35 FOR RECORDS PERTAINING TO PATIENTS WHO ARE [...] BE BASED ON THE PRIMARY CLINICAL RECORDS. [facility] [employer] [facility]. provides no warranty or guarantee of the accuracy or completeness of information in this document.
[2025-03-03 14:13] LABS: Prostate Specific Antigen Dx <0.13 ng/mL (<=4.00)
== END 2025-03-03 12:33 | disposition home or self-care (01) ==
LOC: LAB 12:34
PROVIDERS: PCP Internal Medicine; Visit Provider Urology
DX: N40.1 Benign prostatic hyperplasia with lower urinary tract symptoms (principal); C61 Malignant neoplasm of prostate
CPT/HCPCS: 36415; 84153